=== PATIENT | female | born 1960 | race Caucasian/White ===

== ENCOUNTER → 2021-07-24 20:18 | Outpatient (CLI) | payer MEDICAID, SELFPAY ==
[2021-07-24 20:21] LABS: Adenovirus,PCR Not Detected (NotDetected); Bordetella Pertussis Not Detected (NotDetected); Chlamydophila Pneumoniae, PCR Not Detected (NotDetected); Coronavirus 19, PCR Not Detected (NotDetected); Coronavirus 229E Not Detected (NotDetected); Coronavirus NL63 Not Detected (NotDetected); Coronavirus OC43 Not Detected (NotDetected); Coronovirus HKU1,PCR Not Detected (NotDetected); Human Metapneumovirus Not Detected (NotDetected); Influenza A, PCR Not Detected (NotDetected); Influenza AH1, 2009 Not Detected (NotDetected); Influenza AH1, PCR Not Detected (NotDetected); Influenza AH3,PCR Not Detected (NotDetected); Influenza B, PCR Not Detected (NotDetected); Mycoplasma Pneumoniae, PCR Not Detected (NotDetected); Parainfluenza 1, PCR Not Detected (NotDetected); Parainfluenza 2, PCR Not Detected (NotDetected); Parainfluenza 3, PCR Not Detected (NotDetected); Parainfluenza 4, PCR Not Detected (NotDetected); Respiratory Syncytial Virus Not Detected (NotDetected); Rhinovirus/Enterovirus Not Detected (NotDetected)
== END ==
PROVIDERS: Visit Provider Nurse Practitioner Family
DX: Z20.822 Contact with and (suspected) exposure to COVID-19 (principal); R50.9 Fever, unspecified; R09.89 Other specified symptoms and signs involving the circulatory and respiratory systems
CPT/HCPCS: 87581; 87632; 87798; C9803; U0003; U0005

== ENCOUNTER → 2021-08-30 10:30 | Outpatient (CLI) | payer MEDICAID, SELFPAY | PROVIDERS: Visit Provider Nurse Practitioner | DX: Z20.822 Contact with and (suspected) exposure to COVID-19 (principal) | CPT/HCPCS: C9803; U0003; U0005 ==

== ENCOUNTER 2021-10-30 10:42 | Emergency (ER) | payer MEDICAID, SELFPAY ==
[2021-10-30 12:22] VITALS: BP 138/85; PULSE 90; RESP 18; TEMP 36.7; O2SAT 98; BMI 19.3
--- NOTE | 2021-10-30 12:28 | HMH.EDUTC ---
[facility] Disposition Clinical Impression: Abdominal pain Qualifiers: Abdominal location: generalized Qualified Code(s): R10.84 - Generalized abdominal pain Disposition: Still a Patient Condition on Discharge: Fair Referrals: Provider,Referral, [Primary Care Provider] - Medical Decision Making - Medical Records Medical records reviewed: No: I reviewed the patient's medical records. - Nestor Inquiry Pt receiving controlled substance: No Vital Signs: 10/30/21 12:22 Temperature 98.1 F Temperature Source Oral Pulse Rate [Left] 90 Respiratory Rate 18 Blood Pressure [Right Arm] 138/85 Blood Pressure Mean [Right Arm] 102 02 Sat by Pulse Oximetry 98 - Lab Data Lab results reviewed: Yes: I reviewed the patient's lab results. Lab Results 10/30/21 12:39: Urine Color Dark yellow, Urine Appearance Slightly cloudy, Urine pH 6.5, Ur Specific Lily 1.025, Urine Protein 1+, Urine Glucose (UA) Negative, Urine Ketones Small, Urine Blood Negative, Urine Nitrate Negative, Urine Bilirubin Negative, Urine Urobilinogen 0.2, Ur Leukocyte Esterase Negative 10/30/21 13:05: WBC 9.6, RBC 4.75, Hgb 14.2, Hct 44.0, MCV 92.5, MCH 29.9, MCHC 32.3, RDW 12.0, Plt Count 301, MPV 7.4, Neut % (Auto) 89.6 H, Lymph % (Auto) 7.9 L, [place] % (Auto) 1.7, Eos % (Auto) 0.5, Baso % (Auto) 0.3, Neut # (Auto) 8.6 H, Lymph # (Auto) 0.8, [place] # (Auto) 0.2, Eos # (Auto) 0.1, Baso # (Auto) 0.0 10/30/21 13:05: Sodium 128 L, Potassium 4.6, Chloride 96 L, Carbon Dioxide 26, Anion Gap 10.6, BUN 21 H, Creatinine 0.90, Estimated Creat Clear 57, Estimated GFR 64, Est GFR ( Amer) 77, Glucose 120 H, Calcium 8.7, Total Bilirubin 0.8, AST 37 H, ALT 27, Alkaline Phosphatase 80, Total Protein 7.2, Albumin 4.7, Globulin 2.5, Albumin/Globulin Ratio 1.9 H, Amylase 73, Lipase 23 Result diagrams: 10/30/21 13:05 10/30/21 13:05 Orders (Tests/Meds): ORDERS Category Date Time Status CBC w/Auto Diff [Complete Blood Count Auto Diff] Stat Lab 10/30/21 13:05 Results Urine Culture Stat Micro 10/30/21 14:34 Received Medical Decision Narrative: she was sent to the er for further evaluation due to her abdominal pain with no obvious etiology. [facility] HPI - General Stated complaint: vomiting, abd pains Time Seen by Provider: 10/30/21 12:28 - History of Present Illness Provider Complaint: She has onging issues with abdominal pain, nausea, frequent episodes of n/v. She has a history of chronic constipation and this has not changed. - Related Data Home Medications Medication Instructions Recorded Confirmed duloxetine 20 mg capsule,delayed 20 mg PO BID 07/24/21 07/24/21 release omeprazole 10 mg capsule,delayed 10 mg PO DAILY 07/24/21 07/24/21 release ondansetron HCl 4 mg tablet 4 mg PO Q8H 07/24/21 07/24/21 quetiapine 25 mg tablet 25 mg PO DAILY 07/24/21 07/24/21 Previous Rx's Medication Instructions Recorded azithromycin 250 mg tablet 250 mg PO QDAY 5 Days #6 tab 07/24/21 Allergies Allergy/AdvReac Type Severity Reaction Status Date / Time No Known Allergies Allergy Verified 07/24/21 13:22 [facility] History - Hepatitis A Screen Attestation statement:: This patient has been screened for Hepatitis A risk factors. I have reviewed the patient's past medical history: Yes Medical History: Reports:: Depression, Gastroesophageal Reflux Disease(GERD) Other Medical History: Reports: Other (PTSD) Other Surgeries: Yes: No Previous Surgery - Social History Smoking Status: Current every day smoker Tobacco Type: cigarettes (1 pack ever 2-3 days) Alcohol Intake: never Occupational Status: unemployed - Psychiatric History Pschychiatric History:: Reports:: Depression Family Hx:: Non-contributory ROS Obtained: Yes All systems reviewed & no additional complaints - Constitutional Constitutional: Reports as per HPI, Denies chills, Denies fever(s), Reports poor appetite - Eyes Eyes: Denies eye discharge - ENT Ears, Nose, Mouth, and Throa
[2021-10-30 12:40] LABS: Apearance,Urine Slightly Cloudy (Clear); Color,Urine Dark Yellow (Yellow); PH,Urine 6.5 (5.0-8.5); Protein,Urine 1+ (Negative); Specific Gravity, Urine 1.025 (1.005-1.030)
[2021-10-30 12:41] LABS: Bilirubin,Urine Negative (Negative); Blood, Urine Negative (Negative); Glucose,Urine (UA) Negative (Negative); Ketones,Urine SMALL (Negative); UTC Leukocyte Esterase,Urine Negative (Negative); UTC Nitrate,Urine Negative (Negative); Urobilinogen,Urine 0.2 EU/dl (0.2)
[2021-10-30 13:21] LABS: Chloride 96 mmol/L (98-107); Potassium 4.6 mmoL/L (3.5-5.1); Sodium 128 mmol/L (136-145)
[2021-10-30 13:24] LABS: Alanine Aminotransferase 27 U/L (12-78); Albumin Level 4.7 g/dl (3.5-5.0); Albumin/Globulin Ratio 1.9 (1.1-1.8); Alkaline Phosphatase 80 U/L (38-126); Amylase 73 U/L (30-110); Anion Gap 10.6 mEq/L (5-15); Aspartate Amino Transferase 37 U/L (14-36); Bilirubin,Total 0.8 mg/dl (0.2-1.3); Blood Urea Nitrogen 21 mg/dl (7-17); Calcium 8.7 mg/dl (8.4-10.2); Carbon Dioxide 26 mmol/L (22.0-30.0); Creatinine Clearance Estimated 57 mL/min (50-200); Estimated Glomerular Filt Rate 64 ml/min (>60); GFR (African American) 77 ML/MIN (>60); Globulin 2.5 g/dL (1.3-3.2); Glucose 120 mg/dl (74-100); Lipase 23 U/L (23-300); Total Protein,Serum 7.2 g/dl (6.3-8.2)
[2021-10-30 13:59] LABS: Basophils % 0.3 % (0.1-2.0); Eosinophils # 0.1 K/mm3 (0.0-0.4); Eosinophils % 0.5 % (0.1-12.0); Hemoglobin 14.2 g/dL (12.2-16.2); Lymphocytes # 0.8 K/mm3 (0.7-4.5); Lymphocytes % 7.9 % (10-50); Mean Corpuscular HGB Conc 32.3 g/dL (31.8-35.4); Mean Corpuscular Hemoglobin 29.9 pg (27.0-31.2); Mean Corpuscular Volume 92.5 fl (81-99); Mean Platelet Volume 7.4 fl (7.4-10.4); Monocytes # 0.2 K/mm3 (0.1-1.0); Monocytes % 1.7 % (1.7-9.3); Neutrophils # 8.6 K/mm3 (1.8-7.8); Neutrophils % 89.6 % (37.0-80.0); Platelet Count 301 K/mm3 (142-424); Red Blood Count 4.75 M/mm3 (4.20-5.40); White Blood Count 9.6 K/mm3 (4.8-10.8)
[2021-10-30 14:17] LABS: MANUAL DIFFERENTIAL MANUAL DIFFERENTIAL (MANUAL DIFF)
[2021-10-30 14:41] LABS: Lymphocytes % 11 % (10-50); Monocytes % 2 % (2-9); Neutrophils % 87 % (42-76); Platelet Estimate Normal; Total Cells Counted 100
--- NOTE | 2021-10-30 14:44 | PC.NURSE ---
Pt requesting CT scan today for further work-up, pt has been following a GI doctor and PCP for stomach issues. Bernardo examined pt and decided to send her to ED at this time. Called report to KAYLA Haynes, advised pt to room 11
[2021-10-30 14:51] VITALS: BP 154/103; PULSE 86; O2SAT 97
[2021-10-30 14:52] VITALS: BP 154/103; PULSE 90; RESP 16; TEMP 36.8; O2SAT 97; BMI 19.3
--- NOTE | 2021-10-30 14:58 | PC.NURSE ---
pt mother comes out of room stating that pt is not wanting to have CT scan now. Entered room to speak with pt, pt states she thinks she would like to go with the plan of antibiotics and nausea medication that provider in [facility] had suggested to her prior to transfer to ER. States she is scheduled to have repeat CT scan in january or february of this year. Pt reports she is following up with GI at as well. Asked pt if she would like to be seen by ER MD still, states no, not if I don't have to. . Went over to discuss this with JOYA Ramírez in [facility]. Darrell is agreeable to send pt prescriptions in as previously discussed with pt. Asked me to advise pt to return for worsening symptoms and to be sure to keep follow up appts with [facility]. [id number]-retun back to pts room, notified her that Darrell states he will send prescriptions in for pt. Advised pt to keep follow up appts as scheduled with [facility] and to return to ER for worsening symptoms. Pt verbalized understanding. Pt IV removed, AMA formed signed stating pt was leaving hospital. Notified ER MD of the above since pt leaving without being seen by ER MD; pt was transferred to ER from [facility].
[2021-10-30 15:06] VITALS: BP 154/103; PULSE 90; RESP 16; TEMP 36.8; O2SAT 97
== END 2021-10-30 15:06 | disposition still patient (30) ==
LOC: UTC 14:41 → ER 14:44
PROVIDERS: Emergency Provider Nurse Practitioner Family
DX: R10.84 Generalized abdominal pain (principal); K59.00 Constipation, unspecified; K21.9 Gastro-esophageal reflux disease without esophagitis; F33.1 Major depressive disorder, recurrent, moderate; Z79.899 Other long term (current) drug therapy
CPT/HCPCS: 80053; 81003; 82150; 83690; 85007; 85025; 87086; 99283

== ENCOUNTER → 2021-11-16 08:18 | Outpatient (CLI) | payer MEDICAID, SELFPAY ==
--- NOTE | 2021-11-16 08:18 | CT_ITS ---
FINAL REPORT CLINICAL HISTORY: abdominal pain, weight loss, divertic disease FINDINGS: Axial CT images of the abdomen and pelvis were obtained without intravenous contrast. Coronal reformatted images were also obtained.This study was performed with techniques to keep radiation doses as low as reasonably achievable (ALARA). Individualized dose reduction techniques using automated exposure control or adjustment of mA and/or kV according to the patient's size were employed. Abdomen: There is a little bit of scarring in the right lung base. There is no evidence of renal stone or hydronephrosis. The gallbladder is present. The liver, spleen, pancreas and adrenals have an unremarkable, unenhanced appearance. No mass or adenopathy is seen. No inflammatory process is identified. Pelvis: Images of the pelvis reveal no evidence of ureteral dilation or ureteral stone. The uterus measures up to 10.3 cm transverse and 7.6 cm AP and has an abnormal appearance. It is lobular with multiple masses and calcifications consistent with a fibroid uterus. IMPRESSION: No renal or ureteral stone, or hydronephrosis. Diffusely fibroid uterus. Scarring in the right lung base. Reviewed, Interpreted and Dictated by Andrew Huynh MD Transcribed by Tsering Morley Authenticated by Andrew Huynh MD on 11/16/2021 09:59:[address] [facility]
== END ==
PROVIDERS: PCP Family Medicine; Visit Provider Family Medicine
DX: R10.9 Unspecified abdominal pain (principal); R63.4 Abnormal weight loss; Z68.1 Body mass index [BMI] 19.9 or less, adult
CPT/HCPCS: 74176

== ENCOUNTER → 2022-01-01 09:19 | Outpatient (CLI) | payer MEDICAID, SELFPAY | PROVIDERS: PCP Family Medicine; Visit Provider Nurse Practitioner | DX: R06.00 Dyspnea, unspecified (principal); R00.0 Tachycardia, unspecified; R00.2 Palpitations; R42 Dizziness and giddiness; R60.9 Edema, unspecified; R94.31 Abnormal electrocardiogram [ECG] [EKG] | CPT/HCPCS: 93270 ==

== ENCOUNTER → 2022-01-07 11:24 | Outpatient (CLI) | payer MEDICAID, SELFPAY ==
[2022-01-07 12:06] LABS: Basophils # 0.1 K/mm3 (0-0.2); Eosinophils # 0.1 K/mm3 (0.0-0.4); Eosinophils % 1.1 % (0.1-12.0); Hematocrit 39.5 % (37.0-47.0); Lymphocytes # 1.7 K/mm3 (0.7-4.5); Lymphocytes % 25.3 % (10-50); Mean Corpuscular HGB Conc 32.9 g/dL (31.8-35.4); Mean Corpuscular Volume 97.4 fl (81-99); Mean Platelet Volume 7.7 fl (7.4-10.4); Monocytes # 0.3 K/mm3 (0.1-1.0); Monocytes % 5.1 % (1.7-9.3); Neutrophils # 4.4 K/mm3 (1.8-7.8); Neutrophils % 67.4 % (37.0-80.0); Platelet Count 209 K/mm3 (142-424); Red Blood Count 4.05 M/mm3 (4.20-5.40); Red Cell Distribution Width 16.3 % (11.5-17.5); White Blood Count 6.5 K/mm3 (4.8-10.8)
[2022-01-07 12:49] LABS: Chloride 104 mmol/L (98-107); Potassium 4.9 mmoL/L (3.5-5.1); Sodium 134 mmol/L (136-145)
[2022-01-07 12:51] LABS: Blood Urea Nitrogen 22 mg/dl (7-17); Estimated Glomerular Filt Rate 57 ml/min (>60); GFR (African American) 68 ML/MIN (>60)
[2022-01-07 12:52] LABS: Alanine Aminotransferase 40 U/L (12-78); Albumin Level 4.3 g/dl (3.5-5.0); Alkaline Phosphatase 76 U/L (38-126); Anion Gap 10.9 mEq/L (5-15); Aspartate Amino Transferase 72 U/L (14-36); Bilirubin,Direct 0.6 mg/dl (0.0-0.4); Bilirubin,Indirect 0.7 mg/dL (0.0-0.9); Bilirubin,Total 1.3 mg/dl (0.2-1.3); Bilirubin,Unconjugated 0.7 mg/dL (0.0-1.1); Calcium 9.2 mg/dl (8.4-10.2); Carbon Dioxide 24 mmol/L (22.0-30.0); Cholesterol 223 mg/dl (140-200); Glucose 110 mg/dl (74-100); Total Protein,Serum 6.8 g/dl (6.3-8.2); Triglycerides 73 mg/dl (30-150); VLDL Cholesterol 15 mg/dL (0-40)
[2022-01-07 12:53] LABS: Magnesium 1.7 mg/dl (1.6-2.3)
[2022-01-07 13:04] LABS: Direct LDL Cholesterol 94.14 mg/dL (100-129)
[2022-01-07 13:24] LABS: Thyroid Stimulating Hormone 1.34 uIU/mL (0.465-4.68)
[2022-01-07 13:27] LABS: HDL Cholesterol 109 mg/dl (40-60)
== END ==
PROVIDERS: Visit Provider Nurse Practitioner
DX: R06.00 Dyspnea, unspecified (principal); R42 Dizziness and giddiness; R00.0 Tachycardia, unspecified; R00.2 Palpitations; R60.9 Edema, unspecified
CPT/HCPCS: 36415; 80048; 80061; 80076; 83735; 84439; 84443; 85025

== ENCOUNTER → 2022-01-15 06:28 | Outpatient (CLI) | payer MEDICAID, SELFPAY ==
--- NOTE | 2022-01-15 06:29 | CA_ITS ---
APPROVED REPORT Exam: Pharmacologic Technologist: Olive Franklin, Ht: 5 ft 6 in Wt: 119 lbs BSA: 1.60 m2 HR: 65 bpm BP: 139/69 mmHg Rhythm: NSR, rightward axis Medical History Medications: Buspirone,,,,, ProMETHAZINE,,,,, Protonix,,,,, Famotidine,,,,, DulOXETINE,,,,, PraZOSIN,,,,, Quetiapine,,,,, Zofran,,,,, Hydroxyzine pamoate,,,,, Strattera,,,,, NaloXone,,,,, Cardiac Risk Factors: Smoking Stress Test Details Test: LEXISCAN HR Resting HR: 68 bpm Max Heart Rate (APMHR): 160.094687 bpm Max HR Achieved: 93 bpm Target HR (85% APMHR): 136.473159 bpm % of APMHR: 58.13 Recovery HR: 91 bpm BP Resting BP: 139/69 mmHg Max BP: 139/69 mmHg Recovery BP: 133.0/81.0 mmHg ECG Resting ECG: NSR, rightward axis Clinical Exercise duration: 04:00 min Highest Stage Achieved: Exercise capacity: 1.0 METs Stress ECG Conclusion During lexiscan pt experinced mild SOA, mild nausea. No CP noted. No arrhythmias noted. No significant ST changes. Unremarkable lexiscan stress. Myoview images reported separately. Test Summary REST . . . . . . . Sitting REST 04:55 . . 68 . 139/ 69 . . Stage 1 01:00 . . 86 . . . . Stage 2 01:00 . . 90 . 109/ 68 . . Stage 3 01:00 . . 90 . 117/ 70 . . Stage 4 01:00 . . 89 . 130/ 77 . Stop exercise at 04:00 RECOVERY 01:00 . . 90 . . . . RECOVERY 02:00 . . 89 . 133/ 81 . . RECOVERY 03:00 . . 85 . 134/ 80 . . RECOVERY 03:22 . . 85 . 134/ 80 . . Electronically signed by : Mahendra Pino MD 01/15/2022 20:20:27
--- NOTE | 2022-01-15 06:29 | NM_ITS ---
APPROVED REPORT Exam: Nuclear Stress Test Indication: Chest pain, SOB, Palpitations, Fatigue, HTN, High cholesterol, Tobacco use, Family history Patient Location: Outpatient Stress Tech: Olive Franklin NM Tech:Marla Alston, ARRT, RT (R)(N) Ht: 5 ft 6 in Wt: 120 lbs Bra Size: 32B HR: 69 bpm BP: 139/69 mmHg BSA: 1.61 m2 BMI: 19.3 History: Chest pain, SOB, Palpitations, Fatigue, HTN, High cholesterol, Tobacco use, Family history Procedure: Patient received a 0.4 mg of intravenous Lexiscan, resting heart rate 69 bpm, resting blood pressure 139/69 mmHg, with Lexiscan maximum heart rate achived was 93 bpm which is Less than 85 % of the maximum predicted heart rate and blood pressure was 139/69 mmHg. With Lexiscan, patient denied any complaint of chest pain. Electrocardiogram Resting electrocardiogram shows sinus rhythm with Lexiscan there is less than 1.[address] segment depression noted from the baseline EKG. The EKG portion of the Lexiscan is nondiagnostic. Cardiac Stress and Resting SPECT Images: Cardiac Stress and Resting SPECT images were obtained using technetium 99m Myoview 31.3 mCi stress and 9.81 mCi at rest. Gated SPECT for analysis of segmental wall motion and calculation of the ejection fraction also done. Cardiac stress and resting SPECT images show uniform myocardial activity without segmental perfusion abnormality, computer derived ejection fraction is 55% with no regional wall motion abnormality, right ventricle is normal size and contractility. Conclusion: 1. The EKG portion of the Lexiscan is nondiagnostic. 2. No scintigraphic evidence of reversible ischemia seen, computer derived ejection fraction of 55% with no regional wall motion abnormality, right ventricle is normal size and contractility. 3. Normal Lexiscan Myoview study. Electronically signed by : Mahendra Pino MD 01/15/2022 20:23:01
--- NOTE | 2022-01-15 08:18 | HMH.ITSHM ---
Current Home Medications as stated by this patient Carmen Sarah or sales training representative. []QUETIAPINE PROMETHAZINE PRAZOSIN PANTOPRAZOLE METOPROLOL HYDROXYZINE FAMOTIDINE DULOXETINE BUSPIRONE BUPRENORPHINE ATOMOXETINE
== END ==
PROVIDERS: PCP Family Medicine; Visit Provider Nurse Practitioner
DX: R06.00 Dyspnea, unspecified (principal); R00.0 Tachycardia, unspecified; R00.2 Palpitations; R42 Dizziness and giddiness; R60.9 Edema, unspecified; R94.31 Abnormal electrocardiogram [ECG] [EKG]
CPT/HCPCS: 78452; 93017; A9502; J2785

== ENCOUNTER 2022-03-28 16:10 | Emergency (ER) | payer MEDICAID, SELFPAY ==
[2022-03-28 16:25] VITALS: BP 124/83; PULSE 83; RESP 17; TEMP 36.8; O2SAT 97; BMI 19.3
[2022-03-28 16:32] LABS: UTC Strep Screen (Rapid) Negative (Negative)
--- NOTE | 2022-03-28 17:06 | HMH.EDUTC ---
[facility] [place] Clinical Impression: Close exposure to COVID-19 virus Sinusitis Qualifiers: Sinusitis location: unspecified location Chronicity: acute Recurrence: non-recurrent Qualified Code(s): J01.90 - Acute sinusitis, unspecified Otitis media Qualifiers: Otitis media type: suppurative Chronicity: acute Laterality: bilateral Recurrence: non-recurrent Spontaneous tympanic membrane rupture: without spontaneous rupture Qualified Code(s): H66.003 - Acute suppurative otitis media without spontaneous rupture of ear drum, bilateral Disposition: Home, Self-Care Condition on Discharge: Good Instructions: DI for Sinusitis, Preventing the Spread of Coronavirus Discharge Instructions Additional Instructions: Drink plenty of fluids. Take tylenol or ibuprofen for pain or fever. Take the medications as directed. Follow up with your regular doctor. GO TO THE ER FOR ANY WORSENING SYMPTOMS Quarantine until you know the results of your covid-19 test. Notify your school or workplace of your results and follow their instructions regarding return to work/school. Prescriptions: Benzonatate [Benzonatate 100mg cap] 100 mg PO TIDP PRN #30 cap PRN Reason: Cough Transmission Status: Received by [facility] methylPREDNISolone [Medrol] 4 mg PO DIRECTED 6 Days #21 packet Transmission Status: Received by [facility] Azithromycin [Z-Gustavo 250mg Tab*] 250 mg PO UD DOSE PK #6 tab Transmission Status: Received by [facility] Referrals: Juaquin Ivey MD [Primary Care Provider] - Time of Disposition: 17:11 Medical Decision Making - Medical Records Medical records reviewed: No: I reviewed the patient's medical records. - Nestor Inquiry Pt receiving controlled substance: No Vital Signs: 03/28/22 16:25 03/28/22 17:22 Temperature 98.3 F 98.3 F Temperature Source Oral Pulse Rate 83 Pulse Rate [Left] 83 Respiratory Rate 17 17 Blood Pressure 124/83 Blood Pressure [Right Arm] 124/83 Blood Pressure Mean [Right Arm] 96 02 Sat by Pulse Oximetry 97 - Lab Data Lab Results 03/28/22 16:31: Strep Scn Rapid [facility] Negative Orders (Tests/Meds): ED MEDICATIONS Discontinued Medications Generic Name Dose Route Start Last Admin Trade Name Freq PRN Reason Stop Dose Admin Dexamethasone Sodium Phosphate 8 mg 03/28/22 17:15 03/28/22 17:21 Dexamethasone 4mg/Ml 1ml Vial IM 03/28/22 17:16 8 mg ONCE ONE Administration ORDERS Category Date Time Status Covid-19 Nasal PCR ([facility]) Routine Lab 03/28/22 16:18 Received Strep Screen Confirmation Stat Micro 03/28/22 16:31 Received [facility] HPI - General Time Seen by Provider: 03/28/22 16:25 Mode of Arrival: Ambulatory Source of Information: Patient Limitations: No Limitations Description of Symptoms (Recalled from Triage Doc. by RN): patient comes in for sore burning throat, bilateral ear pain, dry cough. symptoms began 4 days ago. patient was exposed to covid 03/22. covid home test that day was negative. HEENT Symptoms (Recalled from RN notes): Yes Resp Symptoms (Recalled from RN notes): Yes Skin Symptoms (Recalled from RN notes): No MS Symptoms (Recalled from RN notes): No Functional Status (Recalled from RN notes): n/a - History of Present Illness Provider Complaint: SHe c/o sore throat, body aches, chills, and feeling bad for the past 4 days. - Related Data Home Medications Medication Instructions Recorded Confirmed ondansetron HCl 4 mg tablet 4 mg PO Q8H 07/24/21 02/05/22 buprenorphine 8 mg-naloxone 2 mg tab SUBLINGUAL 11/12/21 02/05/22 sublingual tablet buspirone 10 mg tablet 10 mg PO DAILY tab 11/12/21 02/05/22 famotidine 20 mg tablet 20 mg PO tab 11/12/21 02/05/22 hydroxyzine pamoate 25 mg capsule 25 mg PO cap 11/12/21 02/05/22 metoprolol succinate 50 mg 50 mg PO DAILY tab 11/12/21 02/05/22 tablet,extended release 24 hr promethazine 25 mg tablet 25 mg PO PRN tab 11/12/21 02/05/22 du
[2022-03-28 17:22] VITALS: BP 124/83; PULSE 83; RESP 17; TEMP 36.8
== END 2022-03-28 17:36 | disposition home or self-care (01) ==
PROVIDERS: Emergency Provider Nurse Practitioner Family; PCP Family Medicine
DX: J01.90 Acute sinusitis, unspecified (principal)
CPT/HCPCS: 87880; 96372; 99212; C9803; G0463; U0003; U0005

== ENCOUNTER 2022-04-05 13:23 | Emergency (ER) | payer MEDICAID, SELFPAY ==
[2022-04-05 13:46] LABS: UTC Strep Screen (Rapid) Negative (Negative)
--- NOTE | 2022-04-05 13:48 | HMH.EDUTC ---
[facility] [place] Disposition Clinical Impression: Viral syndrome Sinusitis Qualifiers: Sinusitis location: unspecified location Chronicity: acute Recurrence: non-recurrent Qualified Code(s): J01.90 - Acute sinusitis, unspecified Disposition: Home, Self-Care Condition on Discharge: Good Instructions: Sinusitis, DI for Sinusitis Additional Instructions: Drink plenty of fluids. Take tylenol or ibuprofen for pain or fever. Take the medications as directed. Follow up with your regular doctor. GO TO THE ER FOR ANY WORSENING SYMPTOMS Prescriptions: Promethazine/Dextromethorphan [Promethazine-Dm Syrup] 5 ml PO Q6HP PRN #240 ml PRN Reason: Cough Transmission Status: Received by [facility] methylPREDNISolone [Medrol] 4 mg PO DIRECTED 6 Days #21 packet Transmission Status: Received by [facility] Cefdinir [Omnicef 300mg Capsule] 300 mg PO BID #20 cap Transmission Status: Received by [facility] Referrals: Juaquin Ivey MD [Primary Care Provider] - Time of Disposition: 14:23 Medical Decision Making - Medical Records Medical records reviewed: No: I reviewed the patient's medical records. - Nestor Inquiry Pt receiving controlled substance: No Vital Signs: 04/05/22 13:52 04/05/22 14:44 Temperature 97.6 F 97.6 F Temperature Source Oral Pulse Rate 80 Pulse Rate [Left] 80 Respiratory Rate 16 16 Blood Pressure 100/64 L Blood Pressure [Right Arm] 100/64 L Blood Pressure Mean [Right Arm] 76 02 Sat by Pulse Oximetry 98 - Lab Data Lab results reviewed: Yes: I reviewed the patient's lab results. Lab Results 04/05/22 13:34: Strep Scn Rapid Clinic Negative 04/05/22 14:25: Chlamy pneumoniae PCR Not detected, Adenovirus (PCR) Not detected, B. pertussis DNA (PCR) Not detected, Coronavirus OC43 (PCR) Not detected, Coronavirus HKU1 (PCR) Not detected, Coronavirus 229E (PCR) Not detected, SARS-CoV-2 (PCR) Not detected, Coronavirus NL63 (PCR) Not detected, Human Metapneumovir PCR Not detected, Influenza A (H1) PCR Not detected, Influ A (H1N1/09) PCR Not detected, Influenza A (H3) PCR Not detected, Influenza Type A (PCR) Not detected, Influenza Type B (PCR) Not detected, M. pneumoniae (PCR) Not detected, Parainfluenza 1 (PCR) Not detected, Parainfluenza 2 (PCR) Not detected, Parainfluenza 3 (PCR) Not detected, Parainfluenza 4 (PCR) Not detected, RSV (PCR) Not detected, Entero/Rhino (PCR) Not detected [facility] HPI - General Stated complaint: Headache, sore throat Time Seen by Provider: 04/05/22 13:48 - History of Present Illness Provider Complaint: she c/o sore throat and feeling bad for the past 2 days. - Related Data Home Medications Medication Instructions Recorded Confirmed ondansetron HCl 4 mg tablet 4 mg PO Q8H 07/24/21 02/05/22 buprenorphine 8 mg-naloxone 2 mg tab SUBLINGUAL 11/12/21 02/05/22 sublingual tablet buspirone 10 mg tablet 10 mg PO DAILY tab 11/12/21 02/05/22 famotidine 20 mg tablet 20 mg PO tab 11/12/21 02/05/22 hydroxyzine pamoate 25 mg capsule 25 mg PO cap 11/12/21 02/05/22 promethazine 25 mg tablet 25 mg PO PRN tab 11/12/21 02/05/22 duloxetine 60 mg capsule,delayed 60 mg PO BID cap 11/29/21 02/05/22 release quetiapine 200 mg tablet 200 mg PO HS tab 11/29/21 02/05/22 Previous Rx's Medication Instructions Recorded atomoxetine 80 mg capsule 80 mg PO DAILY #90 cap 11/12/21 pantoprazole 40 mg tablet,delayed 40 mg PO DAILY #90 tab 11/12/21 release prazosin 5 mg capsule 5 mg PO HS #90 cap 11/12/21 Azithromycin [Z-Gustavo 250mg Tab*] 250 mg PO UD DOSE PK #6 tab 03/28/22 Benzonatate [Benzonatate 100mg 100 mg PO TIDP PRN #30 cap 03/28/22 cap] methylPREDNISolone [Medrol] 4 mg PO DIRECTED 6 Days #21 03/28/22 packet metoprolol succinate 50 mg See Rx Instructions .ROUTE 03/29/22 tablet,extended release 24 hr .COMPLEX #30 tab Cefdinir [Omnicef 300mg Capsule] 300 mg PO BID #20 cap 04/05/22 Promethazine/Dextromethorphan 5 ml PO Q6HP P
[2022-04-05 13:52] VITALS: BP 100/64; PULSE 80; RESP 16; TEMP 36.4; O2SAT 98; BMI 18.7
[2022-04-05 14:44] VITALS: BP 100/64; PULSE 80; RESP 16; TEMP 36.4
[2022-04-05 15:20] LABS: Adenovirus,PCR Not Detected (NotDetected); Bordetella Pertussis Not Detected (NotDetected); Chlamydophila Pneumoniae, PCR Not Detected (NotDetected); Coronavirus 19, PCR Not Detected (NotDetected); Coronavirus 229E Not Detected (NotDetected); Coronavirus NL63 Not Detected (NotDetected); Coronavirus OC43 Not Detected (NotDetected); Coronovirus HKU1,PCR Not Detected (NotDetected); Human Metapneumovirus Not Detected (NotDetected); Influenza A, PCR Not Detected (NotDetected); Influenza AH1, 2009 Not Detected (NotDetected); Influenza AH1, PCR Not Detected (NotDetected); Influenza AH3,PCR Not Detected (NotDetected); Influenza B, PCR Not Detected (NotDetected); Mycoplasma Pneumoniae, PCR Not Detected (NotDetected); Parainfluenza 1, PCR Not Detected (NotDetected); Parainfluenza 2, PCR Not Detected (NotDetected); Parainfluenza 3, PCR Not Detected (NotDetected); Parainfluenza 4, PCR Not Detected (NotDetected); Respiratory Syncytial Virus Not Detected (NotDetected); Rhinovirus/Enterovirus Not Detected (NotDetected)
== END 2022-04-05 14:45 | disposition home or self-care (01) ==
PROVIDERS: Emergency Provider Nurse Practitioner Family; PCP Family Medicine
DX: J01.90 Acute sinusitis, unspecified (principal); J02.9 Acute pharyngitis, unspecified; R51.9 Headache, unspecified; K21.9 Gastro-esophageal reflux disease without esophagitis; F32.A Depression, unspecified; Z20.822 Contact with and (suspected) exposure to COVID-19; Z79.52 Long term (current) use of systemic steroids
CPT/HCPCS: 87581; 87632; 87798; 87880; 99213; C9803; G0463; U0003; U0005

== ENCOUNTER 2022-04-12 14:03 | Outpatient (CLI) | payer MEDICAID, SELFPAY | END 2022-04-12 14:15 | PROVIDERS: PCP Family Medicine; Visit Provider Family Medicine | DX: U07.1 COVID-19 (principal) | CPT/HCPCS: C9803; U0003; U0005 ==

== ENCOUNTER → 2022-04-23 07:07 | Outpatient (CLI) | payer MEDICAID, SELFPAY ==
[2022-04-23 19:42] LABS: Adenovirus,PCR Not Detected (NotDetected); Bordetella Pertussis Not Detected (NotDetected); Chlamydophila Pneumoniae, PCR Not Detected (NotDetected); Coronavirus 19, PCR Not Detected (NotDetected); Coronavirus 229E Not Detected (NotDetected); Coronavirus NL63 Not Detected (NotDetected); Coronavirus OC43 Not Detected (NotDetected); Coronovirus HKU1,PCR Not Detected (NotDetected); Human Metapneumovirus Not Detected (NotDetected); Influenza A, PCR Not Detected (NotDetected); Influenza AH1, 2009 Not Detected (NotDetected); Influenza AH1, PCR Not Detected (NotDetected); Influenza AH3,PCR Not Detected (NotDetected); Influenza B, PCR Not Detected (NotDetected); Mycoplasma Pneumoniae, PCR Not Detected (NotDetected); Parainfluenza 1, PCR Not Detected (NotDetected); Parainfluenza 2, PCR Not Detected (NotDetected); Parainfluenza 3, PCR Not Detected (NotDetected); Parainfluenza 4, PCR Not Detected (NotDetected); Respiratory Syncytial Virus Not Detected (NotDetected); Rhinovirus/Enterovirus Not Detected (NotDetected)
== END ==
PROVIDERS: PCP Nurse Practitioner Family; Visit Provider Nurse Practitioner Family
DX: Z20.822 Contact with and (suspected) exposure to COVID-19 (principal); R05.9 Cough, unspecified
CPT/HCPCS: 87581; 87632; 87798; C9803; U0003; U0005

== ENCOUNTER → 2022-05-21 06:40 | Outpatient (CLI) | payer MEDICAID, SELFPAY | PROVIDERS: PCP Family Medicine; Visit Provider Family Medicine | DX: R30.0 Dysuria (principal); B96.29 Other Escherichia coli [E. coli] as the cause of diseases classified elsewhere | CPT/HCPCS: 87086; 87088; 87186 ==

== ENCOUNTER → 2022-05-30 11:35 | Outpatient (CLI) | payer MEDICAID, SELFPAY | PROVIDERS: PCP Nurse Practitioner Family; Visit Provider Nurse Practitioner Family | DX: R30.0 Dysuria (principal); B96.29 Other Escherichia coli [E. coli] as the cause of diseases classified elsewhere | CPT/HCPCS: 87086; 87088; 87186 ==

== ENCOUNTER → 2022-06-07 07:44 | Outpatient (CLI) | payer MEDICAID, SELFPAY ==
--- NOTE | 2022-06-07 07:44 | CT_ITS ---
FINAL REPORT TECHNIQUE: Axial images were obtained from the lung apex to the mid abdomen by computed tomography. This study was performed with techniques to keep radiation doses as low as reasonably achievable (ALARA). Individualized dose reduction techniques using automated exposure control or adjustment of mA and/or kV according to the patient's size were employed. CLINICAL HISTORY: lung cancer screening. current smoker. smokes half a pack a day x 30 years. no hx of or family hx of cancer. FINDINGS: CHEST CT LOW DOSE CTDI vol (mGy): 2.90 DLP (mGy-cm): 103.16 There is no axillary adenopathy. There is no hilar or mediastinal adenopathy. The heart is normal in size. There is no pericardial or pleural effusion. Lung window images demonstrate no suspicious infiltrate or nodule. There is mild emphysema. There is mild to moderate scarring, greatest in the right lung base. There is a calcified granuloma near the left major fissure. Limited images of the upper abdomen are unremarkable. IMPRESSION: Lung RADS category 1. Recommend 12 month follow-up low-dose chest CT. Reviewed, Interpreted and Dictated by Jere Douglas III, MD Transcribed by Vidhi Shah Authenticated and [facility]
== END ==
PROVIDERS: PCP Family Medicine; Visit Provider Nurse Practitioner Family
DX: Z87.891 Personal history of nicotine dependence (principal); Z12.2 Encounter for screening for malignant neoplasm of respiratory organs
CPT/HCPCS: 71271

== ENCOUNTER → 2022-08-22 12:41 | Outpatient (CLI) | payer MEDICAID, SELFPAY ==
--- NOTE | 2022-08-22 12:45 | XR_ITS ---
FINAL REPORT TECHNIQUE: Chest PA & Lateral CLINICAL HISTORY: cough and rib pain left anterior chest FINDINGS: 2 views of the chest were performed. The heart size is normal. The mediastinum is within normal limits. The lungs are hyperinflated consistent with COPD. There is no acute infiltrate. There are no pleural effusions. There is no pneumothorax. The bony thorax appears intact. IMPRESSION: No acute cardiopulmonary process. Reviewed, Interpreted and Dictated by Jere Douglas III, MD Transcribed by Modesto Evans Authenticated and [facility]
== END ==
PROVIDERS: PCP Family Medicine; Visit Provider Family Medicine
DX: R07.81 Pleurodynia (principal)
CPT/HCPCS: 71046

== ENCOUNTER → 2022-09-13 15:23 | Outpatient (CLI) | payer MEDICAID, SELFPAY ==
[2022-09-13 19:01] LABS: Thyroid Stimulating Hormone < 0.02 uIU/mL (0.465-4.68)
[2022-09-15 11:10] LABS: Estradiol <5.0 pg/mL (.); FSH 23.9 mIU/mL (.)
== END ==
PROVIDERS: PCP Family Medicine; Visit Provider Obstetrics & Gynecology
DX: N95.9 Unspecified menopausal and perimenopausal disorder (principal); R61 Generalized hyperhidrosis
CPT/HCPCS: 36415; 82670; 83001; 84443

== ENCOUNTER → 2022-09-27 15:12 | Outpatient (CLI) | payer MEDICAID, SELFPAY ==
[2022-09-27 19:11] LABS: Free Thyroxine Index 2.5 ug/dL (5.93-13.13); T4 (Thyroxine) 7.7 ug/dl (5.53-11.0); Triiodothryronine (T3) Uptake 32 % (23.5-40.5)
[2022-09-27 19:25] LABS: Thyroid Stimulating Hormone 1.34 uIU/mL (0.465-4.68)
== END ==
PROVIDERS: PCP Family Medicine; Visit Provider Family Medicine
DX: R79.89 Other specified abnormal findings of blood chemistry (principal)
CPT/HCPCS: 36415; 84436; 84443; 84479

== ENCOUNTER → 2022-10-29 07:38 | Outpatient (CLI) | payer MEDICAID, SELFPAY ==
--- NOTE | 2022-10-29 07:38 | MM_ITS ---
PROCEDURE INFORMATION: Exam: MG Bilateral Screening 3D Mammography Exam date and time: 10/29/2022 7:53 AM Age: 62 years old Clinical indication: Screening. No family history of breast cancer. TECHNIQUE: Imaging protocol: Bilateral Screening tomosynthesis and 2D mammography including computer-aided detection (CAD) when performed. COMPARISON: No relevant prior studies available.If prior mammograms are provided, I am happy to add an addendum. FINDINGS: MAMMOGRAPHY: Breast composition: The breasts are heterogeneously dense, which may obscure small masses. Mass: None. Architectural distortion: None. Calcifications: No suspicious calcifications. Asymmetric density: None. Skin thickening: None. Axillary adenopathy: None. IMPRESSION: No mammographic evidence of malignancy. Annual screening is recommended unless otherwise clinically indicated. ASSESSMENT: BI-RADS Category 1: Negative
== END ==
PROVIDERS: PCP Family Medicine; Visit Provider Obstetrics & Gynecology
DX: Z12.31 Encounter for screening mammogram for malignant neoplasm of breast (principal)
CPT/HCPCS: 77063; 77067

== ENCOUNTER → 2023-02-04 14:25 | Outpatient (CLI) | payer MEDICAID, SELFPAY ==
--- NOTE | 2023-02-04 14:32 | XR_ITS ---
FINAL REPORT CLINICAL HISTORY: cough, soa COMPARISON: A report is available from August 22, 2022 FINDINGS: Two views of the chest were obtained. Changes of hyperinflation compatible with chronic obstructive pulmonary disease are present. There is mild scarring in the right lung base. The heart size and pulmonary vascularity are within normal limits. The mediastinum is normal. No acute pulmonary abnormality is identified. There is no pneumothorax. The bony thorax is intact. IMPRESSION: Changes of chronic obstructive pulmonary disease. No active cardiopulmonary disease. Reviewed, Interpreted and Dictated by Jere Douglas III, MD Transcribed by Martha Alaniz Authenticated and [facility]
[2023-02-04 15:47] LABS: Chloride 98 mmol/L (98-107); Potassium 4.5 mmoL/L (3.5-5.1); Sodium 138 mmol/L (136-145)
[2023-02-04 15:48] LABS: Basophils % 0.3 % (0.1-2.0); Eosinophils # 0.1 K/mm3 (0.0-0.4); Eosinophils % 0.9 % (0.1-12.0); Hematocrit 38.1 % (37.0-47.0); Hemoglobin 11.6 g/dL (12.2-16.2); Lymphocytes # 1.8 K/mm3 (0.7-4.5); Lymphocytes % 17.7 % (10-50); Mean Corpuscular HGB Conc 30.5 g/dL (31.8-35.4); Mean Corpuscular Hemoglobin 27.6 pg (27.0-31.2); Mean Corpuscular Volume 90.5 fl (81-99); Mean Platelet Volume 7.7 fl (7.4-10.4); Monocytes # 0.5 K/mm3 (0.1-1.0); Monocytes % 4.6 % (1.7-9.3); Neutrophils # 7.5 K/mm3 (1.8-7.8); Neutrophils % 76.6 % (37.0-80.0); Platelet Count 367 K/mm3 (142-424); Red Cell Distribution Width 14.4 % (11.5-17.5); White Blood Count 9.8 K/mm3 (4.8-10.8)
[2023-02-04 15:50] LABS: Alanine Aminotransferase 28 U/L (12-78); Albumin Level 3.8 g/dl (3.5-5.0); Albumin/Globulin Ratio 1.4 (1.1-1.8); Alkaline Phosphatase 86 U/L (38-126); Anion Gap 12.5 mEq/L (5-15); Aspartate Amino Transferase 30 U/L (14-36); Bilirubin,Total 0.2 mg/dl (0.2-1.3); Blood Urea Nitrogen 9 mg/dl (7-17); Calcium 8.6 mg/dl (8.4-10.2); Carbon Dioxide 32 mmol/L (22.0-30.0); Estimated Glomerular Filt Rate 73 ml/min (>60); GFR (African American) 88 ML/MIN (>60); Globulin 2.8 g/dL (1.3-3.2); Glucose 97 mg/dl (74-100); Total Protein,Serum 6.6 g/dl (6.3-8.2)
== END ==
PROVIDERS: PCP Family Medicine; Visit Provider Family Medicine
DX: I10 Essential (primary) hypertension (principal); J45.901 Unspecified asthma with (acute) exacerbation
CPT/HCPCS: 36415; 71046; 80053; 85025

== ENCOUNTER → 2023-06-26 09:35 | Outpatient (CLI) | payer MEDICAID, SELFPAY | PROVIDERS: PCP Nurse Practitioner Family; Visit Provider Nurse Practitioner Family | DX: R30.0 Dysuria (principal); B96.89 Other specified bacterial agents as the cause of diseases classified elsewhere | CPT/HCPCS: 87086 ==

== ENCOUNTER 2023-07-06 19:42 | Observation (INO) | payer MEDICAID, SELFPAY ==
[2023-07-06] VITALS (8 sets, daily range): BP systolic 92–150; BP diastolic 60–96; PULSE 58–78; RESP 12–18; TEMP 36.6; O2SAT 96–100; BMI 18.7
--- NOTE | 2023-07-06 20:00 | PC.NURSE ---
Seizure pads placed on patient's bed. Call light within reach
--- NOTE | 2023-07-06 20:47 | ECG_ITS ---
APPROVED REPORT Exam: Resting ECG HR:63 bpm ECG Measurements Heart Rate 63 AXES NE 171 P 75 QRSd 85 QRS 90 QT 436 T 76 QTc 443 Conclusion SINUS RHYTHM NORMAL ECG UNCONFIRMED REPORT Electronically signed by : Henry Duarte MD 07/08/2023 20:14:50
[2023-07-06 20:48] LABS: Basophils % 0.7 % (0.1-2.0); Eosinophils # 0.2 K/mm3 (0.0-0.4); Hematocrit 35.8 % (37.0-47.0); Hemoglobin 12.4 g/dL (12.2-16.2); Lymphocytes # 2.4 K/mm3 (0.7-4.5); Lymphocytes % 38.3 % (10-50); Mean Corpuscular HGB Conc 34.6 g/dL (31.8-35.4); Mean Corpuscular Hemoglobin 31.3 pg (27.0-31.2); Mean Corpuscular Volume 90.4 fl (81-99); Mean Platelet Volume 7.5 fl (7.4-10.4); Monocytes # 0.3 K/mm3 (0.1-1.0); Monocytes % 5.3 % (1.7-9.3); Neutrophils # 3.3 K/mm3 (1.8-7.8); Neutrophils % 52.7 % (37.0-80.0); Platelet Count 217 K/mm3 (142-424); Red Blood Count 3.96 M/mm3 (4.20-5.40); Red Cell Distribution Width 13.8 % (11.5-17.5); White Blood Count 6.3 K/mm3 (4.8-10.8)
[2023-07-06 20:49] LABS: Alanine Aminotransferase 33 U/L (12-78); Albumin Level 4.2 g/dl (3.5-5.0); Albumin/Globulin Ratio 1.6 (1.1-1.8); Alkaline Phosphatase 69 U/L (38-126); Anion Gap 11.4 mEq/L (5-15); Aspartate Amino Transferase 47 U/L (14-36); Bilirubin,Total 0.7 mg/dl (0.2-1.3); Blood Urea Nitrogen 12 mg/dl (7-17); Calcium 8.8 mg/dl (8.4-10.2); Carbon Dioxide 27 mmol/L (22.0-30.0); Chloride 102 mmol/L (98-107); Creatinine Clearance Estimated 49 mL/min (50-200); Estimated Glomerular Filt Rate 64 ml/min (>60); Ethyl Alcohol < 10 mg/dl (0-10); GFR (African American) 77 ML/MIN (>60); Globulin 2.6 g/dL (1.3-3.2); Glucose 110 mg/dl (74-100); Magnesium 1.7 mg/dl (1.6-2.3); Phosphorous 4.8 mg/dl (2.5-4.5); Potassium 4.4 mmoL/L (3.5-5.1); Sodium 136 mmol/L (136-145); Total Protein,Serum 6.8 g/dl (6.3-8.2)
--- NOTE | 2023-07-06 21:00 | PC.NURSE ---
Rounded on patient; call light within reach. Warm blanket provided to patient.
[2023-07-06 21:32] LABS: Activated Partial Thrombo Time 24.2 seconds (22.8-30.6); INR 0.96 (0.9-1.1); Prothrombin Time 10.4 seconds (10.1-12.5)
--- NOTE | 2023-07-06 21:59 | HMH.EDGENADL ---
Discharge Plan Disposition Patient Disposition: Admitted Condition: Fair Chief Complaint: Alcohol Clinical Impressions Clinical Impression: Alcohol withdrawal Discharge ED Provider: Edenilson Trejo Adult HPI General Chief complaint: Alcohol Stated complaint: Detoxing,took medicine but does not know what Time Seen by Provider: 07/06/23 20:01 Mode of Arrival: Ambulatory Source of Information: Patient Limitations: No Limitations Description of Symptoms (Recalled from ER Triage Doc. by RN): Presents to ED with visual hallucinations due to relapsing. Patient states she is an alcoholic and had a 3-4 day binge patient quit cold turkey Friday and has not had anything to drink in 6 days. Patient states she feels like she is slurring her speech, she is not eating well and is seeing squiggly line and bright lights everywhere. +N/V. History of Present Illness HPI narrative: 62-year-old female with past medical history significant for alcohol use disorder, anxiety, depression, hypertension, GERD, PTSD, diverticulitis, delirium tremens, presents today for evaluation concerning alcohol withdrawal. She states that she relapsed 1 week ago and had her last drink on this past Friday. Reports that she is been having visual hallucinations, tremors, sweats, nausea and vomiting. Also reports abdominal discomfort. Denies any fevers, chills, chest pain, shortness of breath, dysuria, hematuria. She does voice that she would like assistance with detoxification. No further complaints on assessment. Related Data Home Medications Medication Instructions Recorded Confirmed naloxone 4 mg/actuation nasal spray 1 spray intranasal ONCE PRN 08/22/22 05/14/23 polyethylene glycol 3350 17 17 g PO DAILY 08/22/22 05/14/23 gram/dose oral powder bisacodyl 5 mg tablet,delayed 5 mg PO DAILY 09/26/22 05/14/23 release linaclotide 290 mcg capsule 290 mcg PO DAILY 09/26/22 05/14/23 (Linzess) buprenorphine 300 mg/1.5 mL 300 mg SQ QMONTH addiction 01/22/23 05/14/23 solution,exten.rel.subcutaneous syringe (Sublocade) Previous Rx's Medication Instructions Recorded albuterol sulfate 90 mcg/actuation 2 puff inhalation Q6H PRN 09/26/22 aerosol inhaler shortness of breath or wheezing #8.5 grams fluticasone propionate 50 1 spray intranasal DAILY 30 days 09/26/22 mcg/actuation nasal #16 grams spray,suspension (Flonase Allergy Relief) cyanocobalamin (vitamin B-12) 1,000 mcg IM QMONTH vitamin b12 01/23/23 1,000 mcg/mL injection solution deficiency 30 days #1 mL prazosin 5 mg capsule 5 mg PO HS #90 caps 01/23/23 budesonide 90 mcg/actuation breath 1 inh inhalation BID #1 ea 02/05/23 activated powder inhaler ibuprofen 800 mg tablet 800 mg PO TID PRN muscle relaxer 05/15/23 30 days #90 tabs methocarbamol 750 mg tablet 750 mg PO Q8H PRN muscle relaxer 05/15/23 30 days #60 tabs ondansetron 4 mg disintegrating 4 mg PO Q8H #90 tabs 05/15/23 tablet pravastatin 40 mg tablet 40 mg PO DAILY 30 days #30 tabs 05/15/23 promethazine 25 mg tablet 25 mg PO Q6H PRN nausea and 05/15/23 vomiting #20 tabs hydroxyzine pamoate 50 mg capsule 50 mg PO TID PRN anxiety 30 days 05/28/23 #90 caps omeprazole 40 mg capsule,delayed 40 mg PO BID #60 caps 05/28/23 release buspirone 10 mg tablet 30 mg PO TID 30 days #270 tabs 06/03/23 fexofenadine 180 mg tablet 180 mg PO DAILY 30 days #30 tabs 06/03/23 metoprolol succinate 50 mg 50 mg PO DAILY HTN 90 days #90 tabs 06/03/23 tablet,extended release 24 hr quetiapine 300 mg tablet 300 mg PO DAILY 30 days #30 tabs 06/03/23 Allergies Allergy/AdvReac Type Severity Reaction Status Date / Time vilazodone [From Viibryd] AdvReac Mild Seizure Verified 05/14/23 12:40 [facility] Disclaimer: The information contained in this section may have been updated after the patient was seen, as this information can be updated by other users. Medical History (Updated 07/07/23 @ 00:16 by Edenilson Trejo DO) Abdominal pain
--- NOTE | 2023-07-06 22:45 | PC.NURSE ---
Rounded on patient; patient's BP 92/60 MAP of 65. MD notified; V/O to run Banana bag wide open. Will reassess BP/ Call light within reach of patient
--- NOTE | 2023-07-06 22:56 | PC.NURSE ---
Handed off report to Reva GARZA
--- NOTE | 2023-07-06 23:24 | PC.NURSE ---
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
--- NOTE | 2023-07-06 23:34 | PC.NURSE ---
Admitting notified of admission
[2023-07-07] VITALS (11 sets, daily range): BP systolic 106–135; BP diastolic 70–81; PULSE 55–70; RESP 11–19; TEMP 36.4–37; O2SAT 95–100; BMI 19.3
--- NOTE | 2023-07-07 01:10 | PC.NURSE ---
Pt arrived to floor via wheelchair @ 0109
--- NOTE | 2023-07-07 02:14 | EXP.HP ---
History of Present Illness *Admission Date: 07/06/23 *Reason for visit:: alcohol withdrawal *History of present illness: 62-year-old female presented to the ED for c/o hallucinations from not drinking in 6 days. She normals drinks a half gallon of alcohol every two days. PMHX of alcohol use disorder, anxiety, depression, hypertension, GERD, PTSD, diverticulitis, delirium tremens. She states that she relapsed 1 week ago and had her last drink on this past Friday. Reports that she is been having visual hallucinations, tremors, sweats, nausea and vomiting. Her intial CIWA in the ED was 21. She received 10 mg of Valium IV. The ED physician consulted the hospitalist team for further medical management. I admitted the pt to the medical floor. She was placed in seizure precautions and on the ciwa scale. Her ED work up is unremarkable and her EKG is sinus rhythm. She denies any pain or nausea upon arrival to the medical floor. I will place a consult for behavioral health. [facility] Disclaimer: The information contained in this section may have been updated after the patient was seen, as this information can be updated by other users. Medical History (Updated 07/07/23 @ 02:23 by ZE Hardin) Abdominal pain ADD (attention deficit disorder) Alcohol dependence Anxiety Asthma Close exposure to COVID-19 virus Constipation COPD (chronic obstructive pulmonary disease) Cough Depression Diverticulitis Diverticulosis Dysuria Encounter to establish care GERD (gastroesophageal reflux disease) Headache Hypertension Night sweat Nightmares Otitis media Postmenopausal symptoms PTSD (post-traumatic stress disorder) Reactive airway disease with acute exacerbation Rib pain Shingles Sinusitis Throat pain Thyroid function test abnormal Tobacco dependence Urinary tract infection Uterine fibroid Viral syndrome Surgical History History of History of colonoscopy Family History Other Alcoholism Cancer Coronary artery disease Diabetes FHx: mental illness Heart attack Hyperlipidemia Hypertension Stroke Substance abuse Social History (Updated 07/07/23 @ 01:43 by Chiquis Joya RN) Smoking Status: Current every day smoker tobacco type: cigarettes alcohol intake: current current occupational status: unemployed Travel in the last 8 weeks: None Review of Systems *Cardiovascular Cardiovascular: Reports system reviewed and no additional complaints, except as documented *Respiratory Respiratory: Reports system reviewed and no additional complaints, except as documented *Gastrointestinal Gastrointestinal: Reports nausea and Reports vomiting *Genitourinary Genitourinary: Reports system reviewed and no additional complaints, except as documented *Musculoskeletal Musculoskeletal: Reports system reviewed and no additional complaints, except as documented *Neurologic Neurologic: Reports system reviewed and no additional complaints, except as documented and Reports tremor(s) Psychiatric Psychiatric: Reports visual hallucinations Meds Home Medications and Allergies Home Medications Medication Instructions Recorded Confirmed Type polyethylene glycol 3350 17 17 g PO NEEDED PRN constipation 08/22/22 07/07/23 History gram/dose oral powder albuterol sulfate 90 mcg/actuation 2 puff inhalation Q6H PRN 09/26/22 07/07/23 Rx aerosol inhaler shortness of breath or wheezing #8.5 grams fluticasone propionate 50 1 spray intranasal DAILY 30 days 09/26/22 07/07/23 Rx mcg/actuation nasal #16 grams spray,suspension (Flonase Allergy Relief) linaclotide 290 mcg capsule 290 mcg PO HS 09/26/22 07/07/23 History (Linzess) prazosin 5 mg capsule 5 mg PO HS #90 caps 01/23/23 07/07/23 Rx ibuprofen 800 mg tablet 800 mg PO TID PRN muscle relaxer 05/15/23 07/07/23 Rx 30 days #90 tabs methocarbamol 750 mg
[2023-07-07 02:28] LABS: Amphetamine/Metha Screen,Urine Negative ng/ml (<1000)
[2023-07-07 02:29] LABS: Barbiturates Screen,Urine Negative ng/ml (<200)
[2023-07-07 02:30] LABS: Benzodiazepines Screen,Urine Negative ng/ml (<200); Cannabinoid Screen,Urine Negative ng/ml (<50)
[2023-07-07 02:31] LABS: Cocaine Screen,Urine Negative ng/ml (<300)
[2023-07-07 02:32] LABS: Methadone Screen,Urine Negative ng/ml (<300); Opiate Screen,Urine Negative ng/ml (<300)
[2023-07-07 02:33] LABS: Phencyclidine Screen,Urine Negative ng/ml (<25)
[2023-07-07 07:12] LABS: Basophils % 0.6 % (0.1-2.0); Eosinophils # 0.2 K/mm3 (0.0-0.4); Eosinophils % 3.8 % (0.1-12.0); Hematocrit 36.8 % (37.0-47.0); Hemoglobin 12.2 g/dL (12.2-16.2); Lymphocytes # 2.8 K/mm3 (0.7-4.5); Lymphocytes % 48.4 % (10-50); Mean Corpuscular HGB Conc 33.1 g/dL (31.8-35.4); Mean Corpuscular Hemoglobin 31.3 pg (27.0-31.2); Mean Corpuscular Volume 94.6 fl (81-99); Mean Platelet Volume 7.9 fl (7.4-10.4); Monocytes # 0.3 K/mm3 (0.1-1.0); Monocytes % 4.5 % (1.7-9.3); Neutrophils # 2.5 K/mm3 (1.8-7.8); Neutrophils % 42.6 % (37.0-80.0); Platelet Count 197 K/mm3 (142-424); Red Blood Count 3.89 M/mm3 (4.20-5.40); Red Cell Distribution Width 13.9 % (11.5-17.5); White Blood Count 5.8 K/mm3 (4.8-10.8)
[2023-07-07 07:18] LABS: INR 0.97 (0.9-1.1); Prothrombin Time 10.5 seconds (10.1-12.5)
[2023-07-07 07:31] LABS: Alanine Aminotransferase 27 U/L (12-78); Albumin Level 3.5 g/dl (3.5-5.0); Albumin/Globulin Ratio 1.5 (1.1-1.8); Alkaline Phosphatase 61 U/L (38-126); Anion Gap 9.3 mEq/L (5-15); Aspartate Amino Transferase 43 U/L (14-36); Bilirubin,Total 0.6 mg/dl (0.2-1.3); Blood Urea Nitrogen 9 mg/dl (7-17); Calcium 8.5 mg/dl (8.4-10.2); Carbon Dioxide 23 mmol/L (22.0-30.0); Chloride 106 mmol/L (98-107); Creatinine Clearance Estimated 51 mL/min (50-200); Estimated Glomerular Filt Rate 73 ml/min (>60); GFR (African American) 88 ML/MIN (>60); Globulin 2.4 g/dL (1.3-3.2); Glucose 95 mg/dl (74-100); Phosphorous 4.1 mg/dl (2.5-4.5); Potassium 4.3 mmoL/L (3.5-5.1); Sodium 134 mmol/L (136-145); Total Protein,Serum 5.9 g/dl (6.3-8.2)
[2023-07-07 07:32] LABS: Magnesium 2.1 mg/dl (1.6-2.3)
[2023-07-07 08:04] LABS: Ethyl Alcohol < 10 mg/dl (0-10)
--- NOTE | 2023-07-07 09:02 | HMH.PHAINT1 ---
Pharmacy Intervention Comments: Med reconciliation completed using pharmacy fill history and patient interview. Ms Sarah states that she is receiving 300 mg sublocade monthly but fill history shows that she has moved to the 100 mg maintenance dose.
--- NOTE | 2023-07-07 12:48 | SW/DCPLANNER ---
Addendum entered by Vale Richards 07/08/23 14:38: I spoke w/ patient this afternoon regarding discharge plans. Patient asked that I be able to talk to her and her Sponsor (Luz Elena) together. Luz Elena expressed that she thinks patient would benefit from inpatient rehab. After a lengthy discussion w/ Luz Elena and patient: patient prefers to return home and continue to follow up w/ [facility] [place]. Patient did not have any further questions at this time. I will continue to follow up w/ patient during stay. Patient may discharge home tomorrow. Patient was able to ambulate independently w/ PT and OT today. Original Note: An [facility] Resource list has been provided to this patient. Patient did not have any further needs/questions at time of my visit.
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
--- NOTE | 2023-07-07 18:34 | PC.NURSE ---
Pt is currently resting at this time. Last CIWA was 6. She has c/o a headache t/o shift and light sensitivity. Some anxiety. Tremors are observed. She is A&O x4. Pt ambulates to BR with stand by assist. Appetite has been fair. Call light within reach. Seizure precautions and safety in place.
--- NOTE | 2023-07-07 19:30 | EXP.ACUTE.PN ---
Subjective *Date: 07/07/23 *Time: 19:30 Interval history: Seen on morning rounds, mild tremor. See was over the past 12 hours of 7, 2, 1, 3. Most recent CIWA necessitating treatment. No nausea or vomiting. Stable on room air. Medical Exam Vital signs and Labs for Last 24 Hours: Vital Signs Temp Pulse Pulse Resp BP BP Pulse Ox 07/07/23 18:31 07/07/23 16:00 60 07/07/23 17:00 07/07/23 16:00 97.7 F 58 L 19 135/81 100 07/07/23 14:59 07/07/23 13:00 07/07/23 12:00 55 L 07/07/23 08:00 60 07/07/23 12:00 97.9 F 56 L 19 132/71 96 07/07/23 11:00 07/07/23 09:00 07/07/23 08:00 97.5 F L 60 18 128/73 95 07/07/23 07:38 07/07/23 04:00 55 L 07/07/23 06:36 07/07/23 04:43 07/07/23 04:00 97.5 F L 57 L 18 106/70 L 96 07/07/23 03:00 07/07/23 01:15 65 07/07/23 01:32 07/07/23 01:04 121/76 07/07/23 01:00 61 14 116/73 97 07/07/23 00:30 58 L 17 121/73 96 07/07/23 01:15 97.6 F 58 L 12 121/76 97 07/07/23 00:59 97.8 F 59 L 16 129/74 07/07/23 00:00 56 L 11 L 111/74 99 07/06/23 23:00 59 L 12 105/60 L 97 07/06/23 22:54 59 L 17 100/67 L 99 07/06/23 22:36 58 L 14 92/60 L 97 07/06/23 22:00 60 14 100/63 L 97 07/06/23 21:30 60 14 100/60 L 96 07/06/23 21:01 65 14 114/65 100 07/06/23 20:36 78 14 132/87 96 07/06/23 19:43 97.8 F 76 18 150/96 H 100 O2 Del Method 07/07/23 18:31 Room Air 07/07/23 16:00 07/07/23 17:00 Room Air 07/07/23 16:00 Room Air 07/07/23 14:59 Room Air 07/07/23 13:00 Room Air 07/07/23 12:00 07/07/23 08:00 07/07/23 12:00 Room Air 07/07/23 11:00 Room Air 07/07/23 09:00 Room Air 07/07/23 08:00 Room Air 07/07/23 07:38 Room Air 07/07/23 04:00 07/07/23 06:36 Room Air 07/07/23 04:43 Room Air 07/07/23 04:00 Room Air 07/07/23 03:00 Room Air 07/07/23 01:15 07/07/23 01:32 Room Air 07/07/23 01:04 07/07/23 01:00 07/07/23 00:30 07/07/23 01:15 Room Air 07/07/23 00:59 Room Air 07/07/23 00:00 07/06/23 23:00 07/06/23 22:54 Room Air 07/06/23 22:36 Room Air 07/06/23 22:00 Room Air 07/06/23 21:30 Room Air 07/06/23 21:01 07/06/23 20:36 07/06/23 19:43 Room Air Intake and Output 07/07/23 07/07/23 07/07/23 07:59 15:59 23:59 Intake Total 870 / 1140 270 / 1140 Output Total 0 / 350 350 / 350 Balance 0 / 790 520 / 790 270 / 790 Intake: Intake, Oral Amount 870 / 1140 270 / 1140 Output: Output, Urine Amount 0 / 350 350 / 350 Other: Number of Voids 0 Number of Unmeasured Voids 1 0 Weight 54.488 kg Patient Weight 07/07/23 23:59 Weight 54.488 kg Laboratory Results - last 24 hr 07/06/23 20:30: WBC 6.3, RBC 3.96 L, Hgb 12.4, Hct 35.8 L, MCV 90.4, MCH 31.3 H, MCHC 34.6, RDW 13.8, Plt Count 217, MPV 7.5, Neut % (Auto) 52.7, Lymph % (Auto) 38.3, Roane % (Auto) 5.3, Eos % (Auto) 3.0, Baso % (Auto) 0.7, Neut # (Auto) 3.3, Lymph # (Auto) 2.4, Ro[place] # (Auto) 0.3, Eos # (Auto) 0.2, Baso # (Auto) 0.0, PT 10.4, INR 0.96, APTT 24.2, Sodium 136, Potassium 4.4, Chloride 102, Carbon Dioxide 27, Anion Gap 11.4, BUN 12, Creatinine 0.90, Estimated Creat Clear 49, Estimated GFR 64, Est GFR ( Amer) 77, Glucose 110 H, Calcium 8.8, Phosphorus 4.8 H, Magnesium 1.7, Total Bilirubin 0.7, AST 47 H, ALT 33, Alkaline Phosphatase 69, Total Protein 6.8, Albumin 4.2, Globulin 2.6, Albumin/Globulin Ratio 1.6, Plasma/Serum Alcohol < 10 07/06/23 22:08: Urine Opiates Screen Negative, Urine Methadone Screen Negative, Ur Barbituates Screen Negative, Ur Phencyclidine Scrn Negative, Ur Amphetamines Screen Negative, U Benzodiazepines Scrn Negative, Urine Cocaine Screen Negative, U Marijuana (THC) Screen Negative 07/07/23 06:40: WBC 5.8, RBC 3.89 L, Hgb 12.2, Hct 36.8 L, MCV 94.6, MCH 31.3 H, MCHC 33.1, RDW 13.9, Plt Count 197, MPV 7.9, Neut % (Au
[2023-07-08] VITALS (10 sets, daily range): BP systolic 113–155; BP diastolic 67–83; PULSE 50–70; RESP 16–17; TEMP 36.6–37.2; O2SAT 95–99; BMI 22.0
[2023-07-08 07:19] LABS: Basophils % 0.6 % (0.1-2.0); Eosinophils # 0.2 K/mm3 (0.0-0.4); Eosinophils % 2.9 % (0.1-12.0); Hematocrit 34.7 % (37.0-47.0); Hemoglobin 11.8 g/dL (12.2-16.2); Lymphocytes # 2.3 K/mm3 (0.7-4.5); Lymphocytes % 43.6 % (10-50); Mean Corpuscular HGB Conc 34.1 g/dL (31.8-35.4); Mean Corpuscular Hemoglobin 31.6 pg (27.0-31.2); Mean Corpuscular Volume 92.7 fl (81-99); Mean Platelet Volume 7.7 fl (7.4-10.4); Monocytes # 0.3 K/mm3 (0.1-1.0); Monocytes % 4.7 % (1.7-9.3); Neutrophils # 2.6 K/mm3 (1.8-7.8); Neutrophils % 48.1 % (37.0-80.0); Platelet Count 190 K/mm3 (142-424); Red Blood Count 3.74 M/mm3 (4.20-5.40); Red Cell Distribution Width 13.5 % (11.5-17.5); White Blood Count 5.4 K/mm3 (4.8-10.8)
[2023-07-08 07:29] LABS: Alanine Aminotransferase 23 U/L (12-78); Albumin Level 3.1 g/dl (3.5-5.0); Albumin/Globulin Ratio 1.3 (1.1-1.8); Alkaline Phosphatase 60 U/L (38-126); Anion Gap 8.4 mEq/L (5-15); Aspartate Amino Transferase 33 U/L (14-36); Bilirubin,Total 0.3 mg/dl (0.2-1.3); Blood Urea Nitrogen 13 mg/dl (7-17); Calcium 8.1 mg/dl (8.4-10.2); Carbon Dioxide 26 mmol/L (22.0-30.0); Chloride 103 mmol/L (98-107); Creatinine Clearance Estimated 53 mL/min (50-200); Estimated Glomerular Filt Rate 73 ml/min (>60); GFR (African American) 88 ML/MIN (>60); Globulin 2.3 g/dL (1.3-3.2); Glucose 99 mg/dl (74-100); Magnesium 1.9 mg/dl (1.6-2.3); Potassium 4.4 mmoL/L (3.5-5.1); Sodium 133 mmol/L (136-145); Total Protein,Serum 5.4 g/dl (6.3-8.2)
--- NOTE | 2023-07-08 07:59 | PC.NURSE ---
Patient rested in bed with eyes closed intermittently this shift. No c/o pain noted ot voiced. Patient is alert and orient X4. Last CIWA completed with a score of 7 , PRN Ativan given as ordered with effectiveness noted. No hallucinations voiced this shift. Patient is cooperative and pleasant with staff. Gait noted to be unsteady from bed to bathroom. Patient completed IV Meds/Fluids as ordered. IV site C/D/I.
--- NOTE | 2023-07-08 13:02 | EXP.PN ---
Subjective *Date: 07/08/23 *Time: 13:02 Interval history: Patient seen and evaluated at the bedside. Patient denied chest pain nausea vomiting diarrhea constipation dysuria fevers chills shortness of breath. Exam Data for Last 24 hours Vital signs and Labs for Last 24 Hours: Temp Pulse Resp BP Pulse Ox O2 Del Method O2 Flow Rate 98.6 F 62 17 155/74 H 99 Room Air 2.5 07/08/23 11:07/08/23 11:27 07/08/23 11:07/08/23 11:07/08/23 11:07/08/23 12:36 07/07/23 20:00 Laboratory Results - last 24 hr 07/08/23 06:47: WBC 5.4, RBC 3.74 L, Hgb 11.8 L, Hct 34.7 L, MCV 92.7, MCH 31.6 H, MCHC 34.1, RDW 13.5, Plt Count 190, MPV 7.7, Neut % (Auto) 48.1, Lymph % (Auto) 43.6, Pre[place] % (Auto) 4.7, Eos % (Auto) 2.9, Baso % (Auto) 0.6, Neut # (Auto) 2.6, Lymph # (Auto) 2.3, Pre[place] # (Auto) 0.3, Eos # (Auto) 0.2, Baso # (Auto) 0.0, Sodium 133 L, Potassium 4.4, Chloride 103, Carbon Dioxide 26, Anion Gap 8.4, BUN 13 D, Creatinine 0.80, Estimated Creat Clear 53, Estimated GFR 73, Est GFR ( Amer) 88, Glucose 99, Calcium 8.1 L, Magnesium 1.9, Total Bilirubin 0.3, AST 33, ALT 23, Alkaline Phosphatase 60, Total Protein 5.4 L, Albumin 3.1 L D, Globulin 2.3, Albumin/Globulin Ratio 1.3 I & O for Last 24 hours: Intake & Output 07/05/23 07/06/23 07/07/23 07/08/23 23:59 23:59 23:59 23:59 Intake Total 1140 / 1140 480 / 480 Output Total 700 / 700 650 / 650 Balance 440 / 440 -170 / -170 Weight 52.617 kg 54.488 kg 56.444 kg Constitutional Constitutional: no acute distress Comments: has b/l fine tremors and hallucinations *Routine HEENT Exam Head: Present normocephalic Eye: Present EOMI and PERRL ENT: Present mucous membranes moist *Routine Neck Exam Neck: Present supple; Absent lymphadenopathy *Routine Respiratory Exam Respiratory: Present CTA bilaterally *Routine Cardiovascular Exam Cardiovascular: Present RRR *Routine Abdominal Exam Abdominal: Present soft and normoactive bowel sounds; Absent tenderness *Routine Extremities Exam Extremities: Absent cyanosis, clubbing or edema *Routine Skin Exam Skin: Present warm; Absent rash *Routine Neurological Exam Neurological: Present alert and oriented X3 Assessment and Plan *Assessment and plan (1) Alcohol withdrawal: Status: Acute Category: Medical Code(s): F10.939 - Alcohol use, unspecified with withdrawal, unspecified (2) Alcohol dependence: Status: Acute Category: Medical Code(s): F10.20 - Alcohol dependence, uncomplicated (3) Anxiety: Status: Acute Category: Medical Code(s): F41.9 - Anxiety disorder, unspecified (4) Depression: Status: Acute Category: Medical Code(s): F32.A - Depression, unspecified (5) GERD (gastroesophageal reflux disease): Status: Acute Category: Medical Code(s): K21.9 - Gastro-esophageal reflux disease without esophagitis (6) Hypertension: Status: Acute Category: Medical Code(s): I10 - Essential (primary) hypertension (7) PTSD (post-traumatic stress disorder): Status: Acute Category: Medical Code(s): F43.10 - Post-traumatic stress disorder, unspecified (8) Tobacco dependence: Status: Acute Category: Medical Code(s): F17.200 - Nicotine dependence, unspecified, uncomplicated Plan Patient is a 62-year-old female with past medical history of alcohol abuse, presented to hospital due to hallucinations, tremors. Patient mentions she drinks around half a gallon to fifth of alcohol every day. She has past medical history of GERD, PTSD, and delirium tremens, hypertension, anxiety. 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
--- NOTE | 2023-07-08 13:56 | HMH.OTEV ---
OT Inpatient Evaluation Rehab OT IP Evaluation Start: 07/08/23 10:11 Freq: ONCE Status: Active Protocol: Document 07/08/23 13:48 [email or web address] (Rec: 07/08/23 13:56 [email or web address] [id number]) Rehab OT IP Assessment Subjective History 62-year-old female presented to the ED for c/o hallucinations from not drinking in 6 days. She normals drinks a half gallon of alcohol every two days. PMHX of alcohol use disorder, anxiety, depression, hypertension, GERD, PTSD, diverticulitis, delirium tremens. She states that she relapsed 1 week ago and had her last drink on this past Friday. Reports that she is been having visual hallucinations, tremors, sweats, nausea and vomiting. Her intial CIWA in the ED was 21. She received 10 mg of Valium IV. The ED physician consulted the hospitalist team for further medical management. I admitted the pt to the medical floor. She was placed in seizure precautions and on the ciwa scale. Her ED work up is unremarkable and her EKG is sinus rhythm. She denies any pain or nausea upon arrival to the medical floor. I will place a consult for behavioral health. Patient lives in 1 [address] home with 1 [address] with basement. Patient stated stairs to basement is 12-14 which is where laundry is. Patient independent with all ADLs and fx'l mobility tasks. Subjective I can get up and walk. Analysis Patient's ability to complete bed mobility, transfers, ADLs and fx'l mobility. Patient completed all tasks independently. No LOB notd. Only B hand tremors noted during
--- NOTE | 2023-07-08 14:41 | HMH.PTEV ---
Physical Therapy Evaluation Rehab PT IP Evaluation Start: 07/08/23 10:11 Freq: ONCE Status: Active Protocol: Document 07/08/23 14:35 PHORNE (Rec: 07/08/23 14:41 PHORNE [id number]) Subjective/History History History 62 yowf adm to [facility] with symptoms of alcohol withdrawal . PMH of anxiety, depression, HTN, PTSD. She reports she lives alone, 3-4 BROO[address] the home, and she is generally independent with all mobility and ADLs at baseline. Subjective Subjective Pt reports, I just feel kind of fuzzy, I don't know why, but it's not how I usually feel. She agrees to mobilioty assessment. New diagnosis of cancer in past 12 No months? Rehab PT IP Eval Objective Appearance Patient Behavior Appropriate Patient Orientation Person,Place,Time Difficulty following instructions none Speech Pattern Clear Ambulation Patient Able to Ambulate Yes Ambulation Observation IP General Gait Pattern Observation Shuffling Step Ambulation Distance (feet) 100 Ambulation Assistive Device None Ambulation Ability Independent Balance Ability to Arise Able, uses arms to help Sitting Balance Steady, safe Standing Balance Steady, wide stance Dynamic Sitting Balance Ability Good Dynamic Standing Balance Ability Fair Transfers Bed Transfer Ability Independent Chair Transfer Ability Independent Sit to Stand Bed Transfer Ability Independent Sit to Stand Chair Transfer Ability Independent ROM All Extremities PT ROM Status WFL MMT All Extremities PT MMT WFL Rehab PT IP prob,goals,plan Problems Date of Evaluation: 07/08/23 Discharge Plan PT Discharge Plan Pt is appropriate to return home once medically stable for d/c. No current inpatient therapy needs. Eval Complexity Eval Charge Codes 81269 - High Complexity PHYSICIAN CERTIFICATION: I certify the specified therapy services for Carmen Sarah are required, authorized, and reviewed every 30 days.
[2023-07-09] VITALS: BP 112/70; PULSE 62; PULSE 70; RESP 16; TEMP 36.8; O2SAT 95
--- NOTE | 2023-07-09 03:45 | PC.NURSE ---
Patient currently resting in bed with eyes closed. No changes this far in shift. Patient voiced generalized intermittent pain this shift. PRN Robaxin given as ordered with effectiveness noted. CIWA score this far in shift is 1 . Seizure precautions properly in place as ordered. Patient is alert and orient X4. Very pleasant and cooperative with staff when care is being provided. Patient took all medication with no difficulties noted. Patient denies any chest pain or SOB. order expediter showing patient in normal sinus rhythm this far in shift. Bed is in lowest position with call light in reach, bed alarm on d/t patient being a high fall risk. Proper foot wear in place.
[2023-07-09 04:00] VITALS: BP 126/70; PULSE 60; RESP 16; TEMP 36.7; O2SAT 94; BMI 22.6
[2023-07-09 07:41] LABS: Alanine Aminotransferase 20 U/L (12-78); Albumin Level 3.3 g/dl (3.5-5.0); Albumin/Globulin Ratio 1.4 (1.1-1.8); Alkaline Phosphatase 64 U/L (38-126); Anion Gap 8.2 mEq/L (5-15); Aspartate Amino Transferase 28 U/L (14-36); Bilirubin,Total 0.3 mg/dl (0.2-1.3); Blood Urea Nitrogen 11 mg/dl (7-17); Calcium 8.6 mg/dl (8.4-10.2); Carbon Dioxide 27 mmol/L (22.0-30.0); Chloride 100 mmol/L (98-107); Creatinine Clearance Estimated 54 mL/min (50-200); Estimated Glomerular Filt Rate 64 ml/min (>60); GFR (African American) 77 ML/MIN (>60); Globulin 2.3 g/dL (1.3-3.2); Glucose 95 mg/dl (74-100); Potassium 4.2 mmoL/L (3.5-5.1); Sodium 131 mmol/L (136-145); Total Protein,Serum 5.6 g/dl (6.3-8.2)
[2023-07-09 08:00] VITALS: BP 131/62; PULSE 67; PULSE 70; RESP 16; TEMP 36.6; O2SAT 92
[2023-07-09 11:45] VITALS: BP 112/67; PULSE 70; RESP 16; TEMP 36.8; O2SAT 97
--- NOTE | 2023-07-10 16:37 | CARE MANAGER ---
Contacted patient related to hospital discharge. She states she is doing poorly, but better than she was and that she is not going to drink. She did go [facility] today and is going tomorrow as well. She is aware of follow up appointment with PCP and medications. KAYLA Suh
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
== END 2023-07-09 12:51 | disposition home or self-care (01) ==
LOC: ER 21:44 → 2ND 23:47
PROVIDERS: Nurse Practitioner Critical Care Medicine; Admitting Provider Internal Medicine Adolescent Medicine; Emergency Provider Emergency Medicine; PCP Family Medicine; Visit Provider Internal Medicine Adolescent Medicine
DX: F10.130 Alcohol abuse with withdrawal, uncomplicated (principal); F43.10 Post-traumatic stress disorder, unspecified; F41.9 Anxiety disorder, unspecified; F32.A Depression, unspecified; K21.9 Gastro-esophageal reflux disease without esophagitis; I10 Essential (primary) hypertension; F17.210 Nicotine dependence, cigarettes, uncomplicated; Z79.899 Other long term (current) drug therapy
CPT/HCPCS: 36415; 80053; 80305; 83735; 84100; 85025; 85610; 85730; 93005; 97163; 97165; 99285; G0378

== ENCOUNTER → 2023-08-20 08:12 | Outpatient (CLI) | payer MEDICAID, SELFPAY ==
--- NOTE | 2023-08-20 08:13 | FL_ITS ---
FINAL REPORT CLINICAL HISTORY: dysphagia ft 1:42 dap 376.92 FINDINGS: ESOPHAGRAM HISTORY: Dysphagia. PROCEDURE: The patient ingested barium. Effervescent crystals were also administered. Fluoro time: 1 minute 42 seconds DAP: 376.92 uGy.m2 16 images were obtained. FINDINGS: No esophageal stricture is identified. There is a small hiatal hernia. No gastroesophageal reflux was demonstrated during the exam. There is a small traction diverticulum of the midesophagus. Esophageal motility is within normal limits. IMPRESSION: Small sliding-type hiatal hernia. Small traction diverticulum. Films reviewed , interpreted and dictated by Dr. Huynh. Transcribed by Tang Henriquez PA-C. Reviewed, Interpreted and Dictated by Andrew Huynh MD Transcribed by CASSIA Bundy Authenticated and [facility]
== END ==
PROVIDERS: PCP Nurse Practitioner Family; Visit Provider Nurse Practitioner
DX: R13.10 Dysphagia, unspecified (principal); K21.9 Gastro-esophageal reflux disease without esophagitis; F10.20 Alcohol dependence, uncomplicated
CPT/HCPCS: 74220

== ENCOUNTER 2023-08-30 13:52 | Emergency (ER) | payer MEDICAID, SELFPAY ==
[2023-08-30 14:55] VITALS: BP 119/76; PULSE 73; RESP 19; TEMP 36.7; O2SAT 95; BMI 20.2
[2023-08-30 15:39] LABS: UTC Influenza A Antigen Negative (Negative); UTC Strep Screen (Rapid) Negative (Negative)
[2023-08-30 15:40] LABS: UTC Influenza B Antigen Negative (Negative)
--- NOTE | 2023-08-30 15:40 | ED_ITS ---
Discharge Plan Disposition Patient Disposition: Home, Self-Care Condition: Good Prescriptions Prescriptions: New benzonatate 100 mg capsule 100 mg PO TID PRN (Reason: cough) Qty: 30 0RF cefdinir 300 mg capsule 300 mg PO BID Qty: 20 0RF No Action prazosin 5 mg capsule 5 mg PO HS Qty: 90 3RF albuterol sulfate 90 mcg/actuation HFA aerosol inhaler 2 puff inhalation Q6H PRN (Reason: shortness of breath or wheezing) Qty: 8.5 5RF buspirone 10 mg tablet 30 mg PO TID 30 Days Qty: 270 1RF duloxetine [Cymbalta] 30 mg capsule,delayed release(DR/EC) 90 mg PO DAILY 30 Days Qty: 90 3RF hydroxyzine pamoate 50 mg capsule 50 mg PO TID 30 Days Qty: 90 1RF omeprazole 40 mg capsule,delayed release(DR/EC) 40 mg PO DAILY 90 Days Qty: 90 2RF pravastatin 40 mg tablet 40 mg PO DAILY 30 Days Qty: 30 2RF nitrofurantoin monohyd/m-cryst [Macrobid] 100 mg capsule 100 mg PO Q12H 10 Days Qty: 20 0RF Rx Instructions: must administer with a meal/food Linzess 290 mcg capsule 290 mcg PO HS fluticasone propionate [Flonase Allergy Relief] 50 mcg/actuation spray,suspension 1 spray intranasal DAILY 30 Days Qty: 16 3RF Rx Instructions: administer into each nostril ibuprofen 800 mg tablet 800 mg PO TID PRN (Reason: muscle relaxer) 30 Days Qty: 90 1RF fexofenadine 180 mg tablet 180 mg PO DAILY 30 Days Qty: 30 1RF fluconazole 150 mg tablet 150 mg PO Q3D 0 Days Qty: 2 0RF promethazine 25 mg tablet 25 mg PO Q6H PRN (Reason: nausea and vomiting) Qty: 20 1RF ondansetron 8 mg tablet,disintegrating 4 mg PO Q8H PRN (Reason: nausea and vomiting) 30 Days Qty: 10 0RF lidocaine 5 % adhesive patch,medicated 1 patch topical DAILY 30 Days Qty: 30 2RF methocarbamol 750 mg tablet 750 mg PO Q8H PRN (Reason: muscle relaxer) 30 Days Qty: 90 2RF polyethylene glycol 3350 17 gram/dose powder 17 g PO NEEDED PRN (Reason: constipation) 30 Days Qty: 119 2RF quetiapine 300 mg tablet 300 mg PO HS 30 Days Qty: 30 2RF Xiidra 5 % dropperette 1 drp Eye-Both BID 30 Days Qty: 60 2RF metoprolol succinate 50 mg tablet extended release 24 hr 50 mg PO HS Sublocade 100 mg/0.5 mL solution, extended rel syringe 100 mg SQ MONTHLY folic acid 1 mg Tablet 1 mg PO DAILY Qty: 30 0RF thiamine HCl (vitamin B1) 100 mg tablet 100 mg PO DAILY Qty: 30 0RF Referrals Follow up/Referrals: Isrrael Foreman MD [Primary Care Provider] - See instructions Activity Restrictions/Add. Instructions Additional Instructions/Restrictions: *Monitor Temp, Over the counter Motrin or Tylenol as directed/as needed Tylenol every 4 hours and Motrin every 6 hours (as long as your family doctor has told you that you can take it) for fever or pain. and straight to ER if unable to lower temp less than 101.0 after medication given *Warm salt water gargles may help to soothe the throat *Throat Lozenges? *Warm fluids like tea with honey may help to soothe the throat? *Sleep elevated *Humidifier/Vaporizer Take medication as prescribed Your throat swab was sent for culture. Those results are typically sent to your primary care. Be sure to follow up in 2-3 days with your family doctor/primary care physician if no improvement so they can review those result and treat if necessary. If you don?t have a primary care doctor, I recommend you get one but in the mean time, you will have to return to a walk in clinic Follow up IMMEDIATELY for new or worsening symptoms or no Noticeable improvement over the next 48-72 hours. 911 for difficulty breathing or swallowing You were tested for today for ?Upper Respiratory Panel with COVID19 your test result should be back in the next 24-48 hours, you may check your results on the [facility] Portal if your COVID or Influenza is positive you must Quarantine for 5 days Clinical Impressions Clinical Impression: Sinusitis Qualifiers: Sinusitis location: unspecified location Chronicity: unspecified Qualified Code(s): J32.9 - Chronic sinusitis, unspecified Instructions Patient Instructions: Sinusitis, DI for Sinusitis Discharge ED Provider: Mia Murphy [facility] [place] H[place] General Stated complaint: sinus pressure, cough, dizzy, sore throat Mode of Arrival: Ambulatory Source of Information: Patient Limitations: No Limitations Time Seen by Provider: 08/30/23 15:41 Description of Symptoms (Recalled from Triage Doc. by RN): PATIENT C/O SORE THROAT, SINUS CONGESTION, AND EAR PAIN HEENT Symptoms (Recalled from RN notes): Yes Resp Symptoms (Recalled from RN notes): No Skin Symptoms (Recalled from RN notes): No MS Symptoms (Recalled from RN notes): No Functional Status (Recalled from RN notes): WNL History of Present Illness Provider Complaint: Patient states that she has been having sinus congestion and pressure, drainage in the back of her throat, sore throat and bilateral ear pain for several days that has continued to get worse States that today she was having body aches so she came in to get checked Related Data Home Medications Medication Instructions Recorded Confirmed linaclotide 290 mcg capsule 290 mcg PO HS 09/26/22 07/21/23 (Linzess) buprenorphine 100 mg/0.5 mL 100 mg SQ MONTHLY addiction 07/07/23 07/21/23 solution,exten.rel.subcutaneous syringe (Sublocade) metoprolol succinate 50 mg 50 mg PO HS HTN 07/07/23 07/21/23 tablet,extended release 24 hr Previous Rx's Medication Instructions Recorded fluticasone propionate 50 1 spray intranasal DAILY 30 days 09/26/22 mcg/actuation nasal #16 grams spray,suspension (Flonase Allergy Relief) prazosin 5 mg capsule 5 mg PO HS #90 caps 01/23/23 folic acid 1 mg tablet 1 mg PO DAILY #30 tabs 07/09/23 thiamine HCl (vitamin B1) 100 mg 100 mg PO DAILY #30 tabs 07/09/23 tablet ibuprofen 800 mg tablet 800 mg PO TID PRN muscle relaxer 07/15/23 30 days #90 tabs albuterol sulfate 90 mcg/actuation 2 puff inhalation Q6H PRN 07/21/23 aerosol inhaler shortness of breath or wheezing #8.5 grams buspirone 10 mg tablet 30 mg PO TID 30 days #270 tabs 07/21/23 duloxetine 30 mg capsule,delayed 90 mg PO DAILY Depression 30 days 07/21/23 release (Cymbalta) #90 caps hydroxyzine pamoate 50 mg capsule 50 mg PO TID anxiety 30 days #90 07/21/23 caps nitrofurantoin 100 mg PO Q12H 10 days #20 caps 07/21/23 monohydrate/macrocrystals 100 mg capsule (Macrobid) omeprazole 40 mg capsule,delayed 40 mg PO DAILY acid reflux 90 days 07/21/23 release #90 caps pravastatin 40 mg tablet 40 mg PO DAILY 30 days #30 tabs 07/21/23 fexofenadine 180 mg tablet 180 mg PO DAILY 30 days #30 tabs 07/28/23 fluconazole 150 mg tablet 150 mg PO Q3D 2 doses #2 tabs 07/28/23 promethazine 25 mg tablet 25 mg PO Q6H PRN nausea and 08/15/23 vomiting #20 tabs ondansetron 8 mg disintegrating 4 mg PO Q8H PRN nausea and 08/22/23 tablet vomiting 30 days #10 tabs lidocaine 5 % topical patch 1 patch topical DAILY Pain 30 days 08/27/23 #30 ea lifitegrast 5 % eye drops in a 1 drp Eye-Both BID 30 days #60 ea 08/27/23 dropperette (Xiidra) methocarbamol 750 mg tablet 750 mg PO Q8H PRN muscle relaxer 08/27/23 30 days #90 tabs polyethylene glycol 3350 17 17 g PO NEEDED PRN constipation 08/27/23 gram/dose oral powder 30 days #119 grams quetiapine 300 mg tablet 300 mg PO HS 30 days #30 tabs 08/27/23 benzonatate 100 mg capsule 100 mg PO TID PRN cough #30 caps 08/30/23 cefdinir 300 mg capsule 300 mg PO BID #20 caps 08/30/23 Allergies Allergy/AdvReac Type Severity Reaction Status Date / Time vilazodone [From Viibryd] AdvReac Mild Seizure Verified 07/31/23 14:09 Worker's Comp Is this a Worker's Comp case?: No [facility] Disclaimer: The information contained in this section may have been updated after the patient was seen, as this information can be updated by other users. Medical History (Updated 08/30/23 @ 15:52 by Mia Murphy APRN) Abdominal pain ADD (attention deficit disorder) Alcohol dependence Alcohol withdrawal Allergic rhinitis Anxiety Asthma Close exposure to COVID-19 virus Constipation COPD (chronic obstructive pulmonary disease) Cough Depression Diverticulitis Diverticulosis Dysuria Encounter to establish care GERD (gastroesophageal reflux disease) Headache Hypertension Night sweat Nightmares Otitis media Postmenopausal symptoms PTSD (post-traumatic stress disorder) Reactive airway disease with acute exacerbation Rib pain Shingles Sinusitis Throat pain Thyroid function test abnormal Tobacco dependence Urinary tract infection Uterine fibroid Viral syndrome Surgical History History of History of colonoscopy Family History Other Alcoholism Cancer Coronary artery disease Diabetes FHx: mental illness Heart attack Hyperlipidemia Hypertension Stroke Substance abuse Social History Smoking Status: Current every day smoker tobacco type: cigarettes alcohol intake: current current occupational status: unemployed Travel in the last 8 weeks: None ROS Obtained: Yes All systems reviewed & no additional complaints except as documented and Yes Systems reviewed as appropriate & no additional complaints except as documented Constitutional Constitutional: Reports system reviewed and no additional complaints, except as documented, Reports as per HPI and Reports body ache ENT Ears, Nose, Mouth, and Throat: Reports system reviewed and no additional complaints, except as documented, Reports as per HPI, Reports otalgia, Reports sinus pain, Reports sinus pressure and Reports sore throat Cardiovascular Cardiovascular: Reports system reviewed and no additional complaints, except as documented and Reports as per HPI Respiratory Respiratory: Reports system reviewed and no additional complaints, except as documented and Reports as per HPI Gastrointestinal Gastrointestingal: Reports system reviewed and no additional complaints, except as documented and as per HPI Physical Exam General General appearance: alert and in no apparent distress ENT ENT exam: Present mucous membranes moist Expanded ENT Exam TM/Canal exam: Left TM: erythema and Bilateral TM: bulging Nose exam: Present sinus tenderness Throat exam: Present other (Pharyngeal erythema noted with PND) Respiratory Respiratory exam: Present normal lung sounds bilaterally; Absent respiratory distress or wheezes Cardiovascular Cardiovascular exam: Present regular rate, normal rhythm and normal heart sounds Neurological Exam Neurological exam: Present alert, oriented X3 and normal gait Medical Decision Making Nestor Inquiry Pt receiving controlled substance: No Nestor was queried for this patient: No Vital Signs: 08/30/23 14:55 Temperature 98.0 F Temperature Source Oral Pulse Rate [Left Brachial] 73 Respiratory Rate 19 Blood Pressure [Left Arm] 119/76 Blood Pressure Mean [Left Arm] 90 Blood Pressure Source [Left Arm] Automatic Cuff Blood Pressure Position [Left Arm] Sitting 02 Sat by Pulse Oximetry 95 Oxygen Delivery Method Room Air Lab Data Lab results reviewed: Yes I reviewed the patient's lab results. Lab Results 08/30/23 15:08: Influenza Type A Ag Negative, Influenza Type B Ag Negative, Str ep Scn Rapid Clinic Negative Orders (Tests/Meds): ORDERS Category Date Time Status Covid-19 Nasal PCR ([facility]) Routine Lab 08/30/23 15:08 Received Strep Screen Confirmation Stat Micro 08/30/23 15:08 Received
[2023-08-30 15:51] VITALS: BP 119/76; PULSE 73; RESP 19; TEMP 36.7; O2SAT 95
[2023-08-30] MEDS: CEFDINIR 300MG CAPSULE 300 MG PO (15:58)
== END 2023-08-30 15:58 | disposition home or self-care (01) ==
PROVIDERS: Emergency Provider Nurse Practitioner; PCP Family Medicine
DX: J01.90 Acute sinusitis, unspecified (principal); H92.03 Otalgia, bilateral; R07.0 Pain in throat; R09.81 Nasal congestion; R09.82 Postnasal drip; R42 Dizziness and giddiness; F17.210 Nicotine dependence, cigarettes, uncomplicated; J44.9 Chronic obstructive pulmonary disease, unspecified; K21.9 Gastro-esophageal reflux disease without esophagitis; I10 Essential (primary) hypertension
CPT/HCPCS: 87635; 87804; 87880; 99212; 99214; G0463

== ENCOUNTER 2023-09-11 12:16 | Day surgery (SDC) | payer MEDICAID, SELFPAY ==
[2023-09-11 12:32] VITALS: BP 131/80; PULSE 79; RESP 16; TEMP 36.6; O2SAT 97; BMI 18.7
[2023-09-11] MEDS: LACTATED RINGERS 1000ML 1,000 ML 25 ML IV (12:38)
--- NOTE | 2023-09-11 12:47 | P.PNANES_ITS ---
[facility] Disclaimer: The information contained in this section may have been updated after the patient was seen, as this information can be updated by other users. Medical History Abdominal pain ADD (attention deficit disorder) Alcohol dependence Alcohol withdrawal Allergic rhinitis Anxiety Asthma Close exposure to COVID-19 virus Constipation COPD (chronic obstructive pulmonary disease) Cough Depression Diverticulitis Diverticulosis Dysuria Encounter to establish care GERD (gastroesophageal reflux disease) Headache Hypertension Night sweat Nightmares Otitis media Postmenopausal symptoms PTSD (post-traumatic stress disorder) Reactive airway disease with acute exacerbation Rib pain Shingles Sinusitis Throat pain Thyroid function test abnormal Tobacco dependence Urinary tract infection Uterine fibroid Viral syndrome Surgical History History of History of colonoscopy Family History Other Alcoholism Cancer Coronary artery disease Diabetes FHx: mental illness Heart attack Hyperlipidemia Hypertension Stroke Substance abuse Social History Smoking Status: Current every day smoker tobacco type: cigarettes alcohol intake: current substance use type: denies use current occupational status: unemployed Travel in the last 8 weeks: None [facility] Anesthesia Checklist Patient Identification Patient Identification: Arm Band Structural Data Admitted From: Home Planned Operative Procedure/s: EGD Consent for Planned Operative Procedure(s) Verified: Yes Verified Documents: Surgical Consent and History and Physical NPO Status Verified Time NPO: 00:00 Additional verifications Anesthesia Reactions: No Airway Assessment Mallampati Score:: Class II C-Spine Mobility Assessed: Yes TMJ Mobility Assessed: Yes Dentition: Good Dentition Neurological Assessment Level of Consciousness: Awake and Alert Anesthesia Plan Anesthesia Risk discussed: Yes Anesthesia Plan: Verified ASA Class: III Anesthesia Type: MAC
[2023-09-11 13:28] VITALS: O2SAT 100
[2023-09-11 13:40] VITALS: BP 87/51; PULSE 71; RESP 16; TEMP 36.4; O2SAT 98
--- NOTE | 2023-09-11 13:40 | HMH.SCOPE ---
Procedure: Date: 09/11/23 Patient Date of :: 1960 Procedure Performed:: EGD & biopsy & dilation Indications:: Dysphagia, history of ulcers Performing Provider:: Megan Patton MD Referring Provider:: Luz Elena Patton APRN Sedation:: Propofol Procedure:: The gastroscope was gently passed through the incisoral orifice into the oral cavity and under direct visualization the esophagus was intubated. The endoscope was passed down the esophagus, through the stomach, and into the duodenum. Color, texture, mucosa, and anatomy of the esophagus, stomach, and duodenum were carefully examined with the scope. Findings:: Oropharynx: normal Esophagus: normal, no strictures, dysphagia treated with several passes of the 56F bougie dilator EG Junction: intact at 40 cm Cardia: normal Fundus: normal Body: normal, random biopsies performed Antrum: normal Duodenal bulb: normal Duodenum (second and third portion): normal Impression: Overall normal EGD, no evidence of active ulcer disease Symptomatic dysphagia treated with bougie dilation Specimens:: gastric Recommendations:: Consider repeat EGD and dilation in about THREE years or so, sooner if clinically indicated. Complications:: None Estimated blood obtained (mL): 0 Colonoscopy Component Colonoscopy Component Was a colonoscopy performed during today's procedure?: No
--- NOTE | 2023-09-11 13:48 | EXP.ANES.I ---
[facility] Anesthesia Record Part I Anesthesia Record I Intake, IV Amount: 250 Hydration: Adequate Estimated blood loss (mL): 1 Urine output (mL): 0 Blood Products used (#): none Blood Pressure: 87/51 SaO2: 98 Pulse Rate: 71 Airway Patency: Patent Respiratory Rate: 16 Temperature: 97.6 F Patient is:: Drowsy and Stable Stable to PACU at:: 13:45
[2023-09-11 13:49] VITALS: BP 87/51; PULSE 71; RESP 16; TEMP 36.4; O2SAT 98
[2023-09-11 13:50] VITALS: BP 94/61; PULSE 74; RESP 16; O2SAT 99
[2023-09-11 14:00] VITALS: BP 100/61; PULSE 67; RESP 16; O2SAT 98
== END 2023-09-11 14:05 | disposition home or self-care (01) ==
PROVIDERS: PCP Family Medicine; Visit Provider Internal Medicine Gastroenterology
PROC: 0DJ08ZZ Inspection of Upper Intestinal Tract, Via Natural or Artificial Opening Endoscopic (ICD-10-PCS; CPT 43235; principal; 2023-09-11 13:30)
DX: R13.10 Dysphagia, unspecified (principal); Z87.11 Personal history of peptic ulcer disease; K31.89 Other diseases of stomach and duodenum
CPT/HCPCS: 43248; 43239

== ENCOUNTER 2023-10-03 09:27 | Outpatient (CLI) | payer MEDICAID, SELFPAY ==
--- NOTE | 2023-10-03 09:27 | CT_ITS ---
FINAL REPORT TECHNIQUE: Thin section axial images were obtained from the lung apices to the upper abdomen by computed tomography. Reformatted images were obtained and reviewed. This study was performed with techniques to keep radiation doses al low as reasonably achievable (ALARA). Individualized dose reduction techniques using automated exposure control or adjustment of mA and/or kV according to the patient's size were employed. CLINICAL HISTORY: lung cancer screening CURRENT SMOKER 1PPD X50 YEARS COMPARISON: 06/07/2022 FINDINGS: CHEST CT LOW DOSE CTDI vol (mGy): 2.90 DLP (mGy-cm): 106.03 There is no axillary adenopathy. There is no mediastinal or hilar mass or adenopathy. The heart is normal in size. There is no pericardial or pleural effusion. There is mild emphysema and mild pulmonary scarring. Lung window images demonstrate no suspicious infiltrate or nodule. There is a calcified granuloma near the left major fissure, stable. Limited images of the upper abdomen are unremarkable. IMPRESSION: Lung-RADS category 1. Recommend 12 month follow up low dose chest CT. Reviewed, Interpreted and Dictated by Jere Douglas III, MD Transcribed by Vidhi Shah Authenticated and [facility]
== END 2023-10-03 23:59 ==
LOC: RAD 09:27
PROVIDERS: PCP Family Medicine; Visit Provider Family Medicine
DX: Z12.2 Encounter for screening for malignant neoplasm of respiratory organs (principal); F17.210 Nicotine dependence, cigarettes, uncomplicated
CPT/HCPCS: 71271

== ENCOUNTER 2023-12-26 07:44 | Outpatient (CLI) | payer MEDICAID, SELFPAY ==
--- NOTE | 2023-12-26 07:45 | CA_ITS ---
APPROVED REPORT EXAM: Comprehensive 2D, Doppler, and color-flow Echocardiogram Precise Winder: Alyssa Haywood CRT Ht: 5 ft 6 in Wt: 125lbs BSA: 1.64 BP: 150/49 mmHg Indications: Chest Pain, Shortness of Breath, Smoking, coronary art calcification on CT, Alcohol dependence 2D Dimensions LA Volume 20.80 mL LA Volume Index 12.40 mL/m2 (M/F) 16-34 M-Mode Dimensions RVDd 2.88 cm (0.9-2.6) LA Diam 2.46 cm (1.9-4.0) LVDd 4.07 cm (3.5-5.7) LVDs 3.02 cm (3.5-5.7) IVSd 0.81 cm (0.6-1.1) PWd 0.81 cm (0.6-1.1) EF (Teich) 51.20% FS 25.80% EDV (Teich) 72.90 mL TAPSE 1.65 (<1.7) ESV (Teich) 35.60 mL LV Diastology E Decel Time 183 (160-240 msec) E/A Ratio 1.29 MED A' 7.30 cm/s LAT A' 12.50 cm/s Aortic Valve AO Peak GR. 6.50 mmHg Mitral Valve MV A Velocity 67.0 (40-130 cm/s) E/A Ratio 1.29 Tricuspid Valve TR P. Velocity 220.00 cm/s RAP Estimate 10.00 mmHg RVSP 29.40 mmHg Left Ventricle The left ventricle is normal size. The left ventricular systolic function is normal. The left ventricular ejection fraction is within the normal range. There is normal left ventricular wall thickness. There is normal LV segmental wall motion. The left ventricular diastolic function is normal. LVEF is 55%. Right Ventricle The right ventricle is normal size. The right ventricular systolic function is normal. Atria The left atrium size is normal. The right atrium size is normal. There is no Doppler evidence of interatrial shunt. Aortic Valve The aortic valve opens well. There is no aortic valvular stenosis. No aortic regurgitation is present. Mitral Valve The mitral valve is normal in structure. No evidence of mitral valve stenosis. There is no mitral valve regurgitation noted. Tricuspid Valve The tricuspid valve leaflets are thin and pliable. Trace tricuspid regurgitation. There is insufficient TR jet to estimate RVSP. Pulmonic Valve The pulmonary valve is normal in structure. Trace pulmonic regurgitation. Great Vessels The aortic root is normal in size. The ascending aorta is normal in size. IVC is normal in size and collapses >50% with inspiration. Pericardium There is no pericardial effusion. Other Information Study Quality: Fair Conclusion Normal biventricular systolic function. No significant valvular stenosis or regurgitation. Electronically signed by : Danielle Nunez MD 12/30/2023 18:32:44
[2023-12-26 08:37] VITALS: BMI 19.7
[2023-12-26 08:46] VITALS: BP 125/82; PULSE 82; RESP 16; TEMP 36.4; O2SAT 100
[2023-12-26] MEDS: IVABRADINE HCL 7.5MG TABLET PO (09:00)
[2023-12-26] MEDS: METOPROLOL TARTRATE 50MG TABLET PO (09:01)
[2023-12-26] MEDS: METOPROLOL TARTRATE 25MG TABLET 25 MG (09:01)
== END 2023-12-26 23:59 | disposition home or self-care (01) ==
LOC: RT 07:45 → RAD 08:58
PROVIDERS: PCP Family Medicine; Visit Provider Internal Medicine
DX: R06.00 Dyspnea, unspecified (principal); R07.9 Chest pain, unspecified; F17.210 Nicotine dependence, cigarettes, uncomplicated
CPT/HCPCS: 93306

== ENCOUNTER 2024-01-01 20:27 | Emergency (ER) | payer MEDICAID, SELFPAY ==
[2024-01-01 20:28] VITALS: BP 158/111; PULSE 92; RESP 22; TEMP 36.8; O2SAT 95; BMI 20.1
--- NOTE | 2024-01-01 20:30 | ED_ITS ---
<Statement entered by Ernesto Jansen MD - 01/01/24 23:03> I was consulted by the HIEU, and we discussed the complexity of the problems being addressed. I approved the treatment and management plan for this patient's care in the emergency department, thus performing a substantive portion of the medical decision making. Ernesto Jansen MD Discharge Plan Disposition Patient Disposition: Home, Self-Care Condition: Good Prescriptions Prescriptions: New ipratropium-albuterol 0.5 mg-3 mg(2.5 mg base)/3 mL solution for nebulization 3 ml inhalation QID PRN (Reason: wheezing) Qty: 180 0RF azithromycin 500 mg tablet See Rx Instructions .ROUTE .COMPLEX Qty: 9 0RF Rx Instructions: For 250 mg dose pack: take 500 mg today (day 1), then 250 mg for 4 days (days 2-5) No Action quetiapine 200 mg tablet 200 mg PO HS Patient Comments: TAKE 1 TABLET BY MOUTH EVERY NIGHT DIRECTED Rexulti 0.5 mg tablet 0.5 mg PO .COMPLEX Patient Comments: TAKE 1 TABLET BY MOUTH EVERY DAY DIRECTED Rx Instructions: 0.5 mg orally as directed; prazosin 5 mg capsule 5 mg PO HS Qty: 90 3RF Qvar RediHaler 40 mcg/actuation HFA aerosol breath activated 1 inh inhalation DAILY Qty: 10.6 2RF promethazine 25 mg tablet 25 mg PO Q6H PRN (Reason: nausea and vomiting) Qty: 20 1RF Xiidra 5 % dropperette 1 drp Eye-Both BID 30 Days Qty: 60 2RF medroxyprogesterone [Provera] 10 mg tablet 10 mg PO DAILY Qty: 30 1RF fluticasone propionate [Flonase Allergy Relief] 50 mcg/actuation spray,suspension 1 spray intranasal DAILY 30 Days Qty: 16 3RF Rx Instructions: administer into each nostril ibuprofen 800 mg tablet 800 mg PO TID PRN (Reason: muscle relaxer) 30 Days Qty: 90 1RF Linzess 290 mcg capsule 290 mcg PO HS 30 Days Qty: 30 2RF lidocaine 5 % adhesive patch,medicated 1 patch topical DAILY 30 Days Qty: 30 2RF polyethylene glycol 3350 17 gram/dose powder 17 g PO NEEDED PRN (Reason: constipation) 30 Days Qty: 119 2RF albuterol sulfate 90 mcg/actuation HFA aerosol inhaler 2 puff inhalation Q6H PRN (Reason: shortness of breath or wheezing) Qty: 8.5 5RF buspirone 30 mg tablet 30 mg PO TID 30 Days Qty: 90 0RF duloxetine 60 mg capsule,delayed release(DR/EC) 60 mg PO DAILY 30 Days Qty: 30 2RF fexofenadine 180 mg tablet 180 mg PO DAILY 30 Days Qty: 30 2RF hydroxyzine pamoate 50 mg capsule 50 mg PO TID 30 Days Qty: 90 2RF metoprolol succinate 50 mg tablet extended release 24 hr 50 mg PO HS 90 Days Qty: 90 1RF omeprazole 40 mg capsule,delayed release(DR/EC) 40 mg PO DAILY 90 Days Qty: 90 2RF pravastatin 40 mg tablet 40 mg PO DAILY 30 Days Qty: 30 2RF methocarbamol 750 mg tablet 750 mg PO Q8H PRN (Reason: muscle relaxer) 30 Days Qty: 90 2RF estradiol [Estrace] 1 mg tablet 1 mg PO DAILY 30 Days Qty: 30 2RF quetiapine 300 mg tablet 300 mg PO HS 30 Days Qty: 30 2RF thiamine HCl (vitamin B1) 100 mg tablet 100 mg PO DAILY Qty: 30 0RF Brixadi 24 mg/0.48 mL solution, extended rel syringe 24 mg SQ WEEKLY Referrals Follow up/Referrals: Isrrael Foreman MD [Primary Care Provider] - See instructions Activity Restrictions/Add. Instructions Additional Instructions/Restrictions: Please schedule follow-up with your PCP for recheck. Return emerged part for any worsening signs and symptoms including difficulty breathing wheezing. Please continue your steroid Dosepak as prescribed. Clinical Impressions Clinical Impression: Acute exacerbation of chronic obstructive pulmonary disease, Parainfluenza infection Discharge ED Provider: Ernesto Jansen General Adult HPI <CASSIA Tobar - Last Filed: 01/01/24 23:00> General Chief complaint: Shortness of Breath/Dyspnea Stated complaint: SOA Time Seen by Provider: 01/01/24 20:29 History of Present Illness HPI narrative: Patient presents for evaluation of acute respiratory distress. Patient reports that she has had several day history of increasing shortness of breath malaise cough that is nonproductive. Patient was seen at [facility] last night diagnosed with acute bronchitis along with a parainfluenza infection and discharged with daily oral steroids and nebulizer liquid supplies. However patient reports that she is no better today and is struggling to take of breath. Patient reports that she is even short of breath at rest. Patient reports that she does not have a known history of COPD but has been worked up for asthma for which she is negative. Patient is and does have ongoing tobacco use. Patient denies chest pain fever chills hemoptysis hematochezia melena nausea vomiting diarrhea. Related Data Home Medications Medication Instructions Recorded Confirmed buprenorphine 24 mg/0.48 mL 24 mg SQ WEEKLY 09/11/23 12/26/23 solution,exten.rel.subcutaneous syringe (Brixadi Weekly) brexpiprazole 0.5 mg tablet 0.5 mg PO .COMPLEX 09/22/23 12/26/23 (Rexulti) quetiapine 200 mg tablet 200 mg PO HS 09/22/23 12/26/23 Previous Rx's Medication Instructions Recorded thiamine HCl (vitamin B1) 100 mg 100 mg PO DAILY #30 tabs 07/09/23 tablet lifitegrast 5 % eye drops in a 1 drp Eye-Both BID 30 days #60 ea 08/27/23 dropperette (Xiidra) prazosin 5 mg capsule 5 mg PO HS #90 caps 09/22/23 medroxyprogesterone 10 mg tablet 10 mg PO DAILY #30 tabs 10/25/23 (Provera) fluticasone propionate 50 1 spray intranasal DAILY 30 days 11/07/23 mcg/actuation nasal #16 grams spray,suspension (Flonase Allergy Relief) ibuprofen 800 mg tablet 800 mg PO TID PRN muscle relaxer 11/07/23 30 days #90 tabs linaclotide 290 mcg capsule 290 mcg PO HS GERD 30 days #30 caps 11/07/23 (Linzess) beclomethasone dipropionate 40 1 inh inhalation DAILY #10.6 grams 11/17/23 mcg/actuation HFA breath activated aerosol (Qvar RediHaler) promethazine 25 mg tablet 25 mg PO Q6H PRN nausea and 11/17/23 vomiting #20 tabs lidocaine 5 % topical patch 1 patch topical DAILY Pain 30 days 12/16/23 #30 ea polyethylene glycol 3350 17 17 g PO NEEDED PRN constipation 04/23/24 gram/dose oral powder 30 days #119 grams albuterol sulfate 90 mcg/actuation 2 puff inhalation Q6H PRN 12/23/23 aerosol inhaler shortness of breath or wheezing #8.5 grams buspirone 30 mg tablet 30 mg PO TID 30 days #90 tabs 12/23/23 duloxetine 60 mg capsule,delayed 60 mg PO DAILY 30 days #30 caps 12/23/23 release fexofenadine 180 mg tablet 180 mg PO DAILY 30 days #30 tabs 12/23/23 hydroxyzine pamoate 50 mg capsule 50 mg PO TID anxiety 30 days #90 12/23/23 caps methocarbamol 750 mg tablet 750 mg PO Q8H PRN muscle relaxer 12/23/23 30 days #90 tabs metoprolol succinate 50 mg 50 mg PO HS HTN 90 days #90 tabs 12/23/23 tablet,extended release 24 hr omeprazole 40 mg capsule,delayed 40 mg PO DAILY acid reflux 90 days 12/23/23 release #90 caps pravastatin 40 mg tablet 40 mg PO DAILY 30 days #30 tabs 12/23/23 estradiol 1 mg tablet (Estrace) 1 mg PO DAILY 30 days #30 tabs 12/25/23 quetiapine 300 mg tablet 300 mg PO HS 30 days #30 tabs 12/31/23 azithromycin 500 mg tablet See Rx Instructions PO .COMPLEX #9 01/01/24 tabs ipratropium 0.5 mg-albuterol 3 mg 3 ml inhalation QID PRN wheezing 01/01/24 (2.5 mg base)/3 mL nebulization #180 mL soln Allergies Allergy/AdvReac Type Severity Reaction Status Date / Time vilazodone [From Viibryd] AdvReac Mild Seizure Verified 12/26/23 08:46 [facility] <CASSIA Toabr - Last Filed: 01/01/24 23:00> [facility] Disclaimer: The information contained in this section may have been updated after the patient was seen, as this information can be updated by other users. Medical History (Updated 01/01/24 @ 22:18 by CASSIA Tobar) Coronary artery calcification seen on CAT scan Asthma COPD (chronic obstructive pulmonary disease) Diverticulitis Alcohol withdrawal Throat pain Cough Thyroid function test abnormal Headache Postmenopausal symptoms Night sweat ADD (attention deficit disorder) Nightmares Depression Anxiety PTSD (post-traumatic stress disorder) Rib pain Reactive airway disease with acute exacerbation Shingles Allergic rhinitis Tobacco dependence Dysuria Urinary tract infection Encounter to establish care Constipation GERD (gastroesophageal reflux disease) Hypertension Viral syndrome Close exposure to COVID-19 virus Otitis media Sinusitis Diverticulosis Alcohol dependence Uterine fibroid Abdominal pain Surgical History History of History of colonoscopy Family History Other Alcoholism Cancer Coronary artery disease Diabetes FHx: mental illness Heart attack Hyperlipidemia Hypertension Stroke Substance abuse Social History Smoking Status: Current every day smoker tobacco type: cigarettes alcohol intake: current substance use type: denies use current occupational status: unemployed Travel in the last 8 weeks: None <CASSIA Tobar - Last Filed: 01/01/24 23:00> ROS Obtained: Yes Systems reviewed as appropriate & no additional complaints except as documented Physical Exam <CASSIA Tobar - Last Filed: 01/01/24 23:00> General General appearance: alert and in no apparent distress Head Head exam: atraumatic Eye Eye exam: Present normal appearance and EOMI ENT ENT exam: Present normal exam and normal oropharynx Neck Neck exam: Present normal inspection and full ROM Chest Chest inspection: Present normal inspection and symmetric chest wall rise; Absent tenderness Respiratory Respiratory exam: Present normal lung sounds bilaterally, respiratory distress, wheezes and accessory muscle use (Patient has intercostal retractions and she has diminished breath sounds in all 4 hough with end expiratory wheezes); Absent stridor Cardiovascular Cardiovascular exam: Present normal rhythm, tachycardia and normal heart sounds Neurological Exam Neurological exam: Present alert, oriented X3 and CN II-XII intact Psychiatric Psychiatric exam: Present normal mood and anxious Skin Skin exam: Present warm, dry and normal color Medical Decision Making <CASSIA Tobar - Last Filed: 01/01/24 23:00> Medical Records Medical records reviewed: Yes I reviewed the patient's medical records. Nestor Inquiry Pt receiving controlled substance: No Vital Signs: 01/01/24 20:28 01/01/24 21:00 01/01/24 21:08 Temperature 98.3 F Temperature Source Oral Pulse Rate 93 H 93 H Pulse Rate [Left] 92 H Respiratory Rate 22 Blood Pressure 119/86 Blood Pressure [Right Arm] 158/111 H Blood Pressure Mean 102 Blood Pressure Mean [Right Arm] 126 Blood Pressure Source [Right Arm] Automatic Cuff Blood Pressure Position [Right Arm] Sitting 02 Sat by Pulse Oximetry 95 96 Oxygen Delivery Method Room Air 01/01/24 21:08 01/01/24 22:00 01/01/24 22:30 Temperature Temperature Source Pulse Rate 97 H 78 78 Pulse Rate [Left] Respiratory Rate Blood Pressure 122/83 123/81 Blood Pressure [Right Arm] Blood Pressure Mean 98 94 Blood Pressure Mean [Right Arm] Blood Pressure Source [Right Arm] Blood Pressure Position [Right Arm] 02 Sat by Pulse Oximetry 97 98 Oxygen Delivery Method Room Air Room Air Lab Data Lab results reviewed: Yes I reviewed the patient's lab results. Lab Results 01/01/24 20:39: Specimen Source Right radial, O2 % 21, ABG pH 7.32 L, ABG pCO2 42.1, ABG pO2 39.4 L, ABG HCO3 21.4 L, ABG Total CO2 22.6 L, ABG O2 Saturation 73 L*, ABG Base Excess -4.7 L, Baron Test Acceptable 01/01/24 20:46: WBC 10.3, RBC 4.28, Hgb 12.9, Hct 40.5, MCV 94.8, MCH 30.1, MCHC 31.8, RDW 14.1, Plt Count 319, MPV 7.2 L, Neut % (Auto) 94.1 H, Lymph % (Auto) 3.4 L, Roane % (Auto) 1.5 L, Eos % (Auto) 0.8, Baso % (Auto) 0.2, Neut # (Auto) 9.7 H, Lymph # (Auto) 0.4 L, Roane # (Auto) 0.2, Eos # (Auto) 0.1, Baso # (Auto) 0.0, Total Counted 100, Neutrophils % (Manual) 95 H, Lymphocytes % (Manual) 5 L, Platelet Estimate Normal, RBC Morphology Normal, Sodium 136, Potassium 4.7, Chloride 101, Carbon Dioxide 25, Anion Gap 14.7, BUN 14, Creatinine 0.70, Estimated Creat Clear 52, Estimated GFR 85, Est GFR ( Amer) 103, Glucose 174 H, Calcium 9.0, Magnesium 2.0, Total Bilirubin 0.4, AST 32, ALT 27, Alkaline Phosphatase 64, Troponin I < 0.01, Total Protein 7.4 D, Albumin 4.5, Globulin 2.9, Albumin/Globulin Ratio 1.6 01/01/24 20:46 01/01/24 20:46 Orders (Tests/Meds): ED MEDICATIONS Generic Name Dose Route Start Last Admin Trade Name Freq PRN Reason Stop Dose Admin Azithromycin 500 mg/ Sodium 250 mls @ 250 mls/hr 01/01/24 21:00 01/01/24 21:10 Chloride IV 01/11/24 20:59 250 mls/hr Q24H RITESH Administration Ceftriaxone Sodium 1 gm/ 50 mls @ 100 mls/hr 01/01/24 21:15 01/01/24 22:01 Sodium Chloride IV 01/11/24 21:14 100 mls/hr Q24H RITESH Administration Discontinued Medications Generic Name Dose Route Start Last Admin Trade Name Freq PRN Reason Stop Dose Admin Albuterol/Ipratropium 9 ml 01/01/24 20:39 01/01/24 20:52 Ipratropium/Albuterol 3 Ml Neb IH 01/01/24 20:40 9 ml ONCE ONE Administration Iopamidol 70 ml 01/01/24 21:35 01/01/24 21:36 Iopamidol-370 (76%);100ml Bottle IV 01/01/24 21:36 70 ml ONCE ONE Administration Methylprednisolone Sodium Succinate 125 mg 01/01/24 20:42 01/01/24 21:10 Methylprednisolone Sod Succ 125mg Vial IV 01/01/24 20:43 125 mg ONCE ONE Administration Sodium Chloride 50 ml 01/01/24 21:35 01/01/24 21:37 0.9 % Sodium Chloride 50 Ml Vial IV 01/01/24 21:36 50 ml ONCE ONE Administration Sodium Chloride 10 ml 01/01/24 21:35 01/01/24 21:37 Sodium Chloride 0.9% 10ml Syr (Rad Only) IV 01/01/24 21:36 10 ml ONCE ONE Administration ORDERS Category Date Time Status CT angio chest PE protocol Stat Cat Scan 01/01/24 20:40 Completed CBC w/Auto Diff [Complete Blood Count Auto Diff] Stat Lab 01/01/24 20:46 Completed CMP [Comprehensive Metabolic Panel] Stat Lab 01/01/24 20:46 Completed Magnesium Stat Lab 01/01/24 20:46 Completed Trop I [Troponin I] Stat Lab 01/01/24 20:46 Completed Troponin I Q3H Lab 01/01/24 23:45 Ordered Troponin I Q3H Lab 01/02/24 02:45 Ordered ABG [Arterial Blood Gas] Stat RT 01/01/24 20:39 Completed Medical Decision Narrative: In summary patient is a 63-year-old female who presents to the emergency department for evaluation of respiratory distress. Patient is normotensive satting at 95% on room air currently upon arrival, febrile. Physical exam shows that she is in respiratory distress with increased work of breathing and intercostal retractions diminished breath sounds in all 4 hough with end expiratory wheezes late. Patient satting at 95% on room air currently differential diagnosis includes COPD exacerbation versus superinfection bacterial pneumonia, on top of a known viral pneumonia, PE, ACS. Initial workup will be conducted with hematologic labs CTA PE protocol. Initial interventions include continuous DuoNeb, Solu-Medrol. Initial workup reviewed by me shows normal white count normal chemistry and my informal review of her CTA PE protocol shows no acute processes.. Upon repeat evaluation patient has had marked improvement after nebulizers and IV steroids along with aggressive pulmonary toilet. Patient is now breathing easily with no wheezing and breath sounds heard to bases.. Given this we have obtained a home nebulizer machine and patient has had instructions on it in the emergency department and will get a prescription for DuoNeb supplies sent to her pharmacy. Patient to continue her steroid burst dose and follow-up closely with her PCP or return to ER as needed for worsening signs or symptoms. <Ernesto Jansen MD - Last Filed: 01/01/24 20:52> Vital Signs: 01/01/24 20:28 01/01/24 21:00 01/01/24 21:08 Temperature 98.3 F Temperature Source Oral Pulse Rate 93 H 93 H Pulse Rate [Left] 92 H Respiratory Rate 22 Blood Pressure 119/86 Blood Pressure [Right Arm] 158/111 H Blood Pressure Mean 102 Blood Pressure Mean [Right Arm] 126 Blood Pressure Source [Right Arm] Automatic Cuff Blood Pressure Position [Right Arm] Sitting 02 Sat by Pulse Oximetry 95 96 Oxygen Delivery Method Room Air 01/01/24 21:08 01/01/24 22:00 01/01/24 22:30 Temperature Temperature Source Pulse Rate 97 H 78 78 Pulse Rate [Left] Respiratory Rate Blood Pressure 122/83 123/81 Blood Pressure [Right Arm] Blood Pressure Mean 98 94 Blood Pressure Mean [Right Arm] Blood Pressure Source [Right Arm] Blood Pressure Position [Right Arm] 02 Sat by Pulse Oximetry 97 98 Oxygen Delivery Method Room Air Room Air Lab Data Lab Results 01/01/24 20:39: Specimen Source Right radial, O2 % 21, ABG pH 7.32 L, ABG pCO2 42.1, ABG pO2 39.4 L, ABG HCO3 21.4 L, ABG Total CO2 22.6 L, ABG O2 Saturation 73 L*, ABG Base Excess -4.7 L, Baron Test Acceptable 01/01/24 20:46: WBC 10.3, RBC 4.28, Hgb 12.9, Hct 40.5, MCV 94.8, MCH 30.1, MCHC 31.8, RDW 14.1, Plt Count 319, MPV 7.2 L, Neut % (Auto) 94.1 H, Lymph % (Auto) 3.4 L, Roane % (Auto) 1.5 L, Eos % (Auto) 0.8, Baso % (Auto) 0.2, Neut # (Auto) 9.7 H, Lymph # (Auto) 0.4 L, Roane # (Auto) 0.2, Eos # (Auto) 0.1, Baso # (Auto) 0.0, Total Counted 100, Neutrophils % (Manual) 95 H, Lymphocytes % (Manual) 5 L, Platelet Estimate Normal, RBC Morphology Normal, Sodium 136, Potassium 4.7, Chloride 101, Carbon Dioxide 25, Anion Gap 14.7, BUN 14, Creatinine 0.70, Estimated Creat Clear 52, Estimated GFR 85, Est GFR ( Amer) 103, Glucose 174 H, Calcium 9.0, Magnesium 2.0, Total Bilirubin 0.4, AST 32, ALT 27, Alkaline Phosphatase 64, Troponin I < 0.01, Total Protein 7.4 D, Albumin 4.5, Globulin 2.9, Albumin/Globulin Ratio 1.6 Orders (Tests/Meds): ED MEDICATIONS Generic Name Dose Route Start Last Admin Trade Name Freq PRN Reason Stop Dose Admin Azithromycin 500 mg/ Sodium 250 mls @ 250 mls/hr 01/01/24 21:00 01/01/24 21:10 Chloride IV 01/11/24 20:59 250 mls/hr Q24H RITESH Administration Ceftriaxone Sodium 1 gm/ 50 mls @ 100 mls/hr 01/01/24 21:15 01/01/24 22:01 Sodium Chloride IV 01/11/24 21:14 100 mls/hr Q24H RITESH Administration Discontinued Medications Generic Name Dose Route Start Last Admin Trade Name Hernan PRN Reason Stop Dose Admin Albuterol/Ipratropium 9 ml 01/01/24 20:39 01/01/24 20:52 Ipratropium/Albuterol 3 Ml Neb IH 01/01/24 20:40 9 ml ONCE ONE Administration Iopamidol 70 ml 01/01/24 21:35 01/01/24 21:36 Iopamidol-370 (76%);100ml Bottle IV 01/01/24 21:36 70 ml ONCE ONE Administration Methylprednisolone Sodium Succinate 125 mg 01/01/24 20:42 01/01/24 21:10 Methylprednisolone Sod Succ 125mg Vial IV 01/01/24 20:43 125 mg ONCE ONE Administration Sodium Chloride 50 ml 01/01/24 21:35 01/01/24 21:37 0.9 % Sodium Chloride 50 Ml Vial IV 01/01/24 21:36 50 ml ONCE ONE Administration Sodium Chloride 10 ml 01/01/24 21:35 01/01/24 21:37 Sodium Chloride 0.9% 10ml Syr (Rad Only) IV 01/01/24 21:36 10 ml ONCE ONE Administration ORDERS Category Date Time Status CT angio chest PE protocol Stat Cat Scan 01/01/24 20:40 Completed CBC w/Auto Diff [Complete Blood Count Auto Diff] Stat Lab 01/01/24 20:46 Completed CMP [Comprehensive Metabolic Panel] Stat Lab 01/01/24 20:46 Completed Magnesium Stat Lab 01/01/24 20:46 Completed Trop I [Troponin I] Stat Lab 01/01/24 20:46 Completed Troponin I Q3H Lab 01/01/24 23:45 Ordered Troponin I Q3H Lab 01/02/24 02:45 Ordered ABG [Arterial Blood Gas] Stat RT 01/01/24 20:39 Completed ECG Data Tracing #1: Independently interpreted by Ernesto Jansen, rate is 97, rhythm is regular, axis is rightward deviated, no ST elevation in anatomical contiguous, QTc 302. Critical Care <CASSIA Tobar - Last Filed: 01/01/24 23:00> Critical Care Time Critical Care Time: Yes Attestation: On 01/01/24, the high probability of a clinically significant, sudden or life threatening deterioration of the following system(cardiopulmonary) required my full and direct attention, intervention and personal management. The time I documented below is in addition to time spent performing reported procedures but includes the following listed in this critical care notation. Total Time Total Critical Care Time: 35
--- NOTE | 2024-01-01 20:40 | CT_ITS ---
PROCEDURE INFORMATION: Exam: CTA Chest With Contrast Exam date and time: 01/01/2024 9:31 PM Age: 63 years old Clinical indication: Shortness of breath; Additional info: Acute respiratory distress TECHNIQUE: Imaging protocol: Computed tomographic angiography of the chest with contrast. Exam focused on the arteries. 3D rendering (Not supervised by radiologist): MIP and/or 3D reconstructed images were created by the technologist. Radiation optimization: All CT scans at this facility use at least one of these dose optimization techniques: automated exposure control; mA and/or kV adjustment per patient size (includes targeted exams where dose is matched to clinical indication); or iterative reconstruction. Contrast material: ISOVUE; Contrast volume: 70 ml; Contrast route: INTRAVENOUS (IV); COMPARISON: CT LUNG SCREENING 10/03/2023 9:34 AM FINDINGS: Pulmonary arteries: Normal. No pulmonary emboli. Aorta: Unremarkable. No aortic aneurysm. No aortic dissection. Lungs: Mild diffuse emphysematous changes throughout the bilateral lungs. No focal consolidation. Pleural spaces: Unremarkable. No pneumothorax. No pleural effusion. Heart: Unremarkable. No cardiomegaly. No pericardial effusion. Lymph nodes: Unremarkable. No enlarged lymph nodes. Bones/joints: Unremarkable. No acute fracture. Soft tissues: Unremarkable. IMPRESSION: 1. No evidence for a pulmonary embolism, aortic dissection, aortic aneurysm, or underlying pneumonia. 2. Mild diffuse emphysematous changes throughout the bilateral lungs. COMMENTS: The presence of pulmonary emphysema on CT is an independent risk factor for lung cancer. In the absence of a history or active diagnosis of lung cancer, it is recommended that this patient with emphysema be evaluated for enrollment in a low dose CT lung cancer screening program.
--- NOTE | 2024-01-01 20:45 | ECG_ITS ---
APPROVED REPORT Exam: Resting ECG HR:97 bpm ECG Measurements Heart Rate 97 AXES MT 174 P 88 QRSd 90 QRS 95 QT 327 T 64 QTc 382 Conclusion SINUS RHYTHM POSSIBLE RIGHT ATRIAL ENLARGEMENT [0.25mV P-WAVE] BORDERLINE RIGHT AXIS DEVIATION [QRS AXIS > 90] BORDERLINE ECG Electronically signed by : PATY EVANS, 01/02/2024 16:38:05
[2024-01-01] MEDS: IPRATROPIUM/ALBUTEROL 3 ML NEB 9 ML IH (20:52)
[2024-01-01 20:54] LABS: Basophils % 0.2 % (0.1-2.0); Eosinophils # 0.1 K/mm3 (0.0-0.4); Eosinophils % 0.8 % (0.1-12.0); Hematocrit 40.5 % (37.0-47.0); Hemoglobin 12.9 g/dL (12.2-16.2); Lymphocytes # 0.4 K/mm3 (0.7-4.5); Lymphocytes % 3.4 % (10-50); Mean Corpuscular HGB Conc 31.8 g/dL (31.8-35.4); Mean Corpuscular Hemoglobin 30.1 pg (27.0-31.2); Mean Corpuscular Volume 94.8 fl (81-99); Mean Platelet Volume 7.2 fl (7.4-10.4); Monocytes # 0.2 K/mm3 (0.1-1.0); Monocytes % 1.5 % (1.7-9.3); Neutrophils # 9.7 K/mm3 (1.8-7.8); Neutrophils % 94.1 % (37.0-80.0); Platelet Count 319 K/mm3 (142-424); Red Blood Count 4.28 M/mm3 (4.20-5.40); Red Cell Distribution Width 14.1 % (11.5-17.5); White Blood Count 10.3 K/mm3 (4.8-10.8)
[2024-01-01 21:00] VITALS: BP 119/86; PULSE 93; O2SAT 96
[2024-01-01 21:05] LABS: MANUAL DIFFERENTIAL MANUAL DIFFERENTIAL (MANUAL DIFF)
[2024-01-01 21:08] VITALS: PULSE 93; PULSE 97
[2024-01-01] MEDS: METHYLPREDNISOLONE SOD SUCC 125MG VIAL 125 MG IV (21:10)
[2024-01-01] MEDS: AZITHROMYCIN 500 MG in 0.9 % SODIUM CHLORIDE 250 ML 250 MG IV (21:10)
[2024-01-01 21:16] LABS: Alanine Aminotransferase 27 U/L (12-78); Albumin Level 4.5 g/dl (3.5-5.0); Albumin/Globulin Ratio 1.6 (1.1-1.8); Alkaline Phosphatase 64 U/L (38-126); Anion Gap 14.7 mEq/L (5-15); Aspartate Amino Transferase 32 U/L (14-36); Bilirubin,Total 0.4 mg/dl (0.2-1.3); Blood Urea Nitrogen 14 mg/dl (7-17); Carbon Dioxide 25 mmol/L (22.0-30.0); Chloride 101 mmol/L (98-107); Creatinine Clearance Estimated 52 mL/min (50-200); Estimated Glomerular Filt Rate 85 ml/min (>60); GFR (African American) 103 ML/MIN (>60); Globulin 2.9 g/dL (1.3-3.2); Glucose 174 mg/dl (74-100); Potassium 4.7 mmoL/L (3.5-5.1); Sodium 136 mmol/L (136-145); Total Protein,Serum 7.4 g/dl (6.3-8.2)
[2024-01-01 21:27] LABS: ABG Base Excess -4.7 mmol/L (-2.4-2.3); ABG HCO3 21.4 mmhg (22.0-26.0); ABG Oxygen Saturation 73 % (90-100); ABG PCO2 42.1 mmhg (35.0-45.0); ABG PH 7.32 mmol/L (7.35-7.45); ABG TCO2 22.6 mmhg (23-27)
[2024-01-01 21:29] LABS: Allen's Test Acceptable; Oxygen 21 %; Source Right Radial
[2024-01-01 21:31] LABS: ABG PO2 39.4 mmhg (80-100)
[2024-01-01] MEDS: IOPAMIDOL-370 (76%);100ML BOTTLE 70 ML IV (21:36)
[2024-01-01] MEDS: 0.9 % SODIUM CHLORIDE 50 ML VIAL IV (21:37)
[2024-01-01] MEDS: SODIUM CHLORIDE 0.9% 10ML SYR (RAD ONLY) 10 ML IV (21:37)
[2024-01-01 21:55] LABS: Lymphocytes % 5 % (10-50); Neutrophils % 95 % (42-76); Platelet Estimate Normal; RBC Morphology Normal; Total Cells Counted 100
[2024-01-01 22:00] VITALS: BP 122/83; PULSE 78; O2SAT 97
[2024-01-01] MEDS: CEFTRIAXONE SODIUM 1 GM in 0.9 % SODIUM CHLORIDE 50 ML IV (22:01)
[2024-01-01 22:12] LABS: Troponin I < 0.01 ng/ml (0.00-0.034)
[2024-01-01 22:30] VITALS: BP 123/81; PULSE 78; O2SAT 98
[2024-01-01 23:21] VITALS: BP 124/69; PULSE 76; RESP 16; TEMP 36.6; O2SAT 98
== END 2024-01-01 23:19 | disposition home or self-care (01) ==
PROVIDERS: Physician Assistant; Emergency Provider Emergency Medicine; PCP Family Medicine
DX: J44.1 Chronic obstructive pulmonary disease with (acute) exacerbation (principal); F17.210 Nicotine dependence, cigarettes, uncomplicated; R06.02 Shortness of breath; R05.9 Cough, unspecified; R53.81 Other malaise; B34.8 Other viral infections of unspecified site; I10 Essential (primary) hypertension; K21.9 Gastro-esophageal reflux disease without esophagitis
CPT/HCPCS: 71275; 80053; 82803; 83735; 84484; 85007; 85025; 93005; 96365; 96366; 96375; 99285; J0456; J0696; Q9967

== ENCOUNTER 2024-01-17 13:25 | Emergency (ER) | payer MEDICAID, SELFPAY ==
[2024-01-17 15:05] VITALS: BP 141/57; PULSE 114; RESP 24; TEMP 36.8; O2SAT 97; BMI 19.5
--- NOTE | 2024-01-17 15:31 | ED_ITS ---
Discharge Plan Disposition Patient Disposition: Home, Self-Care Condition: Good Prescriptions Prescriptions: New montelukast [Singulair] 10 mg tablet 10 mg PO DAILY Qty: 30 2RF nystatin 100,000 unit/gram cream 1 applic topical TID Qty: 30 0RF No Action Rexulti 0.5 mg tablet 0.5 mg PO .COMPLEX Patient Comments: TAKE 1 TABLET BY MOUTH EVERY DAY DIRECTED Rx Instructions: 0.5 mg orally as directed; prazosin 5 mg capsule 5 mg PO HS Qty: 90 3RF promethazine 25 mg tablet 25 mg PO Q6H PRN (Reason: nausea and vomiting) Qty: 20 1RF prazosin 1 mg capsule 1 mg PO HS Patient Comments: TAKE 1 CAPSULE BY MOUTH EVERY NIGHT AT BEDTIME gabapentin 300 mg capsule 300 mg PO TID Patient Comments: TAKE 1 CAPSULE BY MOUTH THREE TIMES DAILY acamprosate 333 mg tablet,delayed release (DR/EC) PO Patient Comments: TAKE 2 TABLETS BY MOUTH THREE TIMES DAILY ipratropium bromide 0.02 % solution 2.5 ml inhalation Q12HP Qty: 150 4RF fluticasone propion-salmeterol [Advair HFA] 230-21 mcg/actuation HFA aerosol inhaler 2 puff inhalation Q12H Qty: 12 4RF nicotine 21 mg/24 hr patch 24 hour 1 patch topical DAILY Qty: 28 4RF albuterol sulfate 90 mcg/actuation HFA aerosol inhaler 2 puff inhalation Q6H PRN (Reason: shortness of breath or wheezing) Qty: 8.5 5RF prednisone 50 mg tablet 50 mg PO DAILY Qty: 7 0RF Xiidra 5 % dropperette 1 drp Eye-Both BID 30 Days Qty: 60 2RF medroxyprogesterone [Provera] 10 mg tablet 10 mg PO DAILY Qty: 30 1RF fluticasone propionate [Flonase Allergy Relief] 50 mcg/actuation spray,suspension 1 spray intranasal DAILY 30 Days Qty: 16 3RF Rx Instructions: administer into each nostril ibuprofen 800 mg tablet 800 mg PO TID PRN (Reason: muscle relaxer) 30 Days Qty: 90 1RF lidocaine 5 % adhesive patch,medicated 1 patch topical DAILY 30 Days Qty: 30 2RF polyethylene glycol 3350 17 gram/dose powder 17 g PO NEEDED PRN (Reason: constipation) 30 Days Qty: 119 2RF buspirone 30 mg tablet 30 mg PO TID 30 Days Qty: 90 0RF duloxetine 60 mg capsule,delayed release(DR/EC) 60 mg PO DAILY 30 Days Qty: 30 2RF fexofenadine 180 mg tablet 180 mg PO DAILY 30 Days Qty: 30 2RF hydroxyzine pamoate 50 mg capsule 50 mg PO TID 30 Days Qty: 90 2RF metoprolol succinate 50 mg tablet extended release 24 hr 50 mg PO HS 90 Days Qty: 90 1RF omeprazole 40 mg capsule,delayed release(DR/EC) 40 mg PO DAILY 90 Days Qty: 90 2RF pravastatin 40 mg tablet 40 mg PO DAILY 30 Days Qty: 30 2RF methocarbamol 750 mg tablet 750 mg PO Q8H PRN (Reason: muscle relaxer) 30 Days Qty: 90 2RF estradiol [Estrace] 1 mg tablet 1 mg PO DAILY 30 Days Qty: 30 2RF quetiapine 300 mg tablet 300 mg PO HS 30 Days Qty: 30 2RF sennosides [Lou-terrance] 8.6 mg tablet 8.6 mg PO BID 30 Days Qty: 60 3RF cetirizine [Zyrtec] 10 mg tablet 10 mg PO DAILY Qty: 30 2RF benzonatate 200 mg capsule 200 mg PO TID PRN (Reason: cough) Qty: 100 1RF amoxicillin-pot clavulanate [Augmentin] 500-125 mg tablet 1 tab PO TID Qty: 30 0RF Linzess 290 mcg capsule 290 mcg PO HS 30 Days Qty: 30 2RF nystatin 100,000 unit/gram cream 1 applic topical BID Qty: 30 1RF thiamine HCl (vitamin B1) 100 mg tablet 100 mg PO DAILY Qty: 30 0RF Brixadi 24 mg/0.48 mL solution, extended rel syringe 24 mg SQ WEEKLY Referrals Follow up/Referrals: Isrrael Foreman MD [Primary Care Provider] - See instructions Clinical Impressions Clinical Impression: Upper respiratory tract infection Instructions Patient Instructions: DI for Viral Upper Respiratory Infection -- Adult Discharge ED Provider: Maria Antonia Voss [facility] [place] HPI General Stated complaint: sore throat, congestion Mode of Arrival: Ambulatory Source of Information: Patient Limitations: No Limitations Time Seen by Provider: 05/25/24 15:07 Description of Symptoms (Recalled from Triage Doc. by RN): Pt's symptoms are sore throat, Head congestion, and sore throat. HEENT Symptoms (Recalled from RN notes): Yes Resp Symptoms (Recalled from RN notes): No Skin Symptoms (Recalled from RN notes): No MS Symptoms (Recalled from RN notes): No Functional Status (Recalled from RN notes): n/a History of Present Illness Provider Complaint: Pt reports that she has been sick for the last 6 weeks with sinus symptoms and bronchitis. She reports that she has taken her last amoxicillin yesterday and continue to have sinus drainage, ear pain, and throat pain. Related Data Home Medications Medication Instructions Recorded Confirmed buprenorphine 24 mg/0.48 mL 24 mg SQ WEEKLY 09/11/23 01/17/24 solution,exten.rel.subcutaneous syringe (Brixadi Weekly) brexpiprazole 0.5 mg tablet 0.5 mg PO .COMPLEX 09/22/23 01/17/24 (Rexulti) acamprosate 333 mg tablet,delayed mg PO 01/06/24 01/12/24 release gabapentin 300 mg capsule 300 mg PO TID 01/06/24 01/17/24 prazosin 1 mg capsule 1 mg PO HS 01/06/24 01/17/24 Previous Rx's Medication Instructions Recorded thiamine HCl (vitamin B1) 100 mg 100 mg PO DAILY #30 tabs 07/09/23 tablet lifitegrast 5 % eye drops in a 1 drp Eye-Both BID 30 days #60 ea 08/27/23 dropperette (Xiidra) prazosin 5 mg capsule 5 mg PO HS #90 caps 09/22/23 medroxyprogesterone 10 mg tablet 10 mg PO DAILY #30 tabs 10/25/23 (Provera) fluticasone propionate 50 1 spray intranasal DAILY 30 days 11/07/23 mcg/actuation nasal #16 grams spray,suspension (Flonase Allergy Relief) ibuprofen 800 mg tablet 800 mg PO TID PRN muscle relaxer 11/07/23 30 days #90 tabs promethazine 25 mg tablet 25 mg PO Q6H PRN nausea and 11/17/23 vomiting #20 tabs lidocaine 5 % topical patch 1 patch topical DAILY Pain 30 days 12/16/23 #30 ea polyethylene glycol 3350 17 17 g PO NEEDED PRN constipation 12/16/23 gram/dose oral powder 30 days #119 grams buspirone 30 mg tablet 30 mg PO TID 30 days #90 tabs 12/23/23 duloxetine 60 mg capsule,delayed 60 mg PO DAILY 30 days #30 caps 12/23/23 release fexofenadine 180 mg tablet 180 mg PO DAILY 30 days #30 tabs 12/23/23 hydroxyzine pamoate 50 mg capsule 50 mg PO TID anxiety 30 days #90 12/23/23 caps methocarbamol 750 mg tablet 750 mg PO Q8H PRN muscle relaxer 12/23/23 30 days #90 tabs metoprolol succinate 50 mg 50 mg PO HS HTN 90 days #90 tabs 12/23/23 tablet,extended release 24 hr omeprazole 40 mg capsule,delayed 40 mg PO DAILY acid reflux 90 days 12/23/23 release #90 caps pravastatin 40 mg tablet 40 mg PO DAILY 30 days #30 tabs 12/23/23 estradiol 1 mg tablet (Estrace) 1 mg PO DAILY 30 days #30 tabs 12/25/23 quetiapine 300 mg tablet 300 mg PO HS 30 days #30 tabs 12/31/23 albuterol sulfate 90 mcg/actuation 2 puff inhalation Q6H PRN 01/06/24 aerosol inhaler shortness of breath or wheezing #8.5 grams fluticasone propionate 230 2 puff inhalation Q12H #12 grams 01/06/24 mcg-salmeterol 21 mcg/actuation HFA inhaler (Advair HFA) ipratropium bromide 0.02 % 2.5 ml inhalation Q12HP #150 mL 01/06/24 solution for inhalation nicotine 21 mg/24 hr daily 1 patch topical DAILY #28 ea 01/06/24 transdermal patch prednisone 50 mg tablet 50 mg PO DAILY #7 tabs 01/06/24 cetirizine 10 mg tablet (Zyrtec) 10 mg PO DAILY allergies #30 tabs 01/07/24 sennosides 8.6 mg tablet (Lou-terrance) 8.6 mg PO BID 30 days #60 tabs 01/07/24 amoxicillin 500 mg-potassium 1 tab PO TID #30 tabs 01/08/24 clavulanate 125 mg tablet (Augmentin) benzonatate 200 mg capsule 200 mg PO TID PRN cough #100 caps 01/08/24 linaclotide 290 mcg capsule 290 mcg PO HS GERD 30 days #30 caps 01/09/24 (Linzess) nystatin 100,000 unit/gram topical 1 applic topical BID #30 grams 01/13/24 cream montelukast 10 mg tablet 10 mg PO DAILY #30 tabs 01/17/24 (Singulair) nystatin 100,000 unit/gram topical 1 applic topical TID #30 grams 01/17/24 cream Allergies Allergy/AdvReac Type Severity Reaction Status Date / Time vilazodone [From Viibryd] AdvReac Mild Seizure Verified 01/17/24 15:24 Worker's Comp Is this a Worker's Comp case?: No [facility] Disclaimer: The information contained in this section may have been updated after the patient was seen, as this information can be updated by other users. Medical History (Updated 01/17/24 @ 15:48 by Maria Antonia Voss APRN) Coronary artery calcification seen on CAT scan Asthma COPD (chronic obstructive pulmonary disease) Diverticulitis Alcohol withdrawal Throat pain Cough Thyroid function test abnormal Headache Postmenopausal symptoms Night sweat ADD (attention deficit disorder) Nightmares Depression Anxiety PTSD (post-traumatic stress disorder) Rib pain Reactive airway disease with acute exacerbation Shingles Allergic rhinitis Tobacco dependence Dysuria Urinary tract infection Encounter to establish care Constipation GERD (gastroesophageal reflux disease) Hypertension Viral syndrome Close exposure to COVID-19 virus Otitis media Sinusitis Diverticulosis Alcohol dependence Uterine fibroid Abdominal pain Surgical History History of History of colonoscopy Family History Other Alcoholism Cancer Coronary artery disease Diabetes FHx: mental illness Heart attack Hyperlipidemia Hypertension Stroke Substance abuse Social History Smoking Status: Current every day smoker tobacco type: cigarettes alcohol intake: current substance use type: denies use current occupational status: unemployed Travel in the last 8 weeks: None ROS Obtained: Yes All systems reviewed & no additional complaints except as documented Constitutional Constitutional: Reports system reviewed and no additional complaints, except as documented and Reports malaise Eyes Eyes: Reports system reviewed and no additional complaints, except as documented ENT Ears, Nose, Mouth, and Throat: Reports system reviewed and no additional complaints, except as documented, Reports otalgia, Reports nasal discharge, Reports odynophagia, Reports post nasal drip, Reports sinus pain, Reports sinus pressure and Reports sore throat Cardiovascular Cardiovascular: Reports system reviewed and no additional complaints, except as documented Respiratory Respiratory: Reports system reviewed and no additional complaints, except as documented and Reports cough Gastrointestinal Gastrointestingal: Reports system reviewed and no additional complaints, except as documented and odynophagia Genitourinary Female Genitourinary: Reports system reviewed and no additional complaints, except as documented Musculoskeletal Musculoskeletal: Reports system reviewed and no additional complaints, except as documented Integumentary/Breasts Skin/Breast: Reports system reviewed and no additional complaints, except as documented Neurologic Neurologic: Reports system reviewed and no additional complaints, except as documented Endocrine Endocrine: Reports system reviewed and no additional complaints, except as documented Hematologic/Lymphatic Henatologic/Lymphatic: Reports system reviewed and no additional complaints, except as documented Allergic/Immunologic Allergic/Immunologic: Reports system reviewed and no additional complaints, except as documented Physical Exam General General appearance: alert and anxious Head Head exam: atraumatic and normocephalic Eye Eye exam: Present normal appearance Expanded ENT Exam External ear exam: Present normal external inspection TM/Canal exam: Bilateral TM: effusion (clear bubbles) Nasal speculum exam: Bilateral: other (white thick nasal drainage) Mouth exam: Present normal external inspection Teeth exam: Present normal inspection Comment: post nasal drainage Neck Neck exam: Present normal inspection Chest Chest inspection: Present normal inspection and symmetric chest wall rise Respiratory Respiratory exam: Present normal lung sounds bilaterally Cardiovascular Cardiovascular exam: Present regular rate and normal rhythm Abdominal Exam Abdominal exam: Present soft Extremities Exam Extremities exam: Present normal inspection Back Exam Back exam: Present normal inspection Neurological Exam Neurological exam: Present alert and oriented X3 Psychiatric Psychiatric exam: Present normal affect and anxious Skin Skin exam: Present warm, dry and intact Lymphatic Lymphatic Findings: no adenopathy Medical Decision Making Nestor Inquiry Pt receiving controlled substance: No Nestor was queried for this patient: No Vital Signs: 01/17/24 15:05 Temperature 98.3 F Temperature Source Oral Pulse Rate [Right Radial] 114 H Respiratory Rate 24 Blood Pressure [Right Arm] 141/57 H Blood Pressure Mean [Right Arm] 85 Blood Pressure Source [Right Arm] Automatic Cuff Blood Pressure Position [Right Arm] Sitting 02 Sat by Pulse Oximetry 97 Oxygen Delivery Method Room Air
[2024-01-17 15:44] LABS: UTC Strep Screen (Rapid) Negative (Negative)
[2024-01-17 15:52] VITALS: BP 141/57; PULSE 114; RESP 24; TEMP 36.8; O2SAT 97
== END 2024-01-17 15:52 | disposition home or self-care (01) ==
PROVIDERS: Emergency Provider Nurse Practitioner Family; PCP Family Medicine
DX: R07.0 Pain in throat (principal); R09.81 Nasal congestion; J06.9 Acute upper respiratory infection, unspecified
CPT/HCPCS: 87880; 99212; 99214; G0463

== ENCOUNTER 2024-01-28 10:00 | Outpatient (RCR) | payer MEDICAID, SELFPAY ==
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
--- NOTE | 2024-01-12 12:05 | HMH.RHREAS ---
Rehab Reassessment Rehab OP Re-assessment Start: 12/15/23 13:55 Freq: Status: Active Protocol: Document 01/12/24 11:04 SCOT (Rec: 01/12/24 12:05 SCOT [id number]) E-signed By Ester Nuñez PT Neck Disability Index Neck Disability Index Section 1: Pain Intensity The pain is fairly severe at the moment Section 2: Personal Care (washing, I can look after myself dressing, etc.) normally but it causes extra pain Section 3: Lifting I can only lift very light weights Section 4: Reading I can't read as much as I want because of moderate pain in my neck Section 5: Headaches I have moderate headaches, which come frequently Section 6: Concentration I cannot concentrate at all Section 7: Work I cannot do my usual work Section 8: Driving I can't drive my car as long as I want because of moderate pain in my Section 9: Sleeping My sleep is greatly disturbed (3-5 hrs sleepless) Section 10: Recreation I can hardly do any recreation activities because of pain in my neck NDI Score 33 Oswestry Index Section 1 Pain Intensity The pain is severe and does not vary much Section 2 Personal Care (Washing,Dresing) increase the pain and I find it necessary to change my way of doing it Section 3 Lifting I can only lift very light weights at most Section 4 Walking I cannot walk more than 1/4 mile without increasing pain Section 5 Sitting Pain prevents me from sitting for more than 1/2 hour Section 6 Standing I cannot stand more than 1/2 hour without increasing pain Section 7 Sleeping Because of my pain, my normal night's sleep is less than 6 hours sleep Section 8 Social Life Pain has restricted my social life to my home Section 9 Traveling I get extra pain while traveling which compels me to seek alternate fo Section 10 Changing Degreee of Pain My pain is neither getting better or worse Score and Risk Level Oswestry Sc 35 Oswestry Risk Level Completely Disabled Rehab Re-assessment Subjective Subjective Pt reports she feels 0% improved since starting PT. Pt reports she has only been able to attend 3 treatment sessions following her evaluation due to being very sick with bronchitis. Pt reports she was unable to perform her HEP as well because of being sick. Pt reports continued neck>low back pain that she states has constantly been around an 8/10 on VAS since being sick. Pt also reports intermittent numbness/tingling of the L arm and L leg, states she is scheduled to get a nerve test soon. Objective Objective Notes Palpation: 3/4 TTP of L>R cervical and lumbar PS Cervical AROM: 30 flex, 30 ext , 25 RLF,25 LLF, 25 Brot Lumbar AROM: flex 50, ext 10, LF 10 Assessment Progress Assessment Slower Than Expected Assessment Notes Pt has only attended 3 PT treatment sessions since her initial evaluation on 12/15/23 due to report of being sick. Pt demonstrated slight regression in NDI score this date compared to the initial evaluation; however, demonstrated slight improvement in cervical and lumbar AROM. Pt continues to report severe pain and intermittent paresthesia of the L side. Overall, the pt would continue to benefit from skilled PT to further improve pain severity, cervical/ lumbar AROM, UE/LE strength and functional activity tolerance to improve overall QOL. Patient goals met ST/4 Goals Not Met compliance with HEP, cervical LF AROM Revised Goals Add to LTG: Improve ELISHA score to 30 or less to improve overall QOL Plan Plan Continue initial POC Frequency of Therapy 2x/week Duration of therapy 4 more weeks Time and Billing Re-Eval Time 15 Re-Eval Billing Units 1 PHYSICIAN CERTIFICATION: I certify the specified therapy services for Carmen Sarah are required, authorized, and reviewed every 30 days.
== END 2024-01-28 10:05 | disposition home or self-care (01) ==
LOC: PT 10:00
PROVIDERS: Visit Provider Family Medicine
DX: M54.50 Low back pain, unspecified (principal); M54.2 Cervicalgia
CPT/HCPCS: 97010; 97014; 97035; 97110; 97140; 97163; 97164; G0283

== ENCOUNTER 2024-03-08 09:54 | Outpatient (CLI) | payer MEDICAID, SELFPAY ==
[2024-03-08 10:50] VITALS: PULSE 76; PULSE 80
[2024-03-08] MEDS: ALBUTEROL 0.083% 2.5 MG/3 ML NEB IH (10:50)
== END 2024-03-08 23:59 | disposition home or self-care (01) ==
LOC: RT 09:55
PROVIDERS: PCP Family Medicine; Visit Provider Nurse Practitioner Family
DX: R06.00 Dyspnea, unspecified (principal); J44.9 Chronic obstructive pulmonary disease, unspecified; F17.210 Nicotine dependence, cigarettes, uncomplicated
CPT/HCPCS: 94060; 94640; 94727; 94729; J7613

== ENCOUNTER 2024-03-29 13:27 | Outpatient (CLI) | payer MEDICAID, SELFPAY ==
--- NOTE | 2024-03-29 13:28 | US_ITS ---
PROCEDURE: US TRANSVAGINAL CLINICAL INDICATION: post menopausal bleeding COMPARISON: No exams were available for comparison FINDINGS: Transvaginal sonographic images of the pelvis were obtained. UTERUS: 10.2cm x 9.0cmx 10.1cm anteverted with a combined endometrial thickness of 4.6mm. There are multiple fibroids within the uterus. Fibroid 1: Measures 4.7 cm x 3.3 cm x 3.8 cm. Fibroid 2: Measures 4.3 cm x 4.1 cm x 3.7 cm LEFT OVARY: Not well visualized due to bowel gas RIGHT OVARY: Not well viewed light is due to bowel gas There is no fluid in the cul-de-sac. IMPRESSION: 1. Anteverted uterus that is significantly enlarged with multiple fibroids. Difficult examination due to these multiple fibroids. 2. Two fibroids were measured and they are 4.7 cm and 4.3 cm in size. 3. The endometrium is thin measuring 4.6 mm. 4. The ovaries were not visualized secondary to bowel gas. 5. No fluid in the cul-de-sac. Dictated by: Braxton Carroll MD 03/29/2024 16:54 Braxton Carroll MD in [place] 03/29/2024 16:54
--- NOTE | 2024-03-29 13:28 | MM_ITS ---
PROCEDURE INFORMATION: Exam: MG Bilateral Screening 3D Mammography Exam date and time: 03/29/2024 1:14 PM Age: 63 years old Clinical indication: Screening exam. TECHNIQUE: Imaging protocol: Bilateral Screening tomosynthesis and 2D mammography including computer-aided detection (CAD) when performed. COMPARISON: MG MM DIG SCREENING MAMM BI W/CAD 10/29/2022 7:53 AM FINDINGS: MAMMOGRAPHY: Breast composition: The breasts are heterogeneously dense, which may obscure small masses. Mass: No suspicious masses. Architectural distortion: None. Calcifications: No suspicious calcifications. Asymmetric density: None. Skin thickening: None. Axillary adenopathy: None. IMPRESSION: No mammographic evidence of malignancy. Annual screening is recommended unless otherwise clinically indicated. ASSESSMENT: BI-RADS Category 1: Negative
== END 2024-03-29 23:59 | disposition home or self-care (01) ==
LOC: RAD 13:28
PROVIDERS: PCP Family Medicine; Visit Provider Obstetrics & Gynecology
DX: N95.0 Postmenopausal bleeding (principal)
CPT/HCPCS: 76830; 77063; 77067

== ENCOUNTER 2024-10-12 16:32 | Outpatient (CLI) | payer MEDICARE, SELFPAY ==
[2024-10-12 17:10] LABS: Basophils % 0.4 % (0.1-2.0); Eosinophils % 0.2 % (0.1-12.0); Hematocrit 37.4 % (37.0-47.0); Hemoglobin 12.3 g/dL (12.2-16.2); Lymphocytes # 0.9 K/mm3 (0.7-4.5); Mean Corpuscular HGB Conc 32.9 g/dL (31.8-35.4); Mean Corpuscular Hemoglobin 29.3 pg (27.0-31.2); Mean Platelet Volume 9.2 fl (7.4-10.4); Monocytes # 0.4 K/mm3 (0.1-1.0); Neutrophils # 3.9 K/mm3 (1.8-7.8); Platelet Count 232 K/mm3 (142-424); Red Cell Distribution Width 13.6 % (11.5-17.5); White Blood Count 5.2 K/mm3 (4.8-10.8)
[2024-10-12 19:42] LABS: Albumin Level 4.4 g/dl (3.5-5.0); Chloride 103 mmol/L (98-107); Potassium 4.1 mmoL/L (3.5-5.1); Sodium 136 mmol/L (136-145)
[2024-10-12 19:44] LABS: Blood Urea Nitrogen 11 mg/dl (7-17); Estimated Glomerular Filt Rate 72 ml/min (>60); GFR (African American) 88 ML/MIN (>60)
[2024-10-12 19:45] LABS: Alanine Aminotransferase 23 U/L (12-78); Albumin/Globulin Ratio 1.7 (1.1-1.8); Alkaline Phosphatase 96 U/L (38-126); Anion Gap 12.1 mEq/L (5-15); Aspartate Amino Transferase 39 U/L (14-36); Bilirubin,Total 0.2 mg/dl (0.2-1.3); Calcium 8.9 mg/dl (8.4-10.2); Carbon Dioxide 25 mmol/L (22.0-30.0); Globulin 2.6 g/dL (1.3-3.2); Glucose 76 mg/dl (74-100)
[2024-10-12 20:03] LABS: T4 (Thyroxine) 9.8 ug/dl (5.53-11.0)
[2024-10-12 20:16] LABS: Thyroid Stimulating Hormone 1.35 uIU/mL (0.465-4.68)
== END 2024-10-12 23:59 | disposition home or self-care (01) ==
LOC: LAB 16:33
PROVIDERS: PCP Family Medicine; Visit Provider Family Medicine
DX: R60.9 Edema, unspecified (principal); J44.9 Chronic obstructive pulmonary disease, unspecified; I10 Essential (primary) hypertension
CPT/HCPCS: 80053; 84436; 84443; 85025

== ENCOUNTER 2024-10-20 14:24 | Outpatient (CLI) | payer MEDICARE, SELFPAY ==
--- NOTE | 2024-10-20 14:26 | US_ITS ---
PROCEDURE: US TRANSVAGINAL CLINICAL INDICATION: post menopausal bleeding COMPARISON: No exams were available for comparison FINDINGS: Transvaginal and transabdominal sonographic images of the pelvis were obtained. UTERUS: 10.6 cm x 9.4cmx 8.7 cm anteverted with a combined endometrial thickness of 12mm. The endometrium is difficult to see well. There is fluid within the endometrial cavity. An endometrial polyp is a possibility within the endometrium. There is fluid within the cervix. There are multiple calcifications in the anterior uterus that could be small degenerating fibroids. There is posterior shadowing with these calcifications. There are least 3 fibroids. Fibroid 1. 2.6 cm x 2.1 cm x 2.8 cm located anteriorly Fibroid 2. 3.5 cm x 3.9 cm x 3.8 cm located posteriorly in the lower uterine segment. Fibroid 3. 2.9 cm x 1.9 cm x 2.1 cm located posteriorly LEFT OVARY: Not visualized RIGHT OVARY: Not visualized Both ovaries are not visualized. There is no fluid in the cul-de-sac. IMPRESSION: 1. Anteverted bulky uterus with at least 3 fibroids. The largest measures 3.9 cm. There are echogenic areas within the anterior myometrium that could represent degenerating fibroids with posterior shadowing. 2. The endometrium is thickened but difficult to evaluate. Suggest endometrial sampling. There is fluid within the endometrial cavity which could represent blood. 3. The ovaries were not visualized today. 4. No fluid in the cul-de-sac. Dictated by: Braxton Carroll MD 10/20/2024 16:31 Braxton Carroll MD in [place] 10/20/2024 16:31
== END 2024-10-20 23:59 | disposition home or self-care (01) ==
LOC: RAD 14:26
PROVIDERS: PCP Family Medicine; Visit Provider Obstetrics & Gynecology
DX: N95.0 Postmenopausal bleeding (principal)
CPT/HCPCS: 76830

== ENCOUNTER 2024-11-08 11:45 | Outpatient (CLI) | payer MEDICARE, SELFPAY ==
[2024-11-08 12:16] LABS: Albumin Level 4.5 g/dl (3.5-5.0); Basophils % 0.2 % (0.1-2.0); Chloride 102 mmol/L (98-107); Eosinophils % 0.5 % (0.1-12.0); Hematocrit 39.4 % (37.0-47.0); Lymphocytes # 0.6 K/mm3 (0.7-4.5); Lymphocytes % 8.7 % (10-50); Mean Corpuscular Hemoglobin 29.5 pg (27.0-31.2); Mean Corpuscular Volume 89.3 fl (81-99); Mean Platelet Volume 9.2 fl (7.4-10.4); Monocytes # 0.4 K/mm3 (0.1-1.0); Monocytes % 5.6 % (1.7-9.3); Neutrophils # 5.4 K/mm3 (1.8-7.8); Neutrophils % 84.8 % (37.0-80.0); Platelet Count 206 K/mm3 (142-424); Red Blood Count 4.41 M/mm3 (4.20-5.40); Red Cell Distribution Width 12.2 % (11.5-17.5); Sodium 135 mmol/L (136-145); White Blood Count 6.4 K/mm3 (4.8-10.8)
[2024-11-08 12:17] LABS: Potassium 3.2 mmoL/L (3.5-5.1)
[2024-11-08 12:19] LABS: Alanine Aminotransferase 56 U/L (12-78); Anion Gap 16.2 mEq/L (5-15); Aspartate Amino Transferase 126 U/L (14-36); Bilirubin,Unconjugated 0.3 mg/dL (0.0-1.1); Blood Urea Nitrogen 17 mg/dl (7-17); Carbon Dioxide 20 mmol/L (22.0-30.0); Cholesterol 199 mg/dl (140-200); Estimated Glomerular Filt Rate 72 ml/min (>60); GFR (African American) 88 ML/MIN (>60); Triglycerides 262 mg/dl (30-150); VLDL Cholesterol 52 mg/dL (0-40)
[2024-11-08 12:20] LABS: Alkaline Phosphatase 77 U/L (38-126); Bilirubin,Direct 0.4 mg/dl (0.0-0.4); Bilirubin,Indirect 0.3 mg/dL (0.0-0.9); Bilirubin,Total 0.7 mg/dl (0.2-1.3); Calcium 8.5 mg/dl (8.4-10.2); Glucose 96 mg/dl (74-100)
[2024-11-08 12:25] LABS: D-Dimer 0.72 ug/mL (0.0-0.5)
[2024-11-08 12:31] LABS: Direct LDL Cholesterol 48.68 mg/dL (100-129)
[2024-11-08 12:40] LABS: Free T4 (Free Thyroxine) 0.82 ng/dl (0.78-2.19)
[2024-11-08 12:52] LABS: Thyroid Stimulating Hormone 1.73 uIU/mL (0.465-4.68)
[2024-11-08 15:32] LABS: Troponin I 0.01 ng/ml (0.00-0.034)
[2024-11-08 17:43] LABS: NT Pro Brain Natriuretic Pep. 204 pg/mL (0-125)
== END 2024-11-08 23:59 | disposition home or self-care (01) ==
LOC: LAB 11:46
PROVIDERS: PCP Family Medicine; Visit Provider Nurse Practitioner Family
DX: I25.10 Atherosclerotic heart disease of native coronary artery without angina pectoris (principal); R06.09 Other forms of dyspnea; R03.0 Elevated blood-pressure reading, without diagnosis of hypertension; R07.9 Chest pain, unspecified; K21.9 Gastro-esophageal reflux disease without esophagitis; R13.19 Other dysphagia; R60.0 Localized edema
CPT/HCPCS: 36415; 80048; 80061; 80076; 82565; 83880; 84439; 84443; 84484; 84520; 85025; 85378

== ENCOUNTER 2024-11-10 11:46 | Outpatient (CLI) | payer MEDICARE, SELFPAY ==
[2024-11-10] VITALS (8 sets, daily range): BP systolic 87–115; BP diastolic 52–78; PULSE 64–99; RESP 16–20; O2SAT 98–100; BMI 23.8
[2024-11-10] MEDS: 0.9 % SODIUM CHLORIDE 1000ML 1,000 ML 999 ML IV (12:15)
--- NOTE | 2024-11-10 12:26 | PC.NURSE ---
pt initially hypotensive on arrival for CTA. after initiation of NS bolus, pt bp improved, however still under the threshold for protocol medications for HR. Call out to [facility] for verbal recommendation on medication orders.
[2024-11-10] MEDS: IVABRADINE HCL 7.5MG TABLET PO (12:57)
--- NOTE | 2024-11-10 13:00 | CT_ITS ---
APPROVED REPORT Cat Scanner Operator: CLINICAL INDICATION Chest Pain TECHNIQUE Image Acquisition: A 128 slice MDCT scanner ([employer]) was used for data acquisition. A noncontrast coronary calcium scan was performed. A CT attenuation threshold of 130 Hounsfield units (HU) was used for the detection of calcium in contiguous voxels of 1 sq mm in area to be counted as individual lesions. Bolus tracking in the ascending aorta with a threshold of 180 HU was performed. Immediately afterwards, ECG synchronized cardiac CT was then performed from the cardiac base to apex using retrospective gating with ECG tube current modulation. A total of 85 mL of Isovue 370 mg/mL contrast medium was administered at 5 mL/sec followed by a saline flush using a biphasic injection protocol. A tube voltage of 120 KVp was used. The patient received the following medications prior to the cardiac CT. 25 mg of oral metoprolol 15 mg of oral ivabradine The average heart rate at the time of acquisition was 62 bpm and regular. Image Reconstruction Transaxial images were reconstructed at 0.67 mm slide thickness. Data was reviewed interactively on an advanced workstation capable of 2 and 3-dimensional displays in all conventional reconstruction formats, including multiplanar reformations, maximum intensity projections, curved multiplanar reformations, and volume rendered reconstructions. When applicable, selected routine images describing the relevant coronary anatomy and pathology were saved and sent to PACS. Complications None Technical Quality Overall image quality was good. Coronary artery opacification was adequate. Total DLP (Dose-Length Product) is 1225.4 mGy-cm. The reported value represents the total of one or more individual components during the CT acquisition of this date and at this time, and as such, the same value may appear in more than one CT report depending on the interpreting/reporting physicians. COMPARISON None FINDINGS CT Coronary Calcium Scoring LMA (Left Main Artery) = 0 LAD (Left Anterior Descending) = 18 LCX (Left Coronary Circumflex) = 0 RCA (Right Coronary Artery) = 3 Total Calcium Score = 21 using the AJ-130 method. The observed calcium score of 21 is at 70th percentile for subjects of the same age, sex, and race/ethnicity. The interpretation of the calcium heart score is based on the following continuum*: 0 = no calcified plaque detected (risk of coronary artery disease is very low ??? less than 5%) 1-10 = calcium detected in extremely minimal levels (risk of coronary diseases is still low ??? less than 10%) 11-100 = mild levels of plaque detected with certainty (mild or minimal narrowing of heart arteries is likely) 101-400 = definite,at least moderate levels of plaque detected (relatively high risk of a heart attack within 3-5 years) >401-999 = extensive levels of plaque detected (high risk of heart attack, high levels of vascular disease are present, high likelihood of at least one significant coronary narrowing) *The calcium heart score quantifies the burden of coronary calcification/plaque in the coronary arteries. The calcium heart score is not able to evaluate the presence or burden of non-calcified (i.e. soft) plaque. There is no identifiable calcification in the aortic valve, mitral annulus or mitral valve, pericardium, or myocardium. Coronary CT Angiography The coronary arterial system is right dominant. Quantitative Stenosis Grading: Left Main (LM): The left main originates normally from the left sinus of Valsalva. The LM bifurcates into the left anterior descending artery and left circumflex artery. The LM is patent with no evidence of atherosclerosis. Left Anterior Descending (LAD) and Diagonal Branches: The LAD gives off 2 diagonal branch(es). There is a mixed calcified/noncalcified plaque in the proximal LAD, with up to 25-49% luminal stenosis. There is no evidence of LAD-myocardial bridge. Left Circumflex (LCX) and Obtuse Marginals (OM): The LCX is a small caliber vessel. The LCx gives off 1 Obtuse Marginal (OM) branch(es). The LCX and its branches are patent with no evidence of atherosclerosis. Right Coronary Artery (RCA): The RCA originates normally from the right sinus of Valsalva. The RCA gives off a posterior descending artery (PDA) and posterolateral (PL) branches. There is mixed calcified/noncalcified plaque in the proximal RCA segment with < 25% luminal stenosis. Non-Coronary Cardiac Findings: Analysis of the left ventricular (LV) structure and function was performed after 3-D reconstruction of the LV from axial images, with user-corrected automatic contouring for assessment of LV volumes and user-defined reconstruction from oblique planes for measurement of 3-D cardiac structure and function. -The left ventricle systolic function is normal. -There is no left atrial appendage filling defect. Two right pulmonary veins and two left pulmonary veins drain normally into the left atrium. -No pericardial thickening or calcification. -Central and branch pulmonary arteries in the [id number] are unremarkable. -Thoracic aorta within the visualized thoracic aortic-branches in the [id number] is unremarkable. Extracardiac Structures No significant extra-cardiac findings. Note, however, that this study is focused on the cardiac findings. IMPRESSION -Presence of coronary calcification with an Agatston score = 21 using the AJ-130 method. -The observed calcium score of 21 is at 70th percentile for subjects of the same age, sex, and race/ethnicity. -Mild, nonobstructive atherosclerotic coronary disease, with no evidence of significant flow-limiting atherosclerosis of the coronary arteries. -CAD-RADS 2. Management recommendations per ACC/AHA guidelines*, as clinically appropriate. *Recommendations: CAD RADS 0: Reassurance. Consider non-atherosclerotic causes of chest pain. CAD RADS 1: Consider non-atherosclerotic causes of chest pain. Consider preventive therapy and risk factor modification. CAD RADS 2: Consider non-atherosclerotic causes of chest pain. Consider preventive therapy and risk factor modification, particularly for patients with nonobstructive plaque in multiple segments. CAD RADS 3: Consider further functional testing. Consider symptom-guided anti-ischemic and preventive pharmacotherapy as well as risk factor modification per published guideline statements. CAD RADS 4A: Consider further functional testing or invasive coronary angiography with revascularization per published guideline statements. Consider symptom-guided anti-ischemic and preventive pharmacotherapy as well as risk factor modification per published guideline statements. CAD RADS 4B: Invasive coronary angiography recommended with revascularization per published guideline statements. Consider symptom-guided anti-ischemic and preventive pharmacotherapy as well as risk factor modification per published guideline statements. CAD RADS 5: Consider invasive angiography and/or viability assessment with revascularization per published guideline statements. Consider symptom-guided anti-ischemic and preventive pharmacotherapy as well as risk factor modification per published guideline statements. CRITICAL RESULT None COMMUNICATION Per this written report The coronary and cardiac findings of this CCTA were reviewed, reported, and signed by Joe Nunez MD ([employer]) Conclusion Electronically signed by : Danielle Nunez MD 11/11/2024 01:11:22
--- NOTE | 2024-11-10 13:08 | PC.NURSE ---
per jerome montenegro to give 25mg of PO metoprolol and watch bp/hr.
[2024-11-10] MEDS: METOPROLOL TARTRATE 50MG TABLET 25 MG PO (13:10)
[2024-11-10] MEDS: 0.9 % SODIUM CHLORIDE 50 ML VIAL IV (14:34)
[2024-11-10] MEDS: SODIUM CHLORIDE 0.9% 10ML SYR (RAD ONLY) 10 ML IV (14:34)
[2024-11-10] MEDS: IOPAMIDOL-370 (76%);100ML BOTTLE 85 ML IV (14:34)
--- NOTE | 2024-11-10 14:37 | PC.NURSE ---
pt IV infiltrated during CTA image was obtained. pt refused another IV for second scan. IV /c and wrapped in warm compress. pt declines any pain.
== END 2024-11-10 23:59 | disposition home or self-care (01) ==
LOC: RAD 11:47
PROVIDERS: PCP Family Medicine; Visit Provider Nurse Practitioner Family
DX: I25.10 Atherosclerotic heart disease of native coronary artery without angina pectoris (principal); R60.0 Localized edema
CPT/HCPCS: 75574; J7030; Q9967

== ENCOUNTER 2024-11-16 16:22 | Outpatient (CLI) | payer MEDICARE, SELFPAY | END 2024-11-16 23:59 | disposition home or self-care (01) | LOC: PREOP 16:24 | PROVIDERS: PCP Family Medicine; Visit Provider Obstetrics & Gynecology | DX: R69 Illness, unspecified (principal) ==

== ENCOUNTER 2024-11-19 10:49 | Outpatient (CLI) | payer MEDICARE, SELFPAY | END 2024-11-19 23:59 | disposition home or self-care (01) | LOC: RAD 10:57 | PROVIDERS: PCP Family Medicine; Visit Provider Nurse Practitioner Family | DX: R79.89 Other specified abnormal findings of blood chemistry (principal); R06.02 Shortness of breath ==

== ENCOUNTER 2024-12-31 11:26 | Outpatient (CLI) | payer MEDICARE, OTHER, SELFPAY | END 2024-12-31 23:59 | disposition home or self-care (01) | LOC: LAB.DROPOF 01-03 10:52 | PROVIDERS: PCP Nurse Practitioner Family; Visit Provider Nurse Practitioner Family | DX: N39.0 Urinary tract infection, site not specified (principal); B96.20 Unspecified Escherichia coli [E. coli] as the cause of diseases classified elsewhere | CPT/HCPCS: 87086; 87088; 87186 ==

== ENCOUNTER 2025-01-03 16:01 | Outpatient (CLI) | payer MEDICARE, OTHER, SELFPAY ==
--- NOTE | 2025-01-03 16:05 | CT_ITS ---
FINAL REPORT CLINICAL HISTORY: smoker 30 years, 1/2 ppd copd COMPARISON: 10/03/2023 FINDINGS: CTDI vol (mGy): 2.90 DLP: 100.[address] images of the chest were obtained using the low-dose protocol for screening. There are calcified subcarinal and left hilar lymph nodes. There is no evidence of mediastinal or hilar mass or adenopathy. No axillary mass or adenopathy is identified. On the lung window images, there is a stable nodule in the right upper lobe measuring 4 mm seen on image 32 of series 604. Right basilar scarring is noted. IMPRESSION: Stable 4 mm nodule in the right upper lobe. Lung RADS category 2. Recommend 12 month followup low-dose CT for further evaluation. Reviewed, Interpreted and Dictated by Andrew Huynh MD Transcribed by Cathy Vegas Authenticated and [facility]
== END 2025-01-03 23:59 | disposition home or self-care (01) ==
LOC: RAD 16:01
PROVIDERS: PCP Family Medicine; Visit Provider Internal Medicine Pulmonary Disease
DX: Z12.2 Encounter for screening for malignant neoplasm of respiratory organs (principal); R91.1 Solitary pulmonary nodule; J44.9 Chronic obstructive pulmonary disease, unspecified; F17.210 Nicotine dependence, cigarettes, uncomplicated
CPT/HCPCS: 71271

== ENCOUNTER 2025-01-06 08:17 | Outpatient (CLI) | payer MEDICARE, OTHER, SELFPAY ==
--- NOTE | 2025-01-06 08:30 | CT_ITS ---
FINAL REPORT TECHNIQUE: The patient was injected with IV contrast. Axial images were obtained through the chest in a PE protocol. 3-D reconstruction images were also performed. Individualized dose reduction techniques using automated exposure control or adjustment of the MA and/or KV according to patient's size were employed. CLINICAL HISTORY: elvated -dimer COMPARISON: 01/02/2024 FINDINGS: Mediastinal vasculature is adequately opacified. No pulmonary artery filling defects are identified to suggest PE. There is no aortic dissection. A minimal hiatal hernia is present. There is no axillary adenopathy. There is no hilar or mediastinal adenopathy. The heart size is normal. There is no pericardial or pleural effusion. Limited images of the upper abdomen are unremarkable. No suspicious infiltrate is identified. Scarring is present in the right lung base, stable. There is a fusiform nodule measuring 4 mm in size, best seen on image #43 of series 3, stable. There is also an irregular density in the medial right upper lobe, measuring 5 mm in transverse dimension, best seen on image #31 of series 3, also stable. IMPRESSION: No pulmonary embolus or dissection. 2 nodules are present, stable since the prior CT of 01/03/2025. Reviewed, Interpreted and Dictated by Andrew Huynh MD Transcribed by Martha Alaniz Authenticated and . [facility]
[2025-01-06 09:11] LABS: Blood Urea Nitrogen 22 mg/dl (7-17); Estimated Glomerular Filt Rate 50 ml/min (>60); GFR (African American) 61 ML/MIN (>60)
[2025-01-06] MEDS: SODIUM CHLORIDE 0.9% 10ML SYR (RAD ONLY) 10 ML IV (09:47)
[2025-01-06] MEDS: 0.9 % SODIUM CHLORIDE 50 ML VIAL IV (09:47)
[2025-01-06] MEDS: IOPAMIDOL-370 (76%);100ML BOTTLE 70 ML IV (09:47)
== END 2025-01-06 23:59 | disposition home or self-care (01) ==
LOC: RAD 08:18
PROVIDERS: PCP Family Medicine; Visit Provider Internal Medicine
DX: R79.89 Other specified abnormal findings of blood chemistry (principal); I25.10 Atherosclerotic heart disease of native coronary artery without angina pectoris
CPT/HCPCS: 36415; 71275; 82565; 84520; Q9967

== ENCOUNTER 2025-02-24 09:19 | Inpatient (IN) | payer MEDICARE, SELFPAY ==
[2025-02-24] VITALS (22 sets, daily range): BP systolic 121–178; BP diastolic 64–105; PULSE 75–120; RESP 15–22; TEMP 36.9–37.2; O2SAT 87–100; BMI 20.9
--- NOTE | 2025-02-24 09:32 | PC.NURSE ---
DR QUINTANA AT BEDSIDE
--- NOTE | 2025-02-24 09:39 | HMH.EDGENADL ---
Discharge Plan Disposition Patient Disposition: Admitted Clinical Impressions Clinical Impression: Alcohol withdrawal, Nausea & vomiting Discharge ED Provider: Kole Gross General Adult HPI General Chief complaint: Alcohol Stated complaint: shakes,vomiting Time Seen by Provider: 02/24/25 09:28 Mode of Arrival: Ambulatory Source of Information: Patient Limitations: No Limitations History of Present Illness HPI narrative: Carmen Sarah is a 64F with a history of alcohol dependency, COPD who presents to the emergency department for complaints of alcohol withdrawal, shaking and vomiting. Patient notes that she drinks half a gallon of vodka every other day and has been doing this for several years. She notes that she has attempted to stop multiple times in the past and has had alcohol withdrawal seizures and previous hospitalizations for alcohol withdrawal. She states that her last drink was at some point before dinner yesterday, believing it could have been yesterday morning sometime. She did not have a drink at all overnight and developed full body shakes as well as nausea and vomiting. Patient reports some blood in her vomit but denies any history of cirrhosis or esophageal varices. She states that bloody vomit is chronic. She feels like she is going through alcohol withdrawal. She reports history of hallucinations, however she is not having those currently. She denies any recent seizures. She denies any fevers, abdominal pain, chest pain or shortness of breath. Related Data Home Medications ?Medication ?Instructions ?Recorded ?Confirmed linaclotide 290 mcg capsule 290 mcg PO HS Constipation 11/16/24 02/24/25 (Linzess) brexpiprazole 2 mg tablet (Rexulti) 2 mg PO DAILY 02/24/25 02/24/25 montelukast 10 mg tablet 10 mg PO HS 02/24/25 02/24/25 quetiapine 300 mg tablet 300 mg PO HS 02/24/25 02/24/25 Previous Rx's ?Medication ?Instructions ?Recorded lifitegrast 5 % eye drops in a 1 drp Eye-Both BID 30 days #60 ea 08/27/23 dropperette (Xiidra) fluticasone propionate 50 1 spray intranasal DAILY 30 days 11/07/23 mcg/actuation nasal #16 grams spray,suspension (Flonase Allergy Relief) buspirone 30 mg tablet 30 mg PO TID 30 days #90 tabs 04/30/24 duloxetine 60 mg capsule,delayed 60 mg PO DAILY 30 days #30 caps 12/23/23 release hydroxyzine pamoate 50 mg capsule 50 mg PO TID anxiety 30 days #90 12/23/23 caps albuterol sulfate 90 mcg/actuation 2 puff inhalation Q6H PRN 04/15/24 aerosol inhaler shortness of breath or wheezing #8.5 grams fezolinetant 45 mg tablet (Veozah) 45 mg PO DAILY #30 tabs 04/29/24 progesterone micronized 100 mg 100 mg PO DAILY #30 caps 09/17/24 capsule omeprazole 40 mg capsule,delayed 40 mg PO DAILY acid reflux 90 days 09/20/24 release #90 caps blood pressure monitor (Blood #1 ea 10/12/24 Pressure Kit) furosemide 40 mg tablet 40 mg PO DAILY PRN edema #30 tabs 11/08/24 pravastatin 40 mg tablet 40 mg PO DAILY 30 days #30 tabs 12/01/24 metoprolol succinate 50 mg 50 mg PO HS HTN 90 days #90 tabs 12/14/24 tablet,extended release 24 hr estradiol 1 mg tablet 1 mg PO DAILY #30 tabs 12/30/24 methocarbamol 750 mg tablet See Rx Instructions .Route 01/10/25 .COMPLEX #90 tabs fluticasone propionate 230 2 puff inhalation BID 90 days #12 01/11/25 mcg-salmeterol 21 mcg/actuation grams HFA inhaler (Advair HFA) nitrofurantoin 100 mg PO Q12H 10 days #20 caps 02/04/25 monohydrate/macrocrystals 100 mg capsule (Macrobid) Allergies Allergy/AdvReac Type Severity Reaction Status Date / Time vilazodone (From Viibryd) AdvReac Mild Seizure Verified 02/24/25 10:16 [facility] Disclaimer: The information contained in this section may have been updated after the patient was seen, as this information can be updated by other users. Medical History (Updated 02/24/25 @ 15:17 by Kole Gross MD) Encounter for preoperative assessment Endometrial thickening on ultrasound Elevated d-dimer Lower extremity edema Swelling of both hands Swelling of face Elevated BP without diagnosis of hypertension Allergic rhinitis Family history of asthma ASCUS with positive high risk HPV cervical Rash and nonspecific skin eruption Vasomotor symptoms due to menopause Postmenopausal bleeding Coronary artery calcification seen on CAT scan Asthma COPD (chronic obstructive pulmonary disease) Diverticulitis Alcohol withdrawal Throat pain Cough Thyroid function test abnormal Headache Postmenopausal symptoms Night sweat ADD (attention deficit disorder) Nightmares Depression Anxiety PTSD (post-traumatic stress disorder) Rib pain Reactive airway disease with acute exacerbation Shingles Tobacco dependence Dysuria Constipation GERD (gastroesophageal reflux disease) Hypertension Viral syndrome Close exposure to COVID-19 virus Otitis media Sinusitis Diverticulosis Alcohol dependence Uterine fibroid Abdominal pain Surgical History History of History of colonoscopy Family History Other Alcoholism Cancer Coronary artery disease Diabetes FHx: mental illness Heart attack Hyperlipidemia Hypertension Stroke Substance abuse Social History Smoking Status: Current every day smoker tobacco type: cigarettes alcohol intake: current substance use type: denies use current occupational status: unemployed Travel in the last 8 weeks?: None Have you lived/traveled outside [place] in past 30 days?: No Contact w/someone who lives/traveled outside [place] past 30 days?: No Exposure to someone with infectious disease in past 14 days?: No Do you have a fever (greater than 100.4 F or 38 C)?: No Have you tested positive for COVID-19?: No Exposed to someone with COVID-19 in past 14 days?: No Do you have a sore throat?: No Do you have a cough?: No Do you have any weakness?: No Do you have any diarrhea?: No Are you experiencing any unusual bleeding?: No Do you have any muscle aches/pain?: No Do you have any abdominal pain?: No Are you experiencing loss of taste or smell?: No Other Medical History Have you received the Flu Vaccine for this season: No Have you received the Pneumonia Vaccine: No ROS Obtained: Yes Systems reviewed as appropriate & no additional complaints except as documented Physical Exam General General appearance: alert Comment: anxious, tremulous, answering questions appropriately Head Head exam: atraumatic Eye Eye exam: Present normal appearance and PERRL ENT ENT exam: Present normal external ear exam Neck Neck exam: Present full ROM Chest Chest inspection: Present symmetric chest wall rise Respiratory Respiratory exam: Present normal lung sounds bilaterally; Absent respiratory distress, wheezes or stridor Cardiovascular Cardiovascular exam: Present regular rate, normal rhythm and tachycardia Abdominal Exam Abdominal exam: Present soft; Absent tenderness or guarding Extremities Exam Extremities exam: Present normal inspection Back Exam Back exam: Present normal inspection Neurological Exam Neurological exam: Present alert, oriented X3 and other (Full body tremors) Psychiatric Psychiatric exam: Present normal affect and normal mood Skin Skin exam: Present warm and dry Medical Decision Making Medical Records Screening: Per USPSTF and CDC recommendations, given the prevalence of disease in our region, it is our hospital?s policy to screen for HIV and viral Hepatitis for all patients aged 18 and over and those with ongoing risk factors. Nestor Inquiry Pt receiving controlled substance: No Vital Signs: 02/24/25 09:33 02/24/25 09:53 02/24/25 10:00 Temperature 98.6 F Temperature Source Oral Pulse Rate 110 H 114 H Pulse Rate [Radial] 75 Respiratory Rate 18 22 Blood Pressure 159/96 H 146/84 H Blood Pressure [Right Arm] 178/105 H Blood Pressure Mean [Right Arm] 129 Blood Pressure Source Blood Pressure Source [Right Arm] Automatic Cuff Blood Pressure Position Blood Pressure Position [Right Arm] Sitting 02 Sat by Pulse Oximetry 97 99 98 Oxygen Delivery Method Room Air 02/24/25 10:15 02/24/25 10:30 02/24/25 10:45 Temperature Temperature Source Pulse Rate 108 H 110 H 115 H Pulse Rate [Radial] Respiratory Rate 21 21 21 Blood Pressure 148/89 H 153/91 H 140/79 Blood Pressure [Right Arm] Blood Pressure Mean [Right Arm] Blood Pressure Source Blood Pressure Source [Right Arm] Blood Pressure Position Blood Pressure Position [Right Arm] 02 Sat by Pulse Oximetry 99 99 87 L Oxygen Delivery Method 02/24/25 11:00 02/24/25 11:15 02/24/25 12:08 Temperature Temperature Source Pulse Rate 120 H 117 H 109 H Pulse Rate [Radial] Respiratory Rate 21 18 Blood Pressure 128/90 129/83 144/65 H Blood Pressure [Right Arm] Blood Pressure Mean [Right Arm] Blood Pressure Source Blood Pressure Source [Right Arm] Blood Pressure Position Blood Pressure Position [Right Arm] 02 Sat by Pulse Oximetry 99 98 94 L Oxygen Delivery Method 02/24/25 12:15 02/24/25 12:31 02/24/25 12:44 Temperature 98.6 F Temperature Source Oral Pulse Rate 108 H 110 H 116 H Pulse Rate [Radial] Respiratory Rate 18 Blood Pressure 150/79 H 121/102 H 154/79 H Blood Pressure [Right Arm] Blood Pressure Mean [Right Arm] Blood Pressure Source Automatic Cuff Blood Pressure Source [Right Arm] Blood Pressure Position Sitting Blood Pressure Position [Right Arm] 02 Sat by Pulse Oximetry 92 L 97 Oxygen Delivery Method Room Air Lab Data Lab Results 02/24/25 09:50: WBC 8.3, RBC 3.76 L, Hgb 11.3 L, Hct 33.3 L, MCV 88.6, MCH 30.1, MCHC 33.9, RDW 14.9, Plt Count 233, MPV 8.9, Neut % (Auto) 88.5 H, Lymph % (Auto) 7.7 L, [place] % (Auto) 3.2, Eos % (Auto) 0.0 L, Baso % (Auto) 0.2, Neut # (Auto) 7.4, Lymph # (Auto) 0.6 L, [place] # (Auto) 0.3, Eos # (Auto) 0.0, Baso # (Auto) 0.0, PT 10.8, INR 0.97, APTT 22.5 L, Sodium 138, Potassium 4.1, Chloride 98, Carbon Dioxide 24, Anion Gap 20.1 H, BUN 16, Creatinine 0.80, Estimated Creat Clear 54, Estimated GFR 72, Est GFR ( Amer) 88, Glucose 125 H, Calcium 8.3 L, Phosphorus 3.1, Magnesium 1.6, Total Bilirubin 0.9, AST 81 H, ALT 29, Alkaline Phosphatase 110, Total Protein 7.6, Albumin 4.5, Globulin 3.1, Albumin/Globulin Ratio 1.5, Plasma/Serum Alcohol < 10, HCV Ab YENY w/Rflx PCR Qn Negative, HIV Ag/Ab Combo Qual Negative 02/24/25 11:25: Urine Opiates Screen Negative, Urine Methadone Screen Negative, Ur Barbituates Screen Negative, Ur Phencyclidine Scrn Negative, Ur Amphetamines Screen Negative, U Benzodiazepines Scrn Positive H, Urine Cocaine Screen Negative, U Marijuana (THC) Screen Negative 02/24/25 09:50 02/24/25 09:50 Orders (Tests/Meds): ED MEDICATIONS Generic Name Dose Route Start Last Admin Trade Name Freq PRN Reason Stop Dose Admin Buspirone HCl 30 mg 02/24/25 13:00 02/24/25 13:02 Buspirone Hcl 10 Mg Tablet PO 03/26/25 12:59 30 mg TID RITESH Administration Diazepam 10 mg 02/24/25 12:02 02/24/25 14:09 Diazepam 10mg/2ml Syringe IV 03/26/25 12:01 10 mg Q1HP PRN Administration CIWA >16 Diazepam 5 mg 02/24/25 12:02 Diazepam 10mg/2ml Syringe IV 03/26/25 12:01 Q1HP PRN CIWA Score 8-15 Diazepam 5 mg 02/24/25 12:02 Diazepam 5mg Tablet PO 03/26/25 12:01 Q6HP PRN CIWA 2-7 Folic Acid 1 mg 02/25/25 09:00 Folic Acid 1mg Tablet PO 03/27/25 08:59 DAILY RITESH Haloperidol Lactate 5 mg 02/24/25 12:02 Haloperidol Lactate 5 Mg/Ml Vial IV 03/26/25 12:01 Q1HP PRN Agitation Hydroxyzine Pamoate 50 mg 02/24/25 12:16 Hydroxyzine Pamoate 25mg Capsule PO 03/26/25 12:15 TIDP PRN Anxiety Lactated Ringer's 1,000 mls @ 100 mls/hr 02/24/25 09:45 02/24/25 09:54 Lactated Ringer's 1000 Ml Bag IV 03/26/25 09:44 100 mls/hr .Q10H RITESH Administration Multivitamins 10 ml/ Thiamine 1,015 mls @ 125 mls/hr 02/24/25 12:15 02/24/25 13:01 HCl 100 mg/ Magnesium Sulfate IV 03/26/25 12:14 125 mls/hr 2 gm/ Lactated Ringer's DAILY RITESH Administration Methocarbamol 750 mg 02/24/25 12:17 Methocarbamol 500mg Tablet PO 03/26/25 12:16 Q8HP PRN Muscle Spasm Metoprolol Succinate 50 mg 02/24/25 21:00 Metoprolol Succinate Xl 50mg Tablet PO 03/26/25 20:59 HS RITESH Multivitamins 1 each 02/24/25 17:00 Multivitamin Tablet PO 03/26/25 16:59 1700 RITESH Nicotine 21 mg 02/24/25 12:02 Nicotine 21mg/24hr Patch TD 03/26/25 12:01 DAILYP PRN Nicotine Cravings Ondansetron HCl 4 mg 02/24/25 12:02 Ondansetron 4mg/2ml Vial IV 03/26/25 12:01 Q6HP PRN Nausea Pantoprazole Sodium 40 mg 02/24/25 21:00 Pantoprazole 40mg Tablet PO 03/26/25 20:59 HS RITESH Phenobarbital Sodium 130 mg 02/24/25 21:00 Phenobarbital Sod 65mg/Ml Inj IV 03/26/25 20:59 BID RITESH Phenobarbital Sodium 130 mg 02/24/25 15:15 Phenobarbital Sod 130mg/Ml Inj IV 02/24/25 15:16 ONCE ONE Sodium Chloride 10 ml 02/24/25 12:18 Sodium Chloride 0.9% 10ml Flush Syringe IV 03/26/25 12:17 NEEDED PRN Maintain IV Site Thiamine HCl 100 mg 02/25/25 09:00 Thiamine 100mg Tablet PO 02/27/25 09:01 DAILY RITESH Discontinued Medications Generic Name Dose Route Start Last Admin Trade Name [facility] PRN Reason Stop Dose Admin Diazepam 10 mg 02/24/25 09:35 02/24/25 10:44 Diazepam 10mg/2ml Syringe IV 03/26/25 09:34 10 mg Q1HP PRN Administration CIWA >16 Diazepam 5 mg 02/24/25 09:35 Diazepam 10mg/2ml Syringe IV 03/26/25 09:34 Q1HP PRN CIWA Score 8-15 Diazepam 5 mg 02/24/25 09:35 Diazepam 5mg Tablet PO 03/26/25 09:34 Q6HP PRN CIWA 2-7 Folic Acid 1 mg 02/24/25 09:45 02/24/25 09:54 Folic Acid 1mg Tablet PO 03/26/25 09:44 1 mg DAILY RITESH Administration Thiamine HCl 100 mg/ Sodium 51 mls @ 204 mls/hr 02/24/25 09:38 02/24/25 09:54 Chloride IV 02/24/25 09:39 204 mls/hr ONCE ONE Administration Magnesium Sulfate 2 gm in 50 mls @ 50 mls/hr 02/24/25 10:54 02/24/25 10:56 Magnesium Sulfate 2gm/50ml Premix IV 02/24/25 11:53 50 mls/hr ONCE ONE Administration Multivitamins 10 ml/ Thiamine 1,015 mls @ 125 mls/hr 02/25/25 09:00 HCl 100 mg/ Magnesium Sulfate IV 03/27/25 08:59 2 gm/ Lactated Ringer's DAILY [facility] Multivitamins 1 each 02/24/25 17:00 Multivitamin Tablet PO 03/26/25 16:59 1700 [facility] Ondansetron HCl 4 mg 02/24/25 09:39 02/24/25 09:54 Ondansetron 4mg/2ml Vial IV 02/24/25 09:40 4 mg ONCE ONE Administration Phenobarbital Sodium 130 mg 02/24/25 12:56 02/24/25 13:02 Phenobarbital Sod 65mg/Ml Inj IV 02/24/25 12:57 130 mg ONCE ONE Administration Sodium Chloride 8 ml 02/24/25 12:02 Sodium Chloride 0.9% 10ml Vial IV 03/26/25 12:01 NEEDED PRN dilute pepcid ORDERS Category Date Time Status Consult Disability Specialist [CONS] Routine Cons 02/24/25 10:38 Active Activated Partial Thrombo Time Routine Lab 02/24/25 09:50 Completed Complete Blood Count Auto Diff DAILY Lab 02/25/25 06:00 Ordered Complete Blood Count Auto Diff DAILY Lab 02/26/25 06:00 Ordered Complete Blood Count Auto Diff DAILY Lab 02/27/25 06:00 Ordered Complete Blood Count Auto Diff Routine Lab 02/24/25 09:50 Completed Comprehensive Metabolic Panel AMLAB Lab 02/25/25 06:00 Ordered Comprehensive Metabolic Panel AMLAB Lab 02/26/25 06:00 Ordered Comprehensive Metabolic Panel AMLAB Lab 02/27/25 06:00 Ordered Comprehensive Metabolic Panel Routine Lab 02/24/25 09:50 Completed Drug Screen,Urine Routine Lab 02/24/25 11:25 Completed Ethyl Alcohol Stat Lab 02/24/25 09:50 Completed HIV Combo Stat Lab 02/24/25 09:50 Completed Hepatitis C Ab Qual. W/ RFX Stat Lab 02/24/25 09:50 Completed Magnesium AMLAB Lab 02/25/25 06:00 Ordered Magnesium AMLAB Lab 02/26/25 06:00 Ordered Magnesium AMLAB Lab 02/27/25 06:00 Ordered Magnesium Routine Lab 02/24/25 09:50 Completed Phosphorous AMLAB Lab 02/25/25 06:00 Ordered Phosphorous Routine Lab 02/24/25 09:50 Completed Prothrombin Time INR Routine Lab 02/24/25 09:50 Completed ECG Data Tracing #1: I reviewed this ECG and interpreted as documented below: Sinus tachycardia with a ventricular rate of [address] elevation or depression. No peaked T waves. QTc normal at 390. Narrow QRS. Medical Decision Narrative: Carmen Sarah is a 64F with a history of alcohol dependency, COPD who presents to the emergency department for complaints of alcohol withdrawal, shaking and vomiting. Patient notes that she drinks half a gallon of vodka every other day and has been doing this for several years. She notes that she has attempted to stop multiple times in the past and has had alcohol withdrawal seizures and previous hospitalizations for alcohol withdrawal. She states that her last drink was at some point before dinner yesterday and she did not have a drink at all overnight and developed full body shakes as well as nausea and vomiting. Patient reports some blood in her vomit but denies any history of cirrhosis or esophageal varices. She states that bloody vomit is chronic. She feels like she is going through alcohol withdrawal. She reports history of hallucinations, however she is not having those currently. She denies any recent seizures. She denies any fevers, abdominal pain, chest pain or shortness of breath. On arrival, patient's hypertensive with blood pressure 178/105, heart rate within normal limits at 75 bpm, maintaining airway appropriately, oxygen saturation 97% on room air. Physical exam, stated above, revealed very anxious appearing female in no acute respiratory distress. mild diaphoresis. She has full body tremors but no seizure-like activity. She is alert and answering questions appropriately. Cardiopulmonary exam grossly unremarkable. Abdomen is soft, nontender, nondistended. Initial CIWA score of 14. Differential diagnosis includes, but is not limited to: Alcohol withdrawal, electrolyte derangement, dehydration, gastritis, metabolic derangement, among others. The most morbid conditions were considered and workup was based on these. Previous records were reviewed. Per cardiology note in November 2024, patient was recently admitted to [facility] for 4 days for alcohol detox. Patient also states that she is supposed to have a D&C/hysterectomy but has not had that appointment yet. Workup in the emergency department included: His CIWA scale, seizure precautions, EKG, ethyl alcohol level, APTT, CBC, CMP, UDS, magnesium, phosphorus, PT/INR. Patient was administered 1 L lactated ringer, 4 mg IV Zofran, 100 mg IV thiamine. 1 mg p.o. folic acid was ordered. Patient was placed on diazepam protocol and was initially given 10mg IV diazepam. Laboratory workup demonstrated: No leukocytosis, CBC grossly unremarkable nonactionable. Coagulation studies unremarkable. Anion gap of 20.1 however CMP otherwise unremarkable nonactionable with glucose normal at 125, electrolytes within normal limits. Magnesium borderline low at 1.6, will replace with 2 g IV magnesium sulfate. Mildly elevated AST of 81 but liver enzymes otherwise unremarkable nonactionable. Serum alcohol level undetectable. At this time, will discuss patient's case with the hospitalist team for admission for alcohol withdrawal given patient's elevated CIWA score requiring IV diazepam. Hospitalist team agreed to admit the patient and she was subsequently admitted. Critical Care Critical Care Time Critical Care Time: Yes Attestation: On 02/24/25, the high probability of a clinically significant, sudden or life threatening deterioration of the following system(s) required my full and direct attention, intervention and personal management. The time I documented below is in addition to time spent performing reported procedures but includes the following listed in this critical care notation. Total Time Total Critical Care Time: 35
--- OUTSIDE RECORDS SUMMARY | 2025-02-24 09:47 | XMS_ITS | Data Portability ---
Author Organization [facility] CLOS[facility] Address [address] [facility] [address] [place] [address] Assessment No assessment recorded. Plan of Treatment Reminders Order Date Submit Date Provider Last Modified By Organization Details Last Modified Time Details Appointments None recorded. Lab cytology, vaginal/ce rvical 2018 019 [facility], [address] [place] [address], [address], 9 16:20:18 microalbum in, urine 2018 019 [facility], [address] [place] [address] , [place], [address], 9 11:31:16 lipid panel, serum 2018 019 [facility], [address] [place] [address], [address], 9 15:14:42 TSH, serum or plasma 2018 019 [facility], [address] [place] [address], [address], 9 15:34:22 CMP, serum or plasma 2018 019 [facility], [address] [place] [address], [address], 9 15:14:41 CBC w/ auto diff 2018 019 [facility], [address] [facility], [place], [address], 9 13:23:13 urinalysis , dipstick, auto 2018 019 [facility], [address] [facility] , [place], [address], 9 11:31:50 fecal occult blood, immunoassa y, stool 2018 019 [facility], [address] [facility] , [place], [address], 9 11:31:07 colon cancer screening, stool 2018 019 [facility] (Cologuard Orders Only), [address], [address], [place], [address], 9 16:17:27 urinalysis , dipstick, auto 2018 019 [facility], [address] [facility] , [place], [address], 9 16:22:55 drug screen, urine 2018 019 [facility], [address] [facility][[address], [place], [address], 9 15:24:10 Referral colonoscop y referral 2018 019 [email or web address] George Elaine MD, [address] [facility], [address], [place], [address], 9 12:24:41 pain management referral 2018 019 [email or web address] Manjit Murry MD, [address], [address], [place], [address], 9 11:35:03 Procedures nebulizer treatment (PROC) 2018 019 [email or web address] 58 George Elaine MD, [address] [address], [place], [address], 9 10:30:01 Surgeries None recorded. Imaging electrocar diogram 2018 019 [facility], [address] [place] [address] , [place], [address], 9 11:31:23 MAMMO, screening, tomosynthe sis, bilateral, w/ CAD 2018 019 [facility], [address] [place] [address] , [place], [address], 9 07:58:56 MAMMO, screening, tomosynthe sis, bilateral, w/ CAD 2018 019 [email or web address] [facility], [address] [place] [address] , [place], [address], 9 10:38:59 Medication Orders Xyzal 5 mg tablet 2018 019 [facility] [id number], [address] [place] [address], [address], 9 10:55:09 Medrol (Gustavo) 4 mg tablets in a dose pack 2018 019 [facility] [id number], [address] [place] [address], [address], 9 10:54:57 Diflucan 150 mg tablet 2018 019 [facility] [id number], [address] [place] [address], [address], 9 10:55:01 pravastati n 20 mg tablet 2018 019 [facility] [id number], [address] [place] [address], [address], 9 10:55:08 cyanocobal pelletier (vit B-12) 1,000 mcg/mL injection solution 2018 019 [email or web address] 0 Not available 9 11:21:46 Zofran 8 mg tablet 2018 019 [email or web address] 31 [facility] [id number], [address] [place] [address], [address], 9 10:55:10 hydrocorti sone 2.5 % topical cream with perineal applicator 2018 019 INTERFACE [facility] [id number], [address] [place] [address], [address], 9 11:08:10 cefdinir 300 mg capsule 2018 019 [email or web address] 0 [facility] [id number], [address] [place] [address], [address], 9 10:39:44 Flonase Allergy Relief 50 mcg/actuat ion nasal spray,susp ension 2018 019 [facility] [id number], [address] [place] [address], [address], 0 11:55:13 Zyrtec-D 5 mg-120 mg tablet,ext ended release 2018 019 [email or web address] 31 [facility] [id number], [address] [place] [address], [address], 9 10:53:13 ondansetro n 8 mg disintegra ting tablet 2018 019 INTERFACE [facility] [id number], [address] [place] [address], [address], 9 08:35:11 hydroxyzin e HCl 25 mg tablet 2018 019 INTERFACE [facility] [id number], [address] [place] [address], [address], 9 08:35:16 metoprolol succinate ER 50 mg tablet,ext ended release 24 hr 2018 019 INTERFACE [facility] [id number], [address] [place] [address], [address], 9 08:35:27 quetiapine 200 mg tablet 2018 019 INTER[facility] [id number], [address] [place] [address], [address], 9 08:35:07 Cymbalta 60 mg capsule,de layed release 2018 019 [facility] [id number], [address] [place] [address], [address], 0 11:55:13 Maxalt 10 mg tablet 2018 019 [email or web address] [facility] [id number], [address] [place] [address], [address], 0 11:55:16 ibuprofen 800 mg tablet 2018 019 [facility] [id number], [address] [place] [address], [address], 9 08:35:23 Percocet 10 mg-325 mg tablet 2018 019 [facility] [id number], [address] [place] [address], [address], 0 11:55:14 omeprazole 20 mg capsule,de layed release 2018 019 INTERFACE [facility] [id number], [address] [place] [address], [address], 9 08:35:08 quetiapine 200 mg tablet 2018 019 INTERFACE [facility], [address] [facility] [address], [place], [address], 9 14:48:37 Cymbalta 60 mg capsule,de layed release 2018 019 [email or web address] [facility], [address] [facility] [address], [place], [address], 0 11:55:13 Zofran 8 mg tablet 2018 019 [email or web address] [facility], [address] [address], [place], [address], 9 08:12:32 Maxalt 10 mg tablet 2018 019 [email or web address] [facility], [address] [address], [place], [address], 0 11:55:16 Percocet 10 mg-325 mg tablet 2018 019 [email or web address] [facility], [address], [address], 0 11:55:14 Xopenex 1.25 mg/3 mL solution for nebulizati on 2018 019 [email or web address] Not available 9 14:44:53 promethazi ne-DM 6.25 mg-15 mg/5 mL oral syrup 2018 019 [email or web address] [facility], [address] [address], [place], [address], 9 08:11:30 Medrol (Gustavo) 4 mg tablets in a dose pack 2018 019 [email or web address] [facility], [address] [address], [place], [address], 9 10:39:58 Bactrim DS 800 mg-160 mg tablet 2018 019 [email or web address] [facility], [address] [facility] [address], [place], [address], 9 08:08:46 ceftriaxon e 500 mg solution for injection 2018 019 [email or web address] Not available 9 08:08:52 Depo-Medro l 80 mg/mL suspension for injection 2018 019 [email or web address] Not available 9 08:08:59 Neurontin 300 mg capsule 2018 019 [email or web address] 31 [facility], [address] [facility] [address], [place], [address], 9 14:48:32 Patient TargetsNo targets recorded. Patient Instructions Encounter Date Encounter Id Patient Instructions Last Modified By Organization Details Last Modified Time 10/22/2018 [id number] painful urinatio n (dysuria): care instructions [email or web address] Not available 10/22/2018 14:48:32 nausea and vomiting: care instructions [email or web address] Not available 10/22/2018 14:48:32 shortness of breath: care instructions [email or web address] Not available 10/22/2018 14:48:32 bronchitis: care instructions [email or web address] Not available 10/22/2018 14:48:32 01/25/2019 [id number] learning about breast cancer screening [email or web address] Not available 01/25/2019 08:34:52 03/29/2019 [id number] specimen collection & handling* ALYCIA Not available 03/29/2019 12:05:48 elevated blood pressure: care instructions [email or web address] Not available 03/29/2019 10:55:10 hemorrhoids: car e instructions [email or web address] Not available 03/29/2019 11:07:56 learning about breast cancer screening [email or web address] Not available 03/29/2019 10:55:10 chronic sinusitis: care instructions [email or web address] Not available 03/29/2019 11:07:56 04/15/2019 [id number] candidiasis: car e instructions [email or web address] Not available 04/15/2019 12:45:03 allergies: care instructions [email or web address] Not available 04/15/2019 10:54:52 managing your allergies: care instructions [id number] Not available 04/15/2019 10:54:52 Reason for Referral Pain Management Referral for Osteoarthritis of multiple joints pain medication Referring Physician: [facility], Encounter Date: 01/25/2019 Colonoscopy Referral for Scr eening for malignant neoplasm of colon Referring Physician: [facility], Encounter Date: 03/29/2019 Results Created Date Observation Date Name Description Value Unit Range Abnormal Flag Note LastModifiedBy Organization Detail LastModifiedTime 07/08/20 19 07/08/2019 colon cance r scree dylon, stool cologuard result Cancel led - Order d not applic able This order has expir ed becau se it has excee ded 365 days from the initi al order . Pleas e conta ct the labor atory to reord er this test if clini bhargavi indic ated. Test Type: Enterprise site algor ithmi c ian sis of stool DNA-b pedro hood with hemog lobin immun oassa y. Quant itati ve value s of indiv idual bioma rkers are not repor table and are not assoc iated with indiv idual bioma rker resul t refer ence range s. Preca ution s and Limit ation s: Colog uard is inten ded for color ectal cance r scree dylon of adult s of eithe r sex, 50 years or older , who are at typic al avera ge-ri sk for color ectal cance r. A negat arti Colog uard test resul t does not guara ntee the absen ce of color ectal cance r or advan julia adeno ma (pre- cance r). Patie nts with a negat arti Colog uard test resul t shoul d be advis ed to baltazar nue parti cipat ing in a color ectal cance r scree dylon progr am. Colog uard may produ ce a posit arti resul t, even thoug h a colon oscop y may not find color ectal cance r or preca ncero us polyp s. The perfo rmanc e of Colog uard has been estab lishe d in a cross secti onal study (i.e. , singl e point in time) . Perfo rmanc e has not been evalu ated in adult s who have been previ ously teste d with Colog uard or in patie nts less than 50 years of age. Colog uard has been appro benitez for use by the [place] FDA. Colog uard perfo rmanc e data in a 10,00 0 patie nt pivot al study using colon oscop y as the refer ence metho d can be acces sed at the [employer] wing locat ion: www.e xactl abs.c om/re malgorzata . Addit ional descr iptio n of the Colog uard test proce ss, warni ngs and preca ution s can be found at www.c jesu simone st.co m. Rx Only. Not Available [facility] (Cologuard Orders Only) [address], [place], [address], 07/08/2019 12:00:31 10/22/19 19 10/22/2018 urina lysis , dipst ick, auto Unknown Analyte Yellow Not Available [address], [place], [address], 10/22/2018 14:51:58 10/22/1910/22/2018 urina lysis , dipst ick, auto Unknown Analyte Clear Not Available [address], [place], [address], 10/22/2018 14:51:58 10/22/1910/22/2018 urina lysis , dipst ick, auto Unknown Analyte 1.005 Not Available [address], [place], [address], 10/22/2018 14:51:58 10/22/19 19 10/22/2018 urina lysis , dipst ick, auto Unknown Analyte 7.0 Not Available [address], [place], [address], 10/22/2018 14:51:58 10/22/19 19 10/22/2018 urina lysis , dipst ick, auto Unknown Analyte Negati ve Not Available [address], [place], [address], 10/22/2018 14:51:58 10/22/1910/22/2018 urina lysis , dipst ick, auto Unknown Analyte Negati ve Not Available [address], [place], [address], 10/22/2018 14:51:58 10/22/1910/22/2018 urina lysis , dipst ick, auto Unknown Analyte Negtiv e Not Available [address], [place], [address], 10/22/2018 14:51:58 10/22/1910/22/2018 urina lysis , dipst ick, auto Unknown Analyte Normal Not Available [address], [place], [address], 10/22/2018 14:51:58 10/22/1910/22/2018 urina lysis , dipst ick, auto Unknown Analyte Negati ve Not Available [address], [place], [address], 10/22/2018 14:51:58 10/22/1910/22/2018 urina lysis , dipst ick, auto Unknown Analyte Normal Not Available [address] [place], [place], [address], 10/22/2018 14:51:58 10/22/1910/22/2018 urina lysis , dipst ick, auto Unknown Analyte Negati ve Not Available [address], [place], [address], 10/22/2018 14:51:58 10/22/19 19 10/22/2018 urina lysis , dipst ick, auto Unknown Analyte Negati ve Not Available [address], [place], [address], 10/22/2018 14:51:58 10/22/19 19 10/22/2018 urina lysis , dipst ick, auto Unknown Analyte Clean Catch Not Available [address] [place], [place], [address], 10/22/2018 14:51:58 10/22/19 19 10/22/2018 urina lysis , dipst ick, auto Unknown Analyte Automa sandy Not Available [address] [place], [place], [address], 10/22/2018 14:51:58 10/22/1910/22/2018 drug scree n, urine Marijuana (THC50) Negati ve Not Available [address], [place], [address], 10/22/2018 14:34:40 10/22/1910/22/2018 drug scree n, urine Cocaine ([id number]) Negati ve Not Available [address], [place], [address], 10/22/2018 14:34:40 10/22/1910/22/2018 drug scree n, urine Opiates ([id number]) Negati ve Not Available [address], [place], [address], 10/22/2018 14:34:40 10/22/19 19 10/22/2018 drug scree n, urine Amphetamine ([id number]) Negati ve Not Available [address], [place], [address], 10/22/2018 14:34:40 10/22/19 19 10/22/2018 drug scree n, urine Methamphetam ine ([id number]) Negati ve Not Available [address], [place], [address], 10/22/2018 14:34:40 10/22/19 19 10/22/2018 drug scree n, urine Phencyclidin e (PCP25) Negati ve Not Available [address], [place], [address], 10/22/2018 14:34:40 10/22/19 19 10/22/2018 drug scree n, urine Ectasy ([id number]) Negati ve Not Available [address], [place], [address], 10/22/2018 14:34:40 10/22/19 19 10/22/2018 drug scree n, urine Barbituates ([id number]) Negati ve Not Available [address], [place], [address], 10/22/2018 14:34:40 10/22/19 19 10/22/2018 drug scree n, urine Oxycodone ([id number]) POSITI VE Not Available [address], [place], [address], 10/22/2018 14:34:40 10/22/19 19 10/22/2018 drug scree n, urine Tricyclic Antidepressa nts ([id number]) Negati ve Not Available [address], [place], [address], 10/22/2018 14:34:40 10/22/19 19 10/22/2018 drug scree n, urine Methadone (RSP212) Negati ve Not Available [address] , [place], [address], 10/22/2018 14:34:40 10/22/19 19 10/22/2018 drug scree n, urine Benzodiazepi scarlett ([id number]) Negati ve Not Available [address] , [place], [address], 10/22/2018 14:34:40 10/22/19 19 10/22/2018 drug scree n, urine Internal QC Okay Not Available [address] , [place], [address], 10/22/2018 14:34:40 03/29/20 19 03/29/2019 CBC w/ auto diff white blood cells 9.0 K/uL 3.8-10 .8 normal Not Available [facility] [address] [place] [address], [address], 03/29/2019 13:23:13 03/29/20 19 03/29/2019 CBC w/ auto diff red blood cells 3.82 M/uL 3.80-5 .20 normal Not Available [facility] [address] [place] [address], [address], 03/29/2019 13:23:13 03/29/20 19 03/29/2019 CBC w/ auto diff hemoglobin 12.9 g/dL 12.0-1 6.0 normal Not Available [facility] [address] [place] [address], [address], 03/29/2019 13:23:13 03/29/20 19 03/29/2019 CBC w/ auto diff hematocrit 37.1 % 35.0-4 7.0 normal Not Available [facility] [address] [place] [address], [address], 03/29/2019 13:23:13 03/29/20 19 03/29/2019 CBC w/ auto diff MCV 97 fL 80-100 normal Not Available [facility] [address] [place] [address], [address], 03/29/2019 13:23:13 03/29/2003/29/2019 CBC w/ auto diff MCH 34 pg 26-35 normal Not Available [facility] [address] [place] [address], [address], 03/29/2019 13:23:13 03/29/2003/29/2019 CBC w/ auto diff MCHC 35 g/dL 32-36 normal Not Available [facility] [address] [place] [address], [address], 03/29/2019 13:23:13 03/29/2003/29/2019 CBC w/ auto diff RDW 12.2 % 11.0-1 5.0 normal Not Available [facility] [address] [place] [address], [address], 03/29/2019 13:23:13 03/29/2003/29/2019 CBC w/ auto diff MPV 6.8 fL 6.2-10 .5 normal Not Available [facility] [address] [place] [address], [address], 03/29/2019 13:23:13 03/29/2003/29/2019 CBC w/ auto diff platelet count 251 K/uL 130-40 0 normal Not Available [facility] [address] [place] [address], [address], 03/29/2019 13:23:13 03/29/2003/29/2019 CBC w/ auto diff neutrophil,a bsolute 5.8 K/uL 1.6-8. 4 normal Not Available [facility] [address] [place] [address], [address], 03/29/2019 13:23:13 03/29/20 19 03/29/2019 CBC w/ auto diff lymphocyte,a bsolute 2.2 K/uL 0.4-5. 1 normal Not Available [facility] [address] [place] [address], [address], 03/29/2019 13:23:13 03/29/2003/29/2019 CBC w/ auto diff monocyte,abs olute 0.6 K/uL 0.0-1. 2 normal Not Available [facility] [address] [place] [address], [address], 03/29/2019 13:23:13 03/29/2003/29/2019 CBC w/ auto diff eosinophil,a bsolute 0.3 K/uL 0.0-0. 8 normal Not Available [facility] [address] [place] [address], [address], 03/29/2019 13:23:13 03/29/2003/29/2019 CBC w/ auto diff basophil,abs olute 0.0 K/uL 0.0-0. 3 normal Not Available [facility] [address] [place] [address], [address], 03/29/2019 13:23:13 03/29/2003/29/2019 CBC w/ auto diff % neutrophils 64.6 % 42.0-7 8.0 normal Not Available [facility] [address] [place] [address], [address], 03/29/2019 13:23:13 03/29/2003/29/2019 CBC w/ auto diff % lymphocytes 24.6 % 11.0-4 7.0 normal Not Available [facility] [address] [place] [address], [address], 03/29/2019 13:23:13 03/29/2003/29/2019 CBC w/ auto diff % monocytes 6.7 % 0.0-11 .0 normal Not Available [facility] [address] [place] [address], [address], 03/29/2019 13:23:13 03/29/2003/29/2019 CBC w/ auto diff % eosinophils 3.6 % 0.0-7. 0 normal Not Available [facility] [address] [place] [address], [address], 03/29/2019 13:23:13 03/29/2003/29/2019 CBC w/ auto diff % basophils 0.5 % 0.0-3. 0 normal Not Available [facility] [address] [place] [address], [address], 03/29/2019 13:23:13 03/29/2003/29/2019 CBC w/ auto diff nucleated red cells 0.1 % 0.0-0. 9 normal Not Available [facility] [address] [place] [address], [address], 03/29/2019 13:23:13 03/29/2003/29/2019 CBC w/ auto diff nucleated RBCs, absolute 0.01 K/uL not estab. normal Not Available [facility] [address] [place] [address], [address], 03/29/2019 13:23:13 03/29/2003/29/2019 CMP, serum or plasm a glucose 88 mg/dL 74-100 normal Not Available [facility] [address] [place] [address], [address], 03/29/2019 15:14:41 03/29/2003/29/2019 CMP, serum or plasm a blood urea nitrogen 21 mg/dL 6-20 high Not Available [facility] [address] [place] [address], [address], 03/29/2019 15:14:41 03/29/2003/29/2019 CMP, serum or plasm a creatinine 1.34 mg/dL 0.50-0 .95 high Not Available [facility] [address] [place] [address], [address], 03/29/2019 15:14:41 03/29/2003/29/2019 CMP, serum or plasm a BUN/creatini ne ratio 16 (calc ) 10-20 normal Not Available [facility] [address] [place] [address], [address], 03/29/2019 15:14:41 03/29/20 19 03/29/2019 CMP, serum or plasm a sodium 128 mmol/ L 136-14 5 low Not Available [facility] [address] [place] [address], [address], 03/29/2019 15:14:41 03/29/20 19 03/29/2019 CMP, serum or plasm a potassium 4.1 mmol/ L 3.4-5. 0 normal Not Available [facility] [address] [place] [address], [address], 03/29/2019 15:14:41 03/29/2003/29/2019 CMP, serum or plasm a chloride 90 mmol/ L 98-107 low Not Available [facility] [address] [place] [address], [address], 03/29/2019 15:14:41 03/29/2003/29/2019 CMP, serum or plasm a carbon dioxide 25 mmol/ L 20-32 normal Not Available [facility] [address] [place] [address], [address], 03/29/2019 15:14:41 03/29/2003/29/2019 CMP, serum or plasm a anion gap 13 (calc ) 7-25 normal Not Available [facility] [address] [place] [address], [address], 03/29/2019 15:14:41 03/29/2003/29/2019 CMP, serum or plasm a calcium 9.3 mg/dL 8.6-10 .2 normal Not Available [facility] [address] [place] [address], [address], 03/29/2019 15:14:41 03/29/2003/29/2019 CMP, serum or plasm a total protein 6.7 g/dL 6.4-8. 3 normal Not Available [facility] [address] [place] [address], [address], 03/29/2019 15:14:41 03/29/20 19 03/29/2019 CMP, serum or plasm a albumin 4.3 g/dL 3.5-5. 2 normal Not Available [facility] [address] [place] [address], [address], 03/29/2019 15:14:41 03/29/20 19 03/29/2019 CMP, serum or plasm a globulin 2.4 g/dL_ (calc ) 1.5-4. 5 normal Not Available [facility] [address] [place] [address], [address], 03/29/2019 15:14:41 03/29/2003/29/2019 CMP, serum or plasm a albumin/glob ulin ratio 1.8 (calc ) 1.1-2. 5 normal Not Available [facility] [address] [place] [address], [address], 03/29/2019 15:14:41 03/29/2003/29/2019 CMP, serum or plasm a bilirubin, total <0.2 mg/dL 0.1-1. 2 normal Not Available [facility] [address] [place] [address], [address], 03/29/2019 15:14:41 03/29/20 19 03/29/2019 CMP, serum or plasm a alkaline phosphatase 51 U/L 35-105 normal Not Available [facility] [address] [place] [address], [address], 03/29/2019 15:14:41 03/29/2003/29/2019 CMP, serum or plasm a AST 20 U/L 0-32 normal Not Available [facility] [address] [place] [address], [address], 03/29/2019 15:14:41 03/29/20 19 03/29/2019 CMP, serum or plasm a ALT 15 U/L 0-33 normal Not Available [facility] [address] [place], [address], 03/29/2019 15:14:41 03/29/2003/29/2019 CMP, serum or plasm a GFR 51 >= 60 abnormal Not Available [facility] [address] [place], [address], 03/29/2019 15:14:41 03/29/2003/29/2019 CMP, serum or plasm a GFR non- 44 >= 60 abnormal NOT E NEW calcu latio n for GFR is based on the Natio nal Kidne y Found ation CKD-E PI equat ion and allow s for repor ting GFR value s great er than 60 mL/mi n/1.7 3 m2. This calcu latio n has not been valid ated for patie nts less than 18 yrs., pregn ant women and Hispa nics. Chron ic kidne y disea se is defin ed as kidne y damag e or GFR less than 60 mL/mi n/1.7 3 m2 for 3 month s or longe r. Not Available [facility] [address] [place] [address], [address], 03/29/2019 15:14:41 03/29/2003/29/2019 lipid panel , serum HDL cholesterol 46 mg/dL 66-242 low Not Available [facility] [address] [place] [address], [address], 03/29/2019 15:14:42 03/29/2003/29/2019 lipid panel , serum triglyceride s 155 mg/dL 0-149 high TRIGL YCERI DE RANGE S ULISES L: < 150 BORDE RLINE HIGH: 150 - 199 HIGH: 200 - 499 VERY HIGH: > OR = 500 Not Available [facility] [address] [place] [address], [address], 03/29/2019 15:14:42 03/29/2003/29/2019 lipid panel , serum cholesterol 315 mg/dL 0-199 high PADMINI STERO L (TOTA L) RANGE S DEVAUGHN ABLE: < 200 BORDE RLINE : 200 - 239 HIGHE R RISK: > 239 Not Available [facility] [address] [place], [address], 03/29/2019 15:14:42 03/29/20 19 03/29/2019 lipid panel , serum LDL cholesterol 238 mg/dL _(carlos c) 0-99 high LDL PADMINI STERO L RANGE S OPTIM AL: < 100 NEAR/ ABOVE OPTIM AL: 100 - 129 BORDE RLINE HIGH: 130 - 159 HIGH: 160 - 189 VERY HIGH: > OR = 190 Not Available [facility] [address] [place] [address], [address], 03/29/2019 15:14:42 03/29/20 19 03/29/2019 TSH, serum or plasm a TSH 1.620 uIU/m L 0.290- 5.500 normal Not Available [facility] [address] [place] [address], [address], 03/29/2019 15:34:22 03/29/2003/29/2019 cytol ogy, vagin al/ce rvica l Pap smear SEE BELOW Depar tment of Patho logy GYNEC OLOGI CARLOS CYTOL OGY REPOR T NAME: CARMEN SARAH PATHO LOGY NO.: [id number] Copy to: [facility] E OF SPECI MEN: CERVI CARLOS/E NDOCE RVICA L-THI N PREP RELEV ANT HISTO RY: No LMP given . Menop ause: Y SPECI MEN ADEQU ACY SATIS FACTO RY FOR EVALU ATION ENDOC ERVIC AL/TR ANSFO RMATI ON ZONE COMPO NENT ABSEN T GENER AL CATEG ORIZA TION NEGAT ARTI FOR INTRA EPITH ELIAL LESIO N OR MALIG HALEIGH DESCR IPTIV E DIAGN OSIS FUNGA L ORGAN ISMS MORPH OLOGI BHARGAVI CONSI STENT WITH NIYAH DA SPECI ES. ALEXANDRA LEES SS, CT( CP) Cris d Out Date: 03/30 16:19 Cervi carlos/v agina l cytol ogy is a scree dylon test with a recog nized false negat arti rate. New techn ologi es may decre ase, but will not elimi desiree false negat arti resul ts. Regul ar cytol ogy scree dylon is recom josselyn d to minim ize false negat arti resul ts. The ThinP rep(R ) Imagi ng syste m is used to gracie t in prima ry cervi carlos cance r scree dylon of ThinP rep(R ) Pap test slide s. Page 1 of 1 Not Available [facility] [address] [facility], [place], [address], 03/30/2019 16:20:18 03/29/20 19 03/29/2019 fecal occul t blood , immun oassa y, stool iFOB Negati ve Not Available [address] [place], [place], [address], 03/29/2019 10:48:16 03/29/20 19 03/29/2019 fecal occul t blood , immun oassa y, stool QC Okay Not Available [address], [place], [address], 03/29/2019 10:48:16 03/29/2003/29/2019 micro album in, urine Unknown Analyte Negati ve Not Available [address], [place], [address], 03/29/2019 10:41:49 03/29/2003/29/2019 elect rocar diogr am 12 lead Electrocardi ogram performed. See jethro dumont for interp retati on Not Available [address], [place], [address], 03/29/2019 10:41:31 03/29/20 19 03/29/2019 urina lysis , dipst ick, auto Unknown Analyte Yellow Not Available [address] [place], [place], [address], 03/29/2019 10:41:29 03/29/20 19 03/29/2019 urina lysis , dipst ick, auto Unknown Analyte Clear Not Available [address], [place], [address], 03/29/2019 10:41:29 03/29/20 19 03/29/2019 urina lysis , dipst ick, auto Unknown Analyte 1.010 Not Available [address], [place], [address], 03/29/2019 10:41:29 03/29/2003/29/2019 urina lysis , dipst ick, auto Unknown Analyte 7.0 Not Available [address], [place], [address], 03/29/2019 10:41:29 03/29/20 19 03/29/2019 urina lysis , dipst ick, auto Unknown Analyte [address] Trace Not Available [place] [address], [place], [address], 03/29/2019 10:41:29 03/29/2003/29/2019 urina lysis , dipst ick, auto Unknown Analyte Negati ve Not Available [address], [place], [address], 03/29/2019 10:41:29 03/29/2003/29/2019 urina lysis , dipst ick, auto Unknown Analyte Negtiv e Not Available [address], [place], [address], 03/29/2019 10:41:29 03/29/20 19 03/29/2019 urina lysis , dipst ick, auto Unknown Analyte Normal Not Available [place] [address], [place], [address], 03/29/2019 10:41:29 03/29/20 19 03/29/2019 urina lysis , dipst ick, auto Unknown Analyte Negati ve Not Available [address], [place], [address], 03/29/2019 10:41:29 03/29/20 19 03/29/2019 urina lysis , dipst ick, auto Unknown Analyte Normal Not Available [address], [place], [address], 03/29/2019 10:41:29 03/29/2003/29/2019 urina lysis , dipst ick, auto Unknown Analyte Negati ve Not Available [address], [place], [address], 03/29/2019 10:41:29 03/29/20 19 03/29/2019 urina lysis , dipst ick, auto Unknown Analyte Negati ve Not Available [address], [place], [address], 03/29/2019 10:41:29 03/29/2003/29/2019 urina lysis , dipst ick, auto Unknown Analyte Clean Catch Not Available [address], [place], [address], 03/29/2019 10:41:29 03/29/2003/29/2019 urina lysis , dipst ick, auto Unknown Analyte Automa sandy Not Available [address], [place], [address], 03/29/2019 10:41:29 04/06/2004/06/2019 BMP, serum or plasm a glucose 95 mg/dL 74-100 normal Not Available [facility] [address] [place] [address], [place], [address], 04/06/2019 15:17:10 04/06/20 19 04/06/2019 BMP, serum or plasm a blood urea nitrogen 15 mg/dL 6-20 normal Not Available [facility] [address] [place] [address], [address], 04/06/2019 15:17:10 04/06/20 19 04/06/2019 BMP, serum or plasm a creatinine 1.13 mg/dL 0.50-0 .95 high Not Available [facility] [address] [place] [address], [address], 04/06/2019 15:17:10 04/06/2004/06/2019 BMP, serum or plasm a BUN/creatini ne ratio 13 (calc ) 10-20 normal Not Available [facility] [address] [place] [address], [address], 04/06/2019 15:17:10 04/06/2004/06/2019 BMP, serum or plasm a sodium 137 mmol/ L 136-14 5 normal Not Available [facility] [address] [place] [address], [address], 04/06/2019 15:17:10 04/06/2004/06/2019 BMP, serum or plasm a potassium 4.5 mmol/ L 3.4-5. 0 normal Not Available [facility] [address] [place] [address], [address], 04/06/2019 15:17:10 04/06/2004/06/2019 BMP, serum or plasm a chloride 99 mmol/ L 98-107 normal Not Available [facility] [address] [place] [address], [address], 04/06/2019 15:17:10 04/06/2004/06/2019 BMP, serum or plasm a carbon dioxide 23 mmol/ L 20-32 normal Not Available [facility] [address] [place] [address], [address], 04/06/2019 15:17:10 04/06/2004/06/2019 BMP, serum or plasm a anion gap 15 (calc ) 7-25 normal Not Available [facility] [address] [place] [address], [address], 04/06/2019 15:17:10 04/06/20 19 04/06/2019 BMP, serum or plasm a calcium 9.3 mg/dL 8.6-10 .2 normal Not Available [facility] [address] [place] [address], [address], 04/06/2019 15:17:10 04/06/20 19 04/06/2019 BMP, serum or plasm a GFR 62 >= 60 normal Not Available [facility] [address] [place], [address], 04/06/2019 15:17:10 04/06/20 19 04/06/2019 BMP, serum or plasm a GFR non- 54 >= 60 abnormal NOT E NEW calcu latio n for GFR is based on the Natio nal Kidne y Found ation CKD-E PI equat ion and allow s for repor ting GFR value s great er than 60 mL/mi n/1.7 3 m2. This calcu latio n has not been valid ated for patie nts less than 18 yrs., pregn ant women and Hispa nics. Chron ic kidne y disea se is defin ed as kidne y damag e or GFR less than 60 mL/mi n/1.7 3 m2 for 3 month s or longe r. Not Available [facility] [address] [place], [address], 04/06/2019 15:17:10 04/08/20 19 04/08/2019 CBC w/ auto diff white blood cells 7.6 K/uL 3.8-10 .8 normal Not Available [facility] [address] [place], [address], 04/08/2019 15:03:31 04/08/20 19 04/08/2019 CBC w/ auto diff red blood cells 3.91 M/uL 3.80-5 .20 normal Not Available [facility] [address] [place] [address], [address], 04/08/2019 15:03:31 04/08/20 19 04/08/2019 CBC w/ auto diff hemoglobin 13.3 g/dL 12.0-1 6.0 normal Not Available [facility] [address] [place] [address], [address], 04/08/2019 15:03:31 04/08/20 19 04/08/2019 CBC w/ auto diff hematocrit 37.9 % 35.0-4 7.0 normal Not Available [facility] [address] [place] [address], [address], 04/08/2019 15:03:31 04/08/20 19 04/08/2019 CBC w/ auto diff MCV 97 fL 80-100 normal Not Available [facility] [address] [place] [address], [address], 04/08/2019 15:03:31 04/08/20 19 04/08/2019 CBC w/ auto diff MCH 34 pg 26-35 normal Not Available [facility] [address] [place] [address], [address], 04/08/2019 15:03:31 04/08/20 19 04/08/2019 CBC w/ auto diff MCHC 35 g/dL 32-36 normal Not Available [facility] [address] [place] [address], [address], 04/08/2019 15:03:31 04/08/20 19 04/08/2019 CBC w/ auto diff RDW 12.3 % 11.0-1 5.0 normal Not Available [facility] [address] [place] [address], [address], 04/08/2019 15:03:31 04/08/20 19 04/08/2019 CBC w/ auto diff MPV 6.5 fL 6.2-10 .5 normal Not Available [facility] [address] [place], [address], 04/08/2019 15:03:31 04/08/20 19 04/08/2019 CBC w/ auto diff platelet count 412 K/uL 130-40 0 high Not Available [facility] [address] [place] [address], [address], 04/08/2019 15:03:31 04/08/2004/08/2019 CBC w/ auto diff neutrophil,a bsolute 3.9 K/uL 1.6-8. 4 normal Not Available [facility] [address] [place] [address], [address], 04/08/2019 15:03:31 04/08/2004/08/2019 CBC w/ auto diff lymphocyte,a bsolute 2.9 K/uL 0.4-5. 1 normal Not Available [facility] [address] [place] [address], [address], 04/08/2019 15:03:31 04/08/20 19 04/08/2019 CBC w/ auto diff monocyte,abs olute 0.6 K/uL 0.0-1. 2 normal Not Available [facility] [address] [place] [address], [address], 04/08/2019 15:03:31 04/08/20 19 04/08/2019 CBC w/ auto diff eosinophil,a bsolute 0.2 K/uL 0.0-0. 8 normal Not Available [facility] [address] [place] [address], [address], 04/08/2019 15:03:31 04/08/2004/08/2019 CBC w/ auto diff basophil,abs olute 0.1 K/uL 0.0-0. 3 normal Not Available [facility] [address] [place] [address], [address], 04/08/2019 15:03:31 04/08/20 19 04/08/2019 CBC w/ auto diff % neutrophils 50.5 % 42.0-7 8.0 normal Not Available [facility] [address] [place] [address], [address], 04/08/2019 15:03:31 04/08/20 19 04/08/2019 CBC w/ auto diff % lymphocytes 38.7 % 11.0-4 7.0 normal Not Available [facility] [address] [place] [address], [address], 04/08/2019 15:03:31 04/08/20 19 04/08/2019 CBC w/ auto diff % monocytes 7.4 % 0.0-11 .0 normal Not Available [facility] [address] [place] [address], [address], 04/08/2019 15:03:31 04/08/20 19 04/08/2019 CBC w/ auto diff % eosinophils 2.5 % 0.0-7. 0 normal Not Available [facility] [address] [place] [address], [address], 04/08/2019 15:03:31 04/08/2004/08/2019 CBC w/ auto diff % basophils 0.9 % 0.0-3. 0 normal Not Available [facility] [address] [place] [address], [address], 04/08/2019 15:03:31 04/08/2004/08/2019 CBC w/ auto diff nucleated red cells 0.0 % 0.0-0. 9 normal Not Available [facility] [address] [place] [address], [address], 04/08/2019 15:03:31 04/08/2004/08/2019 CBC w/ auto diff nucleated RBCs, absolute 0.00 K/uL not estab. normal Not Available [facility] [address] [place] [address], [address], 04/08/2019 15:03:31 04/08/20 19 04/08/2019 CMP, serum or plasm a glucose 91 mg/dL 74-100 normal Not Available [facility] [address] [place] [address], [address], 04/08/2019 16:52:10 04/08/20 19 04/08/2019 CMP, serum or plasm a blood urea nitrogen 20 mg/dL 6-20 normal Not Available [facility] [address] [place] [address], [address], 04/08/2019 16:52:10 04/08/20 19 04/08/2019 CMP, serum or plasm a creatinine 1.27 mg/dL 0.50-0 .95 high Not Available [facility] [address] [place] [address], [address], 04/08/2019 16:52:10 04/08/20 19 04/08/2019 CMP, serum or plasm a BUN/creatini ne ratio 16 (calc ) 10-20 normal Not Available [facility] [address] [place] [address], [address], 04/08/2019 16:52:10 04/08/20 19 04/08/2019 CMP, serum or plasm a sodium 134 mmol/ L 136-14 5 low Not Available [facility] [address] [place] [address], [address], 04/08/2019 16:52:10 04/08/20 19 04/08/2019 CMP, serum or plasm a potassium 4.7 mmol/ L 3.4-5. 0 normal Not Available [facility] [address] [place] [address], [address], 04/08/2019 16:52:10 04/08/2004/08/2019 CMP, serum or plasm a chloride 96 mmol/ L 98-107 low Not Available [facility] [address] [place] [address], [address], 04/08/2019 16:52:10 04/08/20 19 04/08/2019 CMP, serum or plasm a carbon dioxide 25 mmol/ L 20-32 normal Not Available [facility] [address] [place] [address], [address], 04/08/2019 16:52:10 04/08/2004/08/2019 CMP, serum or plasm a anion gap 13 (calc ) 7-25 normal Not Available [facility] [address] [place] [address], [address], 04/08/2019 16:52:10 04/08/2004/08/2019 CMP, serum or plasm a calcium 9.4 mg/dL 8.6-10 .2 normal Not Available [facility] [address] [place] [address], [address], 04/08/2019 16:52:10 04/08/2004/08/2019 CMP, serum or plasm a total protein 6.8 g/dL 6.4-8. 3 normal Not Available [facility] [address] [place] [address], [address], 04/08/2019 16:52:10 04/08/2004/08/2019 CMP, serum or plasm a albumin 4.4 g/dL 3.5-5. 2 normal Not Available [facility] [address] [place] [address], [address], 04/08/2019 16:52:10 04/08/2004/08/2019 CMP, serum or plasm a globulin 2.4 g/dL_ (calc ) 1.5-4. 5 normal Not Available [facility] [address] [place] [address], [address], 04/08/2019 16:52:10 04/08/2004/08/2019 CMP, serum or plasm a albumin/glob ulin ratio 1.8 (calc ) 1.1-2. 5 normal Not Available [facility] [address] [place] [address], [address], 04/08/2019 16:52:10 04/08/2004/08/2019 CMP, serum or plasm a bilirubin, total <0.2 mg/dL 0.1-1. 2 normal Not Available [facility] [address] [place] [address], [address], 04/08/2019 16:52:10 04/08/2004/08/2019 CMP, serum or plasm a alkaline phosphatase 56 U/L 35-105 normal Not Available [facility] [address] [place] [address], [address], 04/08/2019 16:52:10 04/08/2004/08/2019 CMP, serum or plasm a AST 17 U/L 0-32 normal Not Available [facility] [address] [place] [address], [address], 04/08/2019 16:52:10 04/08/2004/08/2019 CMP, serum or plasm a ALT 15 U/L 0-33 normal Not Available [facility] [address] [place] [address], [address], 04/08/2019 16:52:10 04/08/2004/08/2019 CMP, serum or plasm a GFR 54 >= 60 abnormal Not Available [facility] [address] [place], [address], 04/08/2019 16:52:10 04/08/2004/08/2019 CMP, serum or plasm a GFR non- 47 >= 60 abnormal NOT E NEW calcu latio n for GFR is based on the Natio nal Kidne y Found ation CKD-E PI equat ion and allow s for repor ting GFR value s great er than 60 mL/mi n/1.7 3 m2. This calcu latio n has not been valid ated for patie nts less than 18 yrs., pregn ant women and Hispa nics. Chron ic kidne y disea se is defin ed as kidne y damag e or GFR less than 60 mL/mi n/1.7 3 m2 for 3 month s or longe r. Not Available [facility] [address] [place], [address], 04/08/2019 16:52:10 03/30/2003/29/2019 MAMMO , scree dylon, tomos ynthe sis, bilat eral, w/ CAD [address] [place] [address] Tata manning Name: CARMEN manning : [birth year] Age: 58 years Tata manning 4 Orderi ng Provid er: ZBIGNIEW OPAL GRACIA MS EXAM DATE: 2018 EXAM: MG SCREEN ING MONET MAMMOG JOSE INDICA TION: Routin e screen ing. PROCED URE: Multis lice imagin g of both breast s was perfor med in standa rd projec tions using Hologi c Seleni a Dimens ions tomosy nthesi s equipm ent (3D mammog kirsten) . 2D images were create d from the 3D datase t using C-View softwa re. The study was read with the assist ance of Comput er Aided Detect ion (CAD) softwa re. COMPAR WICHO: This was compar ed with previo us mammog inckolas dated 2015, 2008 FINDIN GS: The breast s are hetero geneou sly dense. This may lower the sensit ivity of mammog kirsten. There is no suspic ious mass or cluste r of calcif icatio ns. No faisal ectura l distor tion. Scatte red areas of nodula r asymme try, stable patter n IMPRES ANETA: BI-RAD S catego ry 2, Benign . There is no eviden ce of malign juan. Screen ing mammog nickolas are recomm ended in one year. Result s were mailed or given to the tata manning. Interp reted By: Huy Richards MD Electr onical ly Signed By: Huy Richards MD on 03/30/20 7:53 AM [email or web address] [facility] [address] , [place], [address], 03/31/2019 08:03:34 03/30/2003/29/2019 elect sheldon hilario am No observ ation record ed. [email or web address] [facility] [address] [place] [address], [place], [address], 03/30/2019 12:02:35 05/07/20 19 05/07/2019 CT, abdom en + pelvi s, w/o contr ast No observ ation record ed. [email or web address] [facility] [address], [place], [address], 05/10/2019 07:49:12 05/11/20 19 05/07/2019 XR, chest , 1 view No observ ation record ed. [email or web address] [facility](Scheduli [facility]) [address], [place], [address], 05/11/2019 14:00:41 10/14/19 20 10/14/2019 XR, cervi carlos spine No observ ation record ed. [facility]) [address], [place], [address], 10/18/2019 07:41:37 10/15/19 20 10/14/2019 XR, lumba r spine No observ ation record ed. [facility]) [address], [place], [address], 10/18/2019 08:44:24 Result Notes Documentation Provider Name and Address Organization Details Recorded Time Mammo, Screening, Tomosynthesis, Bilateral, W/ Cad : [facility] [address] [place] [address] Patient Name: CARMEN SARAH Patient : 1960 Age: 58 years Patient Ordering Provider: GRANT FAITH EXAM DATE: 03/29/2019 EXAM: MG SCREENING MONET MAMMOGRAM INDICATION: Routine screening. PROCEDURE: Multislice imaging of both breasts was performed in standard projections using [employer] tomosynthesis equipment (3D mammography). 2D images were created from the 3D dataset using C-View software. The study was read with the assistance of Computer Aided Detection (CAD) software. COMPARISON: This was compared with previous mammograms dated 06-04-2016, 01-31-2009 FINDINGS: The breasts are heterogeneously dense. This may lower the sensitivity of mammography. There is no suspicious mass or cluster of calcifications. No architectural distortion. Scattered areas of nodular asymmetry, stable pattern IMPRESSION: BI-RADS category 2, Benign. There is no evidence of malignancy. Screening mammograms are recommended in one year. Results were mailed or given to the patient. Interpreted By: Huy Richards MD T FAITH PA-C [address] [place], [address], [facility] 03/31/2019 08:03:34 Problems Name Problem SNOMED Code Status Onset Date Resolution Date Notes Provider Name and Address Organization Details Recorded Time Lack of energy 932307231 Active 2015 From Automated Load;Prov ider: Grant Faith; Status: Active Idalmis Sean [facility] 0 11:55:17 Gastroeso phageal reflux disease without esophagit is 272392954 Active 2016 Idalmislara Estrada [facility] 0 11:55:17 Neuropath y 035749256 Active 2016 Idalmis Sean [facility] 0 11:55:17 Chronic neck pain 55834480200 07 Active 2016 GRANT FAITH PA-C [address] [place], [address] , [facility] 7 08:01:40 Osteoarth ritis of multiple joints 876979106 Active 2015 From Automated Load;Prov ider: Zehra Yin;Narda tatus: Active Idalmis Sean [facility] 0 11:55:17 Low back pain 189118667 Active 2015 From Automated Load;Prov ider: Walt Irwin atus: Active Idalmis Estrada [facility] 0 11:55:17 Acute vaginitis 82952567 Active 2015 From Automated Load;Prov ider: Diandra IrwinSt atus: Active Idalmis Estrada [facility] 0 11:55:17 Acute sinusitis 03779567 Active 2014 From Automated Load;Prov ider: Grant Faith; Status: Active Idalmis Estrada [facility] 0 11:55:18 Disorder of upper respirato ry system 542070178 Active 2014 From Automated Load;Prov ider: Grant Faith; Status: [facility] 11:[facility]17 Insomnia 967038237 Active 2014 From Automated Load;Prov ider: Grant Faith; Status: Active Idalmis Estrada [facility] 0 11:55:17 Allergic rhinitis 62855570 Active 2014 From Automated Load;Prov ider: Zehra Yin;S tatus: Active Idalmis Sean [facility] 0 11:55:17 Pharyngit is 549827706 Active 2014 From Automated Load;Prov ider: Zehra Yin;S tatus: Active [facility] System 0 11:55:18 Hypertens arti disorder 53363287 Active 2015 From Automated Load;Prov ider: Zehra Yin;S tatus: Active Not Available [facility] 6 23:41:07 Hyperlipi demia 26529765 Active 2014 From Automated Load;Prov ider: Grant Faith; Status: [facility] 0 11:55:17 Generaliz ed anxiety disorder 29645732 Active 2014 From Automated Load;Prov ider: Zehra Yin;S tatus: Active Idalmis Estrada [facility] 0 11:55:17 Mood disorder Active 2014 From Automated Load;Prov ider: Zehra Yin;S tatus: Active Idalmis Sean [facility] 0 11:55:18 Migraine 45738807 Active 2015 From Automated Load;Prov ider: Zehra Yin;Narda tatus: Active Idalmis Estrada [facility] 0 11:55:17 Clinical finding Active 2014 From Automated Load;Prov ider: Zehra Yin;Narda tatus: Active Idalmis Estrada [facility] 0 11:55:17 Headache 42874330 Active 2014 From Automated Load;Prov ider: Zehra Yin;Narda tatus: Active Idalmis Estrada [facility] 0 11:55:17 Problem Notes None recorded. Procedures Surgical History Date Name Laterality Status Provider Name and Address Organization Details Recorded Time Caesarean Section completed Kandi Howard [facility] 07/30/2017 07:50:44 Imaging Results None recorded. Procedure Notes None recorded. Medical Equipment None Reported. Allergies Allergen ID Allergen Name Allergen Category Reaction Reaction Severity Criticality Documentation Date Start Date Code Code System Note Provider Name and Address Organization Details Recorded Time 908174 amoxicill in trihydrat e medicatio n rash Not available Not available 07/19/20162009 08175 8 RxNorm React ion: RASH; Comme nt: PT. STATE S SHE CAN TAKE KEFLE X AND THE CEPHA LOSPO RINS WITH NO PROBL EMS.; Creat ed By: Humphrey Finnegan na;Cr eated Date: 07/11 12:18 :22 PM; Not Available [facility] 6 03:55:40 Medications Name Sig Start Date Stop Date Status Note LastModified by Organization Details LastModified Time Compound Magic Mouthwash ([facility] #2) (Equal parts viscous lidocaine 2%, maalox, benadryl 12.5mg/5m L, prednisol one 15mg/5mL, nystatin oral suspensio n) 5ml every 6 hours X 5 days 2018 active Not Available Not Available Not Avai lable Compound Magic Mouthwash ([facility] #2) (Equal parts viscous lidocaine 2%, maalox, benadryl 12.5mg/5m L, prednisol one 15mg/5mL, nystatin oral suspensio n) 5ml every 6 hours x 5 days 2018 active Not Available Not Available Not Avai lable Pravachol 40 mg tablet Bedtime 08/16 completed Duration : 90 days;Cosme quency: hs;Medic ation Descript ion: gabby tin; Dosage:1 ; Route:or al; refills: 0; Quantity :90 tablet Not Available Not Available Not Available promethaz ine-DM 6.25 mg-15 mg/5 mL oral syrup Take 5 mL every 6 hours by oral route. 01/25 completed Not Available Not Available Not Available prednison e 10 mg tablet 3 tabs with lunch today and with breakfas t Qday X 2 more days; 2 tabs with breakfas t X 2 more days 01/14 completed Not Available Not Available Not Available Neurontin 300 mg capsule Take 1 capsule 3 times a day by oral route. 2018 active Not Available Not Available Not Avai lable Depo-Medr ol 40 mg/mL suspensio n for injection 40 mg IM stat 01/14 completed Not Available Not Available Not Available Zyrtec-D 5 mg-120 mg tablet,ex tended release 1 tab Two times a day 04/15 completed Frequenc y: bid;Alt Frequenc y: prn;Medi cation Descript ion: cetirizi ne-pseud oephedri ne; Dosage:1 ; Route:or al; refills: 1; Quantity :180 tablet, extended release Not Available Not Available Not Available ibuprofen 800 mg tablet TAKE 1 TABLET BY MOUTH THREE TIMES A DAY 2018 active Not Available Not Available Not Avai lable metoprolo l succinate ER 50 mg tablet,ex tended release 24 hr 1 Daily==c all office for appt 2019 active Not Available Not Available Not Avai lable Keflex 500 mg capsule Take 1 capsule every 6 hours by oral route for 7 days. 10/22 completed Not Available Not Available Not Available Medrol (Gustavo) 4 mg tablets in a dose pack Take 1 dose pk by oral route. 2018 active Not Available Not Available Not Avai lable quetiapin e 200 mg tablet 1 bid daily 2019 active Not Available Not Available Not Avai lable Maxalt 10 mg tablet 1 tab As needed 2019 active Duration : 30 days;Cosme quency: prn;Medi cation Descript ion: chema garcia; Dosage:1 ; Route:or al; refills: 3; Quantity :12 tablet Not Available Not Available Not Available Zithromax Z-Gustavo 250 mg tablet TAKE 2 TABLETS (500 MG) BY ORAL ROUTE ONCE DAILY FOR 1 DAY THEN 1 TABLET (250 MG) BY ORAL ROUTE ONCE DAILY FOR 4 DAYS 2019 active Not Available Not Available Not Avai lable Diflucan 150 mg tablet Take 1 tablet every day by oral route for 2 days. 2018 active Not Available Not Available Not Avai lable Tamiflu 75 mg capsule Take 1 capsule twice a day by oral route for 5 days. 11/21 completed Not Available Not Available Not Available quetiapin e 100 mg tablet TAKE 1 TABLET BY MOUTH EVERY DAY 01/25 completed Not Available Not Available Not Available ondansetr on 8 mg disintegr ating tablet Place 1 tablet every 8 hours by translin gual route as needed. 2018 active Not Available Not Available Not Avai lable Depo-Medr ol 80 mg/mL suspensio n for injection Take 1 mg by injectio n route. 01/25 completed Not Available Not Available Not Available Zofran 4 mg tablet Take 1 tablet 3 times a day by oral route. 04/12 completed Not Available Not Available Not Available hydrocort isone 2.5 % topical cream with perineal applicato r APPLY A THIN LAYER TO THE AFFECTED AREA(S) BY TOPICAL ROUTE 2-4 TIMESDAI LY 2018 active Not Available Not Available Not Avai lable Zofran 8 mg tablet Take 1 tablet every 8 hours by oral route as needed for 2 days. 2018 active Not Available Not Available Not Avai lable Percocet 10 mg-325 mg tablet 1 Every four to six hours as needed 2018 active Duration : 30 days;Ins truction s: only 4 daily;Fr equency: q4-q6h;A lt Frequenc y: prn pain;Med ication Descript ion: acetamin ophen-ox ycodone; Dosage:1 ; Route:or al; refills: 0; Quantity :120 tablet Not Available Not Available Not Available cyanocoba chuck (vit B-12) 1,000 mcg/mL injection solution Inject 1 mL every month by subcutan eous route. 2018 active Not Available Not Available Not Avai lable Cipro 500 mg tablet Take 1 tablet every 12 hours by oral route for 7 days. 07/07 completed Not Available Not Available Not Available nitrofura ntoin macrocrys dena 100 mg capsule Take 1 capsule 3 times a day by oral route for 14 days. 07/07 completed Not Available Not Available Not Available Xopenex 1.25 mg/3 mL solution for nebulizat ion Inhale 3 mL every 8 hours by nebuliza tion route. 05/07 completed Not Available Not Available Not Available omeprazol e 20 mg capsule,d elayed release Take 1 capsule twice a day by oral route. 2019 active Not Available Not Available Not Avai lable monteluka st 10 mg tablet TAKE 1 TABLET BY MOUTH EVERY DAY 2017 active Not Available Not Available Not Avai lable hydroxyzi ne HCl 25 mg tablet TAKE ONE TABLET BY MOUTH THREE TIMES A DAY 2019 active Not Available Not Available Not Avai lable ceftriaxo ne 500 mg solution for injection Take 1 mg by injectio n route. 01/25 completed Not Available Not Available Not Available pravastat in 20 mg tablet Take 1 tablet every day by oral route. 2018 active Not Available Not Available Not Avai lable hydrochlo rothiazid e 25 mg tablet Take 1 tablet every day by oral route. 01/25 completed Not Available Not Available Not Available ondansetr on 4 mg disintegr ating tablet Take 2 tablets every 12 hours by oral route for 2 days. 04/22 completed Not Available Not Available Not Available cefdinir 300 mg capsule Take 1 capsule every 12 hours by oral route for 10 days. 04/15 completed Not Available Not Available Not Available Ambien 10 mg tablet Every night at bedtime 01/14 completed Duration : 30 days;Cosme quency: qhs;Alt Frequenc y: prn sleep;Me dication Descript ion: zolpidem ; Dosage:1 ; Route:or al; refills: 2; Quantity :30 tablet Not Available Not Available Not Available hydroxyzi ne pamoate 25 mg capsule TAKE ONE CAPSULE BY MOUTH 3 TIMES A DAY NEEDED 01/14 completed Not Available Not Available Not Available Bactrim DS 800 mg-160 mg tablet Take 1 tablet every 12 hours by oral route. 01/25 completed Not Available Not Available Not Available Premarin 0.625 mg/gram vaginal cream Twice weekly 05/07 completed Duration : 21 days;Ins truction s: Quantity 42.5 grams, peasized amt 2x weekly;F requency : 2x/ week;Med ication Descript ion: conjugat ed estrogen s topical; Dosage:a s directed ; Route:va ginal; refills: 3; Quantity :1 cream with applicat or Not Available Not Available Not Available nitrofura ntoin monohydra te/macroc rystals 100 mg capsule Take 1 capsule every 12 hours by oral route for 14 days. 10/22 completed Not Available Not Available Not Available Cymbalta 60 mg capsule,d elayed release 1 tab twice daily 2018 active plv 08/28/16 Not Available Not Available Not Available Vistaril PRN active Not Available Not Avai lable Not Available Seroquel 50 mg tablet Take 1 tablet 3 times a day by oral route. 07/07 completed Not Available Not Available Not Available Xyzal 5 mg tablet Take 1 tablet every day by oral route. 2019 active Not Available Not Available Not Avai lable Suprep Bowel Prep Kit 17.5 gram-3.13 gram-1.6 gram oral solution DIRECTED 2018 active Not Available Not Available Not Avai lable Flonase Allergy Relief 50 mcg/actua tion nasal spray,fior pension 2 puffs Daily 2018 active Duration : 30 days;Cosme quency: daily;Me dication Descript ion: fluticas one nasal; Dosage:2 sprays; Route:na jaelyn; refills: 5; Quantity :1 spray Not Available Not Available Not Available Vitals Date Recorded Body height Body mass index (BMI) Body weight Body temperature Respiratory rate Heart rate Oxygen saturation Oxygen saturation in Arterial blood by Pulse oximetry Systolic And Diastolic Provider Name and Address Organization Details Last Updated DateTime 9 166.37 cm 22.3 kg/m2 37021.5 6 g 96.8 [degF] 16 /min 65 /min 99 % 99 % 122/80 mm[Hg] [facility] 9 14:27:41 Date Recorded Body height Body mass index (BMI) Body weight Heart rate Respiratory rate Systolic And Diastolic Provider Name and Address Organization Details Last Updated DateTime 9 166.37 cm 22.5 kg/m2 02224.1 5 g 98 /min 16 /min 140/86 mm[Hg] Nikia Coombs [facility] 9 08:08:07 Date Recorded Body height Body mass index (BMI) Body weight Body temperature Heart rate Respiratory rate Oxygen saturation Oxygen saturation in Arterial blood by Pulse oximetry Systolic And Diastolic Provider Name and Address Organization Details Last Updated DateTime 9 166.37 cm 23.1 kg/m2 93457.5 2 g 97.8 [degF] 61 /min 16 /min 96 % 96 % 130/88 mm[Hg] [facility] 9 10:31:34 Date Recorded Body height Body mass index (BMI) Body weight Body temperature Heart rate Respiratory rate Oxygen saturation Oxygen saturation in Arterial blood by Pulse oximetry Systolic And Diastolic Provider Name and Address Organization Details Last Updated DateTime 9 166.37 cm 23.1 kg/m2 96846.5 2 g 96.8 [degF] 76 /min 16 /min 97 % 97 % 102/80 mm[Hg] [facility] 9 10:38:46 Date Recorded Body height Body mass index (BMI) Body weight Body temperature Heart rate Oxygen saturation Oxygen saturation in Arterial blood by Pulse oximetry Systolic And Diastolic Provider Name and Address Organization Details Last Updated DateTime 9 166.37 cm 22.5 kg/m2 30385.1 5 g 98.6 [degF] 106 /min 99 % 99 % 90/60 mm[Hg] Kandi Howard [facility] 14:38:29 Social History Question Answer Notes LastModified by Organizat ion Details LastModified Time Tobacco Smoking Status Current Every Day Smoker Nikia Coombs sarah, [facility] 08/16/2016 09:47:11 How Much Tobacco Do You Chew? None [email or web address] Information not available 03/29/2019 What Was The Date Of Your Most Recent Tobacco Screening? 05/07/2019 Information not available 05/07/2019 How Much Tobacco Do You Smoke? 1 PPD [email or web address] Information not available 08/16/2016 Has Tobacco Cessation Counseling Been Provided? Yes [email or web address] Information not available 04/09/2017 On What Date Was Tobacco Cessation Counseling Provided? 03/29/2019 Information not available 03/29/2019 Sex: Unknown Functional Status Question Answer Note LastModified by Organizat ion Details LastModified Time What is your level of alcohol consumption? None [email or web address] Information not available 04/09/2017 Do you or have you ever used smokeless tobacco? Never used smokeless tobacco [email or web address] Information not available 03/29/2019 Do you or have you ever used e-cigarettes or vape? Former user of electronic cigarettes [email or web address] Information not available 05/07/2019 Mental Status None recorded. Family History Relationship Description Onset Age of this Age Resolved Age Notes LastModified by Organization Details LastModified Time Mother Asthma [email or web address] Not available 07/30/2017 07:53:46 Unspecified Relation Diabetes mellitus gm [email or web address] Not available 2016 07:55:53 Unspecified Relation Family history of malignant neoplasm gm [email or web address] Not available 2016 07:56:50 Unspecified Relation Depressive disorder [email or web address] Not available 2016 07:57:03 Unspecified Relation Glaucoma [email or web address] Not available 2016 07:57:17 Unspecified Relation Chronic hepatitis Not available 2016 07:57:39 Unspecified Relation Liver problem [email or web address] Not available 2016 07:57:48 Unspecified Relation Chronic hoarseness [email or web address] Not available 07/30 07:58:00 Unspecified Relation Heart disease grandp arents Not available 07/30/2017 07:58:26 Unspecified Relation Hyperlipidem ia GRANDP DONNELL Not available 07/30/2017 08:16:05 Unspecified Relation Hypertensive disorder GRANDP ARENTS [email or web address] Not available 07/30/2017 08:17:43 Unspecified Relation Chronic mental disorder P ARENTS [email or web address] Not available 07/30/2017 08:18:25 Unspecified Relation Migraine P ARENTS [email or web address] Not available 07/30/2017 08:18:46 Unspecified Relation Osteoporosis GRANDP ARENTS [email or web address] Not available 07/30/2017 08:20:52 Unspecified Relation Kidney disease RENAL DISORD ER-- GRANDP DONNELL [email or web address] Not available 07/30/2017 08:21:30 Unspecified Relation History of sickle cell anemia P ARENTS Not available 07/30/2017 08:22:29 Unspecified Relation Stomach problem P DONNELL [email or web address] Not available 07/30/2017 08:22:52 Unspecified Relation Family history of stroke [email or web address] Not available 2016 08:23:02 Unspecified Relation Suicide P DONNELL Not available 07/30/2017 08:23:26 Unspecified Relation Disorder of thyroid gland P DONNELL Not available 07/30/2017 08:23:42 Unspecified Relation Tuberculosis P ARENTS [email or web address] Not available 07/30/2017 08:24:05 Father Alcoholism [email or web address] Not availa ble 07/30/2017 07:56:18 Medical History Condition Response Allergies/Hayfever Y Other Y Arthritis Y Blood Transfusion Y High Cholesterol Y Headaches Y Depression Y Gynecological HistoryNo gynecological history recorded. Obstetrics History GPAL:G 0 P 0 0 0 0 Immunizations Vaccine Type Date Status Note Provider Nam e and Address Organization Details Recorded Time Hep B, adult 1 completed Idalmis Estrada [facility] 09/16/2019 11:55:18 Hep A, adult 9 completed Not Available [facility] 09/11/2019 02:54:15 zoster recombinant 9 completed [facility] 02:47:47 pneumococcal polysaccharide PPV23 9 completed Not Available [facility] 09/11/2019 02:47:47 Influenza, split virus, quadrivalent, preservative 8 completed Idalmis Estrada [facility] 09/16/2019 11:55:18 Hep A, adult 8 completed Idalmis Estrada [facility] 09/16/2019 11:55:18 Past Encounters Encounter ID Performer Location Encounter Start Date Encounter Closed Date Diagnosis/Indication Diagnosis SNOMED-CT Code Diagnosis ICD10 Code Diagnosis Note [id number] YVETTE WATSON PA-C [address] [place] [address] 08/16/2016 09:28:03 08/16/2016 12:26:12 Acute sinusitis 03686551 J01.90 Insomnia 559973850 G47.0 0 Her Ambien 10mg was refilled per Dr Yin X 30 tabs Osteoarthr itis of multiple joints 388661286 M15.9 Her Percocet 10/325mg was refilled (for #120 tabs) today per Dr Yin. [id number] GRANT FAITH PA-C [address] [place] [place] [address] 08/28/2016 08:56:43 08/28/2016 11:17:47 Dysphagia 25457153 R13.10 Fatigue 51939099 R53.83 Adult heal th examination 701450335 Z00.00 Candidiasis of mouth 797 40716 B37.0 [id number] GEORGE ELAINE MD SURGERY SCHEDULE [address] [place] [address] 10/08/2016 06:21:17 10/08/2016 06:22:12 [id number] [facility] [address] 11/25/2016 16:47:59 11/25/2016 16:47:59 [id number] GRANT FAITH PA-C [address] [place] [place] [place] [address] 01/14/2017 08:47:27 01/14/2017 09:07:19 Allergic rhinitis 22818126 J30.9 Hyperlipidemia 21536262 E78.5 recheck labs in 3 months Hypertensive disorder 38 220717 I10 stable Fatigue 79312245 R53.83 improved Osteoarthritis 649269451 M19.90 stable Candidiasis of mouth 797 98584 B37.0 Mixed anxi ety and depressive disorder 157176444 F41.8 stable Migraine 73244019 G43.90 9 stable [id number] GRANT FAITH PA-C [address] [place] [address] 04/09/2017 13:21:46 04/09/2017 15:51:15 Osteoarthritis of multiple joints 503468472 M15.9 nestor and csa appropriat e. rx refills Mixed anxi ety and depressive disorder 190380900 F41.8 stable Allergic rhinitis 534784 04 J30.9 stable Osteoarthritis 906676891 M19.90 stable Hypertensive disorder 38 338181 I10 stable, labs at next appt Candidiasis of mouth 797 95805 B37.0 Insomnia 166719805 G47.0 0 stable Menopausal syndrome 1237 85344 N95.9 stable Overweight 180464425 E66 .3 Chronic neck pain 796930 7180 107 M54.2 MRI of cervical spine - last in 2014 - sig herniation at that point Low back pain 943379469 M54.5 mRI of lumbar spine. restrictio ns at work. Neuropathy 568233499 G62 .9 new onset Gastroesop hageal reflux disease without esophagitis 749996881 K21.9 stable on prilosec [id number] ZEHRA YIN DO [address] [place] [address] 05/09/2017 12:33:11 05/09/2017 15:25:40 Abdominal pain 97766699 R10.9 Fibromyalgia 174478829 M 79.7 Osteoarthr itis of multiple joints 808494605 M15.9 Neuropathy 526826166 G62 .9 add neurontin and side effects and risks were discussed Essential hypertension 14008701 I10 Depressive disorder 3548 9007 F32.89 Generalize d anxiety disorder 63620064 F41.1 Migraine 27163840 G43.90 9 Gastroesop hageal reflux disease without esophagitis 715521186 K21.9 Allergic rhinitis 833513 04 J30.9 [id number] KATHERYN ARCE PA-C [address] [place] [address] 07/30/2017 08:18:43 07/30/2017 13:54:05 Long-term drug therapy 512244967 Z79.899 Osteoarthr itis of multiple joints 993969753 M15.9 nestor and KIET appropriat e. rx refills Generalize d anxiety disorder 33855761 F41.1 Stable Hypertensive disorder 38 020395 I10 Stable Low back pain 007550707 M54.5 Neuropathy 160972921 G62 .9 Stable [id number] MONICA IRWIN PA-C [address] [place] [address] 11/14/2017 13:57:07 11/14/2017 14:41:37 Osteoarthritis of multiple joints 268291773 M15.9 --Written consent obtained for treatment --Nestor reviewed-- Risks and benefits of the use of controlled substances discussed with patient--F UPS in 3 months Fever 551022417 R50.9 Advil for fever. Generalize d anxiety disorder 35346749 F41.1 stable Influenza- like symptoms 710005004 R68.89 patient is contagious until 24 hours fever free without taking Tylenol or Advil. Drink plenty of fluids and rest [id number] MONICA IRWIN PA-C [address] [place] [address] 11/21/2017 13:04:43 11/21/2017 14:13:33 Acute sinusitis 91834521 J01.90 Drink plenty of fluids and rest. [id number] AYSE MALONE PA-C [address] [place] [address] 02/16/2018 08:08:29 02/16/2018 10:31:21 Osteoarthritis of multiple joints 276989102 M15.9 stable. nestor velasquez e. UDS done in jul. Allergic rhinitis 128892 04 J30.9 would like to change back to zyrtec-D. advised to monitor BP. Hypertensive disorder 38 127152 I10 stable Gastroesop hageal reflux disease without esophagitis 467582626 K21.9 stable Edema 300336686 R60.9 start low dose of HCTZ prn [id number] MEREDITH CONNELL APRN [facility] [address] [place] [address] 04/11/2018 12:48:49 04/13/2018 11:24:13 Fever 295829954 R50.9 Nausea 077106353 R11.0 Patient was seen in the office today for nausea. Reviewed history regarding recent illness, medication s, symptoms, and physical exam. Studies ordered as below. Discussed plan with family, who expresses understand ing. Follow up as noted below. Fatigue 48195903 R53.83 Viral syndrome 351186926 B34.9 Patient was advised to increase fluids including water, water with electrolyt es, Pedialyte or sugar-free Gatorade. Advised patient to increase sugar could worsen diarrhea.P atient was given Zofran for symptomati c relief and advised to rest and incorporat e a bland diet as tolerated. Advised patient to advance diet as tolerated. Patient will return to clinic if symptoms worsen or persist or do not resolve within 2-3 days. [id number] GRANT FAITH PA-C [address] [address] 04/22/2018 10:18:25 05/13/2018 09:35:38 Migraine 55162614 G43.909 stable Nausea 961846681 R11.0 continue bland foods/hydr ation Abdominal pain 73895674 R10.9 will likely need u/s or ct scan dependent on lab results as well Fatigue 08828350 R53.83 improved [id number] GRANT FAITH PA-C [address] [place] [address] 07/07/2018 10:39:25 07/07/2018 11:50:41 Osteoarthritis of multiple joints 562716886 M15.9 nestor and csa appropriat e. rx refills Neuropathy 818198306 G62 .9 nestor and csa appropriat e. rx refill Hypertensive disorder 38 704457 I10 stable Anxiety 83504267 F41.9 stable Fatigue 87668589 R53.83 worsened of late Dysuria 73566569 R30.0 may need urology eval if no improvemen t after next course of antibiotic s Screening for malignant neoplasm of colon 246526617 Z12.11 Vitamin D deficiency 347 44248 E55.9 recheck today [id number] GRANT FAITH PA-C [address] [place] [address] 10/22/2018 14:13:33 10/22/2018 15:12:36 Osteoarthritis of multiple joints 876638528 M15.9 nestor and csa appropriat e. rx refills Neuropathy 827360910 G62 .9 nestor and csa appropriat e. rx refill Anxiety 02420767 F41.9 stable Migraine 81049039 G43.90 9 stable Mixed anxi ety and depressive disorder 989489522 F41.8 stable Dysuria 58372859 R30.0 urine is wnl in office Nausea 240540914 R11.0 continue bland foods/hydr ation Acute bronchitis 1782092 2 J20.9 mucinex otc, cxr if no improvemen t in 48 hours Dyspnea 185893599 R06.00 [id number] GRANT FAITH PA-C [address] [address] 01/25/2019 08:00:35 01/25/2019 08:48:37 Mixed anxiety and depressive disorder 304306898 F41.8 stable Allergic rhinitis 798867 04 J30.9 stable Generalize d anxiety disorder 68776030 F41.1 stable Migraine 56385089 G43.90 9 stable Hypertensive disorder 38 075738 I10 stable Gastroesop hageal reflux disease without esophagitis 075859768 K21.9 stable on prilosec Nausea 210993984 R11.0 continue bland foods/hydr ation Osteoarthr itis of multiple joints 234507230 M15.9 nestor and csa appropriat e. rx refills - pt advised and is agreeable to pain management for referral Anxiety 31532658 F41.9 stable Dyspnea 243988664 R06.00 stable Screening for malignant neoplasm of breast 474143899 Z12.31 Screening for malignant neoplasm of colon 746137667 Z12.11 Active or passive immunization 582639874 Z23 [id number] GRANT FAITH PA-C [address] [place] [address] 03/29/2019 10:21:49 03/29/2019 11:11:44 Routine gynecologic examination done 2357082555 9101 Z01.419 Adult heal th examination 183923437 Z00.00 Hypertensive disorder 38 966113 I10 stable Gastroesop hageal reflux disease without esophagitis 540642328 K21.9 stable on prilosec Screening for malignant neoplasm of breast 225201631 Z12.31 Nausea 124049516 R11.0 continue bland foods/hydr ation Screening for malignant neoplasm of colon 117978232 Z12.11 Vitamin B1 2 deficiency (non anemic) 25994424 E53.8 Active or passive immunization 097568818 Z23 Administra tion of pneumococcal vaccine 71300835 Z23 Sinusitis 34721640 J32.9 Hemorrhoids 87220717 K64 .9 [id number] GRANT FAITH PA-C [address] [place] [address] 04/15/2019 10:32:38 04/15/2019 11:00:30 Candidiasis of vagina 48780624 B37.3 Hyperlipidemia 40948984 E78.5 recheck labs in 3 months Allergic rhinitis 843652 04 J30.9 stable Candidiasis of mouth [id number] 07761 B37.0 ENT referral if no improvemen t [id number] ALVARO VEGAS PA-C [address] [place] [address] 05/07/2019 14:30:08 05/07/2019 15:47:43 Feces color: tarry [id number] R19.5 Nausea and vomiting 1693 2000 R11.2 it was recommende d that the patient reports to the emergency department for evaluation today. I do not think it is appropriat e for us to wait for results of blood work or imaging until Friday given her active tarry stools, pain and tremor. Patient is hesitant but does agree to go to the emergency department escorted by her mother. Hematemesis [id number] K92. 0 Diarrhea [id number] R19.7 Tremor [id number] R25.1 Numbness of hand 4107814 04 R20.0 Health Concerns Section Related Observation LastModified by Organization Detai ls LastModified Time None Recorded Concern Status LastModified by Organization Details LastModified Time None Recorded Advance Directives Directive None Recorded Payers Insurance Date Sequence Insurance Name Policy Number Policy Bonilla Covered Member ID Bonilla Member ID Guarantor Name 11/14/2017 1 *SELF PAY* Addie Sarah 02/16/2018 1 *SELF PAY* Addie Sarah 05/07/2019 SLIDING FEE SCHEDULE - DISCOUNT Carmen Sarah 07/19/2020 1 COUNTS INCLUDE 234 BEDS AT THE [facility] [id number] Mani Sarah [id number] Carmen Sarah 11/14/2017 1 [facility] (O) [id number] Carmen Sarah [id number] Carmen Sarah 07/22/2018 PAYMENT PLAN Carmen Sarah 11/26/2019 1 [facility] (MEDICAID REPLACEMENT - HMO) Carmen Sarah [id number] Carmen Sarah Notes Date Note Type Note Provider Name and Address Organization Details Recorded Time 10/22/2018 text/html chronic medicati ons renewed. She states her mood is been stable besides recently with her upper respiratory infection and sinus infection. She's been increasingly fatigued and lethargic. She states cough and sinus pressure began 3 weeks ago. She's been trying kbuz-ybc-pusiicg medication without much improvement. Has significant headache ear pain and now nonproductive cough. Denies any wheezing but does have significant lethargy in the evening. She does have some nausea that worsened of late. Increased GERD symptoms. Denies vomiting or diarrhea. Has had some darker urine. Has been drinking a lot of water throughout the day. GRANT FAITH PA-C [address] [place], [address], [facility] 10/22/2018 14:54:25 01/25/2019 text/html patient presents today for recheck of chronic conditions. She did feel to get her colon regard screening at last check. She is agreeable to proceed with mammogram at next appointment as well. She is not fasting today for labs that we'll get her labs that her next appointment. She denies any chest pain shortness of breath or headache. She's been trying to consume more water to prevent dehydration like she experienced in the past. She states depression and anxiety are stable with medication. Stomach is been stable with omeprazole as well. She states she's recently started CBD which she hopes will help with her generalized inflammation and stomach issues She has been on Percocet for some time to pain management initially and then transferred eyes. She is agreeable to go to pain management again for further medication management. GRANT FAITH PA-C [address] [place], [address], [facility] 01/25/2019 09:26:49 03/29/2019 text/html patient presents today for routine physical and Pap. She would like pneumonia vaccine as well as shingles vaccine. She like B12 injection today that she takes for her chronic fatigue and B12 anemia She states she has been more stressed and anxious due to impending divorce with her . She states she for gets things frequently throughout the day as well. She currently denies chest pain shortness of breath or headache. Has had more constipation and flare of her internal hemorrhoid of late. She does take Percocet regularly with pain management now and tries to take MiraLAX on a daily basis. Does have family history of colon polyps and has not returned cold guard at this point but is agreeable to colonoscopy and mammogram She's also had chronic sinus infection with dental abscess which she's been seeing her dentist for regularly. Does have some left ear pain and pressure as well. GRANT FAITH PA-C [address] [place], [address], [facility] 03/29/2019 11:08:51 04/15/2019 text/html patient presents today for recheck. She states she has been consuming more water but still notes persistent yeast infection as well as sore throat with drainage persistent. She has been due to grandson Diflucan as well as Magic mouthwash with persistent oral thrush. She denies significant GERD symptoms. She states she still has sinus pain pressure and fullness of been problematic despite amoxicillin Ceftin ear steroid and Zyrtec-D this point. Labs did show mild dehydration which has improved. She still having some mild issues with pain with hemorrhoids. She's been applying creams only mild improvement GRANT FAITH PA-C [address] [place], [address], [facility] 04/15/2019 12:45:36 05/07/2019 text/html patient presents today, accompanied by her mother, with complaint of abdominal Pain, heartburn, neck pain, sinus infection symptoms, numbness and tingling of the hands and feet, tremor as well as dark tarry stools and 3 episodes of hematemesis in the past 3-4 days. patient reports that she has been trying to drink coconut water for hydration. She denies fever. She has not eaten any new foods or had any medication changes. prior to this episode she was experiencing constipation for approximately 3 days. She has taken some Zofran at home that has been mildly effective in controlling vomiting. She has never experienced symptoms like this in the past. She has no history of gastric ulcer. patient has not had a colonoscopy. ALVARO VEGAS PA-C [address] [place], [address], [facility] 05/07/2019 15:15:35 OBGyn Episode No OBEpisode recorded.
--- OUTSIDE RECORDS SUMMARY | 2025-02-24 09:47 | XMS_ITS | Data Portability ---
Author Organization [place] - NT - [facility] Medicine and [facility] [place] Address [address] [place] [address] Care Team Providers Care Benzol Still Operator Name Role Phone JOSSELINE FOREMAN Primary Care Provider PRACHI SHAH Anesthesiology Physician Assistant Assessment Encounter Date Assessment Date Assessment LastModified by Organization Details LastModified Time 12/23/2023 12/23/2023 -MRI C-spine w/out -MRI L spine w/out -EMG/NCS BUE/BLE -Prednisone taper -Gabapentin 300 mg TID (RAINA and contract reviewed) -continue PT -f/u as scheduled [place] [id number] Not available 12/23/2023 16:16:15 Plan of Treatment Reminders Order Date Submit Date Provider Last Modified By Organization Details Last Modified Time Details Appointments None recorded. Lab None recorded. Referral None recorded. Procedures colonoscopy procedure (PROC) 2022 023 ALYCIA Not available 14:07:52 Surgeries None recorded. Imaging None recorded. Medication Orders prednisone 10 mg tablet 2023 024 [facility][id number], [address], [place], [id number], 4 16:16:26 gabapentin 300 mg capsule 2023 024 [facility] #[id number], [address], [place], [id number], 4 16:16:55 ondansetron 4 mg disintegrat ing tablet 2023 024 [facility] #[id number], [address] , [place], [id number], 4 16:16:22 Linzess 290 mcg capsule 2022 023 [email or web address] [facility], [address] [place] [address] [place], [id number], 3 10:11:39 Miralax 17 gram/dose oral powder [email or web address] [place] [address], [address] [place] [address] [place], [id number], 4 15:57:05 Dulcolax (bisacodyl) 5 mg tablet,dawit yed release [id number] [place] [address], [address] [place] [address], [place], [id number], 4 15:59:05 Miralax 17 gram/dose oral powder [id number] [place] [address], [address] [place] [address] [place], [id number], 4 15:57:05 Patient TargetsNo targets recorded. Patient InstructionsNo instructions recorded. Reason for Referral None Reported. Problems Name Problem SNOMED Code Status Onset Date Resolution Date Notes Provider Name and Address Organization Details Recorded Time Diverticulosis of colon 765852555 Active 2021 Carmella Castellanos NP [address] [facility], [address], [place], [address], [facility] 2 10:18:34 Irritable bowel syndrome characterized by constipation 508263276 Active 2021 Carmella Castellanos NP [address], [address], [place], [address], [place] - [facility]NT - [place] & [place] 2 10:18:48 Unintentional weight loss 170392886 Active 2021 Carmella Castellanos NP [address], [address], [place], [address], [place] Perez [facility]NT - [place] & [place] 2 10:19:04 Problem Notes None recorded. Procedures Surgical History Date Name Laterality Status Provider Name and Address Organization Details Recorded Time 4 EMG/ Nerve Conduction Study completed Chato Davalos M.D [address], [address], [place], [address], [place] - LPNT - [place] & [place] 02/14/2024 21:13:42 4 EMG/ Nerve Conduction Study completed Chato Davalos M.D [address], [address], [place], [address], [place] - MALANT - [place] & [place] 01/21/2024 16:52:49 8 section completed Alisa GUTIERREZ [facility] & [place] 06/05/2022 15:30:55 2 section completed Alisa Perez LPNT [facility] & [place] 06/05/2022 15:30:50 Imaging Results None recorded. Procedure Notes None recorded. Medical Equipment None Reported. Allergies Allergen ID Allergen Name Allergen Category Reaction Reaction Severity Criticality Documentation Date Start Date Code Code System Note Provider Name and Address Organization Details Recorded Time [id number] Vraylar medicatio n Not available Not available Not available 12/23/2023 35648 61 RxNorm [place] Smith LPNT [facility] & [place] 4 15:55:06 62042 aripipraz ole medicatio n Not available Not available low 06/05/2022 58621 RxNorm [place] Oron[place] LPNT [facility] & [place] 2 15:34:32 25247 Product containin g penicilli n (product) medicatio n rash Not available low 06/05/2022 22471 8001 SNOMED [place] O[place] [facility] & [place] 2 15:34:59 49942 bupropion Not available Not available Not available low 06/05/2022 37225 RxNorm [place] [facility] & [place] 2 15:35:22 Medications Name Sig Start Date Stop Date Status Note LastModified by Organization Details LastModified Time senna s 8.6-50mg tablets TAKE 1 TABLET BY MOUTH TWICE DAILY NEEDED FOR CONSTIPAT ION 12/22 completed Not Available Not Available Not Available amoxicillin 500 mg capsule 09/25 completed Not Available Not Available Not Available medroxyprog esterone 10 mg tablet TAKE 1 TABLET BY MOUTH DAILY active Not Available Not Available No t Available promethazin e-DM 6.25 mg-15 mg/5 mL oral syrup TAKE 1 TEASPOONF UL (5 ML) BY MOUTH EVERY 6 HOURS NEEDED FOR cough 09/25 completed Not Available Not Available Not Available clonidine HCl 0.1 mg tablet TAKE ONE TABLET BY MOUTH EVERY DAY AT BEDTIME 12/22 completed Not Available Not Available Not Available prednisone 10 mg tablet TAKE 6 TABLETS BY MOUTH ON DAY 1 THEN DECREASE BY 1 TABLET DAILY UNTIL GONE active Not Available Not Available No t Available nicotine 14 mg/24 hr daily transdermal patch 12/22 completed Not Available Not Available Not Available ipratropium 0.5 mg-albutero l 3 mg (2.5 mg base)/3 mL nebulizatio n soln USE 3 ML VIA NEBULIZER FOUR TIMES DAILY NEEDED FOR WHEEZING active Not Available Not Available No t Available quetiapine 300 mg tablet TAKE 1 TABLET BY MOUTH EVERY NIGHT AT BEDTIME active Not Available Not Available No t Available cetirizine 10 mg tablet TAKE 1 TABLET BY MOUTH DAILY FOR ALLERGIES active Not Available Not Available No t Available azithromyci n 250 mg tablet TAKE 2 TABLETS BY MOUTH ON DAY 1, THEN TAKE 1 TABLET DAILY ON DAYS 2-5 -- FINISH ALL MEDICINE -- active Not Available Not Available No t Available pravastatin 40 mg tablet TAKE 1 TABLET BY MOUTH DAILY active Not Available Not Available No t Available ibuprofen 800 mg tablet TAKE 1 TABLET BY MOUTH THREE TIMES DAILY NEEDED FOR MUSCLE SPASMS OR TIGHTNESS active Not Available Not Available No t Available fluconazole 150 mg tablet TAKE 1 TABLET BY MOUTH EVERY 3 DAYS FOR 5 DOSES active Not Available Not Available No t Available benzonatate 200 mg capsule TAKE 1 CAPSULE BY MOUTH THREE TIMES DAILY active Not Available Not Available No t Available metoprolol succinate ER 50 mg tablet,exte nded release 24 hr TAKE 1 TABLET BY MOUTH EVERY NIGHT AT BEDTIME FOR HYPERTENS ION active Not Available Not Available No t Available valacyclovi r 1 gram tablet 12/22 completed Not Available Not Available Not Available prazosin 1 mg capsule TAKE 1 CAPSULE BY MOUTH EVERY NIGHT AT BEDTIME DIRECTED active Not Available Not Available No t Available senna 8.6 mg tablet TAKE 1 TABLET BY MOUTH TWICE DAILY active Not Available Not Available No t Available ondansetron HCl 8 mg tablet TAKE 1 TABLET BY MOUTH TWICE DAILY NEEDED 12/22 completed Not Available Not Available Not Available promethazin e 12.5 mg tablet 09/25 completed Not Available Not Available Not Available ondansetron HCl 4 mg tablet TAKE ONE TABLET BY MOUTH EVERY 8 HOURS NEEDED 12/22 completed Not Available Not Available Not Available prednisone 20 mg tablet TAKE 3 TABLETS BY MOUTH DAILY FOR 5 DAYS active Not Available Not Available No t Available quetiapine 200 mg tablet TAKE 1 TABLET BY MOUTH EVERY NIGHT DIRECTED active Not Available Not Available No t Available olanzapine 5 mg tablet 12/22 completed Not Available Not Available Not Available permethrin 5 % topical cream PLEASE SEE ATTACHED FOR DETAILED DIRECTION S 12/22 completed Not Available Not Available Not Available thiamine HCl (vitamin B1) 100 mg tablet TAKE 1 TABLET BY MOUTH DAILY 12/22 completed Not Available Not Available Not Available hydroxyzine pamoate 50 mg capsule TAKE 1 CAPSULE BY MOUTH THREE TIMES DAILY active Not Available Not Available No t Available hydroxyzine HCl 50 mg tablet 12/22 completed Not Available Not Available Not Available sulfamethox azole 800 mg-trimetho prim 160 mg tablet 12/22 completed Not Available Not Available Not Available omeprazole 40 mg capsule,del ayed release TAKE 1 CAPSULE BY MOUTH DAILY FOR STOMACH ACID OR REFLUX active Not Available Not Available No t Available quetiapine 100 mg tablet TAKE 1 TABLET BY MOUTH AT BEDTIME FOR DEPRESSIO N 12/22 completed Not Available Not Available Not Available ondansetron 8 mg disintegrat ing tablet DISSOLVE 1/2 A TABLET BY MOUTH EVERY 8 HOURS active Not Available Not Available No t Available prazosin 5 mg capsule TAKE 1 CAPSULE BY MOUTH EVERY NIGHT AT BEDTIME DIRECTED active Not Available Not Available No t Available propranolol 10 mg tablet TAKE ONE TABLET BY MOUTH THREE TIMES DAILY 12/22 completed Not Available Not Available Not Available famotidine 20 mg tablet TAKE ONE TABLET BY MOUTH EVERY DAY 12/22 completed Not Available Not Available Not Available methocarbam ol 750 mg tablet TAKE 1 TABLET BY MOUTH EVERY 8 HOURS NEEDED FOR MUSCLE SPASMS OR TIGHTNESS active Not Available Not Available No t Available estradiol 1 mg tablet TAKE 1 TABLET BY MOUTH DAILY active Not Available Not Available No t Available dicyclomine 20 mg tablet TAKE ONE TABLET BY MOUTH THREE TIMES DAILY NEEDED FOR abdominal discomfor t MAY CAUSE DROWSINES S 12/22 completed Not Available Not Available Not Available phenazopyri dine 100 mg tablet 12/22 completed Not Available Not Available Not Available benzonatate 100 mg capsule TAKE 1 CAPSULE BY MOUTH EVERY 8 HOURS NEEDED active Not Available Not Available No t Available cephalexin 500 mg capsule 12/22 completed Not Available Not Available Not Available pantoprazol e 40 mg tablet,dawit yed release TAKE ONE TABLET BY MOUTH EVERY DAY active Not Available Not Available No t Available cyanocobala min (vit B-12) 1,000 mcg/mL injection solution INJECT 1 ML INTO THE MUSCLE ONCE A MONTH 12/22 completed Not Available Not Available Not Available buspirone 30 mg tablet TAKE 1 TABLET BY MOUTH THREE TIMES DAILY active Not Available Not Available No t Available nystatin 100,000 unit/gram topical cream APPLY TOPICALLY TO THE AFFECTED AREA TWICE DAILY active Not Available Not Available No t Available buspirone 10 mg tablet TAKE 1 TABLET BY MOUTH THREE TIMES DAILY FOR ANXIETY 12/22 completed Not Available Not Available Not Available halobetasol propionate 0.05 % topical ointment APPLY TOPICALLY TO THE AFFECTED AREA TWICE DAILY FOR UP TO 2 WEEKS NEEDED FOR ITCHING active Not Available Not Available No t Available prednisone 50 mg tablet TAKE 1 TABLET BY MOUTH DAILY active Not Available Not Available No t Available lidocaine 5 % topical patch APPLY 1 PATCH TOPICALLY TO THE SKIN DAILY FOR PAIN. 12 HOURS ON THEN 12 HOURS OFF. active Not Available Not Available No t Available promethazin e 25 mg tablet TAKE 1 TABLET BY MOUTH EVERY 6 HOURS NEEDED FOR NAUSEA OR VOMITING active Not Available Not Available No t Available nicotine 21 mg/24 hr daily transdermal patch APPLY 1 PATCH TOPICALLY DAILY active Not Available Not Available No t Available docusate sodium 100 mg capsule active Not Available Not Available N ot Available gabapentin 300 mg capsule TAKE 1 CAPSULE BY MOUTH THREE TIMES DAILY active Not Available Not Available No t Available omeprazole 20 mg capsule,del ayed release 09/25 completed Not Available Not Available Not Available folic acid 1 mg tablet TAKE 1 TABLET BY MOUTH DAILY 12/22 completed Not Available Not Available Not Available hydrocortis one 2.5 % topical cream APPLY TOPICALLY 2 (TWO) TIMES A DAY FOR 30 DAYS DO NOT USE ON FACE OR GROIN AREA. 12/22 completed Not Available Not Available Not Available montelukast 10 mg tablet TAKE 1 TABLET BY MOUTH DAILY active Not Available Not Available No t Available bisacodyl 5 mg tablet,dawit yed release Take 2 tablets by oral route as directed for 1 day. 12/22 completed Not Available Not Available Not Available pravastatin 20 mg tablet TAKE 1 TABLET BY MOUTH EVERY DAY DIRECTED 12/22 completed Not Available Not Available Not Available hydrochloro thiazide 25 mg tablet 12/22 completed Not Available Not Available Not Available mirtazapine 15 mg tablet 12/22 completed Not Available Not Available Not Available polyethylen e glycol 3350 17 gram/dose oral powder MIX 17 GRAMS IN 8 OUNCES OF WATER AND DRINK ONCE DAILY NEEDED FOR CONSTIPAT ION active Not Available Not Available No t Available methylpredn isolone 4 mg tablets in a dose pack TAKE ACCORDING TO PACKAGE INSTRUCTI ONS --TAKE WITH FOOD-- -- FINISH ALL MEDICINE -- 12/22 completed Not Available Not Available Not Available ipratropium bromide 42 mcg (0.06 %) nasal spray SPRAY 2 SPRAYS INTO EACH NOSTRIL 3 TIMES A DAY FOR 4 DAYS 12/22 completed Not Available Not Available Not Available bromphenira mine-pseudo ephedrine-D M 2 mg-30 mg-10 mg/5 mL oral syrup TAKE 5 ML BY MOUTH EVERY 4 TO 6 HOURS NEEDED FOR COLD SYMPTOMS active Not Available Not Available No t Available ondansetron 4 mg disintegrat ing tablet DISSOLVE 1 TABLET ON THE TONGUE EVERY 8 HOURS NEEDED FOR NAUSEA active Not Available Not Available No t Available cefdinir 300 mg capsule TAKE 1 CAPSULE BY MOUTH TWICE DAILY FOR 10 DAYS 12/22 completed Not Available Not Available Not Available fluoxetine 20 mg capsule 12/22 completed Not Available Not Available Not Available fluticasone propionate 50 mcg/actuati on nasal spray,suspe nsion SHAKE LIQUID AND USE 1 SPRAY IN EACH NOSTRIL DAILY active Not Available Not Available No t Available ipratropium bromide 0.02 % solution for inhalation USE CONTENTS OF 1 VIAL VIA NEBULIZER EVERY 12 HOURS NEEDED active Not Available Not Available No t Available prazosin 2 mg capsule 12/22 completed Not Available Not Available Not Available progesteron e micronized 100 mg capsule TAKE 1 CAPSULE BY MOUTH DAILY active Not Available Not Available No t Available amoxicillin 875 mg-potassiu m clavulanate 125 mg tablet 12/22 completed Not Available Not Available Not Available amoxicillin 500 mg-potassiu m clavulanate 125 mg tablet TAKE 1 TABLET BY MOUTH THREE TIMES DAILY active Not Available Not Available No t Available Ventolin HFA 90 mcg/actuati on aerosol inhaler INHALE 2 PUFFS BY MOUTH EVERY 6 HOURS NEEDED FOR SHORTNESS OF BREATH OR WHEEZING active Not Available Not Available No t Available hydroxyzine pamoate 25 mg capsule TAKE ONE CAPSULE BY MOUTH THREE TIMES DAILY FOR ANXIETY MAY CAUSE DROWSINES S 12/22 completed Not Available Not Available Not Available atomoxetine 40 mg capsule 12/22 completed Not Available Not Available Not Available buprenorphi ne 8 mg-naloxone 2 mg sublingual tablet DISSOLVE 2 TABLETS UNDER THE TONGUE EVERY DAY 12/22 completed Not Available Not Available Not Available bupropion HCl XL 150 mg 24 hr tablet, extended release 12/22 completed Not Available Not Available Not Available Climara Pro 0.045 mg-0.015 mg/24 hr transdermal patch 12/22 completed Not Available Not Available Not Available metoprolol tartrate 25 mg tablet TAKE 1/2 TABLET BY MOUTH TWICE DAILY 12/22 completed Not Available Not Available Not Available nitrofurant oin monohydrate /macrocryst als 100 mg capsule TAKE 1 CAPSULE BY MOUTH TWICE DAILY FOR 7 DAYS active Not Available Not Available No t Available acamprosate 333 mg tablet,dawit yed release TAKE 2 TABLETS BY MOUTH THREE TIMES DAILY 12/22 completed Not Available Not Available Not Available duloxetine 30 mg capsule,del ayed release TAKE 3 CAPSULES ORALLY DAILY FOR DEPRESSIO N FOR 30 DAYS 12/22 completed Not Available Not Available Not Available duloxetine 60 mg capsule,del ayed release TAKE 1 CAPSULE BY MOUTH EVERY MORNING DIRECTED active Not Available Not Available No t Available atomoxetine 80 mg capsule TAKE ONE CAPSULE BY MOUTH EVERY DAY 12/22 completed Not Available Not Available Not Available Advair HFA 230 mcg-21 mcg/actuati on aerosol inhaler INHALE 2 PUFFS BY MOUTH EVERY 12 HOURS active Not Available Not Available No t Available quetiapine 50 mg tablet TAKE THREE TABLETS BY MOUTH EVERY DAY AT BEDTIME FOR 3 DAYS, THEN decrease TO 2 TABLETS EVERY DAY AT BEDTIME FOR 3 DAYS, AND finish with 1 TABLET EVERY DAY AT BEDTIME 12/22 completed Not Available Not Available Not Available hydrochloro thiazide 12.5 mg tablet 12/22 completed Not Available Not Available Not Available levocetiriz ine 5 mg tablet TAKE ONE TABLET BY MOUTH EVERY DAY 12/22 completed Not Available Not Available Not Available buprenorphi ne 8 mg-naloxone [address] 2 FILMS UNDER THE TONGUE ONCE DAILY DIRECTED 12/22 completed Not Available Not Available Not Available Purelax 17 gram oral powder packet 17GM DAILY DIRECTED 12/22 completed Not Available Not Available Not Available Allergy Relief (fexofenadi ne) 180 mg tablet TAKE 1 TABLET BY MOUTH DAILY active Not Available Not Available No t Available vilazodone 10 mg tablet 12/22 completed Not Available Not Available Not Available Linzess 145 mcg capsule 12/22 completed Not Available Not Available Not Available Linzess 290 mcg capsule TAKE 1 CAPSULE BY MOUTH EVERY NIGHT AT BEDTIME FOR GERD active Not Available Not Available No t Available Rexulti 1 mg tablet TAKE 1 TABLET BY MOUTH DAILY DIRECTED active Not Available Not Available No t Available Rexulti 0.5 mg tablet TAKE 1 TABLET BY MOUTH DAILY active Not Available Not Available No t Available Rexulti 2 mg tablet TAKE 1 TABLET BY MOUTH DAILY active Not Available Not Available No t Available naloxone 4 mg/actuatio n nasal spray active Not Available Not Available Not Available Vraylar 1.5 mg capsule TAKE ONE CAPSULE BY MOUTH EVERY DAY 12/22 completed Not Available Not Available Not Available Vraylar 3 mg capsule 12/22 completed Not Available Not Available Not Available Xiidra 5 % eye drops in a dropperette INSTILL 1 DROP IN BOTH EYES TWICE DAILY active Not Available Not Available No t Available Qvar RediHaler 40 mcg/actuati on HFA breath activated aerosol INHALE 1 PUFF BY MOUTH DAILY active Not Available Not Available No t Available Sublocade 300 mg/1.5 mL solution,ex tended release subcutaneou s syringe 12/22 completed Not Available Not Available Not Available Sublocade 100 mg/0.5 mL solution,ex tended release subcutaneou s syringe 12/22 completed Not Available Not Available Not Available BinaxNOW COVID-19 Ag Self Test kit TEST DIRECTED TODAY active Not Available Not Available No t Available Paxlovid 150 mg-100 mg tablets in a dose pack (Moderate Renal Dose) FOLLOW PACKAGE DIRECTION S 12/22 completed Not Available Not Available Not Available Veozah 45 mg tablet TAKE 1 TABLET BY MOUTH DAILY active Not Available Not Available No t Available Brixadi Weekly 24 mg/0.48 mL solution,ex tend.rel. subcut.syri nge Inject 24 mg subcutane ously once a week 12/22 completed Not Available Not Available Not Available Vitals Date Recorded Body height Body mass index (BMI) Body weight Body temperature Oxygen saturation Oxygen saturation in Arterial blood by Pulse oximetry Heart rate Provider Name and Address Organization Details Last Updated DateTime 3 167.64 cm 18.1 kg/m2 88614.3 5 g 98 [degF] 94 % 94 % 110 /min Alisa [place] [facility] & [place] 3 14:24:45 Date Recorded Body height Body mass index (BMI) Body weight Body temperature Oxygen saturation Oxygen saturation in Arterial blood by Pulse oximetry Heart rate Systolic And Diastolic Provider Name and Address Organization Details Last Updated DateTime 4 167.64 cm 19.7 kg/m2 34126.2 7 g 96.6 [degF] 96.99 % 96.99 % 73 /min 110/70 mm[Hg] Ling Holbrook PA - LPNT [facility] & [place] 4 15:54:03 Date Recorded Body height Body mass index (BMI) Body weight Body temperature Oxygen saturation Oxygen saturation in Arterial blood by Pulse oximetry Heart rate Provider Name and Address Organization Details Last Updated DateTime 4 167.64 cm 19.7 kg/m2 75922.2 7 g 98.8 [degF] 96 % 96 % 96 /min Ling GALVAN [facility] & [place] 4 15:53:09 Date Recorded Body height Body mass index (BMI) Body weight Body temperature Oxygen saturation Oxygen saturation in Arterial blood by Pulse oximetry Heart rate Provider Name and Address Organization Details Last Updated DateTime 4 167.64 cm 19.7 kg/m2 28280.2 7 g 96 [degF] 99 % 99 % 77 /min Ling GALVAN [facility] & [place] 4 15:38:00 Date Recorded Body height Body mass index (BMI) Body weight Oxygen saturation Oxygen saturation in Arterial blood by Pulse oximetry Heart rate Provider Name and Address Organization Details Last Updated DateTime 2 167.64 cm 17.4 kg/m2 70334.9 8 g 97 % 97 % 76 /min Alisa [place] [facility] & [place] 2 15:41:39 Social History Question Answer Notes LastModified by Xambala Details LastModified Time Tobacco Smoking Status Current Every Day Smoker Alisa Birmingham [facility] & [place] 06/05/2022 15:33:31 How Much Tobacco Do You Smoke? 1 PPD [email or web address] Information not available 06/05/2022 Sex: Female Functional Status Question Answer Note LastModified by Xambala Details LastModified Time What is your level of alcohol consumption? Occasional [email or web address] Information not available 06/05/2022 Mental Status None recorded. Family History Relationship Description Onset Age of this Age Resolved Age Notes LastModified by Organization Details LastModified Time Mother Hypertensive disorder [email or web address] Not available 06/05 15:31:16 Mother Cerebrovascu lar accident [email or web address] Not available 15:32:08 Mother Hyperlipidem ia Not available 06/05 15:32:18 Medical History Condition Response Arthritis Y Diverticulitis/Diverticulosis Y Hypertension Y Gynecological HistoryNo gynecological history recorded. Obstetrics History GPAL:G 0 P 0 0 0 0 Past Encounters Encounter ID Performer Location Encounter Start Date Encounter Closed Date Diagnosis/Indication Diagnosis SNOMED-CT Code Diagnosis ICD10 Code Diagnosis Note [id number] Carmella Castellanos NP [facility] [address] [place] [phone] 06/05/2022 15:07:12 06/12/2022 08:04:59 Diverticulosis of colon 148945192 K57.30 noted on colonoscop y from 08/2021 at [facility]. Recommend continued use of daily fiber supplement s. Irritable bowel syndrome characterized by constipation 144684122 K58.1 History of chronic constipati on for many years, currently prescribed Suboxone. averages bowel movement every 4-5 days. Reports passing small hard stool. Previously failed treatment with MiraLax, fiber, and laxatives. Recommend trial of Linzess 72 mcg, 145 mcg and 290 mcg samples for 8 days provided to patient clinic today. Will send prescripti on based on response to sample medication . Prior colonoscop y completed at [facility] 08/2021 with hemorrhoid s and diverticul osis noted with suboptimal bowel prep. Recommend treatment of constipati on as discussed with plans to schedule colonoscop y at clinic follow-up once constipati on is better controlled . Unintentio nal weight loss 973581189 R63.4 Reports estimated 35 pounds over the past year. CT 08/2021 at [facility] showed emphysema and 7-8 mm nodule RUL and diffuse hepatic steatosis. EGD 08/2021 at [facility] noted mid esophageal shallow diverticul um, otherwise normal. Plan to treat constipati on as above and plan for colonoscop y to further evaluate. [id number] Carmella Castellanos NP [facility] [address] [place] [phone] 09/25/2022 14:23:24 09/26/2022 09:01:17 Irritable bowel syndrome characterized by constipation 241709633 K58.1 Uncontroll ed with use of Linzess 145 mcg, miralax, and fiber supplement s. Recommend Linzess 290 mcg daily to achieve 1-2 semi solid bowel movements per day. Previously failed treatment with OTC laxatives. Plan for colonoscop y to further evaluate constipati on and previously reported weight loss when pulmonary status has improved which I discussed with patient in clinic today. She does plan to follow up with Dr. Foreman later this week. Prior colonoscop y at [facility] 08/2021 with hemorrhoid s and diverticul osis noted with suboptimal bowel prep. Diverticul osis of colon [id number] K57.30 noted on colonoscop y from 08/2021 at [facility]. Recommend continued use of daily fiber supplement s and treatment of constipati on as above. Unintentio nal weight loss [id number] R63.4 Previously reported 35 pounds over the past year. Currently stable at this time. CT 08/2021 at [facility] noted emphysema and 7-8 mm nodule RUL and diffuse hepatic steatosis. EGD 08/2021 at [facility] noted mid esophageal shallow diverticul um, otherwise normal. Plan to treat constipati on as above and plan for colonoscop y to further evaluate. [id number] Yen Whatley [facility] [address] [place], [place] [address] 12/23/2023 15:19:49 12/23/2023 16:16:50 Cervical radiculopathy [id number] M54.12 Lumbosacra l radiculitis [id number] M54.17 Fibromyalgia [id number] M 79.7 [id number] Chato Davalso M.D [facility] [address] [place], [place] [address] 01/20/2024 15:37:58 01/20/2024 16:26:05 Bilateral carpal tunnel syndrome [id number] G56.03 Numbness [id number] R20.0 Sensory disorder [id number] 8 R20.8 [id number] Yen Whatley [facility] [address] [place], [place] [address] 02/02/2024 15:10:20 02/02/2024 16:07:46 Lumbar radiculopathy [id number] M54.16 Paresthesia 70540629 R20 .2 Health Concerns Section Related Observation LastModified by Organization Detai ls LastModified Time None Recorded Concern Status LastModified by Organization Details LastModified Time None Recorded Advance Directives Directive None Recorded Payers Insurance Date Sequence Insurance Name Policy Number Policy Bonilla Covered Member ID Bonilla Member ID Guarantor Name 09/04/2024 1 [employer] (MEDICAID REPLACEMENT - HMO) Carmen Sarah [id number] Carmen Sarah Notes Date Note Type Note Provider Name and Address Organization Details Recorded Time 06/05/2022 text/html 61-year-old fema gilberto with past medical history of constipation, fibromyalgia, alcohol use, hypertension, hyperlipidemia, GERD, and anxiety. Presents today for evaluation of constipation, ongoing for many years. She is currently on Suboxone. She has been taking fiber supplements and stool softeners as well as miralax with uncontrolled symptoms. Will sometimes use soap. Bowel movements every 5-10 days. Describes passing hard rocks. She had a colonoscopy at [facility] 08/2021 with hemorrhoids and diverticulosis noted with suboptimal bowel preparation with recommendation for repeat colonoscopy in the future. EGD 08/2021 noted mid esophageal diverticulum, normal stomach and duodenum. She is concerned with weight loss and reports estimated 35 pounds over the past year. CT 08/2021 at [facility] showed emphysema and 7-8 mm nodule RUL and diffuse hepatic steatosis. Carmella Castellanos NP [address], [address], [place], [address], [facility] & [place] 06/07/2022 13:51:01 09/25/2022 text/html Patient returns to clinic today for follow up on constipation. She has been taking Miralax, Linzess 145 mcg and metamucil for treatment however continues to report uncontrolled symptoms at this time. Weight is currently stable at this time. She reports being on several rounds of antibiotics recently due to cough and reports negative chest xray. Hx of emphysema with 7-8 mm nodule RUL noted on CT from [facility] 08/2021. Colonoscopy at [facility] 08/2021 with hemorrhoids and diverticulosis noted with suboptimal bowel preparation with recommendation for repeat colonoscopy in the future. Carmella Castellanos NP [address], [address], [place], [address], [facility] & [place] 09/25/2022 15:19:39 12/23/2023 text/html Ms. Carmen Sarah is a 63 y/o F who is referred to clinic for evaluation. She has been having sharp, shooting pain with numbness and tingling radiating from her neck to both arms and hands, left greater than right. She also has significant lower back pain radiating to both hips, thighs, and legs. This affects her walking. No focal weakness, no incontinence. She was recently started on Methocarbamol. She has done Physical Therapy for this issue. Chato Davalos M.D [address] [place] [address], [address], [place], [address], [place] - [facility] - [place] & [place] 12/23/2023 16:16:44 OBGyn Episode No OBEpisode recorded.
[2025-02-24] MEDS: diazePAM 10MG/2ML SYRINGE 10 MG IV ×6 (09:48→22:46)
[2025-02-24] MEDS: ONDANSETRON 4MG/2ML VIAL 4 MG IV ×2 (09:54→20:50)
[2025-02-24] MEDS: THIAMINE HCL 100 MG in 0.9 % SODIUM CHLORIDE 50 ML 204 MG IV (09:54)
[2025-02-24] MEDS: FOLIC ACID 1MG TABLET 1 MG PO (09:54)
[2025-02-24] MEDS: LACTATED RINGERS 1000ML 1,000 ML 100 ML IV ×2 (09:54→20:24)
[2025-02-24 09:57] LABS: Hematocrit 33.3 % (37.0-47.0); Hemoglobin 11.3 g/dL (12.2-16.2); Immature Granulocytes % 0.4 %; Mean Corpuscular HGB Conc 33.9 g/dL (31.8-35.4); Mean Corpuscular Hemoglobin 30.1 pg (27.0-31.2); Mean Corpuscular Volume 88.6 fl (81-99); Nucleated Red Blood Cells % 0 %; Platelet Count 233 K/mm3 (142-424); Red Blood Count 3.76 M/mm3 (4.20-5.40); Red Cell Distribution Width-SD 48.3 fL; White Blood Count 8.3 K/mm3 (4.8-10.8)
[2025-02-24 10:07] LABS: Albumin Level 4.5 g/dl (3.5-5.0); Chloride 98 mmol/L (98-107); Sodium 138 mmol/L (136-145)
[2025-02-24 10:08] LABS: Potassium 4.1 mmoL/L (3.5-5.1)
--- NOTE | 2025-02-24 10:08 | ECG_ITS ---
APPROVED REPORT Exam: Resting ECG HR:115 bpm ECG Measurements Heart Rate 115 AXES FL 159 P 91 QRSd 82 QRS 89 QT 322 T 78 QTc 390 Conclusion SINUS TACHYCARDIA ABNORMAL RHYTHM ECG Electronically signed by : PATY EVANS, 02/25/2025 14:05:32
[2025-02-24 10:10] LABS: Alanine Aminotransferase 29 U/L (12-78); Albumin/Globulin Ratio 1.5 (1.1-1.8); Alkaline Phosphatase 110 U/L (38-126); Anion Gap 20.1 mEq/L (5-15); Aspartate Amino Transferase 81 U/L (14-36); Bilirubin,Total 0.9 mg/dl (0.2-1.3); Blood Urea Nitrogen 16 mg/dl (7-17); Carbon Dioxide 24 mmol/L (22.0-30.0); Creatinine Clearance Estimated 54 mL/min (50-200); Creatinine,Serum 0.80 mg/dl (0.52-1.04); Estimated Glomerular Filt Rate 72 ml/min (>60); GFR (African American) 88 ML/MIN (>60); Globulin 3.1 g/dL (1.3-3.2); Phosphorous 3.1 mg/dl (2.5-4.5); Total Protein,Serum 7.6 g/dl (6.3-8.2)
[2025-02-24 10:11] LABS: Calcium 8.3 mg/dl (8.4-10.2); Glucose 125 mg/dl (74-100); Magnesium 1.6 mg/dl (1.6-2.3)
[2025-02-24 10:25] LABS: Activated Partial Thrombo Time 22.5 seconds (22.8-30.6); INR 0.97 (0.9-1.1); Prothrombin Time 10.8 seconds (10.1-12.5)
--- NOTE | 2025-02-24 10:45 | PC.NURSE ---
ADDITIONAL DIAZEPAM GIVEN, PT AND FAMILY UPDATED ON POC. CALL LIGHT WITHIN REACH
[2025-02-24] MEDS: MAGNESIUM SULFATE IN WATER 2 GM/50 ML PIGGYBACK IV (10:56)
--- NOTE | 2025-02-24 11:10 | PC.NURSE ---
DR QUINTANA SPEAKING WITH JOYA CHOW FOR ADMISSION
--- NOTE | 2025-02-24 11:18 | PC.NURSE ---
PT ASSISTED TO BSC, RN AT BEDSIDE
[2025-02-24 11:28] LABS: Hepatitis C Ab Qual. W/ RFX NEGATIVE (Negative)
[2025-02-24 11:44] LABS: Barbiturates Screen,Urine Negative ng/ml (<200); Benzodiazepines Screen,Urine Positive ng/ml (<200)
[2025-02-24 11:45] LABS: Amphetamine/Metha Screen,Urine Negative ng/ml (<1000)
[2025-02-24 11:46] LABS: Methadone Screen,Urine Negative ng/ml (<300)
[2025-02-24 11:48] LABS: Opiate Screen,Urine Negative ng/ml (<300)
[2025-02-24 11:49] LABS: Phencyclidine Screen,Urine Negative ng/ml (<25)
--- NOTE | 2025-02-24 12:42 | PC.NURSE ---
report called to Brandi
[2025-02-24] MEDS: MVI, ADULT NO.1 WITH VIT K 10 ML, THIAMINE HCL 100 MG, MAGNESIUM SULFATE 2 GM in LACTAT... 125 ML IV (13:01)
[2025-02-24] MEDS: BUSPIRONE HCL 10 MG TABLET 30 MG PO ×2 (13:02→20:24)
[2025-02-24] MEDS: PHENobarbital SOD 65MG/ML INJ 130 MG IV ×2 (13:02→20:23)
--- NOTE | 2025-02-24 15:57 | P.HP_ITS ---
<Statement entered by Darrell Caballero MD - 02/24/25 17:13> Rounded on patient after nurse practitioner. Personally examined and interviewed patient. Agree with exam findings and care plan as documented. History of Present Illness *Admission Date: 02/24/25 *Reason for visit:: Alcohol withdrawal *History of present illness: Ms. Sarah is a 64-year-old female who presented to the emergency department with alcohol withdrawal, tremors, nausea, and vomiting. She has a primary medical history of alcohol dependence, tobacco use disorder, postmenopausal bleeding, COPD, anxiety, GERD, recurrent UTI. She reports that she drinks approximately half a gallon of vodka every other day and has been drinking for several years. She has gone through detox many times, and does have a history of alcohol withdrawal seizures. She states her last drink was yesterday afternoon, she has not had anything to drink throughout the night or today. She does deny chest pain, shortness of breath, fevers, seizures, hallucinations. She was given 3 doses of Valium 10 mg IV in the emergency room but still continues to have shakes/tremors. CIWA score of 14. [facility] Disclaimer: The information contained in this section may have been updated after the patient was seen, as this information can be updated by other users. Medical History (Updated 02/24/25 @ 15:17 by Kole Gross MD) Alcohol abuse Encounter for preoperative assessment Endometrial thickening on ultrasound Elevated d-dimer Lower extremity edema Swelling of both hands Swelling of face Elevated BP without diagnosis of hypertension Family history of asthma ASCUS with positive high risk HPV cervical Rash and nonspecific skin eruption Vasomotor symptoms due to menopause Postmenopausal bleeding Coronary artery calcification seen on CAT scan Asthma COPD (chronic obstructive pulmonary disease) Diverticulitis Alcohol withdrawal Throat pain Cough Thyroid function test abnormal Headache Postmenopausal symptoms Night sweat ADD (attention deficit disorder) Nightmares Depression Anxiety PTSD (post-traumatic stress disorder) Rib pain Reactive airway disease with acute exacerbation Shingles Allergic rhinitis Tobacco dependence Dysuria Constipation GERD (gastroesophageal reflux disease) Hypertension Viral syndrome Close exposure to COVID-19 virus Otitis media Sinusitis Diverticulosis Alcohol dependence Uterine fibroid Abdominal pain Surgical History History of History of colonoscopy Family History Other Alcoholism Cancer Coronary artery disease Diabetes FHx: mental illness Heart attack Hyperlipidemia Hypertension Stroke Substance abuse Social History Smoking Status: Current every day smoker tobacco type: cigarettes alcohol intake: current substance use type: denies use current occupational status: unemployed Travel in the last 8 weeks?: None Have you lived/traveled outside US in past 30 days?: No Contact w/someone who lives/traveled outside US past 30 days?: No Exposure to someone with infectious disease in past 14 days?: No Do you have a fever (greater than 100.4 F or 38 C)?: No Have you tested positive for COVID-19?: No Exposed to someone with COVID-19 in past 14 days?: No Do you have a sore throat?: No Do you have a cough?: No Do you have any weakness?: No Do you have any diarrhea?: No Are you experiencing any unusual bleeding?: No Do you have any muscle aches/pain?: No Do you have any abdominal pain?: No Are you experiencing loss of taste or smell?: No Other Medical History Have you received the Flu Vaccine for this season: No Have you received the Pneumonia Vaccine: No Review of Systems Review of Systems Review of systems:: pertinent systems reviewed and negative unless documented below Constitutional Constitutional: Denies body ache(s), Denies chills, Reports fatigue, Denies fever(s) and Reports weakness ENT Ears, Nose, Mouth, and Throat: Reports disequilibrium *Cardiovascular Cardiovascular: Denies chest pain, Denies dyspnea and Reports rapid heart rate *Respiratory Respiratory: Denies cough and Denies dyspnea *Gastrointestinal Gastrointestinal: Denies abdominal pain and Reports nausea *Genitourinary Genitourinary: Reports abnormal vaginal bleeding *Musculoskeletal Comments: Muscle tremors *Neurologic Neurologic: Reports abnormal movements, Reports disequilibrium, Denies other visual disturbances, Reports restless legs, Reports tremor(s) and Reports weakness Psychiatric Psychiatric: Reports anxiety, Reports depression and Reports panic attacks Endocrine Endocrine: Reports fatigue Meds Home Medications and Allergies Home Medications ?Medication ?Instructions ?Recorded ?Confirmed ?Type lifitegrast 5 % eye drops in a 1 drp Eye-Both BID 30 d ays #60 ea 08/27/23 02/24/25 Rx dropperette (Xiidra) fluticasone propionate 50 1 spray intranasal DAILY 30 days 11/07/23 02/24/25 Rx mcg/actuation nasal #16 grams spray,suspension (Flonase Allergy Relief) buspirone 30 mg tablet 30 mg PO TID 30 days #90 tab s 12/23/23 02/24/25 Rx duloxetine 60 mg capsule,delayed 60 mg PO DAILY 30 day s #30 caps 12/23/23 02/24/25 Rx release hydroxyzine pamoate 50 mg capsule 50 mg PO TID anxiety 30 days #90 12/23/23 02/24/25 Rx caps albuterol sulfate 90 mcg/actuation 2 puff inhalation Q 6H PRN 04/15/24 02/24/25 Rx aerosol inhaler shortness of breath or wheez ing #8.5 grams fezolinetant 45 mg tablet (Veozah) 45 mg PO DAILY #30 tabs 04/29/24 02/24/25 Rx progesterone micronized 100 mg 100 mg PO DAILY #30 cap s 09/17/24 02/24/25 Rx capsule omeprazole 40 mg capsule,delayed 40 mg PO DAILY acid r eflux 90 days 09/20/24 02/24/25 Rx release #90 caps blood pressure monitor (Blood #1 ea 10/12/24 02/24/25 Rx Pressure Kit) furosemide 40 mg tablet 40 mg PO DAILY PRN edema #30 tabs 11/08/24 02/24/25 Rx linaclotide 290 mcg capsule 290 mcg PO HS Constipation 11/16/24 02/24/25 History (Linzess) pravastatin 40 mg tablet 40 mg PO DAILY 30 days #30 t abs 12/01/24 02/24/25 Rx metoprolol succinate 50 mg 50 mg PO HS HTN 90 days #90 tabs 12/14/24 02/24/25 Rx tablet,extended release 24 hr estradiol 1 mg tablet 1 mg PO DAILY #30 tabs 12/3002/24/25 Rx methocarbamol 750 mg tablet See Rx Instructions .Route 01/10/25 02/24/25 Rx .COMPLEX #90 tabs fluticasone propionate 230 2 puff inhalation BID 90 da ys #12 01/11/25 02/24/25 Rx mcg-salmeterol 21 mcg/actuation grams HFA inhaler (Advair HFA) nitrofurantoin 100 mg PO Q12H 10 days #20 c aps 02/04/25 02/24/25 Rx monohydrate/macrocrystals 100 mg capsule (Macrobid) brexpiprazole 2 mg tablet (Rexulti) 2 mg PO DAILY 11/1602/24/25 History montelukast 10 mg tablet 10 mg PO HS 02/24/25 5 History quetiapine 300 mg tablet 300 mg PO HS 02/24/25 History New Prescriptions to Start Prescriptions: Allergies Allergy/AdvReac Type Severity Reaction Status Date / Time vilazodone (From Viibryd) AdvReac Mild Seizure Verified 02/24/25 10:16 Exam Data for Last 24 hours Vital signs and Labs for Last 24 Hours: Temp Pulse Resp BP Pulse Ox O2 Del Method 98.5 F 75 18 152/79 H 97 Room Air 02/24/25 12:47 02/24/25 12:47 02/24/25 12:47 02/24/25 12:47 02/24/25 12:47 02/24/25 12:44 Laboratory Results - last 24 hr 02/24/25 09:50: WBC 8.3, RBC 3.76 L, Hgb 11.3 L, Hct 33.3 L, MCV 88.6, MCH 30.1, MCHC 33.9, RDW 14.9, Plt Count 233, MPV 8.9, Neut % (Auto) 88.5 H, Lymph % (Auto) 7.7 L, [place] % (Auto) 3.2, Eos % (Auto) 0.0 L, Baso % (Auto) 0.2, Neut # (Auto) 7.4, Lymph # (Auto) 0.6 L, [place] # (Auto) 0.3, Eos # (Auto) 0.0, Baso # (Auto) 0.0, PT 10.8, INR 0.97, APTT 22.5 L, Sodium 138, Potassium 4.1, Chloride 98, Carbon Dioxide 24, Anion Gap 20.1 H, BUN 16, Creatinine 0.80, Estimated Creat Clear 54, Estimated GFR 72, Est GFR ( Amer) 88, Glucose 125 H, Calcium 8.3 L, Phosphorus 3.1, Magnesium 1.6, Total Bilirubin 0.9, AST 81 H, ALT 29, Alkaline Phosphatase 110, Total Protein 7.6, Albumin 4.5, Globulin 3.1, Albumin/Globulin Ratio 1.5, Plasma/Serum Alcohol < 10, HCV Ab YENY w/Rflx PCR Qn Negative, HIV Ag/Ab Combo Qual Negative 02/24/25 11:25: Urine Opiates Screen Negative, Urine Methadone Screen Negative, Ur Barbituates Screen Negative, Ur Phencyclidine Scrn Negative, Ur Amphetamines Screen Negative, U Benzodiazepines Scrn Positive H, Urine Cocaine Screen Negative, U Marijuana (THC) Screen Negative I & O for Last 24 hours: Intake & Output 02/21/25 02/22/25 02/23/25 02/24/25 23:59 23:59 23:59 23:59 Output Total 100 / 100 Balance -100 / -100 Weight 58.967 kg Constitutional Constitutional: moderate distress and agitated *Routine HEENT Exam Head: Present normocephalic Eye: Present EOMI and PERRL ENT: Present mucous membranes moist *Routine Neck Exam Neck: Present supple; Absent lymphadenopathy *Routine Respiratory Exam Respiratory: Present CTA bilaterally and symmetric chest movement *Routine Cardiovascular Exam Cardiovascular: Present tachycardia *Routine Abdominal Exam Abdominal: Present soft and normoactive bowel sounds; Absent tenderness or distended *Routine Rectal Exam Rectal:: deferred *Routine Genitalia Exam Genitalia:: deferred *Routine Extremities Exam Extremities: Present full ROM; Absent edema *Routine Skin Exam Skin: Present intact and warm *Routine Neurological Exam Neurological: Present alert, oriented X3, moving all extremities and tremors Routine Psychiatric Exam Psychiatric: Present anxious Assessment and Plan *Assessment and plan (1) Alcohol withdrawal: Status: Inactive Category: Medical Code(s): F10.939 - Alcohol use, unspecified with withdrawal, unspecified (2) Alcohol dependence: Status: Acute Qualifiers: Substance use status: unspecified alcohol-induced disorder Qualified Code(s): F10.29 - Alcohol dependence with unspecified alcohol-induced disorder Category: Medical Code(s): F10.20 - Alcohol dependence, uncomplicated (3) Anxiety: Status: Inactive Category: Medical Code(s): F41.9 - Anxiety disorder, unspecified (4) Depression: Status: Inactive Category: Medical Code(s): F32.A - Depression, unspecified (5) GERD (gastroesophageal reflux disease): Status: Acute Qualifiers: Esophagitis presence: esophagitis presence not specified Qualified Code(s): K21.9 - Gastro-esophageal reflux disease without esophagitis Category: Medical Code(s): K21.9 - Gastro-esophageal reflux disease without esophagitis (6) Hypertension: Status: Inactive Category: Medical Code(s): I10 - Essential (primary) hypertension (7) PTSD (post-traumatic stress disorder): Status: Inactive Category: Medical Code(s): F43.10 - Post-traumatic stress disorder, unspecified (8) Tobacco dependence: Status: Acute Category: Medical Code(s): F17.200 - Nicotine dependence, unspecified, uncomplicated (9) Urinary tract infection: Status: Inactive Category: Medical Code(s): N39.0 - Urinary tract infection, site not specified Plan Ms. Sarah, 64-year-old female presented to the emergency department with alcohol withdrawal, tremors, nausea, vomiting. She states she drinks approximately half of a gallon of vodka every couple days. She has been doing this for many years, and has tried to quit multiple times. Most recently approximately 3 months ago. She states that her last drink was yesterday, and she does not want to continue drinking every day. I was consulted by the ER physician to admit the patient for alcohol withdrawal and monitoring, I made the decision to admit the patient to the stepdown unit. Physical assessment shows patient having uncontrollable shakes/tremors and nausea. Patient received a total of 3 doses of Valium 10 mg IV in the ED. She states it has helped very little. CIWA score in the emergency department was 14. Problems addressed as follows: #Alcohol withdrawal #Alcohol dependence ? Patient has longstanding history of alcohol withdrawal now and severe progression. Assessment of patient reveals continued tremors/shaking. 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 Phenobarbital 130 mg twice daily ordered. Monitoring for toxicity. -Loaded with 260 mg total (2 doses) of phenobarbital IV due to severity of tremor and withdrawal symptoms ?CIWA protocol initiated. ?Patient currently denies hallucinations. She does endorse tremors, sweats, and nausea. ? Patient does remain on seizure precautions. ? Folic acid 1 mg, multivitamin 1 tab, thiamine 100 mg daily, and rally pack initiated. ?Peers support consulted for further management of patient alcohol use disorder. ?White count 8.3, hemoglobin 11.3. Kidney function normal with BUN 16, creatinine 0.8. Liver enzymes relatively normal bilirubin 0.9, AST 81, alk phos 110 and ALT 29.s, CBC, CMP, magnesium ordered for the a.m. #Anxiety #Depression #PTSD ?Patient states that she began drinking alcohol due to depression. Currently takes BuSpar 30 mg 3 times daily, Vistaril 25 mg 3 times daily, Rexulti 2 mg, Cymbalta 60 mg, and Seroquel 300 mg at bedtime. Will restart home medication. #Urinary tract infection ?Patient states she recently finished a course of Macrobid for a urinary tract infection. Microbiology reports show she was positive for E. coli at the time. Patient states that she is still having issues with foul-smelling urine. She does deny burning, frequency. Will repeat UA. #GERD #Hypertension ?Restart home medication metoprolol 50 mg at bedtime, pantoprazole 40 mg at bedtime. #Tobacco use disorder ?Nicotine patch ordered as needed Full code Regular diet Lovenox VTE
[2025-02-24] MEDS: PHENobarbital SOD 130MG/ML INJ 130 MG IV (16:06)
[2025-02-24] MEDS: MULTIVITAMIN TABLET 1 EACH PO (16:08)
[2025-02-24] MEDS: NICOTINE 21MG/24HR PATCH 21 MG TD (18:24)
[2025-02-24] MEDS: diazePAM 10MG/2ML SYRINGE 5 MG IV ×4 (18:24→23:58)
--- NOTE | 2025-02-24 19:23 | PEERSUPPORT ---
Peer Support Note Patient Information Patient Information: DOS: 02/24/2025 ? ETOH Last Ingested: 02/23/2025 before 9 pm as far as she can remember. ? ETHO Current Consumption: Half of a gallon every two days ? Withdrawal Potential: Pt has had seizures with alcohol detox in the past; hallucinations visual and audible, anxious with people in general now due to extreme isolation. ? Previous Treatment: [facility]; completed 3 months [place] [facility] ? Legal Issues: None ? Support System: -Mother -Daughter -Friend who is active in an AA program? ? Current Stressors: -Withdrawal symptoms ? Motivation for Change: -Pt stated she has? known for some time she needs to cut back or stop drinking. She has isolated herself with no connection to people only leaving her house for liquor. She says she has been through many battles with alcohol and detox, but never this severe. Pt reflects? to negative experiences with other treatment facilities.? She is interested in discussing [facility] more in depth when she is able, but too overwhelming at the moment. 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 ? Ps shared personal experience relevant to situation focusing on process and time referring to present moment and safety with any chemical/ substance use disorder. Ps provides comforting affirmations to instill hope and strength. ? Pt receptive to ps, expressing gratitude for support and listening without judgment. ? Potential Barriers: -Withdrawal Symptoms- severe -Underlying health issues- mental/emotional -Lack of connection to recovery treatment and support ? Harm Reduction: -Connection to [facility] Peer support -Treatment referrals -Education on Alcohol Use Disorder -Awareness to withdrawal symptoms and healthy honest communications with treatment team. ? Plan of action: -Manage withdrawal symptoms -Practice mindful exercises- Deep breathing, comforting affirmations -Ps will follow up with pt.
[2025-02-24] MEDS: PANTOPRAZOLE 40MG TABLET 40 MG PO (20:23)
[2025-02-24] MEDS: METOPROLOL SUCCINATE XL 50MG TABLET 50 MG PO (20:23)
[2025-02-24] MEDS: QUETIAPINE 100MG TABLET 300 MG PO (20:24)
[2025-02-24 21:17] LABS: Microscopic, Urine URINE MICROSCOPIC (MICROSCOPIC)
[2025-02-24 21:22] LABS: Bilirubin,Urine Negative (Negative); Color,Urine YELLOW (Yellow); Glucose,Urine (UA) Negative (Negative); Ketones,Urine Negative (Negative); Leukocyte Esterase,Urine TRACE (Negative); PH,Urine 7.0 (5.0-8.5); Protein,Urine 1+ (Negative); Specific Gravity, Urine 1.020 (1.005-1.030); Urobilinogen,Urine 1.0 EU/dl (0.2)
[2025-02-24 21:46] LABS: Bacteria,Urine 4+ /lpf; RBC,Urine 50-100 #/hpf (0-3); Squamous Epithelial Cell,Urine 20-50 #/hpf (0-5); WBC,Urine 20-50 #/hpf (0-3)
[2025-02-24] MEDS: METHOCARBAMOL 500MG TABLET 750 MG PO (22:59)
[2025-02-25] VITALS (20 sets, daily range): BP systolic 91–145; BP diastolic 44–92; PULSE 70–100; RESP 14–22; TEMP 36.3–37.1; O2SAT 93–98; BMI 22.6
[2025-02-25] MEDS: diazePAM 10MG/2ML SYRINGE 10 MG IV ×2 (00:48→05:59)
[2025-02-25] MEDS: diazePAM 10MG/2ML SYRINGE 5 MG IV ×3 (01:59→17:36)
[2025-02-25] MEDS: LACTATED RINGERS 1000ML 1,000 ML 100 ML IV (05:59)
[2025-02-25 06:54] LABS: Hematocrit 26.6 % (37.0-47.0); Immature Granulocytes % 0.3 %; Mean Corpuscular HGB Conc 32.0 g/dL (31.8-35.4); Mean Corpuscular Hemoglobin 29.4 pg (27.0-31.2); Mean Corpuscular Volume 92.0 fl (81-99); Nucleated Red Blood Cells % 0.5 %; Platelet Count 148 K/mm3 (142-424); Red Blood Count 2.89 M/mm3 (4.20-5.40); Red Cell Distribution Width-SD 50.8 fL; White Blood Count 3.9 K/mm3 (4.8-10.8)
--- NOTE | 2025-02-25 06:55 | PC.NURSE ---
Patient alert and oriented at the start of shift and during the shift she became confused to the day and time. Patient is now back to alert and oriented. Patient was having severe tremors, very diaphoretic, tingling, headach, and starting to see things at the start of my shift. During the night patient was given diazepam 5mg to 10mg depending on her ciwa scores. Patient was given 10mg at 0600 this morning due to patient having severe tremors, seeing things, diaphoretic, headache, anxious and had a ciwa score of 17.
[2025-02-25 07:01] LABS: Alanine Aminotransferase 13 U/L (12-78); Albumin Level 3.0 g/dl (3.5-5.0); Albumin/Globulin Ratio 1.3 (1.1-1.8); Alkaline Phosphatase 75 U/L (38-126); Anion Gap 7.6 mEq/L (5-15); Aspartate Amino Transferase 50 U/L (14-36); Bilirubin,Total 1.1 mg/dl (0.2-1.3); Blood Urea Nitrogen 10 mg/dl (7-17); Calcium 7.5 mg/dl (8.4-10.2); Carbon Dioxide 25 mmol/L (22.0-30.0); Chloride 101 mmol/L (98-107); Creatinine Clearance Estimated 58 mL/min (50-200); Creatinine,Serum 0.70 mg/dl (0.52-1.04); Estimated Glomerular Filt Rate 85 ml/min (>60); GFR (African American) 102 ML/MIN (>60); Globulin 2.3 g/dL (1.3-3.2); Glucose 84 mg/dl (74-100); Magnesium 2.2 mg/dl (1.6-2.3); Potassium 3.6 mmoL/L (3.5-5.1); Sodium 130 mmol/L (136-145); Total Protein,Serum 5.3 g/dl (6.3-8.2)
[2025-02-25 07:04] LABS: Phosphorous 1.9 mg/dl (2.5-4.5)
--- NOTE | 2025-02-25 08:04 | SW/DCPLANNER ---
Addendum entered by Josephine Jane RN 02/28/25 15:11: Spoke with Alayna, peer support, and with patient. Patient is going to her mother's and will follow up with Jay on Friday. Appt. is scheduled. Original Note: I spoke w/ patient this AM regarding plans once medically stable for discharge. Patient and I discussed inpatient vs outpatient services. Patient voiced that she is unsure regarding alcohol treatment at time of discharge but would prefer outpatient over inpatient rehab. I will continue to follow up w/ patient. PS is also consulted for this patient.
[2025-02-25] MEDS: BUSPIRONE HCL 10 MG TABLET 30 MG PO ×3 (08:07→20:12)
[2025-02-25] MEDS: FOLIC ACID 1MG TABLET 1 MG PO (08:07)
[2025-02-25] MEDS: THIAMINE 100MG TABLET 100 MG PO (08:07)
[2025-02-25] MEDS: PHENobarbital SOD 65MG/ML INJ 130 MG IV ×2 (08:12→20:15)
[2025-02-25] MEDS: diazePAM 5MG TABLET 5 MG PO ×2 (08:29→16:32)
[2025-02-25] MEDS: MVI, ADULT NO.1 WITH VIT K 10 ML, THIAMINE HCL 100 MG, MAGNESIUM SULFATE 2 GM in LACTAT... 125 ML IV (08:53)
[2025-02-25 09:15] LABS: Hemoglobin 8.5 g/dL (12.2-16.2)
--- NOTE | 2025-02-25 10:49 | P.PN_ITS ---
<Statement entered by Darrell Caballero MD - 02/25/25 14:30> Rounded on patient after nurse practitioner. Personally examined and interviewed patient. Agree with exam findings and care plan as documented. Subjective *Date: 02/25/25 *Time: 13:54 Interval history: Patient is laying in bed, resting with eyes closed. Tremors seem to have improved. CIWA scores overnight 15-20, 4-8 this morning. Patient receiving p.o. diazepam at this time. Patient denies vomiting, diarrhea, hallucinations, diaphoresis. She does endorse nausea, shaking/tremors. Medical Exam Vital signs and Labs for Last 24 Hours: Vital Signs Temp Pulse Pulse Resp BP BP Pulse Ox 02/25/25 10:00 86 18 123/75 94 L 02/25/25 09:00 02/25/25 08:30 02/25/25 08:28 90 02/25/25 08:00 98.5 F 81 16 99/63 L 95 02/25/25 07:00 76 18 114/76 95 02/25/25 06:45 02/25/25 06:00 82 15 109/67 L 96 02/25/25 04:57 02/25/25 04:00 97.7 F 85 15 107/63 L 93 L 02/25/25 04:00 84 02/25/25 03:59 83 18 91/46 L 95 02/25/25 02:59 02/25/25 02:00 86 15 95/44 L 95 02/25/25 02:00 88 96 02/25/25 01:00 02/25/25 00:00 92 H 02/25/25 00:00 98 F 89 14 102/63 L 98 02/24/25 22:57 02/24/25 22:00 92 H 16 134/78 98 02/24/25 21:00 02/24/25 20:00 106 H 98 02/24/25 20:00 111 H 02/24/25 20:00 98.4 F 109 H 20 142/64 H 100 02/24/25 19:00 02/24/25 18:14 105 H 15 152/75 H 100 02/24/25 18:00 97 02/24/25 17:00 02/24/25 17:00 94 H 100 02/24/25 16:00 97 02/24/25 16:00 109 H 02/24/25 16:00 98.9 F 02/24/25 15:00 02/24/25 14:00 152/75 H 95 02/24/25 13:15 108 H 02/24/25 13:00 02/24/25 12:47 98.5 F 114 H 18 152/79 H 02/24/25 12:47 98.6 F 75 18 97 02/24/25 12:44 98.6 F 116 H 18 154/79 H 02/24/25 12:35 102 H 16 99 02/24/25 12:31 110 H 121/102 H 97 02/24/25 12:15 108 H 150/79 H 92 L 02/24/25 12:08 109 H 144/65 H 94 L 02/24/25 11:15 117 H 18 129/83 98 02/24/25 11:00 120 H 21 128/90 99 O2 Del Method 02/25/25 10:00 Room Air 02/25/25 09:00 Room Air 02/25/25 08:30 Room Air 02/25/25 08:28 02/25/25 08:00 Room Air 02/25/25 07:00 Room Air 02/25/25 06:45 Room Air 02/25/25 06:00 Room Air 02/25/25 04:57 Room Air 02/25/25 04:00 Room Air 02/25/25 04:00 02/25/25 03:59 Room Air 02/25/25 02:59 Room Air 02/25/25 02:00 Room Air 02/25/25 02:00 Room Air 02/25/25 01:00 Room Air 02/25/25 00:00 02/25/25 00:00 Room Air 02/24/25 22:57 Room Air 02/24/25 22:00 Room Air 02/24/25 21:00 Room Air 02/24/25 20:00 Room Air 02/24/25 20:00 02/24/25 20:00 Room Air 02/24/25 19:00 Room Air 02/24/25 18:14 Room Air 02/24/25 18:00 Room Air 02/24/25 17:00 Room Air 02/24/25 17:00 02/24/25 16:00 Room Air 02/24/25 16:00 02/24/25 16:00 02/24/25 15:00 Room Air 02/24/25 14:00 Room Air 02/24/25 13:15 02/24/25 13:00 Room Air 02/24/25 12:47 02/24/25 12:47 02/24/25 12:44 Room Air 02/24/25 12:35 Room Air 02/24/25 12:31 02/24/25 12:15 02/24/25 12:08 02/24/25 11:15 02/24/25 11:00 Intake and Output 02/24/25 02/25/25 02/25/25 23:59 07:59 15:59 Intake Total 600 / 1970 1740 / 2175 435 / 2175 Output Total 300 / 400 400 / 400 Balance 300 / 1570 1340 / 1775 435 / 1775 Intake: Intake, Oral Amount 600 / 600 335 / 335 Intake, Total IV Amount 1740 / 1840 100 / 1840 Ceftriaxone Sodium 2 gm In 0.9 100 / 100 % Sodium Chloride 100 ml @ 200 mls/hr IV Q24H [facility] Rx#:[id number] Lactated Ringers 1000ML 1,000 740 / 740 ml @ 100 mls/hr IV .Q10H [facility] Rx #:[id number] Mvi, Adult No.1 with Vit K 10 1000 / 1000 ml Thiamine HCl 100 mg Magnesium Sulfate 2 gm In Lactated Ringers 1000ML 1,000 ml @ 125 mls/hr IV DAILY [facility] Rx #:[id number] Output: Output, Urine Amount 300 / 400 400 / 400 Other: Number of Unmeasured Voids 1 Weight 64.047 kg Patient Weight 02/25/25 23:59 Weight 64.047 kg Laboratory Results - last 24 hr 02/24/25 09:50: HCV Ab YENY w/Rflx PCR Qn Negative, HIV Ag/Ab Combo Qual Negative 02/24/25 11:25: Urine Opiates Screen Negative, Urine Methadone Screen Negative, Ur Barbituates Screen Negative, Ur Phencyclidine Scrn Negative, Ur Amphetamines Screen Negative, U Benzodiazepines Scrn Positive H, Urine Cocaine Screen Negative, U Marijuana (THC) Screen Negative 02/24/25 19:44: Urine Color Yellow, Urine Appearance Cloudy, Urine pH 7.0, Ur Specific [place] 1.020, Urine Protein 1+ A, Urine Glucose (UA) Negative, Urine Ketones Negative, Urine Blood 3+ A, Urine Nitrate Negative, Urine Bilirubin Negative, Urine Urobilinogen 1.0, Ur Leukocyte Esterase Trace, Urine RBC 50-100, Urine WBC 20-50, Ur Squamous Epith Cells 20-50, Urine Bacteria 4+ 02/25/25 04:55: WBC 3.9 L D, RBC 2.89 L, Hgb 8.5 L D, Hct 26.6 L, MCV 92.0, MCH 29.4, MCHC 32.0, RDW 15.2, Plt Count 148 D, MPV 8.9, Neut % (Auto) 61.8, Lymph % (Auto) 26.3, Harlan % (Auto) 10.8 H, Eos % (Auto) 0.5, Baso % (Auto) 0.3, Neut # (Auto) 2.4, Lymph # (Auto) 1.0, Harlan # (Auto) 0.4, Eos # (Auto) 0.0, Baso # (Auto) 0.0, Sodium 130 L, Potassium 3.6, Chloride 101, Carbon Dioxide 25, Anion Gap 7.6, BUN 10 D, Creatinine 0.70, Estimated Creat Clear 58, Estimated GFR 85, Est GFR ( Amer) 102, Glucose 84 D, Calcium 7.5 L, Phosphorus 1.9 L D, Magnesium 2.2 D, Total Bilirubin 1.1, AST 50 H D, ALT 13 D, Alkaline Phosphatase 75, Total Protein 5.3 L D, Albumin 3.0 L D, Globulin 2.3, Albumin/Globulin Ratio 1.3 I & O for Labs for Last 24 Hours: Intake & Output 02/22/25 02/23/25 02/24/25 02/25/25 23:59 23:59 23:59 23:59 Intake Total 600 / 1970 2175 / 2175 Output Total 400 / 400 400 / 400 Balance 200 / 1570 1775 / 1775 Weight 58.967 kg 64.047 kg Microbiology Reports for the Last 24 Hours: Microbiology 02/24/25 19:44 Urine,Clean Catch Urine Culture - Preliminary Gram Negative Rods Constitutional: Present no acute distress Head: Present atraumatic Eyes: Present as per HPI ENT: Present normal exam Neck: Present normal inspection Respiratory: Present CTA bilaterally, able to speak in complete sentences and symmetric chest movement Cardiac: Present Reg Rate and Rhythm GI: Present soft and normal bowel sounds; Absent distention or tenderness Rectal (female): Present deferred (female): Present deferred Extremities: Present normal inspection and normal capillary refill; Absent edema Skin: Present intact Neuro: Present awake and oriented x 3 Assessment and Plan *Assessment and plan (1) Alcohol withdrawal: Status: Inactive Category: Medical Code(s): F10.939 - Alcohol use, unspecified with withdrawal, unspecified (2) Alcohol dependence: Status: Acute Qualifiers: Substance use status: unspecified alcohol-induced disorder Qualified Code(s): F10.29 - Alcohol dependence with unspecified alcohol-induced disorder Category: Medical Code(s): F10.20 - Alcohol dependence, uncomplicated (3) Anxiety: Status: Inactive Category: Medical Code(s): F41.9 - Anxiety disorder, unspecified (4) Depression: Status: Inactive Category: Medical Code(s): F32.A - Depression, unspecified (5) GERD (gastroesophageal reflux disease): Status: Acute Qualifiers: Esophagitis presence: esophagitis presence not specified Qualified Code(s): K21.9 - Gastro-esophageal reflux disease without esophagitis Category: Medical Code(s): K21.9 - Gastro-esophageal reflux disease without esophagitis (6) Hypertension: Status: Inactive Category: Medical Code(s): I10 - Essential (primary) hypertension (7) PTSD (post-traumatic stress disorder): Status: Inactive Category: Medical Code(s): F43.10 - Post-traumatic stress disorder, unspecified (8) Tobacco dependence: Status: Acute Category: Medical Code(s): F17.200 - Nicotine dependence, unspecified, uncomplicated (9) Urinary tract infection: Status: Inactive Category: Medical Code(s): N39.0 - Urinary tract infection, site not specified Plan Ms. Sarah, 64-year-old female presented to the emergency department with alcohol withdrawal, tremors, nausea, vomiting. She states she drinks approximately half of a gallon of vodka every couple days. She has been doing this for many years, and has tried to quit multiple times. Most recently approximately 3 months ago. She states that her last drink was yesterday, and she does not want to continue drinking every day. I was consulted by the ER physician to admit the patient for alcohol withdrawal and monitoring, I made the decision to admit the patient to the stepdown unit. Physical assessment shows patient having uncontrollable shakes/tremors and nausea. Patient received a total of 3 doses of Valium 10 mg IV in the ED. She states it has helped very little. CIWA score in the emergency department was 14. Problems addressed as follows: #Alcohol withdrawal #Alcohol dependence ? Patient resting well this morning, states that she did get some sleep last night. Tremors are better. Denies hallucinations, diarrhea, vomiting. CIWA scores 15-20 overnight, down to 4-8 this morning. Continue alcohol withdrawal protocol, diazepam as needed and phenobarbital 130 mg scheduled twice daily. ? Patient has longstanding history of alcohol withdrawal now and severe progression. Assessment of patient reveals continued tremors/shaking. 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 Phenobarbital 130 mg twice daily ordered. Monitoring for toxicity. - Loaded with 260 mg total (2 doses) of phenobarbital IV due to severity of tremor and withdrawal symptoms ? Patient does remain on seizure precautions. ? Continuing folic acid 1 mg, multivitamin 1 tab, thiamine 100 mg daily, and rally pack. ?Peers support consulted for further management of patient alcohol use disorder. ?No leukocytosis noted. Patient's hemoglobin 8.5, down from 11.3 yesterday. Will continue to monitor. Liver enzymes relatively normal bilirubin 0.9, AST trending down to 50, alk phos 75 and ALT 13. ?CBC, CMP, magnesium ordered for the a.m. #Anxiety #Depression #PTSD ?Patient states that she began drinking alcohol due to depression. Currently takes BuSpar 30 mg 3 times daily, Vistaril 25 mg 3 times daily, Rexulti 2 mg, Cymbalta 60 mg, and Seroquel 300 mg at bedtime. Will restart home medication. #Urinary tract infection ?Patient states she recently finished a course of Macrobid for a urinary tract infection. Microbiology reports show she was positive for E. coli at the time. Patient states that she is still having issues with foul-smelling urine. She does deny burning, frequency. ?Repeat urinalysis shows cloudy urine, 1+ protein, 3+ blood, trace leuks, 4+ bacteria. Will send for culture and sensitivity. ?Started patient on Rocephin 1 g daily. #GERD #Hypertension ?Restart home medication metoprolol 50 mg at bedtime, pantoprazole 40 mg at bedtime. #Tobacco use disorder ?Nicotine patch ordered as needed Full code Regular diet Holding VTE?risk of bleeding
--- NOTE | 2025-02-25 11:28 | PC.NURSE ---
Patient is resting at this time. seizure pads are in place per seizure precaution protocol. bed alarm is on and functioning and call light is within reach.
[2025-02-25] MEDS: MULTIVITAMIN TABLET 1 EACH PO (16:50)
[2025-02-25] MEDS: METOPROLOL SUCCINATE XL 50MG TABLET 50 MG PO (20:12)
[2025-02-25] MEDS: PANTOPRAZOLE 40MG TABLET 40 MG PO (20:12)
[2025-02-25] MEDS: QUETIAPINE 100MG TABLET 300 MG PO (20:13)
[2025-02-26] VITALS (14 sets, daily range): BP systolic 93–158; BP diastolic 57–97; PULSE 79–95; RESP 16–22; TEMP 36.3–36.8; O2SAT 94–99; BMI 23.8
[2025-02-26] MEDS: LACTATED RINGERS 1000ML 1,000 ML 100 ML IV ×2 (00:46→20:12)
--- NOTE | 2025-02-26 03:01 | PC.NURSE ---
Patient complains of a headache, MD notified and new order placed for Tylenol PRN.
[2025-02-26] MEDS: ACETAMINOPHEN 325MG TAB 650 MG PO (03:06)
[2025-02-26] MEDS: diazePAM 10MG/2ML SYRINGE 5 MG IV ×4 (03:16→20:53)
[2025-02-26] MEDS: diazePAM 10MG/2ML SYRINGE 10 MG IV ×2 (04:51→06:00)
--- NOTE | 2025-02-26 08:09 | EXP.ACUTE.PN ---
Subjective *Date: 02/26/25 *Time: 14:34 Interval history: Still having significant withdrawal symptoms. CIWA score is 9-17. Very tremulous on morning exam. High risk for decompensation or seizure. Continues to require stepdown level of care. Increasing phenobarbital today. Stable on room air. Trying to eat but having significant upset stomach. Complaining of back pain. Afebrile Medical Exam Vital signs and Labs for Last 24 Hours: Vital Signs Temp Pulse Pulse Resp BP BP Pulse Ox 02/26/25 06:34 02/26/25 06:00 85 16 157/72 H 99 02/26/25 04:54 02/26/25 04:00 89 02/26/25 04:00 98 F 84 18 134/86 97 02/26/25 02:59 02/26/25 02:00 95 H 19 126/97 H 95 02/26/25 02:00 02/26/25 00:59 02/26/25 00:00 98 F 81 17 131/80 96 02/26/25 00:00 82 02/25/25 23:00 02/25/25 22:00 96 H 17 139/88 95 02/25/25 21:00 02/25/25 20:00 97 H 02/25/25 20:00 98.8 F 94 H 22 145/88 H 97 02/25/25 20:00 02/25/25 18:52 02/25/25 18:00 95 H 20 135/85 98 02/25/25 17:00 02/25/25 16:00 97.4 F L 90 18 132/88 93 L 02/25/25 15:59 70 02/25/25 15:00 90 16 127/84 93 L 02/25/25 15:00 02/25/25 14:15 94 L 02/25/25 14:00 90 16 129/80 94 L 02/25/25 13:00 02/25/25 12:07 98.5 F 89 18 139/92 H 95 02/25/25 12:01 100 H 02/25/25 12:00 98.0 F 02/25/25 12:00 98.0 F 93 H 20 139/92 H 94 L 02/25/25 11:00 02/25/25 10:00 85 16 123/75 93 L 02/25/25 10:00 86 18 123/75 94 L 02/25/25 09:00 02/25/25 08:30 02/25/25 08:28 90 O2 Del Method 02/26/25 06:34 Room Air 02/26/25 06:00 Room Air 02/26/25 04:54 Room Air 02/26/25 04:00 02/26/25 04:00 Room Air 02/26/25 02:59 Room Air 02/26/25 02:00 Room Air 02/26/25 02:00 Room Air 02/26/25 00:59 Room Air 02/26/25 00:00 Room Air 02/26/25 00:00 02/25/25 23:00 Room Air 02/25/25 22:00 Room Air 02/25/25 21:00 Room Air 02/25/25 20:00 02/25/25 20:00 Room Air 02/25/25 20:00 Room Air 02/25/25 18:52 Room Air 02/25/25 18:00 Room Air 02/25/25 17:00 Room Air 02/25/25 16:00 Room Air 02/25/25 15:59 02/25/25 15:00 Room Air 02/25/25 15:00 Room Air 02/25/25 14:15 Room Air 02/25/25 14:00 Room Air 02/25/25 13:00 Room Air 02/25/25 12:07 Room Air 02/25/25 12:01 02/25/25 12:00 02/25/25 12:00 Room Air 02/25/25 11:00 Room Air 02/25/25 10:00 Room Air 02/25/25 10:00 Room Air 02/25/25 09:00 Room Air 02/25/25 08:30 Room Air 02/25/25 08:28 Intake and Output 02/25/25 02/26/25 02/26/25 23:59 07:59 15:59 Intake Total 1344 / 4185 1630 / 1630 Output Total 600 / 1400 800 / 800 Balance 744 / 2785 830 / 830 Intake: Intake, Oral Amount 344 / 1345 444 / 444 Intake, Total IV Amount 1000 / 2840 1186 / 1186 Mvi, Adult No.1 with Vit K 10 999 / 1999 1186 / 1186 ml Thiamine HCl 100 mg Magnesium Sulfate 2 gm In Lactated Ringers 1000ML 1,000 ml @ 125 mls/hr IV DAILY [facility] Rx #:[id number] Output: Output, Urine Amount 600 / 1400 800 / 800 Other: Number of Unmeasured Voids 0 0 Weight 67.313 kg Patient Weight 02/26/25 23:59 Weight 67.313 kg Laboratory Results - last 24 hr 02/25/25 04:55: Hgb 8.5 L D I & O for Labs for Last 24 Hours: Intake & Output 02/23/25 02/24/25 02/25/25 02/26/25 23:59 23:59 23:59 23:59 Intake Total 600 / 1970 3741 / 4185 1630 / 1630 Output Total 400 / 400 1400 / 1400 800 / 800 Balance 200 / 1570 2341 / 2785 830 / 830 Weight 58.967 kg 64.047 kg 67.313 kg Microbiology Reports for the Last 24 Hours: Microbiology 02/24/25 19:44 Urine,Clean Catch Urine Culture - Preliminary Gram Negative Rods Constitutional: Present mild distress, average body habitus, chronically ill appearing and cooperative Head: Present atraumatic Eyes: Present as per HPI ENT: Present normal exam Neck: Present normal inspection Respiratory: Present CTA bilaterally, able to speak in complete sentences and symmetric chest movement; Absent rhonchi Cardiac: Present Reg Rate and Rhythm GI: Present soft, tenderness (Mild, nonfocal) and normal bowel sounds; Absent distention Extremities: Present normal inspection and normal capillary refill; Absent edema Skin: Present intact Neuro: Present alert, awake and oriented x 3 Comment:: Tremors Assessment and Plan *Assessment and plan (1) Alcohol withdrawal: Status: Inactive Category: Medical Code(s): F10.939 - Alcohol use, unspecified with withdrawal, unspecified (2) Alcohol dependence: Status: Acute Qualifiers: Substance use status: unspecified alcohol-induced disorder Qualified Code(s): F10.29 - Alcohol dependence with unspecified alcohol-induced disorder Category: Medical Code(s): F10.20 - Alcohol dependence, uncomplicated (3) Anxiety: Status: Inactive Category: Medical Code(s): F41.9 - Anxiety disorder, unspecified (4) Depression: Status: Inactive Category: Medical Code(s): F32.A - Depression, unspecified (5) GERD (gastroesophageal reflux disease): Status: Acute Qualifiers: Esophagitis presence: esophagitis presence not specified Qualified Code(s): K21.9 - Gastro-esophageal reflux disease without esophagitis Category: Medical Code(s): K21.9 - Gastro-esophageal reflux disease without esophagitis (6) Hypertension: Status: Inactive Category: Medical Code(s): I10 - Essential (primary) hypertension (7) PTSD (post-traumatic stress disorder): Status: Inactive Category: Medical Code(s): F43.10 - Post-traumatic stress disorder, unspecified (8) Tobacco dependence: Status: Acute Category: Medical Code(s): F17.200 - Nicotine dependence, unspecified, uncomplicated (9) Urinary tract infection: Status: Inactive Category: Medical Code(s): N39.0 - Urinary tract infection, site not specified Plan Ms. Sarah, 64-year-old female presented to the emergency department with alcohol withdrawal, tremors, nausea, vomiting. She states she drinks approximately half of a gallon of vodka every couple days. She has been doing this for many years, and has tried to quit multiple times. Most recently approximately 3 months ago. She states that her last drink was yesterday, and she does not want to continue drinking every day. I was consulted by the ER physician to admit the patient for alcohol withdrawal and monitoring, I made the decision to admit the patient to the stepdown unit. Physical assessment shows patient having uncontrollable shakes/tremors and nausea. Still having withdrawal symptoms. Continues to require stepdown level of care. CIWA's remain elevated between 9 and 17. Problems addressed as follows: #Alcohol withdrawal #Alcohol dependence ? Continues to have prominent tremor. Scores for CIWA overnight ranging 9-17. Increase phenobarbital to 195 mg IV twice daily. Continue Valium per protocol. Monitor for toxicity. - denies hallucinations, diarrhea, vomiting. ? Patient has longstanding history of alcohol withdrawal now and severe progression. Assessment of patient reveals continued tremors/shaking. 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 - Continue seizure precautions ? Continuing folic acid 1 mg, multivitamin 1 tab, thiamine 100 mg daily, and rally pack. ?Peers support consulted for further management of patient alcohol use disorder. ? White count normal at 6.1, hemoglobin stable at 9.4. Platelet count 160. Sodium 132, potassium 3.3. Replacing per protocol. Kidney function stable with BUN 8, creatinine 0.7. Liver enzymes normal with bilirubin 0.5, AST 60, ALT 18. -Repeat CBC, CMP, magnesium, phosphorus ordered for the morning - Phosphorus pending for today due to risk for refeeding #Anxiety #Depression #PTSD ?Patient states that she began drinking alcohol due to depression. Currently on BuSpar 30 mg 3 times daily, Vistaril 25 mg 3 times daily, Rexulti 2 mg, Cymbalta 60 mg, and Seroquel 300 mg at bedtime; Home regimen continued #Urinary tract infection ?Patient states she recently finished a course of Macrobid for a urinary tract infection. Microbiology reports show she was positive for E. coli at the time. Patient states that she is still having issues with foul-smelling urine. She does deny burning, frequency. ?Repeat urinalysis shows cloudy urine, 1+ protein, 3+ blood, trace leuks, 4+ bacteria. ? Continue Rocephin 1 g IV daily. Urine culture pending #GERD #Hypertension ?Restart home medication metoprolol 50 mg at bedtime, pantoprazole 40 mg at bedtime. #Tobacco use disorder: Nicotine patch ordered as needed Full code Regular diet lovenox 40mg QD Sub-cu
[2025-02-26 08:17] LABS: Alanine Aminotransferase 18 U/L (12-78); Albumin Level 3.2 g/dl (3.5-5.0); Albumin/Globulin Ratio 1.2 (1.1-1.8); Alkaline Phosphatase 90 U/L (38-126); Anion Gap 8.3 mEq/L (5-15); Aspartate Amino Transferase 60 U/L (14-36); Bilirubin,Total 0.5 mg/dl (0.2-1.3); Blood Urea Nitrogen 8 mg/dl (7-17); Calcium 8.0 mg/dl (8.4-10.2); Carbon Dioxide 22 mmol/L (22.0-30.0); Chloride 105 mmol/L (98-107); Creatinine Clearance Estimated 61 mL/min (50-200); Creatinine,Serum 0.70 mg/dl (0.52-1.04); Estimated Glomerular Filt Rate 85 ml/min (>60); GFR (African American) 102 ML/MIN (>60); Globulin 2.6 g/dL (1.3-3.2); Glucose 94 mg/dl (74-100); Magnesium 1.9 mg/dl (1.6-2.3); Potassium 3.3 mmoL/L (3.5-5.1); Sodium 132 mmol/L (136-145); Total Protein,Serum 5.8 g/dl (6.3-8.2)
[2025-02-26] MEDS: PHENobarbital SOD 65MG/ML INJ 195 MG IV ×2 (08:30→20:10)
[2025-02-26] MEDS: THIAMINE 100MG TABLET 100 MG PO (08:31)
[2025-02-26] MEDS: BUSPIRONE HCL 10 MG TABLET 30 MG PO ×3 (08:31→20:10)
[2025-02-26] MEDS: FOLIC ACID 1MG TABLET 1 MG PO (08:31)
--- NOTE | 2025-02-26 08:42 | PC.NURSE ---
Patient is very fidgety and restless. Patient got up to chair with 1x assist with an unsteady gait. Patient is now back to bed, bed alarm is on and functioning, call light is within reach, and seizure pads are in place per seizure precaution protocol.
[2025-02-26 09:18] LABS: Hematocrit 29.9 % (37.0-47.0); Hemoglobin 9.4 g/dL (12.2-16.2); Immature Granulocytes % 0.3 %; Mean Corpuscular HGB Conc 31.4 g/dL (31.8-35.4); Mean Corpuscular Hemoglobin 29.5 pg (27.0-31.2); Mean Corpuscular Volume 93.7 fl (81-99); Nucleated Red Blood Cells % 0 %; Platelet Count 160 K/mm3 (142-424); Red Blood Count 3.19 M/mm3 (4.20-5.40); Red Cell Distribution Width-SD 51.1 fL; White Blood Count 6.1 K/mm3 (4.8-10.8)
[2025-02-26] MEDS: MVI, ADULT NO.1 WITH VIT K 10 ML, THIAMINE HCL 100 MG, MAGNESIUM SULFATE 2 GM in LACTAT... 125 ML IV (09:36)
[2025-02-26] MEDS: LIDOCAINE 5% TRANSDERMAL PATCH 1 EACH TD (11:46)
[2025-02-26 14:51] LABS: Phosphorous 2.7 mg/dl (2.5-4.5)
[2025-02-26] MEDS: diazePAM 5MG TABLET 5 MG PO (15:20)
--- NOTE | 2025-02-26 16:10 | PC.NURSE ---
At the start of the shift pt was noted to be very restless. up and down in the room frequently. stating that she could not get comfortable. pt was alert to self, location and time, but required repeated reorientation as to why she is at the hospital. pt was given a dose of valium at approx 0730 for CIWA of 13 pt also received home dose of vistaril at this time as well. Pt symptoms persisted and she stated she had not relief, she was assisted up to the chair, pt remained in the chair for approx 10-15 mins before she requested to go back to the bed. at pt received scheduled phenobarbitol at 0830 along with other am meds. pt symptoms were noted to lessen and pt began to rest. pt was able to sleep periodically throughout the day. she would easily awaken and attempt to get up to the bsc and also for meals, pt did not have an appetite and was noted to eat small amounts of the food. pt was noted to have a new iv started at approx 1430 and was noted to have a pleasant appearing conversation with the staff inserting the IV. 1530 pt was assisted to the bsc by staff. pt was alert to place, time and self. pt requires occasional reminder of situation. pt was noted to have a pleasant disposition, joking with staff. 1545 staff was in pt room helping pick the remote up off of the floor when pt began to state that she was done . when staff asked pt to elaborate pt states that she was done and wanted to go home, that this is not what she signed up for. pt states that she thought she was coming here for an alcohol detox program. she states that she expected to be walking up and down the unit able to speak with other patients and develop Cam[place]aderie with other people and be offered AA meetings while here. pt educated that while she was admitted pt withdraw symptoms were being treated/managed per our alcohol withdraw protocol. this RN educated the patient on the risks of leaving the hospital AMA. pt requested to call her mother to come and pick her up, after pt had a phone conversation with her mother she informed staff that her mother would be at the ER in 5 mins to pick her up. Dr Caballero was notified by Narda Bagley of the situation at this time. As pt has received several controlled substances this shift along with pt having admitted to having audible and visual hallucinations pt mother was contacted by staff to see if she was actually coming to pick the pt up. mother stated she was aware of the situation, and wanted pt to talk with MD then to call her back if she still wanted to leave. Pt spoke with Dr Caballero at bedside and is agreeable to stay but wishes to speak with her mother again. pt was agreeable to stay and was transferred from ICU department to [facility] for a change in environment
--- NOTE | 2025-02-26 16:55 | PC.NURSE ---
arrived by w/c from ICU
[2025-02-26] MEDS: MULTIVITAMIN TABLET 1 EACH PO (17:41)
[2025-02-26] MEDS: NICOTINE 21MG/24HR PATCH 21 MG TD (18:24)
--- NOTE | 2025-02-26 18:48 | PC.NURSE ---
since pt has been to the floor she is alert and oriented x4, answering all questions correctly. 1800 CIWA-15, treated per oct. pt now lying in bed. NSR on tele. no needs at this time.
[2025-02-26] MEDS: PANTOPRAZOLE 40MG TABLET 40 MG PO (20:10)
[2025-02-26] MEDS: QUETIAPINE 100MG TABLET 300 MG PO (20:10)
[2025-02-26] MEDS: METOPROLOL SUCCINATE XL 50MG TABLET 50 MG PO (20:10)
[2025-02-26] MEDS: MONTELUKAST SODIUM 10MG TAB 10 MG PO (20:10)
[2025-02-27] VITALS (8 sets, daily range): BP systolic 119–156; BP diastolic 59–86; PULSE 8–93; RESP 14–18; TEMP 36.5–36.7; O2SAT 95–100; BMI 22.8
[2025-02-27 06:29] LABS: Hematocrit 27.4 % (37.0-47.0); Hemoglobin 8.8 g/dL (12.2-16.2); Immature Granulocytes % 0.2 %; Mean Corpuscular HGB Conc 32.1 g/dL (31.8-35.4); Mean Corpuscular Hemoglobin 29.6 pg (27.0-31.2); Mean Corpuscular Volume 92.3 fl (81-99); Nucleated Red Blood Cells % 0 %; Platelet Count 153 K/mm3 (142-424); Red Blood Count 2.97 M/mm3 (4.20-5.40); Red Cell Distribution Width-SD 48.6 fL; White Blood Count 6.6 K/mm3 (4.8-10.8)
--- NOTE | 2025-02-27 06:39 | PC.NURSE ---
Alert and oriented. Mild hallucinations. Easily reorients self after waking more. CIWAs, treated per mar. Ambulates to the restroom, 1 assist. Vaginal bleeding noted. Treated anxiety per mar. No other complaints from patient. NSR on tele. Room air. Call light in reach. Bed alarm on.
[2025-02-27 06:44] LABS: Alanine Aminotransferase 18 U/L (12-78); Albumin Level 3.2 g/dl (3.5-5.0); Albumin/Globulin Ratio 1.2 (1.1-1.8); Alkaline Phosphatase 80 U/L (38-126); Anion Gap 10.5 mEq/L (5-15); Aspartate Amino Transferase 39 U/L (14-36); Bilirubin,Total 0.4 mg/dl (0.2-1.3); Blood Urea Nitrogen 5 mg/dl (7-17); Calcium 8.1 mg/dl (8.4-10.2); Carbon Dioxide 22 mmol/L (22.0-30.0); Chloride 105 mmol/L (98-107); Creatinine Clearance Estimated 59 mL/min (50-200); Creatinine,Serum 0.60 mg/dl (0.52-1.04); Estimated Glomerular Filt Rate 101 ml/min (>60); GFR (African American) 122 ML/MIN (>60); Globulin 2.6 g/dL (1.3-3.2); Glucose 101 mg/dl (74-100); Magnesium 1.8 mg/dl (1.6-2.3); Potassium 3.5 mmoL/L (3.5-5.1); Sodium 134 mmol/L (136-145); Total Protein,Serum 5.8 g/dl (6.3-8.2)
[2025-02-27] MEDS: LACTATED RINGERS 1000ML 1,000 ML 100 ML IV (06:48)
[2025-02-27 07:19] LABS: Phosphorous 3.2 mg/dl (2.5-4.5)
[2025-02-27] MEDS: FOLIC ACID 1MG TABLET 1 MG PO ×2 (08:40→12:45)
[2025-02-27] MEDS: THIAMINE 100MG TABLET 100 MG PO ×2 (08:41→11:59)
[2025-02-27] MEDS: BUSPIRONE HCL 10 MG TABLET 30 MG PO ×3 (08:41→20:57)
[2025-02-27] MEDS: PHENobarbital SOD 65MG/ML INJ 195 MG IV (08:51)
[2025-02-27] MEDS: MVI, ADULT NO.1 WITH VIT K 10 ML, THIAMINE HCL 100 MG, MAGNESIUM SULFATE 2 GM in LACTAT... 125 ML IV (09:43)
[2025-02-27] MEDS: PRENATAL MULTIVITAMIN W/IRON 1 EACH PO ×2 (11:59→17:26)
[2025-02-27] MEDS: LIDOCAINE 5% TRANSDERMAL PATCH 1 EACH TD (11:59)
--- NOTE | 2025-02-27 16:21 | EXP.ACUTE.PN ---
Subjective *Date: 02/27/25 *Time: 16:21 Interval history: Slept better last night. Reports very vivid realistic dreams. Alert and oriented x 4 this morning. No nausea or vomiting. More upbeat mood. Stable on room air. Medical Exam Vital signs and Labs for Last 24 Hours: Vital Signs Temp Pulse Pulse Resp BP Pulse Ox O2 Del Method 02/27/25 15:00 Room Air 02/27/25 13:00 Room Air 02/27/25 12:56 62 18 128/59 L 96 Room Air 02/27/25 12:00 90 02/27/25 11:00 Room Air 02/27/25 09:00 Room Air 02/27/25 08:00 80 02/27/25 08:00 Room Air 02/27/25 08:00 81 16 156/86 H 95 Room Air 02/27/25 06:45 Room Air 02/27/25 05:00 Room Air 02/27/25 04:00 80 02/27/25 04:00 98.1 F 80 16 119/74 98 Room Air 02/27/25 02:54 Room Air 02/27/25 01:00 Room Air 02/27/25 00:00 80 02/26/25 23:52 98.2 F 81 17 126/77 95 Room Air 02/26/25 22:50 Room Air 02/26/25 21:00 Room Air 02/26/25 20:00 85 02/26/25 20:00 Room Air 02/26/25 20:00 98.3 F 85 18 146/83 H 97 Room Air 02/26/25 18:36 Room Air 02/26/25 17:00 Room Air Intake and Output 02/27/25 02/27/25 02/27/25 07:59 15:59 23:59 Intake Total 844 / 1394 550 / 1394 Output Total 300 / 1900 1600 / 1900 Balance 544 / -506 -1050 / -506 Intake: Intake, Oral Amount 550 / 550 Intake, Total IV Amount 844 / 844 Lactated Ringers 1000ML 1,000 844 / 844 ml @ 100 mls/hr IV .Q10H [facility] Rx #:[id number] Output: Output, Urine Amount 300 / 1900 1600 / 1900 Other: Number of Unmeasured Voids 0 1 Number of Bowel Movements 1 Weight 64.546 kg Patient Weight 02/27/25 23:59 Weight 64.546 kg Laboratory Results - last 24 hr 02/27/25 06:05: WBC 6.6, RBC 2.97 L, Hgb 8.8 L, Hct 27.4 L, MCV 92.3, MCH 29.6, MCHC 32.1, RDW 14.5, Plt Count 153, MPV 9.4, Neut % (Auto) 70.9, Lymph % (Auto) 22.8, Kerr % (Auto) 4.4, Eos % (Auto) 1.4, Baso % (Auto) 0.3, Neut # (Auto) 4.7, Lymph # (Auto) 1.5, Kerr # (Auto) 0.3, Eos # (Auto) 0.1, Baso # (Auto) 0.0, Sodium 134 L, Potassium 3.5, Chloride 105, Carbon Dioxide 22, Anion Gap 10.5, BUN 5 L D, Creatinine 0.60, Estimated Creat Clear 59, Estimated GFR 101, Est GFR ( Amer) 122, Glucose 101 H, Calcium 8.1 L, Phosphorus 3.2, Magnesium 1.8, Total Bilirubin 0.4, AST 39 H D, ALT 18, Alkaline Phosphatase 80, Total Protein 5.8 L, Albumin 3.2 L, Globulin 2.6, Albumin/Globulin Ratio 1.2 I & O for Labs for Last 24 Hours: Intake & Output 02/24/25 02/25/25 02/26/25 02/27/25 23:59 23:59 23:59 23:59 Intake Total 600 / 1970 3741 / 4185 2270 / 2270 1394 / 1394 Output Total 400 / 400 1400 / 1400 2175 / 2175 1900 / 1900 Balance 200 / 1570 2341 / 2785 95 / 95 -506 / -506 Weight 58.967 kg 64.047 kg 67.313 kg 64.546 kg Constitutional: Present no acute distress, average body habitus, chronically ill appearing and cooperative Head: Present atraumatic Eyes: Present as per HPI ENT: Present normal exam Neck: Present normal inspection Respiratory: Present CTA bilaterally, able to speak in complete sentences and symmetric chest movement; Absent rhonchi Cardiac: Present Reg Rate and Rhythm GI: Present soft and normal bowel sounds; Absent distention or tenderness Extremities: Present normal inspection and normal capillary refill; Absent edema Skin: Present intact Neuro: Present alert, awake, oriented x 3 and moves all extremities Comment:: Tremors improving Assessment and Plan *Assessment and plan (1) Alcohol withdrawal: Status: Inactive Category: Medical Code(s): F10.939 - Alcohol use, unspecified with withdrawal, unspecified (2) Alcohol dependence: Status: Acute Qualifiers: Substance use status: unspecified alcohol-induced disorder Qualified Code(s): F10.29 - Alcohol dependence with unspecified alcohol-induced disorder Category: Medical Code(s): F10.20 - Alcohol dependence, uncomplicated (3) Anxiety: Status: Inactive Category: Medical Code(s): F41.9 - Anxiety disorder, unspecified (4) Depression: Status: Inactive Category: Medical Code(s): F32.A - Depression, unspecified (5) GERD (gastroesophageal reflux disease): Status: Acute Qualifiers: Esophagitis presence: esophagitis presence not specified Qualified Code(s): K21.9 - Gastro-esophageal reflux disease without esophagitis Category: Medical Code(s): K21.9 - Gastro-esophageal reflux disease without esophagitis (6) Hypertension: Status: Inactive Category: Medical Code(s): I10 - Essential (primary) hypertension (7) PTSD (post-traumatic stress disorder): Status: Inactive Category: Medical Code(s): F43.10 - Post-traumatic stress disorder, unspecified (8) Tobacco dependence: Status: Acute Category: Medical Code(s): F17.200 - Nicotine dependence, unspecified, uncomplicated (9) Urinary tract infection: Status: Inactive Category: Medical Code(s): N39.0 - Urinary tract infection, site not specified Plan Ms. Sarah, 64-year-old female presented to the emergency department with alcohol withdrawal, tremors, nausea, vomiting. She states she drinks approximately half of a gallon of vodka every couple days. She has been doing this for many years, and has tried to quit multiple times. Most recently approximately 3 months ago. She states that her last drink was yesterday, and she does not want to continue drinking every day. I was consulted by the ER physician to admit the patient for alcohol withdrawal and monitoring, I made the decision to admit the patient to the stepdown unit. Symptoms peaked on 7/5. After escalating phenobarbital, patient has shown significant improvement. Symptoms resolving. CIWA was less than 7 in the past 24 hours. Continues to require patient management. Anticipate discharge to rehab in the next day or 2. Problems addressed as follows: #Alcohol withdrawal #Alcohol dependence ?Score showing improvement. Have been less than 5 for the past 24 hours. Will decrease phenobarbital back to 130 mg IV twice daily. Reevaluate weaning again tomorrow. Continue Valium per protocol. Monitor for toxicity. -Having some mild hallucinations but is aware of them. No diarrhea or vomiting. ? Patient has longstanding history of alcohol withdrawal now and severe progression. Assessment of patient reveals continued tremors/shaking. 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 - Continue seizure precautions ? Continuing folic acid 1 mg, multivitamin 1 tab, thiamine 100 mg daily. Discontinued rally pack's ?Peers support consulted for further management of patient alcohol use disorder. ?White count normal at 6.6. Hemoglobin 8.8. Continues to have some vaginal bleeding, follows with gynecology for this. Will continue to monitor daily with CBC, CMP, magnesium. - Electrolytes stable with potassium 3.5, sodium 134, magnesium 1.8 and phosphorus 3.2. Kidney function stable with BUN 5, creatinine 0.6. #Anxiety #Depression #PTSD ?Patient states that she began drinking alcohol due to depression. Currently on BuSpar 30 mg 3 times daily, Vistaril 25 mg 3 times daily, Rexulti 2 mg, Cymbalta 60 mg; decrease Seroquel to 150 mg tonight due to concern for oversedation #Urinary tract infection ?Patient states she recently finished a course of Macrobid for a urinary tract infection. Microbiology reports show she was positive for E. coli at the time. Patient states that she is still having issues with foul-smelling urine. She does deny burning, frequency. ?Repeat urinalysis shows cloudy urine, 1+ protein, 3+ blood, trace leuks, 4+ bacteria. ? Continue Rocephin 1 g IV daily. Urine culture pending #GERD #Hypertension ?Continue metoprolol 50 mg at bedtime, pantoprazole 40 mg at bedtime. #Tobacco use disorder: Nicotine patch ordered as needed Full code Regular diet lovenox 40mg QD Sub-cu
--- NOTE | 2025-02-27 17:59 | PC.NURSE ---
Pt is A&Ox4. Vital signs stable tolerating room air. Pt sat up in chair this afternoon for lunch. IV fluids infusing. IV abx infused. CIWA scores assessed. Pt scored b/w 1-4's. Pt resting comfortably in bed with no further needs voiced at this time. Call light within reach. Bed alarm in place
[2025-02-27] MEDS: MONTELUKAST SODIUM 10MG TAB 10 MG PO (20:56)
[2025-02-27] MEDS: METOPROLOL SUCCINATE XL 50MG TABLET 50 MG PO (20:56)
[2025-02-27] MEDS: QUETIAPINE 100MG TABLET 150 MG PO (20:56)
[2025-02-27] MEDS: PANTOPRAZOLE 40MG TABLET 40 MG PO (20:56)
--- NOTE | 2025-02-27 22:20 | PC.NURSE ---
US IV from today has went bad, ER called for US, but too busy. sewer system supervisor called, 3 attempts with no success. Valeriano contacted about IV medications, stated okay to skip phenobarbital.
[2025-02-28] VITALS: BP 131/75; PULSE 82; PULSE 85; RESP 12; TEMP 36.8; O2SAT 98
[2025-02-28 04:00] VITALS: BP 135/81; PULSE 69; PULSE 70; RESP 14; TEMP 36.7; O2SAT 92; BMI 23.8
--- NOTE | 2025-02-28 04:12 | PC.NURSE ---
Alert and oriented throughout the shift. Rested well. Room air. No complaints from patient. CIWAs. US IV out per previous note, no new line at this time. Ambulates to the restroom with standby assist. Tele NSR. Pull alarm on. Call light in reach.
[2025-02-28 08:00] VITALS: BP 167/88; PULSE 74; PULSE 80; RESP 19; TEMP 36.9; O2SAT 98
[2025-02-28] MEDS: FOLIC ACID 1MG TABLET 1 MG PO (08:22)
[2025-02-28] MEDS: BUSPIRONE HCL 10 MG TABLET 30 MG PO (08:22)
[2025-02-28] MEDS: THIAMINE 100MG TABLET 100 MG PO (08:23)
--- NOTE | 2025-02-28 08:24 | EXP.PHA.PN ---
Subjective *Date: 02/28/25 *Time: 08:24 Medical Exam Vital signs and Labs for Last 24 Hours: Vital Signs Temp Pulse Pulse Resp BP Pulse Ox O2 Del Method 02/28/25 08:00 98.4 F 74 19 167/88 H 98 Room Air 02/28/25 07:58 Room Air 02/28/25 07:00 Room Air 02/28/25 05:00 Room Air 02/28/25 04:00 98.1 F 69 14 135/81 92 L Room Air 02/28/25 04:00 70 02/28/25 03:00 Room Air 02/28/25 01:00 Room Air 02/28/25 00:00 85 02/28/25 00:00 98.2 F 82 12 131/75 98 Room Air 02/27/25 23:00 Room Air 02/27/25 21:00 Room Air 02/27/25 20:00 85 02/27/25 20:00 Room Air 02/27/25 19:46 97.7 F 93 H 14 146/81 H 100 Room Air 02/27/25 18:51 Room Air 02/27/25 17:00 Room Air 02/27/25 16:00 8 L 02/27/25 16:00 97.8 F 85 18 152/74 H 99 Room Air 02/27/25 15:00 Room Air 02/27/25 13:00 Room Air 02/27/25 12:56 62 18 128/59 L 96 Room Air 02/27/25 12:00 90 02/27/25 11:00 Room Air 02/27/25 09:00 Room Air O2 Flow Rate 02/28/25 08:00 02/28/25 07:58 02/28/25 07:00 02/28/25 05:00 02/28/25 04:00 0 02/28/25 04:00 02/28/25 03:00 02/28/25 01:00 02/28/25 00:00 02/28/25 00:00 02/27/25 23:00 02/27/25 21:00 02/27/25 20:00 02/27/25 20:00 02/27/25 19:46 02/27/25 18:51 02/27/25 17:00 02/27/25 16:00 02/27/25 16:00 02/27/25 15:00 02/27/25 13:00 02/27/25 12:56 02/27/25 12:00 02/27/25 11:00 02/27/25 09:00 Intake and Output 02/27/25 02/28/25 02/28/25 23:59 07:59 15:59 Intake Total 480 / 2054 180 / 180 Output Total 250 / 2150 Balance 230 / -96 180 / 180 Intake: Intake, Oral Amount 480 / 1210 180 / 180 Output: Output, Urine Amount 250 / 2150 Other: Number of Unmeasured Voids 0 Weight 67.132 kg Patient Weight 02/28/25 23:59 Weight 67.132 kg I & O for Labs for Last 24 Hours: Intake & Output 02/25/25 02/26/25 02/27/25 02/28/25 23:59 23:59 23:59 23:59 Intake Total 3741 / 4185 2270 / 2270 1874 / 2054 180 / 180 Output Total 1400 / 1400 2175 / 2175 2150 / 2150 Balance 2341 / 2785 95 / 95 -276 / -96 180 / 180 Weight 64.047 kg 67.313 kg 64.546 kg 67.132 kg The patient's infection will respond to the chosen ABx?: Yes Is the patient receiving the right drug, dose, and route?: Yes Could a more targeted ABx be ordered?: No (WBC WNL, E. COLI IN URINE CX. SENSITIVE TO ROCEPHIN.)
[2025-02-28] MEDS: CEFDINIR 125MG/5ML ORAL SUSP 60ML 300 MG PO (09:05)
[2025-02-28] MEDS: PHENOBARBITAL 32.4 MG 64.8 MG PO (09:10)
--- NOTE | 2025-02-28 09:40 | P.DS_ITS ---
<Statement entered by Darrell Caballero MD - 03/01/25 15:42> Rounded on patient after nurse practitioner. Personally examined and interviewed patient. Agree with exam findings and care plan as documented. Patient established with [facility] in [facility]. Will follow- up with them for alcohol use disorder. General Admission date:: 02/24/25 Discharge date: 02/28/25 HPI HPI HPI: Ms. Sarah is a 64-year-old female who presented to the emergency department with alcohol withdrawal, tremors, nausea, and vomiting. She has a primary medical history of alcohol dependence, tobacco use disorder, postmenopausal bleeding, COPD, anxiety, GERD, recurrent UTI. She reports that she drinks approximately half a gallon of vodka every other day and has been drinking for several years. She has gone through detox many times, and does have a history of alcohol withdrawal seizures. She states her last drink was yesterday afternoon, she has not had anything to drink throughout the night or today. She does deny chest pain, shortness of breath, fevers, seizures, hallucinations. She was given 3 doses of Valium 10 mg IV in the emergency room but still continues to have shakes/tremors. CIWA score of 14. Hospital Course Hospital Course Hospital Course: Ms. Sarah, 64-year-old female presented to the emergency department with alcohol withdrawal, tremors, nausea, vomiting. She states she drinks approximately half of a gallon of vodka every couple days. She has been doing this for many years, and has tried to quit multiple times. Most recently approximately 3 months ago. I was consulted by the ER physician to admit the patient for alcohol withdrawal and monitoring. Patient initial CIWA's were in the 20s. She was started on the CIWA protocol and phenobarbital. She was also given IV rally pack daily for hydration and vitamin replacement. Symptoms peaked on 02/26. P atient's symptoms are now resolving. She has shown significant improvement yesterday and today. CIWA scores have been less than 4. Patient will be discharged home today with a safety plan in place. Problems were addressed as follows: #Alcohol withdrawal #Alcohol dependence ? Score showing improvement. Patient received phenobarbital p.o. Will be discharged home on naltrexone 50 mg once daily for alcohol cravings. - No diarrhea or vomiting. Patient did have intermittent hallucinations over the weekend, no hallucinations today. Tremors have significantly improved. ? Patient has longstanding history of alcohol withdrawal now and severe progression. 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 ? Continuing folic acid 1 mg, multivitamin 1 tab, thiamine 100 mg daily. Recommended patient take [id number] multivitamin daily. ? Peers support consulted for further management of patient alcohol use disorder. Alayna with peers support help patient to make a safety plan at discharge. Patient will go home to stay with her mother for the next week. She will see [facility] for [facility]hab, appointment 03/02/2025 at 10:45 AM. She states she has a good plan to stay sober. At this time she does not want to go to an inpatient rehab. ? Hemoglobin 8.8. Continues to have some vaginal bleeding, follows with g ynecology for this. Follow-up appointment with [facility] made at discharge. Patient was previously seen [facility] but at the time was unable to get sober to have surgical intervention for postmenopausal bleeding. #Anxiety #Depression #PTSD ? Patient states that she began drinking alcohol due to depression. Currently on BuSpar 30 mg 3 times daily, Vistaril 25 mg 3 times daily, Rexulti 2 mg, Cymbalta 60 mg; decrease Seroquel to 150 mg tonight due to concern for oversedation. #Urinary tract infection ? Patient states she recently finished a course of Macrobid for a urinary tract infection. Microbiology reports show she was positive for E. coli at the time. Patient states that she is still having issues with foul-smelling urine. She does deny burning, frequency. ? Urine culture came back positive for E. coli. ? Patient received ceftriaxone 1 g IV daily during the admission, will transition to cefdinir 300 mg for a total of 10 days.. #GERD #Hypertension ?Continue metoprolol 50 mg at bedtime, pantoprazole 40 mg at bedtime. #Tobacco use disorder: ?Discussed with patient need for nicotine patches at discharge, she states that she does not need them. Total time spent on discharge 38 minutes in counseling, documentation, chart review, and direct care with patient. Exam Data for Last 24 hours Vital signs and Labs for Last 24 Hours: Temp Pulse Resp BP Pulse Ox O2 Del Method O2 Flow Rate 98.4 F 74 19 167/88 H 98 Room Air 0 02/28/25 08:00 02/28/25 08:00 02/28/25 08:00 02/28/25 08:00 02/28/25 08:00 02/28/25 09:00 02/28/25 04:00 I & O for Last 24 hours: Intake & Output 02/25/25 02/26/25 02/27/25 02/28/25 23:59 23:59 23:59 23:59 Intake Total 3741 / 4185 2270 / 2270 187 / 2054 580 / 580 Output Total 1400 / 1400 2175 / 2175 2150 / 2150 Balance 2341 / 2785 95 / 95 -276 / -96 580 / 580 Weight 64.047 kg 67.313 kg 64.546 kg 67.132 kg Constitutional Constitutional: no acute distress and cooperative *Routine HEENT Exam Head: Present normocephalic Eye: Present EOMI ENT: Present mucous membranes moist *Routine Neck Exam Neck: Present supple and full ROM *Routine Respiratory Exam Respiratory: Present CTA bilaterally, able to speak in complete sentences and symmetric chest movement; Absent wheezes *Routine Cardiovascular Exam Cardiovascular: Present RRR, Normal S1 and Normal S2; Absent murmur *Routine Abdominal Exam Abdominal: Present soft and normoactive bowel sounds; Absent tenderness *Routine Rectal Exam Patient deferred: visual exam *Routine Exam Patient deferred: external exam *Routine Skin Exam Skin: Present intact, dry and warm *Routine Neurological Exam Neurological: Present alert, oriented X3 and normal speech DS: Diagnosis Discharge Diagnosis (1) Alcohol withdrawal: Status: Inactive Code(s): F10.939 - Alcohol use, unspecified with withdrawal, unspecified (2) Alcohol dependence: Status: Acute Code(s): F10.20 - Alcohol dependence, uncomplicated Qualifiers: Substance use status: unspecified alcohol-induced disorder Qualified Code(s): F10.29 - Alcohol dependence with unspecified alcohol-induced disorder (3) Anxiety: Status: Inactive Code(s): F41.9 - Anxiety disorder, unspecified (4) Depression: Status: Inactive Code(s): F32.A - Depression, unspecified (5) GERD (gastroesophageal reflux disease): Status: Acute Code(s): K21.9 - Gastro-esophageal reflux disease without esophagitis Qualifiers: Esophagitis presence: esophagitis presence not specified Qualified Code(s): K21.9 - Gastro-esophageal reflux disease without esophagitis (6) Hypertension: Status: Inactive Code(s): I10 - Essential (primary) hypertension (7) PTSD (post-traumatic stress disorder): Status: Inactive Code(s): F43.10 - Post-traumatic stress disorder, unspecified (8) Tobacco dependence: Status: Acute Code(s): F17.200 - Nicotine dependence, unspecified, uncomplicated (9) Urinary tract infection: Status: Inactive Code(s): N39.0 - Urinary tract infection, site not specified Meds Home Medications and Allergies Home Medications ?Medication ?Instructions ?Recorded ?Confirmed ?Type lifitegrast 5 % eye drops in a 1 drp Eye-Both BID 30 d ays #60 ea 08/27/23 02/24/25 Rx dropperette (Xiidra) fluticasone propionate 50 1 spray intranasal DAILY 30 days 11/07/23 02/24/25 Rx mcg/actuation nasal #16 grams spray,suspension (Flonase Allergy Relief) buspirone 30 mg tablet 30 mg PO TID 30 days #90 tab s 12/23/23 02/24/25 Rx duloxetine 60 mg capsule,delayed 60 mg PO DAILY 30 day s #30 caps 12/23/23 02/24/25 Rx release hydroxyzine pamoate 50 mg capsule 50 mg PO TID anxiety 30 days #90 12/23/23 02/24/25 Rx caps albuterol sulfate 90 mcg/actuation 2 puff inhalation Q 6H PRN 04/15/24 02/24/25 Rx aerosol inhaler shortness of breath or wheez ing #8.5 grams fezolinetant 45 mg tablet (Veozah) 45 mg PO DAILY #30 tabs 04/29/24 02/24/25 Rx progesterone micronized 100 mg 100 mg PO DAILY #30 cap s 09/17/24 02/24/25 Rx capsule omeprazole 40 mg capsule,delayed 40 mg PO DAILY acid r eflux 90 days 09/20/2411/16 Rx release #90 caps blood pressure monitor (Blood #1 ea 10/12/24 02/24/25 Rx Pressure Kit) furosemide 40 mg tablet 40 mg PO DAILY PRN edema #30 tabs 11/08/24 02/24/25 Rx linaclotide 290 mcg capsule 290 mcg PO HS Constipation 11/16/24 02/24/25 History (Linzess) pravastatin 40 mg tablet 40 mg PO DAILY 30 days #30 t abs 12/01/24 02/24/25 Rx metoprolol succinate 50 mg 50 mg PO HS HTN 90 days #90 tabs 12/14/24 02/24/25 Rx tablet,extended release 24 hr estradiol 1 mg tablet 1 mg PO DAILY #30 tabs 12/3002/24/25 Rx methocarbamol 750 mg tablet See Rx Instructions .Route 01/10/25 02/24/25 Rx .COMPLEX #90 tabs fluticasone propionate 230 2 puff inhalation BID 90 da ys #12 01/11/25 02/24/25 Rx mcg-salmeterol 21 mcg/actuation grams HFA inhaler (Advair HFA) brexpiprazole 2 mg tablet (Rexulti) 2 mg PO DAILY 11/1602/24/25 History montelukast 10 mg tablet 10 mg PO HS 02/24/25 5 History cefdinir 125 mg/5 mL oral 300 mg (12 mL) PO BID #13 ta bs 02/28/25 Rx suspension naltrexone 50 mg tablet 50 mg PO DAILY #30 tabs 03/18 Rx quetiapine 300 mg tablet 150 mg (1/2 x 300 mg) PO HS 30 02/28/25 02/24/25 Rx days #0 tabs New Prescriptions to Start Prescriptions: Basilia Shah Kourtney Allergies Allergy/AdvReac Type Severity Reaction Status Date / Time vilazodone (From Viirobind) AdvReac Mild Seizure Verified 02/24/25 10:16 Discharge Plan Disposition Patient Disposition: Home, Self-Care Condition: Fair Discharge Order Discharge Orders: Discharge Order (Routine); Ordered 02/28/25 Ordered By: Basilia Baldwin Follow up Plan Follow up with: Dinorah White DO [Staff Physician, [facility]] - Enter time for follow up Isrrael Foreman MD [Staff Physician, Internal Medicine] - Enter time for follow up Prescriptions/Medication Reconciliation: New cefdinir 125 mg/5 mL Suspension For Reconstitution 300 mg PO BID Qty: 13 0RF naltrexone 50 mg tablet 50 mg PO DAILY Qty: 30 1RF Continued Veozah 45 mg tablet 45 mg PO DAILY Qty: 30 10RF fluticasone propion-salmeterol [Advair HFA] 230-21 mcg/actuation HFA aerosol inhaler 2 puff inhalation BID 90 Days Qty: 12 3RF (DME) blood pressure monitor [Blood Pressure Kit] Kit See Rx Instructions .Route Qty: 1 0RF Rx Instructions: Check blood pressure daily Xiidra 5 % dropperette 1 drp Eye-Both BID 30 Days Qty: 60 2RF fluticasone propionate [Flonase Allergy Relief] 50 mcg/actuation spray,suspension 1 spray intranasal DAILY 30 Days Qty: 16 3RF Rx Instructions: administer into each nostril buspirone 30 mg tablet 30 mg PO TID 30 Days Qty: 90 0RF duloxetine 60 mg capsule,delayed release(DR/EC) 60 mg PO DAILY 30 Days Qty: 30 2RF hydroxyzine pamoate 50 mg capsule 50 mg PO TID 30 Days Qty: 90 2RF albuterol sulfate 90 mcg/actuation HFA aerosol inhaler 2 puff inhalation Q6H PRN (Reason: shortness of breath or wheezing) Qty: 8.5 5RF progesterone micronized 100 mg capsule 100 mg PO DAILY Qty: 30 5RF omeprazole 40 mg capsule,delayed release(DR/EC) 40 mg PO DAILY 90 Days Qty: 90 2RF furosemide 40 mg tablet 40 mg PO DAILY PRN (Reason: edema) Qty: 30 2RF pravastatin 40 mg tablet 40 mg PO DAILY 30 Days Qty: 30 2RF metoprolol succinate 50 mg tablet extended release 24 hr 50 mg PO HS 90 Days Qty: 90 0RF estradiol 1 mg tablet 1 mg PO DAILY Qty: 30 5RF methocarbamol 750 mg tablet See Rx Instructions .ROUTE .COMPLEX Qty: 90 0RF Dose Instruction: TAKE 1 TABLET BY MOUTH EVERY 8 HOURS NEEDED FOR MUSCLE SPASMS OR TIGHTNESS Rx Instructions: TAKE 1 TABLET BY MOUTH EVERY 8 HOURS NEEDED FOR MUSCLE SPASMS OR TIGHTNESS Linzess 290 mcg capsule 290 mcg PO HS Rexulti 2 mg tablet 2 mg PO DAILY montelukast 10 mg tablet 10 mg PO HS Changed quetiapine 300 mg tablet 150 mg PO HS 30 Days Qty: 0 0RF Discontinued nitrofurantoin monohyd/m-cryst [Macrobid] 100 mg capsule 100 mg PO Q12H 10 Days Qty: 20 0RF Rx Instructions: must administer with a meal/food Problem Reconciliation Problems Reviewed?: Yes Patient Discharge Instructions ACTIVITY: Continue current activity DIET: continue same diet Patient Instructions: Alcohol and Stress: There are Safer Ways to [place], DI for Nausea -- Adult Print Language: Persian Providers Primary Care Provider: Provider,Referral Admit Provider: Darrell Caballero Attending Provider: Darrell Caballero
[2025-02-28 12:00] VITALS: BP 152/87; PULSE 78; RESP 17; TEMP 36.7; O2SAT 94
--- NOTE | 2025-02-28 15:55 | HMH.PHAINT1 ---
Pharmacy Intervention Comments: DISCHARGE COUNSELING DONE. DISCUSSED WITH Kym NGUYỄN ABOUT PHENOBARBITAL INPATIENT NOT DISCHARGED ON IT. SHE INDICATED THEY ARE NOT CONTINUING PHENOBARB OUTPATIENT.
--- NOTE | 2025-02-28 16:55 | PEERSUPPORT ---
Peer Support Note Patient Information Patient Information: DOS: 02/28/2025 ? Building Rapport: ? Pt stated she is feeling more herself today. She is interested in an appointment with [facility] in [place], [place]. She shared her challenges over the weekend being in the small room and feeling stuck. She has enjoyed? and appreciated interactions with the [facility] Staff who have shown her compassion and care. ? Ps and Pt discuss a safety plan to prioritize her sobriety: -Stay with her mother for a week or longer if she feels necessary. -Appointment with [facility] -Use safe coping skills- -Take medication-Naltrexone in am for alcohol use disorder - Practice gratitude -Read print outs for building new habits/ 12 Steps daily -Reach out for Help- Friend in AA, or [facility] ? Plan of action: -Refrain from drinking and/or using substance -Take medication as prescribed -Attend follow up appointments -[facility] Appt. 03/02/2025 @10:45 am
== END 2025-02-28 12:43 | disposition home or self-care (01) | DRG 897 ==
LOC: ER 10:30 → ICU 12:21 → 2ND 02-26 16:37
PROVIDERS: Admitting Provider Internal Medicine Adolescent Medicine; Emergency Provider Student in an Organized Health Care Education/Training Program; Visit Provider Internal Medicine Adolescent Medicine
DX: F10.239 Alcohol dependence with withdrawal, unspecified (principal); N39.0 Urinary tract infection, site not specified; J44.9 Chronic obstructive pulmonary disease, unspecified; K21.9 Gastro-esophageal reflux disease without esophagitis; I10 Essential (primary) hypertension; B96.20 Unspecified Escherichia coli [E. coli] as the cause of diseases classified elsewhere; F41.9 Anxiety disorder, unspecified; F17.210 Nicotine dependence, cigarettes, uncomplicated; F43.10 Post-traumatic stress disorder, unspecified; Z79.899 Other long term (current) drug therapy; Z88.8 Allergy status to other drugs, medicaments and biological substances
CPT/HCPCS: 36415; 80053; 80307; 80320; 81001; 83735; 84100; 85025; 85610; 85730; 86803; 87086; 87088; 87186; 87389; 93005; 94640; J0696; J1650; J2405; J2560; J3360; J3411; J3475; J7120

== ENCOUNTER 2025-03-09 14:08 | Outpatient (CLI) | payer MEDICARE, SELFPAY | END 2025-03-09 23:59 | disposition home or self-care (01) | LOC: LAB.DROPOF 03-10 10:06 | PROVIDERS: PCP Family Medicine; Visit Provider Family Medicine | DX: R39.9 Unspecified symptoms and signs involving the genitourinary system (principal) | CPT/HCPCS: 87086 ==

== ENCOUNTER 2025-05-03 15:30 | Outpatient (CLI) | payer MEDICARE, SELFPAY ==
--- OUTSIDE RECORDS SUMMARY | 2025-03-26 05:00 | XMS_ITS ---
Author Organization [facility] Address [address] [place] [address] Phone [phone] Care Team Providers Care Director Of Casino Name Role Phone Shira Alvarado Unavailable [phone] Migration, Provider Unavailable Unavailable REASON FOR VISIT [facility] Encounters Encounter Location Date Provider Diagnosis [address] [address] 03/26/2025 Provider Migration Plan Of Treatment No Information Progress Notes * ARMANDO LOPEZDOB:1960 ( 64 yo F)Acc No.[id number]:03/26/2025 Patient: ARMANDO DENG :1960 A ge:64 Y S ex:Female Address:[address] [place] [address] [place], [address] Subjective: * Chief Complaints: * E MR-Brandt * * Date:
--- OUTSIDE RECORDS SUMMARY | 2025-03-27 05:00 | XMS_ITS ---
Author Organization [facility] Address [address] [place] [address] Phone [phone] Care Team Providers Care Aml Analyst Name Role Phone Shira Alvarado Unavailable [phone] Migration, Provider Unavailable Unavailable REASON FOR VISIT EMR-[facility] Medications Medication SIG (Take, Route, Frequency, Duration) Notes Start Date End Date Status Jackeline Allergy 180 MG Tablet Oral 07/11/2023 Active FLUTICASONE PROPIONATE 50 MCG/ACTUATION NASAL SPRAY,SUSPENSION *Reorder from [employer] for eRx and Interaction Alerts* 07/11/2023 Active Flonase Allergy Relief 50 MCG/ACT Suspension Nasal 07/11/2023 Active Ventolin HFA 108 (90 Base) MCG/ACT Aerosol Solution Inhalation 07/11/2023 Active Linzess 290 MCG Capsule Oral 07/11/2023 Active busPIRone HCl 10 MG Tablet Oral 07/11/2023 Active Nitrofurantoin Monohyd Macro 100 MG Capsule Oral 07/11/2023 Active Nicotine 21 MG/24HR Patch 24 Hour Transdermal 07/11/2023 Active Lidocaine 5% Patch External 07/11/2023 Active Cyanocobalamin 1000 MCG/ML Solution Injection 07/11/2023 Active Promethazine HCl 25 MG Tablet Oral 07/11/2023 Active Ibuprofen 800 MG Tablet Oral 07/11/2023 Active PURELAX 17 gram Packet Oral *Reorder from [employer] for eRx and Interaction Alerts* 07/11/2023 Active Sublocade 100 mg/0.5 mL Solution Prefilled Syringe Subcutaneous 07/11/2023 Active DULoxetine HCl 30 MG Capsule Delayed Release Particles Oral 07/11/2023 Active Metoprolol Succinate ER 50 MG Tablet Extended Release 24 Hour Oral 07/11/2023 Active Prazosin HCl 5 MG Capsule Oral 07/11/2023 Active Jackeline Allergy *Pick strength-form from [employer] for eRX* 07/11/2023 Active Xiidra 5 % Solution Ophthalmic 07/11/2023 Active Acid Collar Fuser Complete 10-800-165 mg Tablet Chewable Oral 07/11/2023 Active Omeprazole 40 MG Capsule Delayed Release Oral 07/11/2023 Active Folic Acid 1 MG Tablet Oral 07/11/2023 Active QUEtiapine Fumarate 300 MG Tablet Oral 07/11/2023 Active Pravastatin Sodium 40 MG Tablet Oral 07/11/2023 Active Vitamin B-1 100 MG Tablet Oral 07/11/2023 Active hydrOXYzine Pamoate 50 MG Capsule Oral 07/11/2023 Active Fexofenadine HCl 180 MG Tablet Oral 07/11/2023 Active busPIRone HCl 30 MG Tablet Oral 07/11/2023 Active Ondansetron 8 MG Tablet Disintegrating Oral 07/11/2023 Active Methocarbamol 750 MG Tablet Oral 07/11/2023 Active DULoxetine HCl 60 MG Capsule Delayed Release Particles Oral 07/11/2023 Active Social History Social History Additional Details Category Social Info Options Details Migrated Social History Migrated Social History Alcohol Intake: Heavy 01/01/2023,Tobacco Years: Current every day smoker 01/01/2023,Smoking Status: 47 01/01/2023 Encounters Encounter Location Date Provider Diagnosis [address] [address] 03/27/2025 Provider Migration Plan Of Treatment No Information Progress Notes * ARMANDO LOPEZDOB:1960 ( 64 yo F)Acc No.[id number]:03/27/2025 Patient: Gem ERICAARMANDO :1960 A ge:64 Y S ex:Female Address:[address] [place] [address] [place], [address] Subjective: * Chief Complaints: * E MR-Brandt * Medical History: Problems: Acute sinusitis Anxiety Aphthous ulcer of mouth Chronic back pain Cobalamin deficiency Diverticulitis Fatigue Gastroesophageal reflux disease Health maintenance alteration Hyperlipidemia Hypertensive disorder Hyponatremia Insomnia Long-term drug therapy Nausea Posttraumatic stress disorder Pruritic rash Seasonal allergy Spasm of back muscles * Senior Administrative Support History: M igrated GYNHistory M igrated GYNHistory:: Age at First Child: 21 Modified Date:01/01/2023,Current Control Method: Menopause Modified Date:01/01/2023,Date of Last Pap Smear: 10/23/2022 Modified Date:01/01/2023,HPV Vaccine: Y Modified Date:01/01/2023,Most Recent Mammogram: 10/23/2022 Modified Date:01/01/2023,STIs/STDs: N Modified Date:01/01/2023,Sexual Problems: N Modified Date:01/01/2023,Sexually Active: N Modified Date:01/01/2023 . * Surgical History: section ([id number]) * Family History: M other: Hypertensive disorder . M aternal Grandfather: Diabetes mellitus . M aternal Grandmother: Hypertensive disorder . B rother: Hypertensive disorder . * Social History: M igrated Social History: M igrated Social History: Alcohol Intake: Heavy 01/01/2023,Tobacco Years: Current every day smoker 01/01/2023,Smoking Status: 47 01/01/2023. * Medications: T akingVentolin HFA 108 (90 Base) MCG/ACT Aerosol Solution Inhalation Flonase Allergy Relief 50 MCG/ACT Suspension Nasal FLUTICASONE PROPIONATE 50 MCG/ACTUATION NASAL SPRAY,SUSPENSION , Notes to Pharmacist: *Reorder from [employer] for eRx and Interaction Alerts*busPIRone HCl 10 MG Tablet Oral Cyanocobalamin 1000 MCG/ML Solution Injection Lidocaine 5% Patch External Nicotine 21 MG/24HR Patch 24 Hour Transdermal Nitrofurantoin Monohyd Macro 100 MG Capsule Oral Jackeline Allergy 180 MG Tablet Oral Linzess 290 MCG Capsule Oral DULoxetine HCl 30 MG Capsule Delayed Release Particles Oral Ibuprofen 800 MG Tablet Oral Promethazine HCl 25 MG Tablet Oral Vitamin B-1 100 MG Tablet Oral Acid Collar Fuser Complete 10-800-165 mg Tablet Chewable Oral Xiidra 5 % Solution Ophthalmic DULoxetine HCl 60 MG Capsule Delayed Release Particles Oral Methocarbamol 750 MG Tablet Oral Ondansetron 8 MG Tablet Disintegrating Oral Pravastatin Sodium 40 MG Tablet Oral Prazosin HCl 5 MG Capsule Oral Metoprolol Succinate ER 50 MG Tablet Extended Release 24 Hour Oral Sublocade 100 mg/0.5 mL Solution Prefilled Syringe Subcutaneous PURELAX 17 gram Packet Oral , Notes to Pharmacist: *Reorder from [employer] for eRx and Interaction Alerts*busPIRone HCl 30 MG Tablet Oral Fexofenadine HCl 180 MG Tablet Oral hydrOXYzine Pamoate 50 MG Capsule Oral Omeprazole 40 MG Capsule Delayed Release Oral Folic Acid 1 MG Tablet Oral QUEtiapine Fumarate 300 MG Tablet Oral Jackeline Allergy , Notes to Pharmacist: *Pick strength-form from [facility] for eRX*Taking Ventolin HFA 108 (90 Base) MCG/ACT Aerosol Solution Inhalation Taking Flonase Allergy Relief 50 MCG/ACT Suspension Nasal Taking FLUTICASONE PROPIONATE 50 MCG/ACTUATION NASAL SPRAY,SUSPENSION , Notes to Pharmacist: *Reorder from [facility] for eRx and Interaction Alerts*Taking busPIRone HCl 10 MG Tablet Oral Taking Cyanocobalamin 1000 MCG/ML Solution Injection Taking Lidocaine 5% Patch External Taking Nicotine 21 MG/24HR Patch 24 Hour Transdermal Taking Nitrofurantoin Monohyd Macro 100 MG Capsule Oral Taking Jackeline Allergy 180 MG Tablet Oral Taking Linzess 290 MCG Capsule Oral Taking DULoxetine HCl 30 MG Capsule Delayed Release Particles Oral Taking Ibuprofen 800 MG Tablet Oral Taking Promethazine HCl 25 MG Tablet Oral Taking Vitamin B-1 100 MG Tablet Oral Taking Acid Collar Fuser Complete 10-800-165 mg Tablet Chewable Oral Taking Xiidra 5 % Solution Ophthalmic Taking DULoxetine HCl 60 MG Capsule Delayed Release Particles Oral Taking Methocarbamol 750 MG Tablet Oral Taking Ondansetron 8 MG Tablet Disintegrating Oral Taking Pravastatin Sodium 40 MG Tablet Oral Taking Prazosin HCl 5 MG Capsule Oral Taking Metoprolol Succinate ER 50 MG Tablet Extended Release 24 Hour Oral Taking Sublocade 100 mg/0.5 mL Solution Prefilled Syringe Subcutaneous Taking PURELAX 17 gram Packet Oral , Notes to Pharmacist: *Reorder from [facility] for eRx and Interaction Alerts*Taking busPIRone HCl 30 MG Tablet Oral Taking Fexofenadine HCl 180 MG Tablet Oral Taking hydrOXYzine Pamoate 50 MG Capsule Oral Taking Omeprazole 40 MG Capsule Delayed Release Oral Taking Folic Acid 1 MG Tablet Oral Taking QUEtiapine Fumarate 300 MG Tablet Oral Taking Jackeline Allergy , Notes to Pharmacist: *Pick strength-form from [facility] for eRX* * * Date:
--- OUTSIDE RECORDS SUMMARY | 2025-05-04 09:58 | XMS_ITS | Patient Health Record ---
Author Organization [facility] Address [address] [place] [address] Phone [phone] Care Team Providers Care Mathematics Faculty Member Name Role Phone Shira Alvarado Unavailable [phone] Migration, Provider Unavailable Unavailable Reason For Referral No Information Medications Medication SIG (Take, Route, Frequency, Duration) Notes Start Date End Date Status Promethazine HCl 25 MG Tablet Oral 07/11/2023 Active Jackeline Allergy 180 MG Tablet Oral 07/11/2023 Active FLUTICASONE PROPIONATE 50 MCG/ACTUATION NASAL SPRAY,SUSPENSION *Reorder from [employer] for eRx and Interaction Alerts* 07/11/2023 Active Ibuprofen 800 MG Tablet Oral 07/11/2023 Active busPIRone HCl 10 MG Tablet Oral 07/11/2023 Active DULoxetine HCl 30 MG Capsule Delayed Release Particles Oral 07/11/2023 Active Flonase Allergy Relief 50 MCG/ACT Suspension Nasal 07/11/2023 Active Ventolin HFA 108 (90 Base) MCG/ACT Aerosol Solution Inhalation 07/11/2023 Active PURELAX 17 gram Packet Oral *Reorder from [employer] for eRx and Interaction Alerts* 07/11/2023 Active Omeprazole 40 MG Capsule Delayed Release Oral 07/11/2023 Active Sublocade 100 mg/0.5 mL Solution Prefilled Syringe Subcutaneous 07/11/2023 Active hydrOXYzine Pamoate 50 MG Capsule Oral 07/11/2023 Active Metoprolol Succinate ER 50 MG Tablet Extended Release 24 Hour Oral 07/11/2023 Active Fexofenadine HCl 180 MG Tablet Oral 07/11/2023 Active Prazosin HCl 5 MG Capsule Oral 07/11/2023 Active busPIRone HCl 30 MG Tablet Oral 07/11/2023 Active Pravastatin Sodium 40 MG Tablet Oral 07/11/2023 Active Ondansetron 8 MG Tablet Disintegrating Oral 07/11/2023 Active Xiidra 5 % Solution Ophthalmic 07/11/2023 Active Methocarbamol 750 MG Tablet Oral 07/11/2023 Active Acid Accounts Payable Specialist Complete 10-800-165 mg Tablet Chewable Oral 07/11/2023 Active DULoxetine HCl 60 MG Capsule Delayed Release Particles Oral 07/11/2023 Active Vitamin B-1 100 MG Tablet Oral 07/11/2023 Active Folic Acid 1 MG Tablet Oral 07/11/2023 Active QUEtiapine Fumarate 300 MG Tablet Oral 07/11/2023 Active Jackeline Allergy *Pick strength-form from [employer] for eRX* 07/11/2023 Active Nitrofurantoin Monohyd Macro 100 MG Capsule Oral 07/11/2023 Active Nicotine 21 MG/24HR Patch 24 Hour Transdermal 07/11/2023 Active Lidocaine 5% Patch External 07/11/2023 Active Linzess 290 MCG Capsule Oral 07/11/2023 Active Cyanocobalamin 1000 MCG/ML Solution Injection 07/11/2023 Active Social History Social History Additional Details Category Social Info Options Details Migrated Social History Migrated Social History Alcohol Intake: Heavy 01/01/2023,Tobacco Years: Current every day smoker 01/01/2023,Smoking Status: 47 01/01/2023 Problems Problem Type SNOMED Code ICD Code Onset Dates Problem Status W/U Status Risk Notes Problem Vitamin B deficiency (32744966) Deficiency of other specified B group vitamins (E53.8) 04/29/20 Active confirmed Problem Hyperlipidemia (51955808) Hyperlipidemia, unspecified (E78.5) 01/15/20 Active confirmed Problem Hypo-osmolality and or hyponatremia (024473462) Hypo-osmolality and hyponatremia (E87.1) 01/15/20 Active confirmed Problem Anxiety disorder (920662944) Anxiety disorder, unspecified (F41.9) 03/25/20 Active confirmed Problem Post-traumatic stress disorder (32680030) Post-traumatic stress disorder, unspecified (F43.10) 02/19/20 Active confirmed Problem Insomnia (771770102) Insomnia, unspecified (G47.00) 01/28/20 Active confirmed Problem Essential hypertension (41795072) Essential (primary) hypertension (I10) 03/25/20 Active confirmed Problem Acute sinusitis (79973968) Acute sinusitis, unspecified (J01.90) 01/18/20 Active confirmed Problem Seasonal allergic rhinitis (196297291) Other seasonal allergic rhinitis (J30.2) 03/25/20 Active confirmed Problem Recurrent oral aphthae (887800058) 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) 01/02/20 Active confirmed Problem Gastro-esophageal reflux disease without esophagitis (108653808) Gastro-esophageal reflux disease without esophagitis (K21.9) 07/11/20 Active confirmed Problem Diverticulitis of colon (151502478) Diverticulitis of intestine, part unspecified, without perforation or abscess without bleeding (K57.92) 02/19/20 Active confirmed Problem Prurigo (49101140) Other prurigo (L28.2) 03/25/20 Active confirmed Problem Backache (880286565) Dorsalgia, unspecified (M54.9) 07/11/20 Active confirmed Problem Spasm of back muscles (737041393) Muscle spasm of back (M62.830) 03/25/20 Active confirmed Problem Nausea (659651662) Nausea (R11.0) 01/28/20 Active confirmed Problem Fatigue (54261429) Other fatigue (R53.83) 04/29/20 Active confirmed Problem Infection screening (706349265) Encounter for screening for other infectious and parasitic diseases (Z11.8) 01/15/20 Active confirmed Problem Repeated prescription (240436765) Encounter for issue of repeat prescription (Z76.0) 07/11/20 Active confirmed Problem Health status (721030558) Other specified health status (Z78.9) 01/15/20 Active confirmed Problem Long-term current use of drug therapy (373645085) Other fpc (current) drug therapy (Z79.899) 07/11/20 Active confirmed Encounters Encounter Location Date Provider Diagnosis [address] [address] 03/26/2025 Provider Migration [address] [address] 03/27/2025 Provider Migration Plan Of Treatment No Information Insurance Providers Payer Name Payer Address Payer Phone Subscriber Number Group Number Insured Name Patient Relationship to Insured Coverage Start Date Coverage End Date Passport By [employer] (Medicaid Replacement - [place]) [address] [address] [place], [place] [phone] [id number] ARMANDO LOPEZ Self - patient is the insured Medical (General) History Surgical History Surgery Date(Month/Year) section ([id number])
== END 2025-05-03 23:59 ==
LOC: LAB.DROPOF 05-04 09:52
PROVIDERS: PCP Family Medicine; Visit Provider Family Medicine
DX: R39.9 Unspecified symptoms and signs involving the genitourinary system (principal)
CPT/HCPCS: 87086; 87088

== ENCOUNTER 2025-05-17 11:39 | Outpatient (CLI) | payer MEDICARE, SELFPAY ==
--- OUTSIDE RECORDS SUMMARY | 2025-03-26 05:00 | XMS_ITS ---
Author Organization [facility] Address [address] [place] [address] Phone [phone] Care Team Providers Care Lodging Facilities Attendant Name Role Phone Shira Alvarado Unavailable [phone] Migration, Provider Unavailable Unavailable REASON FOR VISIT [facility]MR-[facility] Encounters Encounter Location Date Provider Diagnosis [address] [address] 03/26/2025 Provider Migration Plan Of Treatment No Information Progress Notes * ARMANDO LOPEZDOB:1960 ( 64 yo F)Acc No.[id number]:03/26/2025 Patient: ARMANDO DENG :1960 A ge:64 Y S ex:Female Address:[address] [place] [address] [place], [address] Subjective: * Chief Complaints: * E MR-[facility] * * Date:
--- OUTSIDE RECORDS SUMMARY | 2025-03-27 05:00 | XMS_ITS ---
Author Organization [facility] Address [address] [place] [address] Phone [phone] Care Team Providers Care Fur Dry Cleaner Hand Name Role Phone Shira Alvarado Unavailable [phone] Migration, Provider Unavailable Unavailable REASON FOR VISIT EMR-[facility] Medications Medication SIG (Take, Route, Frequency, Duration) Notes Start Date End Date Status Jackeline Allergy 180 MG Tablet Oral 07/11/2023 Active FLUTICASONE PROPIONATE 50 MCG/ACTUATION NASAL SPRAY,SUSPENSION *Reorder from [employer] for eRx and Interaction Alerts* 07/11/2023 Active [...] PURELAX 17 gram Packet Oral *Reorder from [employer] for eRx and Interaction Alerts* 07/11/2023 Active Sublocade 100 mg/0.5 mL Solution Prefilled Syringe Subcutaneous 07/11/2023 Active DULoxetine HCl 30 MG Capsule Delayed Release Particles Oral 07/11/2023 Active Metoprolol Succinate ER 50 MG Tablet Extended Release 24 Hour Oral 07/11/2023 Active Prazosin HCl 5 MG Capsule Oral 07/11/2023 Active Jackeline Allergy *Pick strength-form from [employer] for eRX* 07/11/2023 Active Xiidra 5 % Solution Ophthalmic 07/11/2023 Active Acid Retail Merchandising Specialist Complete 10-800-165 mg Tablet Chewable Oral 07/11/2023 [...] 01/01/2023 Encounters Encounter Location Date Provider Diagnosis [address] [address] 03/27/2025 Provider Migration Plan Of Treatment No Information Progress Notes * ARMANDO LOPEZDOB:1960 ( 64 yo F)Acc No.[id number]:03/27/2025 Patient: Gem ERICAARMANDO :1960 A ge:64 Y S ex:Female Address:[address] [place] [address] [place], [address] Subjective: * Chief Complaints: * E MR-Brandt * Medical History: Problems: Acute sinusitis Anxiety Aphthous ulcer of mouth Chronic back pain Cobalamin deficiency Diverticulitis Fatigue Gastroesophageal reflux disease Health maintenance alteration Hyperlipidemia Hypertensive disorder Hyponatremia Insomnia Long-term drug therapy Nausea Posttraumatic stress disorder Pruritic rash Seasonal allergy Spasm of back muscles * Baffle Installer History: M igrated GYNHistory M igrated GYNHistory:: Age at First Child: 21 Modified Date:01/01/2023,Current Control Method: Menopause Modified Date:01/01/2023,Date of Last Pap Smear: 10/23/2022 Modified Date:01/01/2023,HPV Vaccine: Y Modified Date:01/01/2023,Most Recent Mammogram: 10/23/2022 Modified Date:01/01/2023,STIs/STDs: N Modified Date:01/01/2023,Sexual Problems: N Modified Date:01/01/2023,Sexually Active: N Modified Date:01/01/2023 . * Surgical History: section ([id number]) * Family History: M other: Hypertensive disorder [...] SPRAY,SUSPENSION , Notes to Pharmacist: *Reorder from [employer] for eRx and Interaction Alerts*busPIRone HCl 10 [...] Vitamin B-1 100 MG Tablet Oral Acid Retail Merchandising Specialist Complete 10-800-165 mg Tablet Chewable Oral Xiidra [...] Oral , Notes to Pharmacist: *Reorder from [employer] for eRx and Interaction Alerts*busPIRone HCl 30 MG Tablet Oral Fexofenadine HCl 180 MG Tablet Oral hydrOXYzine Pamoate 50 MG Capsule Oral Omeprazole 40 MG Capsule Delayed Release Oral Folic Acid 1 MG Tablet Oral QUEtiapine Fumarate 300 MG Tablet Oral Jackeline Allergy , Notes to Pharmacist: *Pick strength-form from [facility] for eRX*Taking Ventolin HFA 108 (90 Base) MCG/ACT Aerosol Solution Inhalation Taking Flonase Allergy Relief 50 MCG/ACT Suspension Nasal Taking FLUTICASONE PROPIONATE 50 MCG/ACTUATION NASAL SPRAY,SUSPENSION , Notes to Pharmacist: *Reorder from [facility] for eRx and Interaction Alerts*Taking busPIRone HCl [...] B-1 100 MG Tablet Oral Taking Acid Retail Merchandising Specialist Complete 10-800-165 mg Tablet Chewable Oral Taking [...] Oral , Notes to Pharmacist: *Reorder from [facility] for eRx and Interaction Alerts*Taking busPIRone HCl 30 MG Tablet Oral Taking Fexofenadine HCl 180 MG Tablet Oral Taking hydrOXYzine Pamoate 50 MG Capsule Oral Taking Omeprazole 40 MG Capsule Delayed Release Oral Taking Folic Acid 1 MG Tablet Oral Taking QUEtiapine Fumarate 300 MG Tablet Oral Taking Jackeline Allergy , Notes to Pharmacist: *Pick strength-form from [facility] for eRX* * * Date:
--- OUTSIDE RECORDS SUMMARY | 2025-05-18 09:28 | XMS_ITS | Patient Health Record ---
Author Organization [employer] [facility] Address [address] [place] [id number] Phone [phone] Care Team Providers Care Infertility Nurse Name Role Phone Shira Alvarado Unavailable [phone] Migration, Provider Unavailable Unavailable Reason For Referral No Information Medications Medication SIG (Take, Route, Frequency, Duration) Notes Start Date End Date Status Promethazine HCl 25 MG Tablet Oral 07/11/2023 Active Jackeline Allergy 180 MG Tablet Oral 07/11/2023 Active FLUTICASONE PROPIONATE 50 MCG/ACTUATION NASAL SPRAY,SUSPENSION *Reorder from [employer] for eRx and Interaction Alerts* 07/11/2023 Active Ibuprofen 800 MG Tablet Oral 07/11/2023 Active busPIRone HCl 10 MG Tablet Oral 07/11/2023 Active DULoxetine HCl 30 MG Capsule Delayed Release Particles Oral 07/11/2023 Active Flonase Allergy Relief 50 MCG/ACT Suspension Nasal 07/11/2023 Active Ventolin HFA 108 (90 Base) MCG/ACT Aerosol Solution Inhalation 07/11/2023 Active PURELAX 17 gram Packet Oral *Reorder from [employer] for eRx and Interaction Alerts* 07/11/2023 Active [...] 750 MG Tablet Oral 07/11/2023 Active Acid Programming Development Project Manager Complete 10-800-165 mg Tablet Chewable Oral 07/11/2023 Active DULoxetine HCl 60 MG Capsule Delayed Release Particles Oral 07/11/2023 Active Vitamin B-1 100 MG Tablet Oral 07/11/2023 Active Folic Acid 1 MG Tablet Oral 07/11/2023 Active QUEtiapine Fumarate 300 MG Tablet Oral 07/11/2023 Active Jackeline Allergy *Pick strength-form from [employer] for eRX* 07/11/2023 Active Nitrofurantoin Monohyd Macro [...] Status Risk Notes Problem Vitamin B deficiency (07528131) Deficiency of other specified B group vitamins (E53.8) 04/29/20 Active confirmed Problem Hyperlipidemia (46686185) Hyperlipidemia, unspecified (E78.5) 01/15/20 Active confirmed Problem Hypo-osmolality and or hyponatremia (789055540) Hypo-osmolality and hyponatremia (E87.1) 01/15/20 Active confirmed Problem Anxiety disorder (930251874) Anxiety disorder, unspecified (F41.9) 03/25/20 Active confirmed Problem Post-traumatic stress disorder (77772798) Post-traumatic stress disorder, unspecified (F43.10) 02/19/20 Active confirmed Problem Insomnia (448147808) Insomnia, unspecified (G47.00) 01/28/20 Active confirmed Problem Essential hypertension (11593794) Essential (primary) hypertension (I10) 03/25/20 Active confirmed Problem Acute sinusitis (84452609) Acute sinusitis, unspecified (J01.90) 01/18/20 Active confirmed Problem Seasonal allergic rhinitis (042326002) Other seasonal allergic rhinitis (J30.2) 03/25/20 Active confirmed Problem 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) 01/02/20 Active confirmed Problem Gastro-esophageal reflux disease without esophagitis (728286997) Gastro-esophageal reflux disease without esophagitis (K21.9) 07/11/20 Active confirmed Problem Diverticulitis of colon (063352063) Diverticulitis of intestine, part unspecified, without perforation or abscess without bleeding (K57.92) 02/19/20 Active confirmed Problem Prurigo (28026672) Other prurigo (L28.2) 03/25/20 Active confirmed Problem Backache (451757820) Dorsalgia, unspecified (M54.9) 07/11/20 Active confirmed Problem Spasm of back muscles (889403169) Muscle spasm of back (M62.830) 03/25/20 Active confirmed Problem Nausea (502120109) Nausea (R11.0) 01/28/20 Active confirmed Problem Fatigue (83304571) Other fatigue (R53.83) 04/29/20 Active confirmed Problem Infection screening (000743218) Encounter for screening for other infectious and parasitic diseases (Z11.8) 01/15/20 Active confirmed Problem Repeated prescription (713266991) Encounter for issue of repeat prescription (Z76.0) 07/11/20 Active confirmed Problem Health status (361362869) Other specified health status (Z78.9) 01/15/20 Active confirmed Problem Long-term current use of drug therapy (449032231) Other group home (current) drug therapy (Z79.899) 07/11/20 Active confirmed Encounters Encounter Location Date Provider Diagnosis [address] [address] 03/26/2025 Provider Migration [address] [address] 03/27/2025 Provider Migration Plan Of Treatment No Information Insurance Providers Payer Name Payer Address Payer Phone Subscriber Number Group Number Insured Name Patient Relationship to Insured Coverage Start Date Coverage End Date Passport By [employer] (Medicaid Replacement - [place]) [address] [address] [place], [place] [phone] [id number] ARMANDO LOPEZ Self - patient is the insured Medical (General) History Surgical History Surgery Date(Month/Year) section ([id number])
== END 2025-05-17 23:59 | disposition home or self-care (01) ==
LOC: LAB.DROPOF 05-18 09:19
PROVIDERS: PCP Family Medicine; Visit Provider Family Medicine
DX: R39.9 Unspecified symptoms and signs involving the genitourinary system (principal)
CPT/HCPCS: 87086

== ENCOUNTER 2025-07-11 15:14 | Outpatient (CLI) | payer MEDICARE, SELFPAY ==
--- NOTE | 2025-07-11 15:37 | ECG_ITS ---
APPROVED REPORT Exam: Resting ECG HR:61 bpm ECG Measurements Heart Rate 61 AXES HI 174 P 72 QRSd 91 QRS 78 QT 414 T 64 QTc 417 Conclusion SINUS RHYTHM NORMAL ECG UNCONFIRMED REPORT Electronically signed by : Henry Duarte MD 07/12/2025 15:06:40
[2025-07-11 16:02] LABS: Hematocrit 34.9 % (37.0-47.0); Hemoglobin 11.5 g/dL (12.2-16.2); Immature Granulocytes % 0.2 %; Mean Corpuscular HGB Conc 33.0 g/dL (31.8-35.4); Mean Corpuscular Hemoglobin 29.7 pg (27.0-31.2); Mean Corpuscular Volume 90.2 fl (81-99); Nucleated Red Blood Cells % 0 %; Platelet Count 245 K/mm3 (142-424); Red Blood Count 3.87 M/mm3 (4.20-5.40); Red Cell Distribution Width-SD 40.0 fL; White Blood Count 5.0 K/mm3 (4.8-10.8)
[2025-07-11 20:16] LABS: Anion Gap 12.8 mEq/L (5-15); Blood Urea Nitrogen 23 mg/dl (7-17); Calcium 9.2 mg/dl (8.4-10.2); Carbon Dioxide 21 mmol/L (22.0-30.0); Chloride 105 mmol/L (98-107); Creatinine,Serum 1.10 mg/dl (0.52-1.04); Estimated Glomerular Filt Rate 50 ml/min (>60); GFR (African American) 61 ML/MIN (>60); Glucose 85 mg/dl (74-100); Potassium 3.8 mmoL/L (3.5-5.1); Sodium 135 mmol/L (136-145)
== END 2025-07-11 23:59 | disposition home or self-care (01) ==
LOC: RT 15:15
PROVIDERS: PCP Family Medicine; Visit Provider Student in an Organized Health Care Education/Training Program
DX: Z01.810 Encounter for preprocedural cardiovascular examination (principal); I10 Essential (primary) hypertension
CPT/HCPCS: 36415; 80048; 85025; 93005

== ENCOUNTER 2025-07-27 10:39 | Outpatient (CLI) | payer MEDICARE, SELFPAY | END 2025-07-27 23:59 | disposition home or self-care (01) | LOC: LAB.DROPOF 07-29 10:40 | PROVIDERS: PCP Family Medicine; Visit Provider Family Medicine | DX: N39.0 Urinary tract infection, site not specified (principal) | CPT/HCPCS: 87086; 87088; 87186 ==